=== PATIENT | male | born 1940 | race Caucasian/White ===

== ENCOUNTER 2018-07-25 06:45 | Inpatient (IN) ==
[2018-07-25 07:35] LABS: Hematocrit 47.5 % (39.0-51.0); Hemoglobin 16.8 gm/dL (13.0-17.0); Mean Corpuscular HGB Conc 35.3 % (32.0-36.0); Mean Corpuscular Hemoglobin 32.3 pg (27.0-34.0); Mean Corpuscular Volume 91.4 fL (80.0-100.0); Mean Platelet Volume 7.6 fL (7.0-11.0); Platelet Count 381 th/mm3 (150-450); Red Cell Distribution Width 12.9 % (11.6-17.2); White Blood Count 37.3 th/mm3 (4.0-11.0)
[2018-07-25] MEDS ORDERED: Sod Chloride 0.9% Inj 1,000 ML IV.SIG ONE ×2 (07:38→09:15)
[2018-07-25 07:45] LABS: Chloride 105 meq/L (98-107); Sodium 136 meq/L (136-145)
[2018-07-25 07:48] LABS: Calcium 8.8 mg/dL (8.5-10.1)
[2018-07-25 07:49] LABS: Albumin 3.1 g/dL (3.4-5.0); Anion Gap 11 meq/L (5-15); Blood Urea Nitrogen 29 mg/dL (7-18); Carbon Dioxide 20.2 meq/L (21.0-32.0); Glucose,Random 139 mg/dL (74-106)
[2018-07-25 07:51] LABS: Alanine Aminotransferase 349 U/L (12-78)
[2018-07-25 07:52] LABS: Aspartate Aminotransferase 503 U/L (15-37); Glomerular Filtration Rate 72 mL/min (>89)
[2018-07-25 07:53] LABS: Potassium 4.1 meq/L (3.5-5.1); Total Protein 7.1 g/dL (6.4-8.2)
[2018-07-25 07:54] LABS: Alkaline Phosphatase 68 U/L (45-117)
--- NOTE | 2018-07-25 07:54 | ED ---
HPI General Chief complaint: Abdominal Pain Stated complaint: abd pain/vomiting Time Seen by Provider: 07/25/18 07:37 History of Present Illness HPI narrative: 77 male history of gallstones here for evaluation of abdominal pain in the right upper quadrant since yesterday at 12:00 in the morning. Patient had pins and 2 beers last night since then he has been having abdominal pain he usually does not drink, he has history of hypertension, he had one episode of vomiting since yesterday the nonbilious number. He rates the pain in 15 out of 10, located on the right upper quadrant, no fever or chills. Related Data Home Medications Medication Instructions Recorded Confirmed aspirin 81 mg PO DAILY 07/25/18 07/25/18 bimatoprost [Lumigan] 1 drp OPHTHALMIC (EYE) QPM 07/25/18 07/25/18 cholecalciferol (vitamin D3) 2,000 unit PO DAILY 07/25/18 07/25/18 [Vitamin D3] dorzolamide-timolol [Cosopt] 1 drp OPHTHALMIC (EYE) BID 07/25/18 07/25/18 evolocumab [Repatha Syringe] 140 mg SUB-Q Q2W 07/25/18 07/25/18 ezetimibe [Zetia] 40 mg PO DAILY 07/25/18 07/25/18 lisinopril 5 mg PO DAILY 07/25/18 07/25/18 methylprednisolone [Medrol (Harris)] See Taper PO PER PKG DIR 07/25/18 metoprolol succinate [Toprol XL] 50 mg PO DAILY 07/25/18 07/25/18 omeprazole 20 mg PO DAILY 07/25/18 07/25/18 Allergies Allergy/AdvReac Type Severity Reaction Status Date / Time SHINGLES VACCINE Allergy Rash Uncoded 07/25/18 07:53 Review of Systems ROS: all other systems reviewed are negative [facility] Medical History Medical History Chronic gastroesophageal reflux disease (Acute) History of cataract (Acute) Nephrolithiasis (Acute) Pars defect of lumbar spine (Acute) CAD (coronary artery disease) (Acute) Cholelithiasis (Acute) Glaucoma (Acute) High cholesterol (Acute) Hypertension (Acute) Surgical History Surgical History History of bladder surgery (Acute) History of total left knee replacement (TKR) (Acute) H/O knee surgery (Acute) History of appendectomy (Acute) Hx of CABG (Acute) Family History Family History Sister Crohn disease Social History Social History Substance History: No History of Abuse Second Hand Smoke Exposure: No Smoking Status: Never smoker How Often Do You Have a Drink Containing Alcohol: Never Recent Travel in [facility] within the Last 8 Weeks: Yes Immunization History Tetanus Immunization: Unsure Hx Influenza Vaccine This Season: Yes Exam Narrative Exam Narrative: GENERAL: Alert oriented 3 no acute distress. SKIN: Focused skin assessment warm/dry. HEAD: Atraumatic. Normocephalic. EYES: Pupils equal and round. No scleral icterus. No injection or drainage. ENT: No nasal bleeding or discharge. Mucous membranes pink and moist. NECK: Trachea midline. No JVD. CARDIOVASCULAR: Regular rate and rhythm. No murmur appreciated. RESPIRATORY: No accessory muscle use. Clear to auscultation. Breath sounds equal bilaterally. GASTROINTESTINAL: Distended, tenderness without rebound over the right and left upper quadrant, no skin lesions, bowel sounds present, abdomen soft, n MUSCULOSKELETAL: No obvious deformities. No clubbing. No cyanosis. No edema. NEUROLOGICAL: Awake and alert. No obvious cranial nerve deficits. Motor grossly within normal limits. Normal speech. PSYCHIATRIC: Appropriate mood and affect; insight and judgment normal. Course Initial Documented Vital Signs Pulse Rate 47 L 07/25/18 06:50 Respiratory Rate 18 07/25/18 06:50 Blood Pressure 177/81 H 07/25/18 06:50 Pulse Oximetry 96 07/25/18 06:50 Last Documented Vital Signs Temperature 96.6 F L 07/29/18 06:00 Pulse Rate 73 07/29/18 06:00 Respiratory Rate 18 07/29/18 07:37 Blood Pressure 96/50 L 07/29/18 06:00 Pulse Oximetry 84 L 07/29/18 06:00 Medical Decision Making [facility] Narrative Medical decision making narrative: 77 male history of gallstones here for evaluation of right upper quadrant pain. Lipase markedly elevated greater than 30,000, elevated direct and total bilirubin, elevated liver enzymes, concerning for common bile duct obstruction, differential include CBD stone vs ascending cholangitis. Patient received multiple morphine doses for pain control and continue to have pain. Markedly elevated blood pressure which could be due to the pain. Patient received 2 bolus of IV fluids and zosyn empirically. I spoke with dr. Martinez who was able to speak to GI and the plan is [place] [facility] [place] Medical Screen Exam Complete: Yes Emergency Medical Condition: Yes Lab Data Result diagrams: 07/29/18 03:45 07/29/18 03:45 Lab Results 07/25/18 07/25/18 07/25/18 Range/Units 07:30 07:30 07:30 CBC w Diff Slide review pending WBC 37.3 H (4.0-11.0) th/mm3 RBC 5.20 (4.50-5.90) mil/mm3 Hgb 16.8 (13.0-17.0) gm/dL Hct 47.5 (39.0-51.0) % MCV 91.4 (80.0-100.0) fL MCH 32.3 (27.0-34.0) pg MCHC 35.3 (32.0-36.0) % RDW 12.9 (11.6-17.2) % Plt Count 381 (150-450) th/mm3 MPV 7.6 (7.0-11.0) fL Prelim Diff (Auto) Neut % (Auto) (16.0-70.0) % Lymph % (Auto) (9.0-44.0) % Miner % (Auto) (0.0-8.0) % Eos % (Auto) (0.0-4.0) % Baso % (Auto) (0.0-2.0) % Neut # (Auto) (1.8-7.7) th/mm3 Lymph # (Auto) (1.0-4.8) th/mm3 Miner # (Auto) (0.0-0.9) th/mm3 Eos # (Auto) (0.0-0.4) th/mm3 Baso # (Auto) (0.0-0.2) th/mm3 WBC Differential Manual diff final Seg Neuts % (Manual) 78 H (16-70) % Band Neuts % (Manual) 6 (0-6) % Lymphocytes % (Manual) 5 L (9-44) % Monocytes % (Manual) 5 (0-8) % Metamyelocytes % (Man) 4 H (0-1) % Myelocytes % (Man) 2 H (0-0) % Promyelocytes % (Man) (0-0) % Blast Cells % (Manual) (0-0) % Abs Neuts (Manual) 33.6 H (1.8-7.7) th/mm3 Nucleated RBCs/100 WBC (0-0) /100 WBC Differential Comment . Toxic Vacuolation (None) Dohle Bodies (None) Platelet Estimate Normal (Normal) Platelet Morphology Normal (Normal) Pappenheimer Bodies (None) PT (9.8-11.6) sec INR Ratio APTT (24.3-30.1) sec Fibrinogen (227-377) mg/dL Puncture Site Patient Temperature O2 Saturation (90-100) % ABG pH (7.380-7.420) ABG pCO2 (38-42) mmHg ABG pO2 (61-120) mmHG ABG HCO3 (22-26) mmol/L ABG O2 Content (12.0-20.0) Vol % ABG Base Excess (-2-2) mmol/L ABG Methemoglobin (0-2) % Gaudencio Test VBG pH (7.360-7.400) VBG pCO2 (44-48) mmHG VBG pO2 (35-40) mmHG VBG HCO3 (22-26) mmol/L VBG O2 Saturation (70-76) % VBG O2 Content (9.0-17.0) Vol % VBG Base Excess (-2-2) mmol/L VBG Carboxyhemoglobin (0-4) % VBG Methemoglobin (0-2) % Hemoglobin (12.0-16.0) G/DL Carboxyhemoglobin (0-4) % O2 Delivery Device Vent Setting Inspired O2 % Critical Value Sodium 136 (136-145) meq/L Potassium 4.1 (3.5-5.1) meq/L Chloride 105 (98-107) meq/L Carbon Dioxide 20.2 L (21.0-32.0) meq/L Anion Gap 11 (5-15) meq/L BUN 29 H (7-18) mg/dL Creatinine 1.00 (0.60-1.30) mg/dL Estimated GFR 72 L (>89) mL/min POC Glucose (68-110) mg/dl Random Glucose 139 H (74-106) mg/dL Lactic Acid (0.4-2.0) mmol/L Calcium 8.8 (8.5-10.1) mg/dL Prot Corrected Calcium (8.5-10.1) mg/dL Phosphorus (2.5-4.9) mg/dL Magnesium (1.5-2.5) mg/dL Total Bilirubin 2.3 H (0.2-1.0) mg/dL Direct Bilirubin 1.0 H (0.0-0.2) mg/dL AST 503 H (15-37) U/L ALT 349 H (12-78) U/L Alkaline Phosphatase 68 (45-117) U/L Ammonia (11-32) mcmol/L Total Creatine Kinase (39-308) U/L CK-MB (CK-2) (0.5-3.6) ng/mL CK-MB (CK-2) % (0.0-4.0) % Troponin I (0.02-0.05) ng/mL Total Protein 7.1 (6.4-8.2) g/dL Albumin 3.1 L (3.4-5.0) g/dL Triglycerides (42-150) mg/dL Lipase Greater [place] [address] H (73-393) U/L TSH (0.358-3.740) uIU/mL Urine Color (Yellw/Straw) Urine Clarity (Clear) Urine pH (5.0-8.5) Ur Specific [place] (1.002-1.035) Urine Protein (Neg-Trace) mg/dL Urine Glucose (UA) (Negative) mg/dL Urine Ketones (Negative) mg/dL Urine Occult Blood (Negative) Urine Nitrate (Negative) Urine Bilirubin (Negative) Urine Urobilinogen (Less than 2) mg/dL Ur Leukocyte Esterase (Negative) Urine RBC (0-3) /hpf Urine WBC (0-5) /hpf Amorphous Sediment (None) /hpf Urine Bacteria (None) /hpf Urine Sperm (None) /hpf Micro UA Comment Ur Microscopic Review Urine Culture Comments Urine Eosinophils (None Seen) /HPF Urine Osmolality (300-1300) mosm/kg Ur Random Creatinine (27-300) mg/dL Ur Random Sodium meq/L Nasal Screen MRSA (PCR) (Negative) Blood Type Antibody Screen MTS Gel Crossmatch Blood Bank Comment Bld Prod Order Comment 07/25/18 07/26/18 07/26/18 Range/Units 13:00 07:28 07:28 CBC w Diff WBC 23.0 H (4.0-11.0) th/mm3 RBC 5.31 (4.50-5.90) mil/mm3 Hgb 16.7 (13.0-17.0) gm/dL Hct 49.3 (39.0-51.0) % MCV 93.0 (80.0-100.0) fL MCH 31.4 (27.0-34.0) pg MCHC 33.8 (32.0-36.0) % RDW 13.7 (11.6-17.2) % Plt Count 209 D (150-450) th/mm3 MPV 7.6 (7.0-11.0) fL Prelim Diff (Auto) Neut % (Auto) 90.1 H (16.0-70.0) % Lymph % (Auto) 3.8 L (9.0-44.0) % Miner % (Auto) 6.0 (0.0-8.0) % Eos % (Auto) 0.0 (0.0-4.0) % Baso % (Auto) 0.1 (0.0-2.0) % Neut # (Auto) 20.7 H (1.8-7.7) th/mm3 Lymph # (Auto) 0.9 L (1.0-4.8) th/mm3 Miner # (Auto) 1.4 H (0.0-0.9) th/mm3 Eos # (Auto) 0.0 (0.0-0.4) th/mm3 Baso # (Auto) 0.0 (0.0-0.2) th/mm3 WBC Differential . Seg Neuts % (Manual) (16-70) % Band Neuts % (Manual) (0-6) % Lymphocytes % (Manual) (9-44) % Monocytes % (Manual) (0-8) % Metamyelocytes % (Man) (0-1) % Myelocytes % (Man) (0-0) % Promyelocytes % (Man) (0-0) % Blast Cells % (Manual) (0-0) % Abs Neuts (Manual) (1.8-7.7) th/mm3 Nucleated RBCs/100 WBC (0-0) /100 WBC Differential Comment Auto diff final Toxic Vacuolation (None) Dohle Bodies (None) Platelet Estimate (Normal) Platelet Morphology (Normal) Pappenheimer Bodies (None) PT (9.8-11.6) sec INR Ratio APTT (24.3-30.1) sec Fibrinogen (227-377) mg/dL Puncture Site Patient Temperature O2 Saturation (90-100) % ABG pH (7.380-7.420) ABG pCO2 (38-42) mmHg ABG pO2 (61-120) mmHG ABG HCO3 (22-26) mmol/L ABG O2 Content (12.0-20.0) Vol % ABG Base Excess (-2-2) mmol/L ABG Methemoglobin (0-2) % Gaudencio Test VBG pH (7.360-7.400) VBG pCO2 (44-48) mmHG VBG pO2 (35-40) mmHG VBG HCO3 (22-26) mmol/L VBG O2 Saturation (70-76) % VBG O2 Content (9.0-17.0) Vol % VBG Base Excess (-2-2) mmol/L VBG Carboxyhemoglobin (0-4) % VBG Methemoglobin (0-2) % Hemoglobin (12.0-16.0) G/DL Carboxyhemoglobin (0-4) % O2 Delivery Device Vent Setting Inspired O2 % Critical Value Sodium 142 (136-145) meq/L Potassium 5.0 D (3.5-5.1) meq/L Chloride 110 H (98-107) meq/L Carbon Dioxide 20.6 L (21.0-32.0) meq/L Anion Gap 11 (5-15) meq/L BUN 40 H (7-18) mg/dL Creatinine 2.10 H (0.60-1.30) mg/dL Estimated GFR 31 L (>89) mL/min POC Glucose (68-110) mg/dl Random Glucose 106 (74-106) mg/dL Lactic Acid (0.4-2.0) mmol/L Calcium 6.8 L* D (8.5-10.1) mg/dL Prot Corrected Calcium 7.4 L* (8.5-10.1) mg/dL Phosphorus (2.5-4.9) mg/dL Magnesium (1.5-2.5) mg/dL Total Bilirubin 12.2 H (0.2-1.0) mg/dL Direct Bilirubin (0.0-0.2) mg/dL AST 246 H (15-37) U/L ALT 301 H (12-78) U/L Alkaline Phosphatase 73 (45-117) U/L Ammonia (11-32) mcmol/L Total Creatine Kinase (39-308) U/L CK-MB (CK-2) (0.5-3.6) ng/mL CK-MB (CK-2) % (0.0-4.0) % Troponin I (0.02-0.05) ng/mL Total Protein 6.0 L D (6.4-8.2) g/dL Albumin 2.6 L (3.4-5.0) g/dL Triglycerides 82 (42-150) mg/dL Lipase (73-393) U/L TSH (0.358-3.740) uIU/mL Urine Color (Yellw/Straw) Urine Clarity (Clear) Urine pH (5.0-8.5) Ur Specific [place] (1.002-1.035) Urine Protein (Neg-Trace) mg/dL Urine Glucose (UA) (Negative) mg/dL Urine Ketones (Negative) mg/dL Urine Occult Blood (Negative) Urine Nitrate (Negative) Urine Bilirubin (Negative) Urine Urobilinogen (Less than 2) mg/dL Ur Leukocyte Esterase (Negative) Urine RBC (0-3) /hpf Urine WBC (0-5) /hpf Amorphous Sediment (None) /hpf Urine Bacteria (None) /hpf Urine Sperm (None) /hpf Micro UA Comment Ur Microscopic Review Urine Culture Comments Urine Eosinophils (None Seen) /HPF Urine Osmolality (300-1300) mosm/kg Ur Random Creatinine (27-300) mg/dL Ur Random Sodium meq/L Nasal Screen MRSA (PCR) (Negative) Blood Type Antibody Screen MTS Gel Crossmatch Blood Bank Comment Bld Prod Order Comment 07/26/18 07/26/18 07/26/18 Range/Units 13:45 13:45 13:45 CBC w Diff WBC 28.7 H (4.0-11.0) th/mm3 RBC 4.54 (4.50-5.90) mil/mm3 Hgb 14.3 D (13.0-17.0) gm/dL Hct 45.0 (39.0-51.0) % MCV 99.0 D (80.0-100.0) fL MCH 31.4 (27.0-34.0) pg MCHC 31.7 L (32.0-36.0) % RDW 15.1 (11.6-17.2) % Plt Count 210 (150-450) th/mm3 MPV 7.9 (7.0-11.0) fL Prelim Diff (Auto) Slide review pending Neut % (Auto) 89.3 H (16.0-70.0) % Lymph % (Auto) 5.6 L (9.0-44.0) % Miner % (Auto) 4.6 (0.0-8.0) % Eos % (Auto) 0.2 (0.0-4.0) % Baso % (Auto) 0.3 (0.0-2.0) % Neut # (Auto) 25.6 H (1.8-7.7) th/mm3 Lymph # (Auto) 1.6 (1.0-4.8) th/mm3 Miner # (Auto) 1.3 H (0.0-0.9) th/mm3 Eos # (Auto) 0.1 (0.0-0.4) th/mm3 Baso # (Auto) 0.1 (0.0-0.2) th/mm3 WBC Differential Manual diff final Seg Neuts % (Manual) 75 H (16-70) % Band Neuts % (Manual) 16 H (0-6) % Lymphocytes % (Manual) 5 L (9-44) % Monocytes % (Manual) 1 (0-8) % Metamyelocytes % (Man) 3 H (0-1) % Myelocytes % (Man) (0-0) % Promyelocytes % (Man) (0-0) % Blast Cells % (Manual) (0-0) % Abs Neuts (Manual) 27.0 H (1.8-7.7) th/mm3 Nucleated RBCs/100 WBC (0-0) /100 WBC Differential Comment . Toxic Vacuolation (None) Dohle Bodies (None) Platelet Estimate (Normal) Platelet Morphology (Normal) Pappenheimer Bodies (None) PT (9.8-11.6) sec INR Ratio APTT (24.3-30.1) sec Fibrinogen (227-377) mg/dL Puncture Site Patient Temperature O2 Saturation (90-100) % ABG pH (7.380-7.420) ABG pCO2 (38-42) mmHg ABG pO2 (61-120) mmHG ABG HCO3 (22-26) mmol/L ABG O2 Content (12.0-20.0) Vol % ABG Base Excess (-2-2) mmol/L ABG Methemoglobin (0-2) % Gaudencio Test VBG pH (7.360-7.400) VBG pCO2 (44-48) mmHG VBG pO2 (35-40) mmHG VBG HCO3 (22-26) mmol/L VBG O2 Saturation (70-76) % VBG O2 Content (9.0-17.0) Vol % VBG Base Excess (-2-2) mmol/L VBG Carboxyhemoglobin (0-4) % VBG Methemoglobin (0-2) % Hemoglobin (12.0-16.0) G/DL Carboxyhemoglobin (0-4) % O2 Delivery Device Vent Setting Inspired O2 % Critical Value Sodium 145 (136-145) meq/L Potassium 5.2 H (3.5-5.1) meq/L Chloride 109 H (98-107) meq/L Carbon Dioxide 12.0 L (21.0-32.0) meq/L Anion Gap 24 H (5-15) meq/L BUN 42 H (7-18) mg/dL Creatinine 3.23 H (0.60-1.30) mg/dL Estimated GFR 19 L (>89) mL/min POC Glucose (68-110) mg/dl Random Glucose 56 L (74-106) mg/dL Lactic Acid 15.1 H* (0.4-2.0) mmol/L Calcium 6.3 L* (8.5-10.1) mg/dL Prot Corrected Calcium 7.4 L* (8.5-10.1) mg/dL Phosphorus 9.9 H (2.5-4.9) mg/dL Magnesium 2.4 (1.5-2.5) mg/dL Total Bilirubin 7.8 H (0.2-1.0) mg/dL Direct Bilirubin (0.0-0.2) mg/dL AST 1426 H (15-37) U/L ALT 1143 H (12-78) U/L Alkaline Phosphatase 83 (45-117) U/L Ammonia (11-32) mcmol/L Total Creatine Kinase 612 H (39-308) U/L CK-MB (CK-2) 14.3 H (0.5-3.6) ng/mL CK-MB (CK-2) % 2.3 (0.0-4.0) % Troponin I 0.49 H (0.02-0.05) ng/mL Total Protein 4.8 L D (6.4-8.2) g/dL Albumin 1.9 L D (3.4-5.0) g/dL Triglycerides (42-150) mg/dL Lipase (73-393) U/L TSH (0.358-3.740) uIU/mL Urine Color (Yellw/Straw) Urine Clarity (Clear) Urine pH (5.0-8.5) Ur Specific [place] (1.002-1.035) Urine Protein (Neg-Trace) mg/dL Urine Glucose (UA) (Negative) mg/dL Urine Ketones (Negative) mg/dL Urine Occult Blood (Negative) Urine Nitrate (Negative) Urine Bilirubin (Negative) Urine Urobilinogen (Less than 2) mg/dL Ur Leukocyte Esterase (Negative) Urine RBC (0-3) /hpf Urine WBC (0-5) /hpf Amorphous Sediment (None) /hpf Urine Bacteria (None) /hpf Urine Sperm (None) /hpf Micro UA Comment Ur Microscopic Review Urine Culture Comments Urine Eosinophils (None Seen) /HPF Urine Osmolality (300-1300) mosm/kg Ur Random Creatinine (27-300) mg/dL Ur Random Sodium meq/L Nasal Screen MRSA (PCR) (Negative) Blood Type Antibody Screen MTS Gel Crossmatch Blood Bank Comment Bld Prod Order Comment 07/26/18 07/26/18 07/26/18 Range/Units 13:45 13:45 13:45 CBC w Diff WBC (4.0-11.0) th/mm3 RBC (4.50-5.90) mil/mm3 Hgb (13.0-17.0) gm/dL Hct (39.0-51.0) % MCV (80.0-100.0) fL MCH (27.0-34.0) pg MCHC (32.0-36.0) % RDW (11.6-17.2) % Plt Count (150-450) th/mm3 MPV (7.0-11.0) fL Prelim Diff (Auto) Neut % (Auto) (16.0-70.0) % Lymph % (Auto) (9.0-44.0) % Miner % (Auto) (0.0-8.0) % Eos % (Auto) (0.0-4.0) % Baso % (Auto) (0.0-2.0) % Neut # (Auto) (1.8-7.7) th/mm3 Lymph # (Auto) (1.0-4.8) th/mm3 Miner # (Auto) (0.0-0.9) th/mm3 Eos # (Auto) (0.0-0.4) th/mm3 Baso # (Auto) (0.0-0.2) th/mm3 WBC Differential Seg Neuts % (Manual) (16-70) % Band Neuts % (Manual) (0-6) % Lymphocytes % (Manual) (9-44) % Monocytes % (Manual) (0-8) % Metamyelocytes % (Man) (0-1) % Myelocytes % (Man) (0-0) % Promyelocytes % (Man) (0-0) % Blast Cells % (Manual) (0-0) % Abs Neuts (Manual) (1.8-7.7) th/mm3 Nucleated RBCs/100 WBC (0-0) /100 WBC Differential Comment Toxic Vacuolation (None) Dohle Bodies (None) Platelet Estimate (Normal) Platelet Morphology (Normal) Pappenheimer Bodies (None) PT 16.1 H (9.8-11.6) sec INR 1.6 Ratio APTT 39.8 H (24.3-30.1) sec Fibrinogen 401 H (227-377) mg/dL Puncture Site Patient Temperature O2 Saturation (90-100) % ABG pH (7.380-7.420) ABG pCO2 (38-42) mmHg ABG pO2 (61-120) mmHG ABG HCO3 (22-26) mmol/L ABG O2 Content (12.0-20.0) Vol % ABG Base Excess (-2-2) mmol/L ABG Methemoglobin (0-2) % Gaudencio Test VBG pH (7.360-7.400) VBG pCO2 (44-48) mmHG VBG pO2 (35-40) mmHG VBG HCO3 (22-26) mmol/L VBG O2 Saturation (70-76) % VBG O2 Content (9.0-17.0) Vol % VBG Base Excess (-2-2) mmol/L VBG Carboxyhemoglobin (0-4) % VBG Methemoglobin (0-2) % Hemoglobin (12.0-16.0) G/DL Carboxyhemoglobin (0-4) % O2 Delivery Device Vent Setting Inspired O2 % Critical Value Sodium (136-145) meq/L Potassium (3.5-5.1) meq/L Chloride (98-107) meq/L Carbon Dioxide (21.0-32.0) meq/L Anion Gap (5-15) meq/L BUN (7-18) mg/dL Creatinine (0.60-1.30) mg/dL Estimated GFR (>89) mL/min POC Glucose (68-110) mg/dl Random Glucose (74-106) mg/dL Lactic Acid Cancelled (0.4-2.0) mmol/L Calcium (8.5-10.1) mg/dL Prot Corrected Calcium (8.5-10.1) mg/dL Phosphorus (2.5-4.9) mg/dL Magnesium (1.5-2.5) mg/dL Total Bilirubin (0.2-1.0) mg/dL Direct Bilirubin (0.0-0.2) mg/dL AST (15-37) U/L ALT (12-78) U/L Alkaline Phosphatase (45-117) U/L Ammonia (11-32) mcmol/L Total Creatine Kinase (39-308) U/L CK-MB (CK-2) (0.5-3.6) ng/mL CK-MB (CK-2) % (0.0-4.0) % Troponin I (0.02-0.05) ng/mL Total Protein (6.4-8.2) g/dL Albumin (3.4-5.0) g/dL Triglycerides (42-150) mg/dL Lipase (73-393) U/L TSH (0.358-3.740) uIU/mL Urine Color (Yellw/Straw) Urine Clarity (Clear) Urine pH (5.0-8.5) Ur Specific [place] (1.002-1.035) Urine Protein (Neg-Trace) mg/dL Urine Glucose (UA) (Negative) mg/dL Urine Ketones (Negative) mg/dL Urine Occult Blood (Negative) Urine Nitrate (Negative) Urine Bilirubin (Negative) Urine Urobilinogen (Less than 2) mg/dL Ur Leukocyte Esterase (Negative) Urine RBC (0-3) /hpf Urine WBC (0-5) /hpf Amorphous Sediment (None) /hpf Urine Bacteria (None) /hpf Urine Sperm (None) /hpf Micro UA Comment Ur Microscopic Review Urine Culture Comments Urine Eosinophils (None Seen) /HPF Urine Osmolality (300-1300) mosm/kg Ur Random Creatinine (27-300) mg/dL Ur Random Sodium meq/L Nasal Screen MRSA (PCR) (Negative) Blood Type Antibody Screen MTS Gel Crossmatch Blood Bank Comment Bld Prod Order Comment 07/26/18 07/26/18 07/26/18 Range/Units 13:50 15:15 15:15 CBC w Diff WBC (4.0-11.0) th/mm3 RBC (4.50-5.90) mil/mm3 Hgb (13.0-17.0) gm/dL Hct (39.0-51.0) % MCV (80.0-100.0) fL MCH (27.0-34.0) pg MCHC (32.0-36.0) % RDW (11.6-17.2) % Plt Count (150-450) th/mm3 MPV (7.0-11.0) fL Prelim Diff (Auto) Neut % (Auto) (16.0-70.0) % Lymph % (Auto) (9.0-44.0) % Miner % (Auto) (0.0-8.0) % Eos % (Auto) (0.0-4.0) % Baso % (Auto) (0.0-2.0) % Neut # (Auto) (1.8-7.7) th/mm3 Lymph # (Auto) (1.0-4.8) th/mm3 [place]er # (Auto) (0.0-0.9) th/mm3 Eos # (Auto) (0.0-0.4) th/mm3 Baso # (Auto) (0.0-0.2) th/mm3 WBC Differential Seg Neuts % (Manual) (16-70) % Band Neuts % (Manual) (0-6) % Lymphocytes % (Manual) (9-44) % Monocytes % (Manual) (0-8) % Metamyelocytes % (Man) (0-1) % Myelocytes % (Man) (0-0) % Promyelocytes % (Man) (0-0) % Blast Cells % (Manual) (0-0) % Abs Neuts (Manual) (1.8-7.7) th/mm3 Nucleated RBCs/100 WBC (0-0) /100 WBC Differential Comment Toxic Vacuolation (None) Dohle Bodies (None) Platelet Estimate (Normal) Platelet Morphology (Normal) Pappenheimer Bodies (None) PT (9.8-11.6) sec INR Ratio APTT (24.3-30.1) sec Fibrinogen (227-377) mg/dL Puncture Site Right radial Patient Temperature 98.6 O2 Saturation 96 (90-100) % ABG pH 7.00 L* (7.380-7.420) ABG pCO2 38 (38-42) mmHg ABG pO2 181 H (61-120) mmHG ABG HCO3 9 L* (22-26) mmol/L ABG O2 Content 20.9 H (12.0-20.0) Vol % ABG Base Excess -20.2 L (-2-2) mmol/L ABG Methemoglobin 1.5 (0-2) % Gaudencio Test Present VBG pH (7.360-7.400) VBG pCO2 (44-48) mmHG VBG pO2 (35-40) mmHG VBG HCO3 (22-26) mmol/L VBG O2 Saturation (70-76) % VBG O2 Content (9.0-17.0) Vol % VBG Base Excess (-2-2) mmol/L VBG Carboxyhemoglobin (0-4) % VBG Methemoglobin (0-2) % Hemoglobin 15.3 (12.0-16.0) G/DL Carboxyhemoglobin 0.0 (0-4) % O2 Delivery Device Ventilator Vent Setting Ac20/550/+10 Inspired O2 100 % Critical Value Yes Sodium (136-145) meq/L Potassium (3.5-5.1) meq/L Chloride (98-107) meq/L Carbon Dioxide (21.0-32.0) meq/L Anion Gap (5-15) meq/L BUN (7-18) mg/dL Creatinine (0.60-1.30) mg/dL Estimated GFR (>89) mL/min POC Glucose (68-110) mg/dl Random Glucose (74-106) mg/dL Lactic Acid (0.4-2.0) mmol/L Calcium (8.5-10.1) mg/dL Prot Corrected Calcium (8.5-10.1) mg/dL Phosphorus (2.5-4.9) mg/dL Magnesium (1.5-2.5) mg/dL Total Bilirubin (0.2-1.0) mg/dL Direct Bilirubin (0.0-0.2) mg/dL AST (15-37) U/L ALT (12-78) U/L Alkaline Phosphatase (45-117) U/L Ammonia (11-32) mcmol/L Total Creatine Kinase (39-308) U/L CK-MB (CK-2) (0.5-3.6) ng/mL CK-MB (CK-2) % (0.0-4.0) % Troponin I (0.02-0.05) ng/mL Total Protein (6.4-8.2) g/dL Albumin (3.4-5.0) g/dL Triglycerides (42-150) mg/dL Lipase (73-393) U/L TSH (0.358-3.740) uIU/mL Urine Color Dark-yellow H (Yellw/Straw) Urine Clarity Cloudy H (Clear) Urine pH 6.0 (5.0-8.5) Ur Specific [place] 1.027 (1.002-1.035) Urine Protein 100 H (Neg-Trace) mg/dL Urine Glucose (UA) Negative (Negative) mg/dL Urine Ketones Negative (Negative) mg/dL Urine Occult Blood Large H (Negative) Urine Nitrate Negative (Negative) Urine Bilirubin Negative (Negative) Urine Urobilinogen Less than 2 (Less than 2) mg/dL Ur Leukocyte Esterase Negative (Negative) Urine RBC 15 H (0-3) /hpf Urine WBC 4 (0-5) /hpf Amorphous Sediment Rare H (None) /hpf Urine Bacteria (None) /hpf Urine Sperm Many H (None) /hpf Micro UA Comment Culture not ind Ur Microscopic Review Not Reportable Urine Culture Comments Culture not ind Urine Eosinophils (None Seen) /HPF Urine Osmolality (300-1300) mosm/kg Ur Random Creatinine 118 (27-300) mg/dL Ur Random Sodium meq/L Nasal Screen MRSA (PCR) (Negative) Blood Type Antibody Screen MTS Gel Crossmatch Blood Bank Comment Bld Prod Order Comment 07/26/18 07/26/18 07/26/18 Range/Units 15:15 15:15 15:45 CBC w Diff WBC (4.0-11.0) th/mm3 RBC (4.50-5.90) mil/mm3 Hgb (13.0-17.0) gm/dL Hct (39.0-51.0) % MCV (80.0-100.0) fL MCH (27.0-34.0) pg MCHC (32.0-36.0) % RDW (11.6-17.2) % Plt Count (150-450) th/mm3 MPV (7.0-11.0) fL Prelim Diff (Auto) Neut % (Auto) (16.0-70.0) % Lymph % (Auto) (9.0-44.0) % Miner % (Auto) (0.0-8.0) % Eos % (Auto) (0.0-4.0) % Baso % (Auto) (0.0-2.0) % Neut # (Auto) (1.8-7.7) th/mm3 Lymph # (Auto) (1.0-4.8) th/mm3 Miner # (Auto) (0.0-0.9) th/mm3 Eos # (Auto) (0.0-0.4) th/mm3 Baso # (Auto) (0.0-0.2) th/mm3 WBC Differential Seg Neuts % (Manual) (16-70) % Band Neuts % (Manual) (0-6) % Lymphocytes % (Manual) (9-44) % Monocytes % (Manual) (0-8) % Metamyelocytes % (Man) (0-1) % Myelocytes % (Man) (0-0) % Promyelocytes % (Man) (0-0) % Blast Cells % (Manual) (0-0) % Abs Neuts (Manual) (1.8-7.7) th/mm3 Nucleated RBCs/100 WBC (0-0) /100 WBC Differential Comment Toxic Vacuolation (None) Dohle Bodies (None) Platelet Estimate (Normal) Platelet Morphology (Normal) Pappenheimer Bodies (None) PT (9.8-11.6) sec INR Ratio APTT (24.3-30.1) sec Fibrinogen (227-377) mg/dL Puncture Site Patient Temperature O2 Saturation (90-100) % ABG pH (7.380-7.420) ABG pCO2 (38-42) mmHg ABG pO2 (61-120) mmHG ABG HCO3 (22-26) mmol/L ABG O2 Content (12.0-20.0) Vol % ABG Base Excess (-2-2) mmol/L ABG Methemoglobin (0-2) % Gaudencio Test VBG pH (7.360-7.400) VBG pCO2 (44-48) mmHG VBG pO2 (35-40) mmHG VBG HCO3 (22-26) mmol/L VBG O2 Saturation (70-76) % VBG O2 Content (9.0-17.0) Vol % VBG Base Excess (-2-2) mmol/L VBG Carboxyhemoglobin (0-4) % VBG Methemoglobin (0-2) % Hemoglobin (12.0-16.0) G/DL Carboxyhemoglobin (0-4) % O2 Delivery Device Vent Setting Inspired O2 % Critical Value Sodium (136-145) meq/L Potassium (3.5-5.1) meq/L Chloride (98-107) meq/L Carbon Dioxide (21.0-32.0) meq/L Anion Gap (5-15) meq/L BUN (7-18) mg/dL Creatinine (0.60-1.30) mg/dL Estimated GFR (>89) mL/min POC Glucose (68-110) mg/dl Random Glucose (74-106) mg/dL Lactic Acid (0.4-2.0) mmol/L Calcium (8.5-10.1) mg/dL Prot Corrected Calcium (8.5-10.1) mg/dL Phosphorus (2.5-4.9) mg/dL Magnesium (1.5-2.5) mg/dL Total Bilirubin (0.2-1.0) mg/dL Direct Bilirubin (0.0-0.2) mg/dL AST (15-37) U/L ALT (12-78) U/L Alkaline Phosphatase (45-117) U/L Ammonia (11-32) mcmol/L Total Creatine Kinase (39-308) U/L CK-MB (CK-2) (0.5-3.6) ng/mL CK-MB (CK-2) % (0.0-4.0) % Troponin I (0.02-0.05) ng/mL Total Protein (6.4-8.2) g/dL Albumin (3.4-5.0) g/dL Triglycerides (42-150) mg/dL Lipase (73-393) U/L TSH (0.358-3.740) uIU/mL Urine Color (Yellw/Straw) Urine Clarity (Clear) Urine pH (5.0-8.5) Ur Specific [place] (1.002-1.035) Urine Protein (Neg-Trace) mg/dL Urine Glucose (UA) (Negative) mg/dL Urine Ketones (Negative) mg/dL Urine Occult Blood (Negative) Urine Nitrate (Negative) Urine Bilirubin (Negative) Urine Urobilinogen (Less than 2) mg/dL Ur Leukocyte Esterase (Negative) Urine RBC (0-3) /hpf Urine WBC (0-5) /hpf Amorphous Sediment (None) /hpf Urine Bacteria (None) /hpf Urine Sperm (None) /hpf Micro UA Comment Ur Microscopic Review Urine Culture Comments Urine Eosinophils 0-2 H (None Seen) /HPF Urine Osmolality (300-1300) mosm/kg Ur Random Creatinine (27-300) mg/dL Ur Random Sodium 65 meq/L Nasal Screen MRSA (PCR) Not detected (Negative) Blood Type Antibody Screen MTS Gel Crossmatch Blood Bank Comment Bld Prod Order Comment 07/26/18 07/26/18 07/26/18 Range/Units 16:21 16:30 20:40 CBC w Diff WBC (4.0-11.0) th/mm3 RBC (4.50-5.90) mil/mm3 Hgb (13.0-17.0) gm/dL Hct (39.0-51.0) % MCV (80.0-100.0) fL MCH (27.0-34.0) pg MCHC (32.0-36.0) % RDW (11.6-17.2) % Plt Count (150-450) th/mm3 MPV (7.0-11.0) fL Prelim Diff (Auto) Neut % (Auto) (16.0-70.0) % Lymph % (Auto) (9.0-44.0) % Miner % (Auto) (0.0-8.0) % Eos % (Auto) (0.0-4.0) % Baso % (Auto) (0.0-2.0) % Neut # (Auto) (1.8-7.7) th/mm3 Lymph # (Auto) (1.0-4.8) th/mm3 Miner # (Auto) (0.0-0.9) th/mm3 Eos # (Auto) (0.0-0.4) th/mm3 Baso # (Auto) (0.0-0.2) th/mm3 WBC Differential Seg Neuts % (Manual) (16-70) % Band Neuts % (Manual) (0-6) % Lymphocytes % (Manual) (9-44) % Monocytes % (Manual) (0-8) % Metamyelocytes % (Man) (0-1) % Myelocytes % (Man) (0-0) % Promyelocytes % (Man) (0-0) % Blast Cells % (Manual) (0-0) % Abs Neuts (Manual) (1.8-7.7) th/mm3 Nucleated RBCs/100 WBC (0-0) /100 WBC Differential Comment Toxic Vacuolation (None) Dohle Bodies (None) Platelet Estimate (Normal) Platelet Morphology (Normal) Pappenheimer Bodies (None) PT (9.8-11.6) sec INR Ratio APTT (24.3-30.1) sec Fibrinogen (227-377) mg/dL Puncture Site Peculiar Patient Temperature 98.6 O2 Saturation 97 (90-100) % ABG pH 7.26 L* (7.380-7.420) ABG pCO2 21 L* (38-42) mmHg ABG pO2 119 (61-120) mmHG ABG HCO3 9 L* (22-26) mmol/L ABG O2 Content 18.4 (12.0-20.0) Vol % ABG Base Excess -16.6 L (-2-2) mmol/L ABG Methemoglobin 0.7 (0-2) % Gaudencio Test VBG pH (7.360-7.400) VBG pCO2 (44-48) mmHG VBG pO2 (35-40) mmHG VBG HCO3 (22-26) mmol/L VBG O2 Saturation (70-76) % VBG O2 Content (9.0-17.0) Vol % VBG Base Excess (-2-2) mmol/L VBG Carboxyhemoglobin (0-4) % VBG Methemoglobin (0-2) % Hemoglobin 13.4 (12.0-16.0) G/DL Carboxyhemoglobin 0.5 (0-4) % [facility]2 [facility] Inspired O2 100 % Critical Value Yes Sodium 145 (136-145) meq/L Potassium 4.5 (3.5-5.1) meq/L Chloride 106 (98-107) meq/L Carbon Dioxide 13.4 L (21.0-32.0) meq/L Anion Gap 26 H (5-15) meq/L BUN 48 H (7-18) mg/dL Creatinine 3.61 H (0.60-1.30) mg/dL Estimated GFR 16 L (>89) mL/min POC Glucose (68-110) mg/dl Random Glucose 19 L* (74-106) mg/dL Lactic Acid (0.4-2.0) mmol/L Calcium 6.0 L* (8.5-10.1) mg/dL Prot Corrected Calcium 7.0 L* (8.5-10.1) mg/dL Phosphorus (2.5-4.9) mg/dL Magnesium (1.5-2.5) mg/dL Total Bilirubin (0.2-1.0) mg/dL Direct Bilirubin (0.0-0.2) mg/dL AST (15-37) U/L ALT (12-78) U/L Alkaline Phosphatase (45-117) U/L Ammonia (11-32) mcmol/L Total Creatine Kinase 4156 H (39-308) U/L CK-MB (CK-2) 104.4 H (0.5-3.6) ng/mL CK-MB (CK-2) % 2.5 (0.0-4.0) % Troponin I 1.38 H* (0.02-0.05) ng/mL Total Protein 5.0 L (6.4-8.2) g/dL Albumin (3.4-5.0) g/dL Triglycerides (42-150) mg/dL Lipase (73-393) U/L TSH (0.358-3.740) uIU/mL Urine Color (Yellw/Straw) Urine Clarity (Clear) Urine pH (5.0-8.5) Ur Specific [place] (1.002-1.035) Urine Protein (Neg-Trace) mg/dL Urine Glucose (UA) (Negative) mg/dL Urine Ketones (Negative) mg/dL Urine Occult Blood (Negative) Urine Nitrate (Negative) Urine Bilirubin (Negative) Urine Urobilinogen (Less than 2) mg/dL Ur Leukocyte Esterase (Negative) Urine RBC (0-3) /hpf Urine WBC (0-5) /hpf Amorphous Sediment (None) /hpf Urine Bacteria (None) /hpf Urine Sperm (None) /hpf Micro UA Comment Ur Microscopic Review Urine Culture Comments Urine Eosinophils (None Seen) /HPF Urine Osmolality (300-1300) mosm/kg Ur Random Creatinine (27-300) mg/dL Ur Random Sodium meq/L Nasal Screen MRSA (PCR) (Negative) Blood Type Antibody Screen MTS Gel Crossmatch Blood Bank Comment Bld Prod Order Comment 07/26/18 07/26/18 07/26/18 Range/Units 20:40 20:54 22:26 CBC w Diff WBC (4.0-11.0) th/mm3 RBC (4.50-5.90) mil/mm3 Hgb (13.0-17.0) gm/dL Hct (39.0-51.0) % MCV (80.0-100.0) fL MCH (27.0-34.0) pg MCHC (32.0-36.0) % RDW (11.6-17.2) % Plt Count (150-450) th/mm3 MPV (7.0-11.0) fL Prelim Diff (Auto) Neut % (Auto) (16.0-70.0) % Lymph % (Auto) (9.0-44.0) % Miner % (Auto) (0.0-8.0) % Eos % (Auto) (0.0-4.0) % Baso % (Auto) (0.0-2.0) % Neut # (Auto) (1.8-7.7) th/mm3 Lymph # (Auto) (1.0-4.8) th/mm3 Miner # (Auto) (0.0-0.9) th/mm3 Eos # (Auto) (0.0-0.4) th/mm3 Baso # (Auto) (0.0-0.2) th/mm3 WBC Differential Seg Neuts % (Manual) (16-70) % Band Neuts % (Manual) (0-6) % Lymphocytes % (Manual) (9-44) % Monocytes % (Manual) (0-8) % Metamyelocytes % (Man) (0-1) % Myelocytes % (Man) (0-0) % Promyelocytes % (Man) (0-0) % Blast Cells % (Manual) (0-0) % Abs Neuts (Manual) (1.8-7.7) th/mm3 Nucleated RBCs/100 WBC (0-0) /100 WBC Differential Comment Toxic Vacuolation (None) Dohle Bodies (None) Platelet Estimate (Normal) Platelet Morphology (Normal) Pappenheimer Bodies (None) PT (9.8-11.6) sec INR Ratio APTT (24.3-30.1) sec Fibrinogen (227-377) mg/dL Puncture Site Art line Patient Temperature 98.6 O2 Saturation 95 (90-100) % ABG pH 7.36 L (7.380-7.420) ABG pCO2 22 L* (38-42) mmHg ABG pO2 96 (61-120) mmHG ABG HCO3 12 L* (22-26) mmol/L ABG O2 Content 17.1 (12.0-20.0) Vol % ABG Base Excess -12.5 L (-2-2) mmol/L ABG Methemoglobin 1.5 (0-2) % Gaudencio Test Present VBG pH (7.360-7.400) VBG pCO2 (44-48) mmHG VBG pO2 (35-40) mmHG VBG HCO3 (22-26) mmol/L VBG O2 Saturation (70-76) % VBG O2 Content (9.0-17.0) Vol % VBG Base Excess (-2-2) mmol/L VBG Carboxyhemoglobin (0-4) % VBG Methemoglobin (0-2) % Hemoglobin 12.7 (12.0-16.0) G/DL Carboxyhemoglobin 0.5 (0-4) % O2 Delivery Device Ventilator Vent Setting Prvc28/650/0.7/+5 Inspired O2 100 % Critical Value Yes Sodium (136-145) meq/L Potassium (3.5-5.1) meq/L Chloride (98-107) meq/L Carbon Dioxide (21.0-32.0) meq/L Anion Gap (5-15) meq/L BUN (7-18) mg/dL Creatinine (0.60-1.30) mg/dL Estimated GFR (>89) mL/min POC Glucose 93 (68-110) mg/dl Random Glucose (74-106) mg/dL Lactic Acid 14.1 H* (0.4-2.0) mmol/L Calcium (8.5-10.1) mg/dL Prot Corrected Calcium (8.5-10.1) mg/dL Phosphorus (2.5-4.9) mg/dL Magnesium (1.5-2.5) mg/dL Total Bilirubin (0.2-1.0) mg/dL Direct Bilirubin (0.0-0.2) mg/dL AST (15-37) U/L ALT (12-78) U/L Alkaline Phosphatase (45-117) U/L Ammonia (11-32) mcmol/L Total Creatine Kinase (39-308) U/L CK-MB (CK-2) (0.5-3.6) ng/mL CK-MB (CK-2) % (0.0-4.0) % Troponin I (0.02-0.05) ng/mL Total Protein (6.4-8.2) g/dL Albumin (3.4-5.0) g/dL Triglycerides (42-150) mg/dL Lipase (73-393) U/L TSH (0.358-3.740) uIU/mL Urine Color (Yellw/Straw) Urine Clarity (Clear) Urine pH (5.0-8.5) Ur Specific [place] (1.002-1.035) Urine Protein (Neg-Trace) mg/dL Urine Glucose (UA) (Negative) mg/dL Urine Ketones (Negative) mg/dL Urine Occult Blood (Negative) Urine Nitrate (Negative) Urine Bilirubin (Negative) Urine Urobilinogen (Less than 2) mg/dL Ur Leukocyte Esterase (Negative) Urine RBC (0-3) /hpf Urine WBC (0-5) /hpf Amorphous Sediment (None) /hpf Urine Bacteria (None) /hpf Urine Sperm (None) /hpf Micro UA Comment Ur Microscopic Review Urine Culture Comments Urine Eosinophils (None Seen) /HPF Urine Osmolality (300-1300) mosm/kg Ur Random Creatinine (27-300) mg/dL Ur Random Sodium meq/L Nasal Screen MRSA (PCR) (Negative) Blood Type Antibody Screen MTS Gel Crossmatch Blood Bank Comment Bld Prod Order Comment 07/26/18 07/26/18 07/26/18 Range/Units Unknown Unknown Unknown CBC w Diff WBC (4.0-11.0) th/mm3 RBC (4.50-5.90) mil/mm3 Hgb (13.0-17.0) gm/dL Hct (39.0-51.0) % MCV (80.0-100.0) fL MCH (27.0-34.0) pg MCHC (32.0-36.0) % RDW (11.6-17.2) % Plt Count (150-450) th/mm3 MPV (7.0-11.0) fL Prelim Diff (Auto) Neut % (Auto) (16.0-70.0) % Lymph % (Auto) (9.0-44.0) % Miner % (Auto) (0.0-8.0) % Eos % (Auto) (0.0-4.0) % Baso % (Auto) (0.0-2.0) % Neut # (Auto) (1.8-7.7) th/mm3 Lymph # (Auto) (1.0-4.8) th/mm3 Miner # (Auto) (0.0-0.9) th/mm3 Eos # (Auto) (0.0-0.4) th/mm3 Baso # (Auto) (0.0-0.2) th/mm3 WBC Differential Seg Neuts % (Manual) (16-70) % Band Neuts % (Manual) (0-6) % Lymphocytes % (Manual) (9-44) % Monocytes % (Manual) (0-8) % Metamyelocytes % (Man) (0-1) % Myelocytes % (Man) (0-0) % Promyelocytes % (Man) (0-0) % Blast Cells % (Manual) (0-0) % Abs Neuts (Manual) (1.8-7.7) th/mm3 Nucleated RBCs/100 WBC (0-0) /100 WBC Differential Comment Toxic Vacuolation (None) Dohle Bodies (None) Platelet Estimate (Normal) Platelet Morphology (Normal) Pappenheimer Bodies (None) PT (9.8-11.6) sec INR Ratio APTT (24.3-30.1) sec Fibrinogen (227-377) mg/dL Puncture Site Patient Temperature O2 Saturation (90-100) % ABG pH (7.380-7.420) ABG pCO2 (38-42) mmHg ABG pO2 (61-120) mmHG ABG HCO3 (22-26) mmol/L ABG O2 Content (12.0-20.0) Vol % ABG Base Excess (-2-2) mmol/L ABG Methemoglobin (0-2) % Gaudencio Test VBG pH (7.360-7.400) VBG pCO2 (44-48) mmHG VBG pO2 (35-40) mmHG VBG HCO3 (22-26) mmol/L VBG O2 Saturation (70-76) % VBG O2 Content (9.0-17.0) Vol % VBG Base Excess (-2-2) mmol/L VBG Carboxyhemoglobin (0-4) % VBG Methemoglobin (0-2) % Hemoglobin (12.0-16.0) G/DL Carboxyhemoglobin (0-4) % O2 Delivery Device Vent Setting Inspired O2 % Critical Value Sodium (136-145) meq/L Potassium (3.5-5.1) meq/L Chloride (98-107) meq/L Carbon Dioxide (21.0-32.0) meq/L Anion Gap (5-15) meq/L BUN (7-18) mg/dL Creatinine (0.60-1.30) mg/dL Estimated GFR (>89) mL/min POC Glucose (68-110) mg/dl Random Glucose (74-106) mg/dL Lactic Acid (0.4-2.0) mmol/L Calcium (8.5-10.1) mg/dL Prot Corrected Calcium (8.5-10.1) mg/dL Phosphorus (2.5-4.9) mg/dL Magnesium (1.5-2.5) mg/dL Total Bilirubin (0.2-1.0) mg/dL Direct Bilirubin (0.0-0.2) mg/dL AST (15-37) U/L ALT (12-78) U/L Alkaline Phosphatase (45-117) U/L Ammonia (11-32) mcmol/L Total Creatine Kinase (39-308) U/L CK-MB (CK-2) (0.5-3.6) ng/mL CK-MB (CK-2) % (0.0-4.0) % Troponin I (0.02-0.05) ng/mL Total Protein (6.4-8.2) g/dL Albumin (3.4-5.0) g/dL Triglycerides (42-150) mg/dL Lipase (73-393) U/L TSH (0.358-3.740) uIU/mL Urine Color [place] (Yellw/Straw) Urine Clarity Turbid H (Clear) Urine pH 5.0 (5.0-8.5) Ur Specific [place] 1.036 H (1.002-1.035) Urine Protein 100 H (Neg-Trace) mg/dL Urine Glucose (UA) 50 (Negative) mg/dL Urine Ketones Negative (Negative) mg/dL Urine Occult Blood Large H (Negative) Urine Nitrate Negative (Negative) Urine Bilirubin Negative (Negative) Urine Urobilinogen Less than 2 (Less than 2) mg/dL Ur Leukocyte Esterase Negative (Negative) Urine RBC 36 H (0-3) /hpf Urine WBC (0-5) /hpf Amorphous Sediment (None) /hpf Urine Bacteria Many H (None) /hpf Urine Sperm (None) /hpf Micro UA Comment Cath-culture ind Ur Microscopic Review Not Reportable Urine Culture Comments Cath-cult indicated Urine Eosinophils (None Seen) /HPF Urine Osmolality 432 (300-1300) mosm/kg Ur Random Creatinine (27-300) mg/dL Ur Random Sodium 52 meq/L Nasal Screen MRSA (PCR) (Negative) Blood Type Antibody Screen MTS Gel Crossmatch Blood Bank Comment Bld Prod Order Comment 07/27/18 07/27/18 07/27/18 Range/Units 00:12 01:30 01:30 CBC w Diff WBC (4.0-11.0) th/mm3 RBC (4.50-5.90) mil/mm3 Hgb (13.0-17.0) gm/dL Hct (39.0-51.0) % MCV (80.0-100.0) fL MCH (27.0-34.0) pg MCHC (32.0-36.0) % RDW (11.6-17.2) % Plt Count (150-450) th/mm3 MPV (7.0-11.0) fL Prelim Diff (Auto) Neut % (Auto) (16.0-70.0) % Lymph % (Auto) (9.0-44.0) % Miner % (Auto) (0.0-8.0) % Eos % (Auto) (0.0-4.0) % Baso % (Auto) (0.0-2.0) % Neut # (Auto) (1.8-7.7) th/mm3 Lymph # (Auto) (1.0-4.8) th/mm3 Miner # (Auto) (0.0-0.9) th/mm3 Eos # (Auto) (0.0-0.4) th/mm3 Baso # (Auto) (0.0-0.2) th/mm3 WBC Differential Seg Neuts % (Manual) (16-70) % Band Neuts % (Manual) (0-6) % Lymphocytes % (Manual) (9-44) % Monocytes % (Manual) (0-8) % Metamyelocytes % (Man) (0-1) % Myelocytes % (Man) (0-0) % Promyelocytes % (Man) (0-0) % Blast Cells % (Manual) (0-0) % Abs Neuts (Manual) (1.8-7.7) th/mm3 Nucleated RBCs/100 WBC (0-0) /100 WBC Differential Comment Toxic Vacuolation (None) Dohle Bodies (None) Platelet Estimate (Normal) Platelet Morphology (Normal) Pappenheimer Bodies (None) PT (9.8-11.6) sec INR Ratio APTT (24.3-30.1) sec Fibrinogen (227-377) mg/dL Puncture Site Patient Temperature O2 Saturation (90-100) % ABG pH (7.380-7.420) ABG pCO2 (38-42) mmHg ABG pO2 (61-120) mmHG ABG HCO3 (22-26) mmol/L ABG O2 Content (12.0-20.0) Vol % ABG Base Excess (-2-2) mmol/L ABG Methemoglobin (0-2) % Gaudencio Test VBG pH (7.360-7.400) VBG pCO2 (44-48) mmHG VBG pO2 (35-40) mmHG VBG HCO3 (22-26) mmol/L VBG O2 Saturation (70-76) % VBG O2 Content (9.0-17.0) Vol % VBG Base Excess (-2-2) mmol/L VBG Carboxyhemoglobin (0-4) % VBG Methemoglobin (0-2) % Hemoglobin (12.0-16.0) G/DL Carboxyhemoglobin (0-4) % O2 Delivery Device Vent Setting Inspired O2 % Critical Value Sodium (136-145) meq/L Potassium (3.5-5.1) meq/L Chloride (98-107) meq/L Carbon Dioxide (21.0-32.0) meq/L Anion Gap (5-15) meq/L BUN (7-18) mg/dL Creatinine (0.60-1.30) mg/dL Estimated GFR (>89) mL/min POC Glucose 89 (68-110) mg/dl Random Glucose (74-106) mg/dL Lactic Acid 16.7 H* (0.4-2.0) mmol/L Calcium (8.5-10.1) mg/dL Prot Corrected Calcium (8.5-10.1) mg/dL Phosphorus (2.5-4.9) mg/dL Magnesium (1.5-2.5) mg/dL Total Bilirubin (0.2-1.0) mg/dL Direct Bilirubin (0.0-0.2) mg/dL AST (15-37) U/L ALT (12-78) U/L Alkaline Phosphatase (45-117) U/L Ammonia (11-32) mcmol/L Total Creatine Kinase 6876 H (39-308) U/L CK-MB (CK-2) 184.9 H (0.5-3.6) ng/mL CK-MB (CK-2) % 2.7 (0.0-4.0) % Troponin I 1.59 H* (0.02-0.05) ng/mL Total Protein (6.4-8.2) g/dL Albumin (3.4-5.0) g/dL Triglycerides (42-150) mg/dL Lipase (73-393) U/L TSH (0.358-3.740) uIU/mL Urine Color (Yellw/Straw) Urine Clarity (Clear) Urine pH (5.0-8.5) Ur Specific [place] (1.002-1.035) Urine Protein (Neg-Trace) mg/dL Urine Glucose (UA) (Negative) mg/dL Urine Ketones (Negative) mg/dL Urine Occult Blood (Negative) Urine Nitrate (Negative) Urine Bilirubin (Negative) Urine Urobilinogen (Less than 2) mg/dL Ur Leukocyte Esterase (Negative) Urine RBC (0-3) /hpf Urine WBC (0-5) /hpf Amorphous Sediment (None) /hpf Urine Bacteria (None) /hpf Urine Sperm (None) /hpf Micro UA Comment Ur Microscopic Review Urine Culture Comments Urine Eosinophils (None Seen) /HPF Urine Osmolality (300-1300) mosm/kg Ur Random Creatinine (27-300) mg/dL Ur Random Sodium meq/L Nasal Screen MRSA (PCR) (Negative) Blood Type Antibody Screen MTS Gel Crossmatch Blood Bank Comment Bld Prod Order Comment 07/27/18 07/27/18 07/27/18 Range/Units 05:05 05:20 05:20 CBC w Diff WBC 21.7 H (4.0-11.0) th/mm3 RBC 3.99 L (4.50-5.90) mil/mm3 Hgb 12.4 L (13.0-17.0) gm/dL Hct 37.9 L (39.0-51.0) % MCV 95.0 D (80.0-100.0) fL MCH 31.0 (27.0-34.0) pg MCHC 32.6 (32.0-36.0) % RDW 14.2 (11.6-17.2) % Plt Count 132 L D (150-450) th/mm3 MPV 8.6 (7.0-11.0) fL Prelim Diff (Auto) Slide review pending Neut % (Auto) 90.5 H (16.0-70.0) % Lymph % (Auto) 2.8 L (9.0-44.0) % Miner % (Auto) 6.1 (0.0-8.0) % Eos % (Auto) 0.4 (0.0-4.0) % Baso % (Auto) 0.2 (0.0-2.0) % Neut # (Auto) 19.6 H (1.8-7.7) th/mm3 Lymph # (Auto) 0.6 L (1.0-4.8) th/mm3 Miner # (Auto) 1.3 H (0.0-0.9) th/mm3 Eos # (Auto) 0.1 (0.0-0.4) th/mm3 Baso # (Auto) 0.0 (0.0-0.2) th/mm3 WBC Differential Manual diff final Seg Neuts % (Manual) 54 (16-70) % Band Neuts % (Manual) 36 H (0-6) % Lymphocytes % (Manual) 4 L (9-44) % Monocytes % (Manual) 6 (0-8) % Metamyelocytes % (Man) (0-1) % Myelocytes % (Man) (0-0) % Promyelocytes % (Man) (0-0) % Blast Cells % (Manual) (0-0) % Abs Neuts (Manual) 19.5 H (1.8-7.7) th/mm3 Nucleated RBCs/100 WBC (0-0) /100 WBC Differential Comment . Toxic Vacuolation (None) Dohle Bodies (None) Platelet Estimate Low L (Normal) Platelet Morphology Normal (Normal) Pappenheimer Bodies (None) PT 22.9 H (9.8-11.6) sec INR 2.3 Ratio APTT 34.8 H (24.3-30.1) sec Fibrinogen (227-377) mg/dL Puncture Site Art line Patient Temperature 98.6 O2 Saturation 96 (90-100) % ABG pH 7.33 L (7.380-7.420) ABG pCO2 16 L* (38-42) mmHg ABG pO2 128 H (61-120) mmHG ABG HCO3 8 L* (22-26) mmol/L ABG O2 Content 15.8 (12.0-20.0) Vol % ABG Base Excess -16.7 L (-2-2) mmol/L ABG Methemoglobin 1.9 (0-2) % Gaudencio Test Present VBG pH (7.360-7.400) VBG pCO2 (44-48) mmHG VBG pO2 (35-40) mmHG VBG HCO3 (22-26) mmol/L VBG O2 Saturation (70-76) % VBG O2 Content (9.0-17.0) Vol % VBG Base Excess (-2-2) mmol/L VBG Carboxyhemoglobin (0-4) % VBG Methemoglobin (0-2) % Hemoglobin 11.6 L (12.0-16.0) G/DL Carboxyhemoglobin 0.2 (0-4) % O2 Delivery Device Ventilator Vent Setting Prvc/ ac Inspired O2 100 % Critical Value Yes Sodium (136-145) meq/L Potassium (3.5-5.1) meq/L Chloride (98-107) meq/L Carbon Dioxide (21.0-32.0) meq/L Anion Gap (5-15) meq/L BUN (7-18) mg/dL Creatinine (0.60-1.30) mg/dL Estimated GFR (>89) mL/min POC Glucose (68-110) mg/dl Random Glucose (74-106) mg/dL Lactic Acid (0.4-2.0) mmol/L Calcium (8.5-10.1) mg/dL Prot Corrected Calcium (8.5-10.1) mg/dL Phosphorus (2.5-4.9) mg/dL Magnesium (1.5-2.5) mg/dL Total Bilirubin (0.2-1.0) mg/dL Direct Bilirubin (0.0-0.2) mg/dL AST (15-37) U/L ALT (12-78) U/L Alkaline Phosphatase (45-117) U/L Ammonia (11-32) mcmol/L Total Creatine Kinase (39-308) U/L CK-MB (CK-2) (0.5-3.6) ng/mL CK-MB (CK-2) % (0.0-4.0) % Troponin I (0.02-0.05) ng/mL Total Protein (6.4-8.2) g/dL Albumin (3.4-5.0) g/dL Triglycerides (42-150) mg/dL Lipase (73-393) U/L TSH (0.358-3.740) uIU/mL Urine Color (Yellw/Straw) Urine Clarity (Clear) Urine pH (5.0-8.5) Ur Specific [place] (1.002-1.035) Urine Protein (Neg-Trace) mg/dL Urine Glucose (UA) (Negative) mg/dL Urine Ketones (Negative) mg/dL Urine Occult Blood (Negative) Urine Nitrate (Negative) Urine Bilirubin (Negative) Urine Urobilinogen (Less than 2) mg/dL Ur Leukocyte Esterase (Negative) Urine RBC (0-3) /hpf Urine WBC (0-5) /hpf Amorphous Sediment (None) /hpf Urine Bacteria (None) /hpf Urine Sperm (None) /hpf Micro UA Comment Ur Microscopic Review Urine Culture Comments Urine Eosinophils (None Seen) /HPF Urine Osmolality (300-1300) mosm/kg Ur Random Creatinine (27-300) mg/dL Ur Random Sodium meq/L Nasal Screen MRSA (PCR) (Negative) Blood Type Antibody Screen MTS Gel Crossmatch Blood Bank Comment Bld Prod Order Comment 07/27/18 07/27/18 07/27/18 Range/Units 05:20 05:20 05:31 CBC w Diff WBC (4.0-11.0) th/mm3 RBC (4.50-5.90) mil/mm3 Hgb (13.0-17.0) gm/dL Hct (39.0-51.0) % MCV (80.0-100.0) fL MCH (27.0-34.0) pg MCHC (32.0-36.0) % RDW (11.6-17.2) % Plt Count (150-450) th/mm3 MPV (7.0-11.0) fL Prelim Diff (Auto) Neut % (Auto) (16.0-70.0) % Lymph % (Auto) (9.0-44.0) % Miner % (Auto) (0.0-8.0) % Eos % (Auto) (0.0-4.0) % Baso % (Auto) (0.0-2.0) % Neut # (Auto) (1.8-7.7) th/mm3 Lymph # (Auto) (1.0-4.8) th/mm3 Miner # (Auto) (0.0-0.9) th/mm3 Eos # (Auto) (0.0-0.4) th/mm3 Baso # (Auto) (0.0-0.2) th/mm3 WBC Differential Seg Neuts % (Manual) (16-70) % Band Neuts % (Manual) (0-6) % Lymphocytes % (Manual) (9-44) % Monocytes % (Manual) (0-8) % Metamyelocytes % (Man) (0-1) % Myelocytes % (Man) (0-0) % Promyelocytes % (Man) (0-0) % Blast Cells % (Manual) (0-0) % Abs Neuts (Manual) (1.8-7.7) th/mm3 Nucleated RBCs/100 WBC (0-0) /100 WBC Differential Comment Toxic Vacuolation (None) Dohle Bodies (None) Platelet Estimate (Normal) Platelet Morphology (Normal) Pappenheimer Bodies (None) PT (9.8-11.6) sec INR Ratio APTT (24.3-30.1) sec Fibrinogen (227-377) mg/dL Puncture Site Patient Temperature O2 Saturation (90-100) % ABG pH (7.380-7.420) ABG pCO2 (38-42) mmHg ABG pO2 (61-120) mmHG ABG HCO3 (22-26) mmol/L ABG O2 Content (12.0-20.0) Vol % ABG Base Excess (-2-2) mmol/L ABG Methemoglobin (0-2) % Gaudencio Test VBG pH (7.360-7.400) VBG pCO2 (44-48) mmHG VBG pO2 (35-40) mmHG VBG HCO3 (22-26) mmol/L VBG O2 Saturation (70-76) % VBG O2 Content (9.0-17.0) Vol % VBG Base Excess (-2-2) mmol/L VBG Carboxyhemoglobin (0-4) % VBG Methemoglobin (0-2) % Hemoglobin (12.0-16.0) G/DL Carboxyhemoglobin (0-4) % O2 Delivery Device Vent Setting Inspired O2 % Critical Value Sodium 142 (136-145) meq/L Potassium 4.7 (3.5-5.1) meq/L Chloride 101 (98-107) meq/L Carbon Dioxide 12.2 L (21.0-32.0) meq/L Anion Gap 29 H (5-15) meq/L BUN 57 H (7-18) mg/dL Creatinine 4.58 H (0.60-1.30) mg/dL Estimated GFR 12 L (>89) mL/min POC Glucose 157 H (68-110) mg/dl Random Glucose 147 H D (74-106) mg/dL Lactic Acid (0.4-2.0) mmol/L Calcium 6.4 L* (8.5-10.1) mg/dL Prot Corrected Calcium 7.5 L (8.5-10.1) mg/dL Phosphorus 8.3 H D (2.5-4.9) mg/dL Magnesium 2.2 (1.5-2.5) mg/dL Total Bilirubin 9.7 H (0.2-1.0) mg/dL Direct Bilirubin (0.0-0.2) mg/dL AST 07298 H (15-37) U/L ALT 9013 H (12-78) U/L Alkaline Phosphatase 216 H (45-117) U/L Ammonia 75 H (11-32) mcmol/L Total Creatine Kinase (39-308) U/L CK-MB (CK-2) (0.5-3.6) ng/mL CK-MB (CK-2) % (0.0-4.0) % Troponin I (0.02-0.05) ng/mL Total Protein 4.9 L (6.4-8.2) g/dL Albumin 2.1 L (3.4-5.0) g/dL Triglycerides (42-150) mg/dL Lipase 96312 H (73-393) U/L TSH (0.358-3.740) uIU/mL Urine Color (Yellw/Straw) Urine Clarity (Clear) Urine pH (5.0-8.5) Ur Specific [place] (1.002-1.035) Urine Protein (Neg-Trace) mg/dL Urine Glucose (UA) (Negative) mg/dL Urine Ketones (Negative) mg/dL Urine Occult Blood (Negative) Urine Nitrate (Negative) Urine Bilirubin (Negative) Urine Urobilinogen (Less than 2) mg/dL Ur Leukocyte Esterase (Negative) Urine RBC (0-3) /hpf Urine WBC (0-5) /hpf Amorphous Sediment (None) /hpf Urine Bacteria (None) /hpf Urine Sperm (None) /hpf Micro UA Comment Ur Microscopic Review Urine Culture Comments Urine Eosinophils (None Seen) /HPF Urine Osmolality (300-1300) mosm/kg Ur Random Creatinine (27-300) mg/dL Ur Random Sodium meq/L Nasal Screen MRSA (PCR) (Negative) Blood Type Antibody Screen MTS Gel Crossmatch Blood Bank Comment Bld Prod Order Comment 07/27/18 07/27/18 07/27/18 Range/Units 07:48 11:30 11:30 CBC w Diff WBC (4.0-11.0) th/mm3 RBC (4.50-5.90) mil/mm3 Hgb (13.0-17.0) gm/dL Hct (39.0-51.0) % MCV (80.0-100.0) fL MCH (27.0-34.0) pg MCHC (32.0-36.0) % RDW (11.6-17.2) % Plt Count (150-450) th/mm3 MPV (7.0-11.0) fL Prelim Diff (Auto) Neut % (Auto) (16.0-70.0) % Lymph % (Auto) (9.0-44.0) % [place] % (Auto) (0.0-8.0) % Eos % (Auto) (0.0-4.0) % Baso % (Auto) (0.0-2.0) % Neut # (Auto) (1.8-7.7) th/mm3 Lymph # (Auto) (1.0-4.8) th/mm3 [place] # (Auto) (0.0-0.9) th/mm3 Eos # (Auto) (0.0-0.4) th/mm3 Baso # (Auto) (0.0-0.2) th/mm3 WBC Differential Seg Neuts % (Manual) (16-70) % Band Neuts % (Manual) (0-6) % Lymphocytes % (Manual) (9-44) % Monocytes % (Manual) (0-8) % Metamyelocytes % (Man) (0-1) % Myelocytes % (Man) (0-0) % Promyelocytes % (Man) (0-0) % Blast Cells % (Manual) (0-0) % Abs Neuts (Manual) (1.8-7.7) th/mm3 Nucleated RBCs/100 WBC (0-0) /100 WBC Differential Comment Toxic Vacuolation (None) Dohle Bodies (None) Platelet Estimate (Normal) Platelet Morphology (Normal) Pappenheimer Bodies (None) PT (9.8-11.6) sec INR Ratio APTT (24.3-30.1) sec Fibrinogen (227-377) mg/dL Puncture Site Patient Temperature O2 Saturation (90-100) % ABG pH (7.380-7.420) ABG pCO2 (38-42) mmHg ABG pO2 (61-120) mmHG ABG HCO3 (22-26) mmol/L ABG O2 Content (12.0-20.0) Vol % ABG Base Excess (-2-2) mmol/L ABG Methemoglobin (0-2) % Gaudencio Test VBG pH (7.360-7.400) VBG pCO2 (44-48) mmHG VBG pO2 (35-40) mmHG VBG HCO3 (22-26) mmol/L VBG O2 Saturation (70-76) % VBG O2 Content (9.0-17.0) Vol % VBG Base Excess (-2-2) mmol/L VBG Carboxyhemoglobin (0-4) % VBG Methemoglobin (0-2) % Hemoglobin (12.0-16.0) G/DL Carboxyhemoglobin (0-4) % O2 Delivery Device Vent Setting Inspired O2 % Critical Value Sodium (136-145) meq/L Potassium (3.5-5.1) meq/L Chloride (98-107) meq/L Carbon Dioxide (21.0-32.0) meq/L Anion Gap (5-15) meq/L BUN (7-18) mg/dL Creatinine (0.60-1.30) mg/dL Estimated GFR (>89) mL/min POC Glucose (68-110) mg/dl Random Glucose (74-106) mg/dL Lactic Acid (0.4-2.0) mmol/L Calcium (8.5-10.1) mg/dL Prot Corrected Calcium (8.5-10.1) mg/dL Phosphorus (2.5-4.9) mg/dL Magnesium (1.5-2.5) mg/dL Total Bilirubin (0.2-1.0) mg/dL Direct Bilirubin (0.0-0.2) mg/dL AST (15-37) U/L ALT (12-78) U/L Alkaline Phosphatase (45-117) U/L Ammonia (11-32) mcmol/L Total Creatine Kinase (39-308) U/L CK-MB (CK-2) (0.5-3.6) ng/mL CK-MB (CK-2) % (0.0-4.0) % Troponin I 1.15 H* (0.02-0.05) ng/mL Total Protein (6.4-8.2) g/dL Albumin (3.4-5.0) g/dL Triglycerides (42-150) mg/dL Lipase (73-393) U/L TSH 0.882 (0.358-3.740) uIU/mL Urine Color (Yellw/Straw) Urine Clarity (Clear) Urine pH (5.0-8.5) Ur Specific [place] (1.002-1.035) Urine Protein (Neg-Trace) mg/dL Urine Glucose (UA) (Negative) mg/dL Urine Ketones (Negative) mg/dL Urine Occult Blood (Negative) Urine Nitrate (Negative) Urine Bilirubin (Negative) Urine Urobilinogen (Less than 2) mg/dL Ur Leukocyte Esterase (Negative) Urine RBC (0-3) /hpf Urine WBC (0-5) /hpf Amorphous Sediment (None) /hpf Urine Bacteria (None) /hpf Urine Sperm (None) /hpf Micro UA Comment Ur Microscopic Review Urine Culture Comments Urine Eosinophils (None Seen) /HPF Urine Osmolality (300-1300) mosm/kg Ur Random Creatinine (27-300) mg/dL Ur Random Sodium meq/L Nasal Screen MRSA (PCR) (Negative) Blood Type Antibody Screen MTS Gel Crossmatch Blood Bank Comment Bld Prod Order Comment 07/27/18 07/27/18 07/27/18 Range/Units 11:33 12:04 12:10 CBC w Diff WBC (4.0-11.0) th/mm3 RBC (4.50-5.90) mil/mm3 Hgb (13.0-17.0) gm/dL Hct (39.0-51.0) % MCV (80.0-100.0) fL MCH (27.0-34.0) pg MCHC (32.0-36.0) % RDW (11.6-17.2) % Plt Count (150-450) th/mm3 MPV (7.0-11.0) fL Prelim Diff (Auto) Neut % (Auto) (16.0-70.0) % Lymph % (Auto) (9.0-44.0) % Miner % (Auto) (0.0-8.0) % Eos % (Auto) (0.0-4.0) % Baso % (Auto) (0.0-2.0) % Neut # (Auto) (1.8-7.7) th/mm3 Lymph # (Auto) (1.0-4.8) th/mm3 Miner # (Auto) (0.0-0.9) th/mm3 Eos # (Auto) (0.0-0.4) th/mm3 Baso # (Auto) (0.0-0.2) th/mm3 WBC Differential Seg Neuts % (Manual) (16-70) % Band Neuts % (Manual) (0-6) % Lymphocytes % (Manual) (9-44) % Monocytes % (Manual) (0-8) % Metamyelocytes % (Man) (0-1) % Myelocytes % (Man) (0-0) % Promyelocytes % (Man) (0-0) % Blast Cells % (Manual) (0-0) % Abs Neuts (Manual) (1.8-7.7) th/mm3 Nucleated RBCs/100 WBC (0-0) /100 WBC Differential Comment Toxic Vacuolation (None) Dohle Bodies (None) Platelet Estimate (Normal) Platelet Morphology (Normal) Pappenheimer Bodies (None) PT (9.8-11.6) sec INR Ratio APTT (24.3-30.1) sec Fibrinogen (227-377) mg/dL Puncture Site Art line Patient Temperature 98.6 O2 Saturation 95 (90-100) % ABG pH 7.38 (7.380-7.420) ABG pCO2 20 L* (38-42) mmHg ABG pO2 125 H (61-120) mmHG ABG HCO3 11 L* (22-26) mmol/L ABG O2 Content 14.0 (12.0-20.0) Vol % ABG Base Excess -13.1 L (-2-2) mmol/L ABG Methemoglobin 2.3 H (0-2) % Gaudencio Test VBG pH (7.360-7.400) VBG pCO2 (44-48) mmHG VBG pO2 (35-40) mmHG VBG HCO3 (22-26) mmol/L VBG O2 Saturation (70-76) % VBG O2 Content (9.0-17.0) Vol % VBG Base Excess (-2-2) mmol/L VBG Carboxyhemoglobin (0-4) % VBG Methemoglobin (0-2) % Hemoglobin 10.3 L (12.0-16.0) G/DL Carboxyhemoglobin 0.6 (0-4) % O2 Delivery Device Ventilator Vent Setting Prvc/[id number]/28/5peep Inspired O2 100 % Critical Value Yes Sodium (136-145) meq/L Potassium (3.5-5.1) meq/L Chloride (98-107) meq/L Carbon Dioxide (21.0-32.0) meq/L Anion Gap (5-15) meq/L BUN (7-18) mg/dL Creatinine (0.60-1.30) mg/dL Estimated GFR (>89) mL/min POC Glucose 182 H (68-110) mg/dl Random Glucose (74-106) mg/dL Lactic Acid 16.1 H* (0.4-2.0) mmol/L Calcium (8.5-10.1) mg/dL Prot Corrected Calcium (8.5-10.1) mg/dL Phosphorus (2.5-4.9) mg/dL Magnesium (1.5-2.5) mg/dL Total Bilirubin (0.2-1.0) mg/dL Direct Bilirubin (0.0-0.2) mg/dL AST (15-37) U/L ALT (12-78) U/L Alkaline Phosphatase (45-117) U/L Ammonia (11-32) mcmol/L Total Creatine Kinase (39-308) U/L CK-MB (CK-2) (0.5-3.6) ng/mL CK-MB (CK-2) % (0.0-4.0) % Troponin I (0.02-0.05) ng/mL Total Protein (6.4-8.2) g/dL Albumin (3.4-5.0) g/dL Triglycerides (42-150) mg/dL Lipase (73-393) U/L TSH (0.358-3.740) uIU/mL Urine Color (Yellw/Straw) Urine Clarity (Clear) Urine pH (5.0-8.5) Ur Specific [place] (1.002-1.035) Urine Protein (Neg-Trace) mg/dL Urine Glucose (UA) (Negative) mg/dL Urine Ketones (Negative) mg/dL Urine Occult Blood (Negative) Urine Nitrate (Negative) Urine Bilirubin (Negative) Urine Urobilinogen (Less than 2) mg/dL Ur Leukocyte Esterase (Negative) Urine RBC (0-3) /hpf Urine WBC (0-5) /hpf Amorphous Sediment (None) /hpf Urine Bacteria (None) /hpf Urine Sperm (None) /hpf Micro UA Comment Ur Microscopic Review Urine Culture Comments Urine Eosinophils (None Seen) /HPF Urine Osmolality (300-1300) mosm/kg Ur Random Creatinine (27-300) mg/dL Ur Random Sodium meq/L Nasal Screen MRSA (PCR) (Negative) Blood Type Antibody Screen MTS Gel Crossmatch Blood Bank Comment Bld Prod Order Comment 07/27/18 07/27/18 07/27/18 Range/Units 16:02 16:20 18:09 CBC w Diff WBC (4.0-11.0) th/mm3 RBC (4.50-5.90) mil/mm3 Hgb (13.0-17.0) gm/dL Hct (39.0-51.0) % MCV (80.0-100.0) fL MCH (27.0-34.0) pg MCHC (32.0-36.0) % RDW (11.6-17.2) % Plt Count (150-450) th/mm3 MPV (7.0-11.0) fL Prelim Diff (Auto) Neut % (Auto) (16.0-70.0) % Lymph % (Auto) (9.0-44.0) % Miner % (Auto) (0.0-8.0) % Eos % (Auto) (0.0-4.0) % Baso % (Auto) (0.0-2.0) % Neut # (Auto) (1.8-7.7) th/mm3 Lymph # (Auto) (1.0-4.8) th/mm3 Miner # (Auto) (0.0-0.9) th/mm3 Eos # (Auto) (0.0-0.4) th/mm3 Baso # (Auto) (0.0-0.2) th/mm3 WBC Differential Seg Neuts % (Manual) (16-70) % Band Neuts % (Manual) (0-6) % Lymphocytes % (Manual) (9-44) % Monocytes % (Manual) (0-8) % Metamyelocytes % (Man) (0-1) % Myelocytes % (Man) (0-0) % Promyelocytes % (Man) (0-0) % Blast Cells % (Manual) (0-0) % Abs Neuts (Manual) (1.8-7.7) th/mm3 Nucleated RBCs/100 WBC (0-0) /100 WBC Differential Comment Toxic Vacuolation (None) Dohle Bodies (None) Platelet Estimate (Normal) Platelet Morphology (Normal) Pappenheimer Bodies (None) PT (9.8-11.6) sec INR Ratio APTT (24.3-30.1) sec Fibrinogen (227-377) mg/dL Puncture Site Patient Temperature O2 Saturation (90-100) % ABG pH (7.380-7.420) ABG pCO2 (38-42) mmHg ABG pO2 (61-120) mmHG ABG HCO3 (22-26) mmol/L ABG O2 Content (12.0-20.0) Vol % ABG Base Excess (-2-2) mmol/L ABG Methemoglobin (0-2) % Gaudencio Test VBG pH (7.360-7.400) VBG pCO2 (44-48) mmHG VBG pO2 (35-40) mmHG VBG HCO3 (22-26) mmol/L VBG O2 Saturation (70-76) % VBG O2 Content (9.0-17.0) Vol % VBG Base Excess (-2-2) mmol/L VBG Carboxyhemoglobin (0-4) % VBG Methemoglobin (0-2) % Hemoglobin (12.0-16.0) G/DL Carboxyhemoglobin (0-4) % O2 Delivery Device Vent Setting Inspired O2 % Critical Value Sodium (136-145) meq/L Potassium (3.5-5.1) meq/L Chloride (98-107) meq/L Carbon Dioxide (21.0-32.0) meq/L Anion Gap (5-15) meq/L BUN (7-18) mg/dL Creatinine (0.60-1.30) mg/dL Estimated GFR (>89) mL/min POC Glucose 219 H 378 H (68-110) mg/dl Random Glucose (74-106) mg/dL Lactic Acid (0.4-2.0) mmol/L Calcium (8.5-10.1) mg/dL Prot Corrected Calcium (8.5-10.1) mg/dL Phosphorus (2.5-4.9) mg/dL Magnesium (1.5-2.5) mg/dL Total Bilirubin (0.2-1.0) mg/dL Direct Bilirubin (0.0-0.2) mg/dL AST (15-37) U/L ALT (12-78) U/L Alkaline Phosphatase (45-117) U/L Ammonia (11-32) mcmol/L Total Creatine Kinase (39-308) U/L CK-MB (CK-2) (0.5-3.6) ng/mL CK-MB (CK-2) % (0.0-4.0) % Troponin I 1.00 H* (0.02-0.05) ng/mL Total Protein (6.4-8.2) g/dL Albumin (3.4-5.0) g/dL Triglycerides (42-150) mg/dL Lipase (73-393) U/L TSH (0.358-3.740) uIU/mL Urine Color (Yellw/Straw) Urine Clarity (Clear) Urine pH (5.0-8.5) Ur Specific [place] (1.002-1.035) Urine Protein (Neg-Trace) mg/dL Urine Glucose (UA) (Negative) mg/dL Urine Ketones (Negative) mg/dL Urine Occult Blood (Negative) Urine Nitrate (Negative) Urine Bilirubin (Negative) Urine Urobilinogen (Less than 2) mg/dL Ur Leukocyte Esterase (Negative) Urine RBC (0-3) /hpf Urine WBC (0-5) /hpf Amorphous Sediment (None) /hpf Urine Bacteria (None) /hpf Urine Sperm (None) /hpf Micro UA Comment Ur Microscopic Review Urine Culture Comments Urine Eosinophils (None Seen) /HPF Urine Osmolality (300-1300) mosm/kg Ur Random Creatinine (27-300) mg/dL Ur Random Sodium meq/L Nasal Screen MRSA (PCR) (Negative) Blood Type Antibody Screen MTS Gel Crossmatch Blood Bank Comment Bld Prod Order Comment 07/27/18 07/27/18 07/27/18 Range/Units 20:00 20:05 20:18 CBC w Diff WBC (4.0-11.0) th/mm3 RBC (4.50-5.90) mil/mm3 Hgb (13.0-17.0) gm/dL Hct (39.0-51.0) % MCV (80.0-100.0) fL MCH (27.0-34.0) pg MCHC (32.0-36.0) % RDW (11.6-17.2) % Plt Count (150-450) th/mm3 MPV (7.0-11.0) fL Prelim Diff (Auto) Neut % (Auto) (16.0-70.0) % Lymph % (Auto) (9.0-44.0) % Miner % (Auto) (0.0-8.0) % Eos % (Auto) (0.0-4.0) % Baso % (Auto) (0.0-2.0) % Neut # (Auto) (1.8-7.7) th/mm3 Lymph # (Auto) (1.0-4.8) th/mm3 Miner # (Auto) (0.0-0.9) th/mm3 Eos # (Auto) (0.0-0.4) th/mm3 Baso # (Auto) (0.0-0.2) th/mm3 WBC Differential Seg Neuts % (Manual) (16-70) % Band Neuts % (Manual) (0-6) % Lymphocytes % (Manual) (9-44) % Monocytes % (Manual) (0-8) % Metamyelocytes % (Man) (0-1) % Myelocytes % (Man) (0-0) % Promyelocytes % (Man) (0-0) % Blast Cells % (Manual) (0-0) % Abs Neuts (Manual) (1.8-7.7) th/mm3 Nucleated RBCs/100 WBC (0-0) /100 WBC Differential Comment Toxic Vacuolation (None) Dohle Bodies (None) Platelet Estimate (Normal) Platelet Morphology (Normal) Pappenheimer Bodies (None) PT (9.8-11.6) sec INR Ratio APTT (24.3-30.1) sec Fibrinogen (227-377) mg/dL Puncture Site Art line Patient Temperature 98.6 O2 Saturation 96 (90-100) % ABG pH 7.48 H (7.380-7.420) ABG pCO2 18 L* (38-42) mmHg ABG pO2 187 H (61-120) mmHG ABG HCO3 13 L* (22-26) mmol/L ABG O2 Content 13.9 (12.0-20.0) Vol % ABG Base Excess -9.6 L (-2-2) mmol/L ABG Methemoglobin 2.3 H (0-2) % Gaudencio Test VBG pH (7.360-7.400) VBG pCO2 (44-48) mmHG VBG pO2 (35-40) mmHG VBG HCO3 (22-26) mmol/L VBG O2 Saturation (70-76) % VBG O2 Content (9.0-17.0) Vol % VBG Base Excess (-2-2) mmol/L VBG Carboxyhemoglobin (0-4) % VBG Methemoglobin (0-2) % Hemoglobin 10.0 L (12.0-16.0) G/DL Carboxyhemoglobin 0.7 (0-4) % O2 Delivery Device Ventilator Vent Setting 28/650/it0.7/5peep Inspired O2 100 % Critical Value Yes Sodium (136-145) meq/L Potassium (3.5-5.1) meq/L Chloride (98-107) meq/L Carbon Dioxide (21.0-32.0) meq/L Anion Gap (5-15) meq/L BUN (7-18) mg/dL Creatinine (0.60-1.30) mg/dL Estimated GFR (>89) mL/min POC Glucose 224 H (68-110) mg/dl Random Glucose (74-106) mg/dL Lactic Acid 15.5 H* (0.4-2.0) mmol/L Calcium (8.5-10.1) mg/dL Prot Corrected Calcium (8.5-10.1) mg/dL Phosphorus (2.5-4.9) mg/dL Magnesium (1.5-2.5) mg/dL Total Bilirubin (0.2-1.0) mg/dL Direct Bilirubin (0.0-0.2) mg/dL AST (15-37) U/L ALT (12-78) U/L Alkaline Phosphatase (45-117) U/L Ammonia (11-32) mcmol/L Total Creatine Kinase (39-308) U/L CK-MB (CK-2) (0.5-3.6) ng/mL CK-MB (CK-2) % (0.0-4.0) % Troponin I (0.02-0.05) ng/mL Total Protein (6.4-8.2) g/dL Albumin (3.4-5.0) g/dL Triglycerides (42-150) mg/dL Lipase (73-393) U/L TSH (0.358-3.740) uIU/mL Urine Color (Yellw/Straw) Urine Clarity (Clear) Urine pH (5.0-8.5) Ur Specific [place] (1.002-1.035) Urine Protein (Neg-Trace) mg/dL Urine Glucose (UA) (Negative) mg/dL Urine Ketones (Negative) mg/dL Urine Occult Blood (Negative) Urine Nitrate (Negative) Urine Bilirubin (Negative) Urine Urobilinogen (Less than 2) mg/dL Ur Leukocyte Esterase (Negative) Urine RBC (0-3) /hpf Urine WBC (0-5) /hpf Amorphous Sediment (None) /hpf Urine Bacteria (None) /hpf Urine Sperm (None) /hpf Micro UA Comment Ur Microscopic Review Urine Culture Comments Urine Eosinophils (None Seen) /HPF Urine Osmolality (300-1300) mosm/kg Ur Random Creatinine (27-300) mg/dL Ur Random Sodium meq/L Nasal Screen MRSA (PCR) (Negative) Blood Type Antibody Screen MTS Gel Crossmatch Blood Bank Comment Bld Prod Order Comment 07/27/18 07/27/18 07/27/18 Range/Units 20:30 21:07 21:54 CBC w Diff WBC (4.0-11.0) th/mm3 RBC (4.50-5.90) mil/mm3 Hgb (13.0-17.0) gm/dL Hct (39.0-51.0) % MCV (80.0-100.0) fL MCH (27.0-34.0) pg MCHC (32.0-36.0) % RDW (11.6-17.2) % Plt Count (150-450) th/mm3 MPV (7.0-11.0) fL Prelim Diff (Auto) Neut % (Auto) (16.0-70.0) % Lymph % (Auto) (9.0-44.0) % Miner % (Auto) (0.0-8.0) % Eos % (Auto) (0.0-4.0) % Baso % (Auto) (0.0-2.0) % Neut # (Auto) (1.8-7.7) th/mm3 Lymph # (Auto) (1.0-4.8) th/mm3 [place]er # (Auto) (0.0-0.9) th/mm3 Eos # (Auto) (0.0-0.4) th/mm3 Baso # (Auto) (0.0-0.2) th/mm3 WBC Differential Seg Neuts % (Manual) (16-70) % Band Neuts % (Manual) (0-6) % Lymphocytes % (Manual) (9-44) % Monocytes % (Manual) (0-8) % Metamyelocytes % (Man) (0-1) % Myelocytes % (Man) (0-0) % Promyelocytes % (Man) (0-0) % Blast Cells % (Manual) (0-0) % Abs Neuts (Manual) (1.8-7.7) th/mm3 Nucleated RBCs/100 WBC (0-0) /100 WBC Differential Comment Toxic Vacuolation (None) Dohle Bodies (None) Platelet Estimate (Normal) Platelet Morphology (Normal) Pappenheimer Bodies (None) PT (9.8-11.6) sec INR Ratio APTT (24.3-30.1) sec Fibrinogen (227-377) mg/dL Puncture Site Patient Temperature O2 Saturation (90-100) % ABG pH (7.380-7.420) ABG pCO2 (38-42) mmHg ABG pO2 (61-120) mmHG ABG HCO3 (22-26) mmol/L ABG O2 Content (12.0-20.0) Vol % ABG Base Excess (-2-2) mmol/L ABG Methemoglobin (0-2) % Gaudencio Test VBG pH (7.360-7.400) VBG pCO2 (44-48) mmHG VBG pO2 (35-40) mmHG VBG HCO3 (22-26) mmol/L VBG O2 Saturation (70-76) % VBG O2 Content (9.0-17.0) Vol % VBG Base Excess (-2-2) mmol/L VBG Carboxyhemoglobin (0-4) % VBG Methemoglobin (0-2) % Hemoglobin (12.0-16.0) G/DL Carboxyhemoglobin (0-4) % O2 Delivery Device Vent Setting Inspired O2 % Critical Value Sodium (136-145) meq/L Potassium (3.5-5.1) meq/L Chloride (98-107) meq/L Carbon Dioxide (21.0-32.0) meq/L Anion Gap (5-15) meq/L BUN (7-18) mg/dL Creatinine (0.60-1.30) mg/dL Estimated GFR (>89) mL/min POC Glucose 261 H 290 H (68-110) mg/dl Random Glucose (74-106) mg/dL Lactic Acid (0.4-2.0) mmol/L Calcium (8.5-10.1) mg/dL Prot Corrected Calcium (8.5-10.1) mg/dL Phosphorus (2.5-4.9) mg/dL Magnesium (1.5-2.5) mg/dL Total Bilirubin (0.2-1.0) mg/dL Direct Bilirubin (0.0-0.2) mg/dL AST (15-37) U/L ALT (12-78) U/L Alkaline Phosphatase (45-117) U/L Ammonia (11-32) mcmol/L Total Creatine Kinase (39-308) U/L CK-MB (CK-2) (0.5-3.6) ng/mL CK-MB (CK-2) % (0.0-4.0) % Troponin I 0.89 H* (0.02-0.05) ng/mL Total Protein (6.4-8.2) g/dL Albumin (3.4-5.0) g/dL Triglycerides (42-150) mg/dL Lipase (73-393) U/L TSH (0.358-3.740) uIU/mL Urine Color (Yellw/Straw) Urine Clarity (Clear) Urine pH (5.0-8.5) Ur Specific [place] (1.002-1.035) Urine Protein (Neg-Trace) mg/dL Urine Glucose (UA) (Negative) mg/dL Urine Ketones (Negative) mg/dL Urine Occult Blood (Negative) Urine Nitrate (Negative) Urine Bilirubin (Negative) Urine Urobilinogen (Less than 2) mg/dL Ur Leukocyte Esterase (Negative) Urine RBC (0-3) /hpf Urine WBC (0-5) /hpf Amorphous Sediment (None) /hpf Urine Bacteria (None) /hpf Urine Sperm (None) /hpf Micro UA Comment Ur Microscopic Review Urine Culture Comments Urine Eosinophils (None Seen) /HPF Urine Osmolality (300-1300) mosm/kg Ur Random Creatinine (27-300) mg/dL Ur Random Sodium meq/L Nasal Screen MRSA (PCR) (Negative) Blood Type Antibody Screen MTS Gel Crossmatch Blood Bank Comment Bld Prod Order Comment 07/27/18 07/28/18 07/28/18 Range/Units 23:08 00:06 01:05 CBC w Diff WBC (4.0-11.0) th/mm3 RBC (4.50-5.90) mil/mm3 Hgb (13.0-17.0) gm/dL Hct (39.0-51.0) % MCV (80.0-100.0) fL MCH (27.0-34.0) pg MCHC (32.0-36.0) % RDW (11.6-17.2) % Plt Count (150-450) th/mm3 MPV (7.0-11.0) fL Prelim Diff (Auto) Neut % (Auto) (16.0-70.0) % Lymph % (Auto) (9.0-44.0) % [place] % (Auto) (0.0-8.0) % Eos % (Auto) (0.0-4.0) % Baso % (Auto) (0.0-2.0) % Neut # (Auto) (1.8-7.7) th/mm3 Lymph # (Auto) (1.0-4.8) th/mm3 [place]er # (Auto) (0.0-0.9) th/mm3 Eos # (Auto) (0.0-0.4) th/mm3 Baso # (Auto) (0.0-0.2) th/mm3 WBC Differential Seg Neuts % (Manual) (16-70) % Band Neuts % (Manual) (0-6) % Lymphocytes % (Manual) (9-44) % Monocytes % (Manual) (0-8) % Metamyelocytes % (Man) (0-1) % Myelocytes % (Man) (0-0) % Promyelocytes % (Man) (0-0) % Blast Cells % (Manual) (0-0) % Abs Neuts (Manual) (1.8-7.7) th/mm3 Nucleated RBCs/100 WBC (0-0) /100 WBC Differential Comment Toxic Vacuolation (None) Dohle Bodies (None) Platelet Estimate (Normal) Platelet Morphology (Normal) Pappenheimer Bodies (None) PT (9.8-11.6) sec INR Ratio APTT (24.3-30.1) sec Fibrinogen (227-377) mg/dL Puncture Site Patient Temperature O2 Saturation (90-100) % ABG pH (7.380-7.420) ABG pCO2 (38-42) mmHg ABG pO2 (61-120) mmHG ABG HCO3 (22-26) mmol/L ABG O2 Content (12.0-20.0) Vol % ABG Base Excess (-2-2) mmol/L ABG Methemoglobin (0-2) % Gaudencio Test VBG pH (7.360-7.400) VBG pCO2 (44-48) mmHG VBG pO2 (35-40) mmHG VBG HCO3 (22-26) mmol/L VBG O2 Saturation (70-76) % VBG O2 Content (9.0-17.0) Vol % VBG Base Excess (-2-2) mmol/L VBG Carboxyhemoglobin (0-4) % VBG Methemoglobin (0-2) % Hemoglobin (12.0-16.0) G/DL Carboxyhemoglobin (0-4) % O2 Delivery Device Vent Setting Inspired O2 % Critical Value Sodium (136-145) meq/L Potassium (3.5-5.1) meq/L Chloride (98-107) meq/L Carbon Dioxide (21.0-32.0) meq/L Anion Gap (5-15) meq/L BUN (7-18) mg/dL Creatinine (0.60-1.30) mg/dL Estimated GFR (>89) mL/min POC Glucose 271 H 257 H 306 H (68-110) mg/dl Random Glucose (74-106) mg/dL Lactic Acid (0.4-2.0) mmol/L Calcium (8.5-10.1) mg/dL Prot Corrected Calcium (8.5-10.1) mg/dL Phosphorus (2.5-4.9) mg/dL Magnesium (1.5-2.5) mg/dL Total Bilirubin (0.2-1.0) mg/dL Direct Bilirubin (0.0-0.2) mg/dL AST (15-37) U/L ALT (12-78) U/L Alkaline Phosphatase (45-117) U/L Ammonia (11-32) mcmol/L Total Creatine Kinase (39-308) U/L CK-MB (CK-2) (0.5-3.6) ng/mL CK-MB (CK-2) % (0.0-4.0) % Troponin I (0.02-0.05) ng/mL Total Protein (6.4-8.2) g/dL Albumin (3.4-5.0) g/dL Triglycerides (42-150) mg/dL Lipase (73-393) U/L TSH (0.358-3.740) uIU/mL Urine Color (Yellw/Straw) Urine Clarity (Clear) Urine pH (5.0-8.5) Ur Specific [place] (1.002-1.035) Urine Protein (Neg-Trace) mg/dL Urine Glucose (UA) (Negative) mg/dL Urine Ketones (Negative) mg/dL Urine Occult Blood (Negative) Urine Nitrate (Negative) Urine Bilirubin (Negative) Urine Urobilinogen (Less than 2) mg/dL Ur Leukocyte Esterase (Negative) Urine RBC (0-3) /hpf Urine WBC (0-5) /hpf Amorphous Sediment (None) /hpf Urine Bacteria (None) /hpf Urine Sperm (None) /hpf Micro UA Comment Ur Microscopic Review Urine Culture Comments Urine Eosinophils (None Seen) /HPF Urine Osmolality (300-1300) mosm/kg Ur Random Creatinine (27-300) mg/dL Ur Random Sodium meq/L Nasal Screen MRSA (PCR) (Negative) Blood Type Antibody Screen MTS Gel Crossmatch Blood Bank Comment Bld Prod Order Comment 07/28/18 07/28/18 07/28/18 Range/Units 01:52 02:59 03:50 CBC w Diff WBC (4.0-11.0) th/mm3 RBC (4.50-5.90) mil/mm3 Hgb (13.0-17.0) gm/dL Hct (39.0-51.0) % MCV (80.0-100.0) fL MCH (27.0-34.0) pg MCHC (32.0-36.0) % RDW (11.6-17.2) % Plt Count (150-450) th/mm3 MPV (7.0-11.0) fL Prelim Diff (Auto) Neut % (Auto) (16.0-70.0) % Lymph % (Auto) (9.0-44.0) % Miner % (Auto) (0.0-8.0) % Eos % (Auto) (0.0-4.0) % Baso % (Auto) (0.0-2.0) % Neut # (Auto) (1.8-7.7) th/mm3 Lymph # (Auto) (1.0-4.8) th/mm3 Miner # (Auto) (0.0-0.9) th/mm3 Eos # (Auto) (0.0-0.4) th/mm3 Baso # (Auto) (0.0-0.2) th/mm3 WBC Differential Seg Neuts % (Manual) (16-70) % Band Neuts % (Manual) (0-6) % Lymphocytes % (Manual) (9-44) % Monocytes % (Manual) (0-8) % Metamyelocytes % (Man) (0-1) % Myelocytes % (Man) (0-0) % Promyelocytes % (Man) (0-0) % Blast Cells % (Manual) (0-0) % Abs Neuts (Manual) (1.8-7.7) th/mm3 Nucleated RBCs/100 WBC (0-0) /100 WBC Differential Comment Toxic Vacuolation (None) Dohle Bodies (None) Platelet Estimate (Normal) Platelet Morphology (Normal) Pappenheimer Bodies (None) PT (9.8-11.6) sec INR Ratio APTT (24.3-30.1) sec Fibrinogen (227-377) mg/dL Puncture Site Art line Patient Temperature 98.6 O2 Saturation 96 (90-100) % ABG pH 7.47 H (7.380-7.420) ABG pCO2 19 L* (38-42) mmHg ABG pO2 238 H (61-120) mmHG ABG HCO3 13 L* (22-26) mmol/L ABG O2 Content 12.8 (12.0-20.0) Vol % ABG Base Excess -9.9 L (-2-2) mmol/L ABG Methemoglobin 2.4 H (0-2) % Gaudencio Test VBG pH (7.360-7.400) VBG pCO2 (44-48) mmHG VBG pO2 (35-40) mmHG VBG HCO3 (22-26) mmol/L VBG O2 Saturation (70-76) % VBG O2 Content (9.0-17.0) Vol % VBG Base Excess (-2-2) mmol/L VBG Carboxyhemoglobin (0-4) % VBG Methemoglobin (0-2) % Hemoglobin 9.1 L (12.0-16.0) G/DL Carboxyhemoglobin 0.5 (0-4) % O2 Delivery Device Ventilator Vent Setting 28/650/[id number]/[id number] Inspired O2 100 % Critical Value Yes Sodium (136-145) meq/L Potassium (3.5-5.1) meq/L Chloride (98-107) meq/L Carbon Dioxide (21.0-32.0) meq/L Anion Gap (5-15) meq/L BUN (7-18) mg/dL Creatinine (0.60-1.30) mg/dL Estimated GFR (>89) mL/min POC Glucose 240 H 248 H (68-110) mg/dl Random Glucose (74-106) mg/dL Lactic Acid (0.4-2.0) mmol/L Calcium (8.5-10.1) mg/dL Prot Corrected Calcium (8.5-10.1) mg/dL Phosphorus (2.5-4.9) mg/dL Magnesium (1.5-2.5) mg/dL Total Bilirubin (0.2-1.0) mg/dL Direct Bilirubin (0.0-0.2) mg/dL AST (15-37) U/L ALT (12-78) U/L Alkaline Phosphatase (45-117) U/L Ammonia (11-32) mcmol/L Total Creatine Kinase (39-308) U/L CK-MB (CK-2) (0.5-3.6) ng/mL CK-MB (CK-2) % (0.0-4.0) % Troponin I (0.02-0.05) ng/mL Total Protein (6.4-8.2) g/dL Albumin (3.4-5.0) g/dL Triglycerides (42-150) mg/dL Lipase (73-393) U/L TSH (0.358-3.740) uIU/mL Urine Color (Yellw/Straw) Urine Clarity (Clear) Urine pH (5.0-8.5) Ur Specific [place] (1.002-1.035) Urine Protein (Neg-Trace) mg/dL Urine Glucose (UA) (Negative) mg/dL Urine Ketones (Negative) mg/dL Urine Occult Blood (Negative) Urine Nitrate (Negative) Urine Bilirubin (Negative) Urine Urobilinogen (Less than 2) mg/dL Ur Leukocyte Esterase (Negative) Urine RBC (0-3) /hpf Urine WBC (0-5) /hpf Amorphous Sediment (None) /hpf Urine Bacteria (None) /hpf Urine Sperm (None) /hpf Micro UA Comment Ur Microscopic Review Urine Culture Comments Urine Eosinophils (None Seen) /HPF Urine Osmolality (300-1300) mosm/kg Ur Random Creatinine (27-300) mg/dL Ur Random Sodium meq/L Nasal Screen MRSA (PCR) (Negative) Blood Type Antibody Screen MTS Gel Crossmatch Blood Bank Comment Bld Prod Order Comment 07/28/18 07/28/18 07/28/18 Range/Units 04:00 04:00 04:00 CBC w Diff WBC (4.0-11.0) th/mm3 RBC (4.50-5.90) mil/mm3 Hgb (13.0-17.0) gm/dL Hct (39.0-51.0) % MCV (80.0-100.0) fL MCH (27.0-34.0) pg MCHC (32.0-36.0) % RDW (11.6-17.2) % Plt Count (150-450) th/mm3 MPV (7.0-11.0) fL Prelim Diff (Auto) Neut % (Auto) (16.0-70.0) % Lymph % (Auto) (9.0-44.0) % [place] % (Auto) (0.0-8.0) % Eos % (Auto) (0.0-4.0) % Baso % (Auto) (0.0-2.0) % Neut # (Auto) (1.8-7.7) th/mm3 Lymph # (Auto) (1.0-4.8) th/mm3 [place]er # (Auto) (0.0-0.9) th/mm3 Eos # (Auto) (0.0-0.4) th/mm3 Baso # (Auto) (0.0-0.2) th/mm3 WBC Differential Seg Neuts % (Manual) (16-70) % Band Neuts % (Manual) (0-6) % Lymphocytes % (Manual) (9-44) % Monocytes % (Manual) (0-8) % Metamyelocytes % (Man) (0-1) % Myelocytes % (Man) (0-0) % Promyelocytes % (Man) (0-0) % Blast Cells % (Manual) (0-0) % Abs Neuts (Manual) (1.8-7.7) th/mm3 Nucleated RBCs/100 WBC (0-0) /100 WBC Differential Comment Toxic Vacuolation (None) Dohle Bodies (None) Platelet Estimate (Normal) Platelet Morphology (Normal) Pappenheimer Bodies (None) PT (9.8-11.6) sec INR Ratio APTT (24.3-30.1) sec Fibrinogen (227-377) mg/dL Puncture Site Patient Temperature O2 Saturation (90-100) % ABG pH (7.380-7.420) ABG pCO2 (38-42) mmHg ABG pO2 (61-120) mmHG ABG HCO3 (22-26) mmol/L ABG O2 Content (12.0-20.0) Vol % ABG Base Excess (-2-2) mmol/L ABG Methemoglobin (0-2) % Gaudencio Test VBG pH (7.360-7.400) VBG pCO2 (44-48) mmHG VBG pO2 (35-40) mmHG VBG HCO3 (22-26) mmol/L VBG O2 Saturation (70-76) % VBG O2 Content (9.0-17.0) Vol % VBG Base Excess (-2-2) mmol/L VBG Carboxyhemoglobin (0-4) % VBG Methemoglobin (0-2) % Hemoglobin (12.0-16.0) G/DL Carboxyhemoglobin (0-4) % O2 Delivery Device Vent Setting Inspired O2 % Critical Value Sodium Cancelled 136 (136-145) meq/L Potassium Cancelled 4.0 (3.5-5.1) meq/L Chloride Cancelled 89 L D (98-107) meq/L Carbon Dioxide Cancelled 14.2 L (21.0-32.0) meq/L Anion Gap Cancelled 33 H (5-15) meq/L BUN Cancelled 44 H (7-18) mg/dL Creatinine Cancelled 4.37 H (0.60-1.30) mg/dL Estimated GFR Cancelled 13 L (>89) mL/min POC Glucose (68-110) mg/dl Random Glucose Cancelled 258 H D (74-106) mg/dL Lactic Acid 20.1 H* (0.4-2.0) mmol/L Calcium Cancelled 5.0 L* D (8.5-10.1) mg/dL Prot Corrected Calcium 5.9 L* D (8.5-10.1) mg/dL Phosphorus 7.0 H D (2.5-4.9) mg/dL Magnesium 1.9 (1.5-2.5) mg/dL Total Bilirubin 11.6 H (0.2-1.0) mg/dL Direct Bilirubin (0.0-0.2) mg/dL AST 73335 H (15-37) U/L ALT 6469 H (12-78) U/L Alkaline Phosphatase 210 H (45-117) U/L Ammonia (11-32) mcmol/L Total Creatine Kinase (39-308) U/L CK-MB (CK-2) (0.5-3.6) ng/mL CK-MB (CK-2) % (0.0-4.0) % Troponin I Cancelled 0.94 H* (0.02-0.05) ng/mL Total Protein 4.7 L (6.4-8.2) g/dL Albumin 2.4 L (3.4-5.0) g/dL Triglycerides (42-150) mg/dL Lipase 6839 H (73-393) U/L TSH (0.358-3.740) uIU/mL Urine Color (Yellw/Straw) Urine Clarity (Clear) Urine pH (5.0-8.5) Ur Specific [place] (1.002-1.035) Urine Protein (Neg-Trace) mg/dL Urine Glucose (UA) (Negative) mg/dL Urine Ketones (Negative) mg/dL Urine Occult Blood (Negative) Urine Nitrate (Negative) Urine Bilirubin (Negative) Urine Urobilinogen (Less than 2) mg/dL Ur Leukocyte Esterase (Negative) Urine RBC (0-3) /hpf Urine WBC (0-5) /hpf Amorphous Sediment (None) /hpf Urine Bacteria (None) /hpf Urine Sperm (None) /hpf Micro UA Comment Ur Microscopic Review Urine Culture Comments Urine Eosinophils (None Seen) /HPF Urine Osmolality (300-1300) mosm/kg Ur Random Creatinine (27-300) mg/dL Ur Random Sodium meq/L Nasal Screen MRSA (PCR) (Negative) Blood Type Antibody Screen MTS Gel Crossmatch Blood Bank Comment Bld Prod Order Comment 07/28/18 07/28/18 07/28/18 Range/Units 04:00 04:00 04:00 CBC w Diff WBC 31.0 H (4.0-11.0) th/mm3 RBC 2.94 L (4.50-5.90) mil/mm3 Hgb 9.3 L D (13.0-17.0) gm/dL Hct 27.9 L (39.0-51.0) % MCV 94.8 (80.0-100.0) fL MCH 31.6 (27.0-34.0) pg MCHC 33.3 (32.0-36.0) % RDW 14.0 (11.6-17.2) % Plt Count 91 L D (150-450) th/mm3 MPV 9.5 (7.0-11.0) fL Prelim Diff (Auto) Manual diff required Neut % (Auto) (16.0-70.0) % Lymph % (Auto) (9.0-44.0) % Miner % (Auto) (0.0-8.0) % Eos % (Auto) (0.0-4.0) % Baso % (Auto) (0.0-2.0) % Neut # (Auto) (1.8-7.7) th/mm3 Lymph # (Auto) (1.0-4.8) th/mm3 Miner # (Auto) (0.0-0.9) th/mm3 Eos # (Auto) (0.0-0.4) th/mm3 Baso # (Auto) (0.0-0.2) th/mm3 WBC Differential Manual diff final Seg Neuts % (Manual) 46 (16-70) % Band Neuts % (Manual) 37 H (0-6) % Lymphocytes % (Manual) 2 L (9-44) % Monocytes % (Manual) 4 (0-8) % Metamyelocytes % (Man) 6 H (0-1) % Myelocytes % (Man) (0-0) % Promyelocytes % (Man) 4 H (0-0) % Blast Cells % (Manual) 1 H (0-0) % Abs Neuts (Manual) 28.8 H (1.8-7.7) th/mm3 Nucleated RBCs/100 WBC 4 H (0-0) /100 WBC Differential Comment . Toxic Vacuolation Present H (None) Dohle Bodies Present H (None) Platelet Estimate Low L (Normal) Platelet Morphology Normal (Normal) Pappenheimer Bodies Present H (None) PT 24.6 H (9.8-11.6) sec INR 2.4 Ratio APTT 39.6 H (24.3-30.1) sec Fibrinogen (227-377) mg/dL Puncture Site Patient Temperature O2 Saturation (90-100) % ABG pH (7.380-7.420) ABG pCO2 (38-42) mmHg ABG pO2 (61-120) mmHG ABG HCO3 (22-26) mmol/L ABG O2 Content (12.0-20.0) Vol % ABG Base Excess (-2-2) mmol/L ABG Methemoglobin (0-2) % Gaudencio Test VBG pH (7.360-7.400) VBG pCO2 (44-48) mmHG VBG pO2 (35-40) mmHG VBG HCO3 (22-26) mmol/L VBG O2 Saturation (70-76) % VBG O2 Content (9.0-17.0) Vol % VBG Base Excess (-2-2) mmol/L VBG Carboxyhemoglobin (0-4) % VBG Methemoglobin (0-2) % Hemoglobin (12.0-16.0) G/DL Carboxyhemoglobin (0-4) % O2 Delivery Device Vent Setting Inspired O2 % Critical Value Sodium (136-145) meq/L Potassium (3.5-5.1) meq/L Chloride (98-107) meq/L Carbon Dioxide (21.0-32.0) meq/L Anion Gap (5-15) meq/L BUN (7-18) mg/dL Creatinine (0.60-1.30) mg/dL Estimated GFR (>89) mL/min POC Glucose (68-110) mg/dl Random Glucose (74-106) mg/dL Lactic Acid (0.4-2.0) mmol/L Calcium (8.5-10.1) mg/dL Prot Corrected Calcium (8.5-10.1) mg/dL Phosphorus (2.5-4.9) mg/dL Magnesium (1.5-2.5) mg/dL Total Bilirubin (0.2-1.0) mg/dL Direct Bilirubin (0.0-0.2) mg/dL AST (15-37) U/L ALT (12-78) U/L Alkaline Phosphatase (45-117) U/L Ammonia 128 H (11-32) mcmol/L Total Creatine Kinase (39-308) U/L CK-MB (CK-2) (0.5-3.6) ng/mL CK-MB (CK-2) % (0.0-4.0) % Troponin I (0.02-0.05) ng/mL Total Protein (6.4-8.2) g/dL Albumin (3.4-5.0) g/dL Triglycerides (42-150) mg/dL Lipase (73-393) U/L TSH (0.358-3.740) uIU/mL Urine Color (Yellw/Straw) Urine Clarity (Clear) Urine pH (5.0-8.5) Ur Specific [place] (1.002-1.035) Urine Protein (Neg-Trace) mg/dL Urine Glucose (UA) (Negative) mg/dL Urine Ketones (Negative) mg/dL Urine Occult Blood (Negative) Urine Nitrate (Negative) Urine Bilirubin (Negative) Urine Urobilinogen (Less than 2) mg/dL Ur Leukocyte Esterase (Negative) Urine RBC (0-3) /hpf Urine WBC (0-5) /hpf Amorphous Sediment (None) /hpf Urine Bacteria (None) /hpf Urine Sperm (None) /hpf Micro UA Comment Ur Microscopic Review Urine Culture Comments Urine Eosinophils (None Seen) /HPF Urine Osmolality (300-1300) mosm/kg Ur Random Creatinine (27-300) mg/dL Ur Random Sodium meq/L Nasal Screen MRSA (PCR) (Negative) Blood Type Antibody Screen MTS Gel Crossmatch Blood Bank Comment Bld Prod Order Comment 07/28/18 07/28/18 07/28/18 Range/Units 04:16 05:07 06:01 CBC w Diff WBC (4.0-11.0) th/mm3 RBC (4.50-5.90) mil/mm3 Hgb (13.0-17.0) gm/dL Hct (39.0-51.0) % MCV (80.0-100.0) fL MCH (27.0-34.0) pg MCHC (32.0-36.0) % RDW (11.6-17.2) % Plt Count (150-450) th/mm3 MPV (7.0-11.0) fL Prelim Diff (Auto) Neut % (Auto) (16.0-70.0) % Lymph % (Auto) (9.0-44.0) % Miner % (Auto) (0.0-8.0) % Eos % (Auto) (0.0-4.0) % Baso % (Auto) (0.0-2.0) % Neut # (Auto) (1.8-7.7) th/mm3 Lymph # (Auto) (1.0-4.8) th/mm3 Miner # (Auto) (0.0-0.9) th/mm3 Eos # (Auto) (0.0-0.4) th/mm3 Baso # (Auto) (0.0-0.2) th/mm3 WBC Differential Seg Neuts % (Manual) (16-70) % Band Neuts % (Manual) (0-6) % Lymphocytes % (Manual) (9-44) % Monocytes % (Manual) (0-8) % Metamyelocytes % (Man) (0-1) % Myelocytes % (Man) (0-0) % Promyelocytes % (Man) (0-0) % Blast Cells % (Manual) (0-0) % Abs Neuts (Manual) (1.8-7.7) th/mm3 Nucleated RBCs/100 WBC (0-0) /100 WBC Differential Comment Toxic Vacuolation (None) Dohle Bodies (None) Platelet Estimate (Normal) Platelet Morphology (Normal) Pappenheimer Bodies (None) PT (9.8-11.6) sec INR Ratio APTT (24.3-30.1) sec Fibrinogen (227-377) mg/dL Puncture Site Patient Temperature O2 Saturation (90-100) % ABG pH (7.380-7.420) ABG pCO2 (38-42) mmHg ABG pO2 (61-120) mmHG ABG HCO3 (22-26) mmol/L ABG O2 Content (12.0-20.0) Vol % ABG Base Excess (-2-2) mmol/L ABG Methemoglobin (0-2) % Gaudencio Test VBG pH (7.360-7.400) VBG pCO2 (44-48) mmHG VBG pO2 (35-40) mmHG VBG HCO3 (22-26) mmol/L VBG O2 Saturation (70-76) % VBG O2 Content (9.0-17.0) Vol % VBG Base Excess (-2-2) mmol/L VBG Carboxyhemoglobin (0-4) % VBG Methemoglobin (0-2) % Hemoglobin (12.0-16.0) G/DL Carboxyhemoglobin (0-4) % O2 Delivery Device Vent Setting Inspired O2 % Critical Value Sodium (136-145) meq/L Potassium (3.5-5.1) meq/L Chloride (98-107) meq/L Carbon Dioxide (21.0-32.0) meq/L Anion Gap (5-15) meq/L BUN (7-18) mg/dL Creatinine (0.60-1.30) mg/dL Estimated GFR (>89) mL/min POC Glucose 224 H 224 H 220 H (68-110) mg/dl Random Glucose (74-106) mg/dL Lactic Acid (0.4-2.0) mmol/L Calcium (8.5-10.1) mg/dL Prot Corrected Calcium (8.5-10.1) mg/dL Phosphorus (2.5-4.9) mg/dL Magnesium (1.5-2.5) mg/dL Total Bilirubin (0.2-1.0) mg/dL Direct Bilirubin (0.0-0.2) mg/dL AST (15-37) U/L ALT (12-78) U/L Alkaline Phosphatase (45-117) U/L Ammonia (11-32) mcmol/L Total Creatine Kinase (39-308) U/L CK-MB (CK-2) (0.5-3.6) ng/mL CK-MB (CK-2) % (0.0-4.0) % Troponin I (0.02-0.05) ng/mL Total Protein (6.4-8.2) g/dL Albumin (3.4-5.0) g/dL Triglycerides (42-150) mg/dL Lipase (73-393) U/L TSH (0.358-3.740) uIU/mL Urine Color (Yellw/Straw) Urine Clarity (Clear) Urine pH (5.0-8.5) Ur Specific [place] (1.002-1.035) Urine Protein (Neg-Trace) mg/dL Urine Glucose (UA) (Negative) mg/dL Urine Ketones (Negative) mg/dL Urine Occult Blood (Negative) Urine Nitrate (Negative) Urine Bilirubin (Negative) Urine Urobilinogen (Less than 2) mg/dL Ur Leukocyte Esterase (Negative) Urine RBC (0-3) /hpf Urine WBC (0-5) /hpf Amorphous Sediment (None) /hpf Urine Bacteria (None) /hpf Urine Sperm (None) /hpf Micro UA Comment Ur Microscopic Review Urine Culture Comments Urine Eosinophils (None Seen) /HPF Urine Osmolality (300-1300) mosm/kg Ur Random Creatinine (27-300) mg/dL Ur Random Sodium meq/L Nasal Screen MRSA (PCR) (Negative) Blood Type Antibody Screen MTS Gel Crossmatch Blood Bank Comment Bld Prod Order Comment 07/28/18 07/28/18 07/28/18 Range/Units 06:56 08:13 09:12 CBC w Diff WBC (4.0-11.0) th/mm3 RBC (4.50-5.90) mil/mm3 Hgb (13.0-17.0) gm/dL Hct (39.0-51.0) % MCV (80.0-100.0) fL MCH (27.0-34.0) pg MCHC (32.0-36.0) % RDW (11.6-17.2) % Plt Count (150-450) th/mm3 MPV (7.0-11.0) fL Prelim Diff (Auto) Neut % (Auto) (16.0-70.0) % Lymph % (Auto) (9.0-44.0) % Miner % (Auto) (0.0-8.0) % Eos % (Auto) (0.0-4.0) % Baso % (Auto) (0.0-2.0) % Neut # (Auto) (1.8-7.7) th/mm3 Lymph # (Auto) (1.0-4.8) th/mm3 Miner # (Auto) (0.0-0.9) th/mm3 Eos # (Auto) (0.0-0.4) th/mm3 Baso # (Auto) (0.0-0.2) th/mm3 WBC Differential Seg Neuts % (Manual) (16-70) % Band Neuts % (Manual) (0-6) % Lymphocytes % (Manual) (9-44) % Monocytes % (Manual) (0-8) % Metamyelocytes % (Man) (0-1) % Myelocytes % (Man) (0-0) % Promyelocytes % (Man) (0-0) % Blast Cells % (Manual) (0-0) % Abs Neuts (Manual) (1.8-7.7) th/mm3 Nucleated RBCs/100 WBC (0-0) /100 WBC Differential Comment Toxic Vacuolation (None) Dohle Bodies (None) Platelet Estimate (Normal) Platelet Morphology (Normal) Pappenheimer Bodies (None) PT (9.8-11.6) sec INR Ratio APTT (24.3-30.1) sec Fibrinogen (227-377) mg/dL Puncture Site Patient Temperature O2 Saturation (90-100) % ABG pH (7.380-7.420) ABG pCO2 (38-42) mmHg ABG pO2 (61-120) mmHG ABG HCO3 (22-26) mmol/L ABG O2 Content (12.0-20.0) Vol % ABG Base Excess (-2-2) mmol/L ABG Methemoglobin (0-2) % Gaudencio Test VBG pH (7.360-7.400) VBG pCO2 (44-48) mmHG VBG pO2 (35-40) mmHG VBG HCO3 (22-26) mmol/L VBG O2 Saturation (70-76) % VBG O2 Content (9.0-17.0) Vol % VBG Base Excess (-2-2) mmol/L VBG Carboxyhemoglobin (0-4) % VBG Methemoglobin (0-2) % Hemoglobin (12.0-16.0) G/DL Carboxyhemoglobin (0-4) % O2 Delivery Device Vent Setting Inspired O2 % Critical Value Sodium (136-145) meq/L Potassium (3.5-5.1) meq/L Chloride (98-107) meq/L Carbon Dioxide (21.0-32.0) meq/L Anion Gap (5-15) meq/L BUN (7-18) mg/dL Creatinine (0.60-1.30) mg/dL Estimated GFR (>89) mL/min POC Glucose 240 H 241 H 506 H* (68-110) mg/dl Random Glucose (74-106) mg/dL Lactic Acid (0.4-2.0) mmol/L Calcium (8.5-10.1) mg/dL Prot Corrected Calcium (8.5-10.1) mg/dL Phosphorus (2.5-4.9) mg/dL Magnesium (1.5-2.5) mg/dL Total Bilirubin (0.2-1.0) mg/dL Direct Bilirubin (0.0-0.2) mg/dL AST (15-37) U/L ALT (12-78) U/L Alkaline Phosphatase (45-117) U/L Ammonia (11-32) mcmol/L Total Creatine Kinase (39-308) U/L CK-MB (CK-2) (0.5-3.6) ng/mL CK-MB (CK-2) % (0.0-4.0) % Troponin I (0.02-0.05) ng/mL Total Protein (6.4-8.2) g/dL Albumin (3.4-5.0) g/dL Triglycerides (42-150) mg/dL Lipase (73-393) U/L TSH (0.358-3.740) uIU/mL Urine Color (Yellw/Straw) Urine Clarity (Clear) Urine pH (5.0-8.5) Ur Specific [place] (1.002-1.035) Urine Protein (Neg-Trace) mg/dL Urine Glucose (UA) (Negative) mg/dL Urine Ketones (Negative) mg/dL Urine Occult Blood (Negative) Urine Nitrate (Negative) Urine Bilirubin (Negative) Urine Urobilinogen (Less than 2) mg/dL Ur Leukocyte Esterase (Negative) Urine RBC (0-3) /hpf Urine WBC (0-5) /hpf Amorphous Sediment (None) /hpf Urine Bacteria (None) /hpf Urine Sperm (None) /hpf Micro UA Comment Ur Microscopic Review Urine Culture Comments Urine Eosinophils (None Seen) /HPF Urine Osmolality (300-1300) mosm/kg Ur Random Creatinine (27-300) mg/dL Ur Random Sodium meq/L Nasal Screen MRSA (PCR) (Negative) Blood Type Antibody Screen MTS Gel Crossmatch Blood Bank Comment Bld Prod Order Comment 07/28/18 07/28/18 07/28/18 Range/Units 09:16 10:08 11:01 CBC w Diff WBC (4.0-11.0) th/mm3 RBC (4.50-5.90) mil/mm3 Hgb (13.0-17.0) gm/dL Hct (39.0-51.0) % MCV (80.0-100.0) fL MCH (27.0-34.0) pg MCHC (32.0-36.0) % RDW (11.6-17.2) % Plt Count (150-450) th/mm3 MPV (7.0-11.0) fL Prelim Diff (Auto) Neut % (Auto) (16.0-70.0) % Lymph % (Auto) (9.0-44.0) % Miner % (Auto) (0.0-8.0) % Eos % (Auto) (0.0-4.0) % Baso % (Auto) (0.0-2.0) % Neut # (Auto) (1.8-7.7) th/mm3 Lymph # (Auto) (1.0-4.8) th/mm3 [place] # (Auto) (0.0-0.9) th/mm3 Eos # (Auto) (0.0-0.4) th/mm3 Baso # (Auto) (0.0-0.2) th/mm3 WBC Differential Seg Neuts % (Manual) (16-70) % Band Neuts % (Manual) (0-6) % Lymphocytes % (Manual) (9-44) % Monocytes % (Manual) (0-8) % Metamyelocytes % (Man) (0-1) % Myelocytes % (Man) (0-0) % Promyelocytes % (Man) (0-0) % Blast Cells % (Manual) (0-0) % Abs Neuts (Manual) (1.8-7.7) th/mm3 Nucleated RBCs/100 WBC (0-0) /100 WBC Differential Comment Toxic Vacuolation (None) Dohle Bodies (None) Platelet Estimate (Normal) Platelet Morphology (Normal) Pappenheimer Bodies (None) PT (9.8-11.6) sec INR Ratio APTT (24.3-30.1) sec Fibrinogen (227-377) mg/dL Puncture Site Patient Temperature O2 Saturation (90-100) % ABG pH (7.380-7.420) ABG pCO2 (38-42) mmHg ABG pO2 (61-120) mmHG ABG HCO3 (22-26) mmol/L ABG O2 Content (12.0-20.0) Vol % ABG Base Excess (-2-2) mmol/L ABG Methemoglobin (0-2) % Gaudencio Test VBG pH (7.360-7.400) VBG pCO2 (44-48) mmHG VBG pO2 (35-40) mmHG VBG HCO3 (22-26) mmol/L VBG O2 Saturation (70-76) % VBG O2 Content (9.0-17.0) Vol % VBG Base Excess (-2-2) mmol/L VBG Carboxyhemoglobin (0-4) % VBG Methemoglobin (0-2) % Hemoglobin (12.0-16.0) G/DL Carboxyhemoglobin (0-4) % O2 Delivery Device Vent Setting Inspired O2 % Critical Value Sodium (136-145) meq/L Potassium (3.5-5.1) meq/L Chloride (98-107) meq/L Carbon Dioxide (21.0-32.0) meq/L Anion Gap (5-15) meq/L BUN (7-18) mg/dL Creatinine (0.60-1.30) mg/dL Estimated GFR (>89) mL/min POC Glucose 269 H 254 H 189 H (68-110) mg/dl Random Glucose (74-106) mg/dL Lactic Acid (0.4-2.0) mmol/L Calcium (8.5-10.1) mg/dL Prot Corrected Calcium (8.5-10.1) mg/dL Phosphorus (2.5-4.9) mg/dL Magnesium (1.5-2.5) mg/dL Total Bilirubin (0.2-1.0) mg/dL Direct Bilirubin (0.0-0.2) mg/dL AST (15-37) U/L ALT (12-78) U/L Alkaline Phosphatase (45-117) U/L Ammonia (11-32) mcmol/L Total Creatine Kinase (39-308) U/L CK-MB (CK-2) (0.5-3.6) ng/mL CK-MB (CK-2) % (0.0-4.0) % Troponin I (0.02-0.05) ng/mL Total Protein (6.4-8.2) g/dL Albumin (3.4-5.0) g/dL Triglycerides (42-150) mg/dL Lipase (73-393) U/L TSH (0.358-3.740) uIU/mL Urine Color (Yellw/Straw) Urine Clarity (Clear) Urine pH (5.0-8.5) Ur Specific [place] (1.002-1.035) Urine Protein (Neg-Trace) mg/dL Urine Glucose (UA) (Negative) mg/dL Urine Ketones (Negative) mg/dL Urine Occult Blood (Negative) Urine Nitrate (Negative) Urine Bilirubin (Negative) Urine Urobilinogen (Less than 2) mg/dL Ur Leukocyte Esterase (Negative) Urine RBC (0-3) /hpf Urine WBC (0-5) /hpf Amorphous Sediment (None) /hpf Urine Bacteria (None) /hpf Urine Sperm (None) /hpf Micro UA Comment Ur Microscopic Review Urine Culture Comments Urine Eosinophils (None Seen) /HPF Urine Osmolality (300-1300) mosm/kg Ur Random Creatinine (27-300) mg/dL Ur Random Sodium meq/L Nasal Screen MRSA (PCR) (Negative) Blood Type Antibody Screen MTS Gel Crossmatch Blood Bank Comment Bld Prod Order Comment 07/28/18 07/28/18 07/28/18 Range/Units 12:11 12:40 12:50 CBC w Diff WBC (4.0-11.0) th/mm3 RBC (4.50-5.90) mil/mm3 Hgb (13.0-17.0) gm/dL Hct (39.0-51.0) % MCV (80.0-100.0) fL MCH (27.0-34.0) pg MCHC (32.0-36.0) % RDW (11.6-17.2) % Plt Count (150-450) th/mm3 MPV (7.0-11.0) fL Prelim Diff (Auto) Neut % (Auto) (16.0-70.0) % Lymph % (Auto) (9.0-44.0) % [place]er % (Auto) (0.0-8.0) % Eos % (Auto) (0.0-4.0) % Baso % (Auto) (0.0-2.0) % Neut # (Auto) (1.8-7.7) th/mm3 Lymph # (Auto) (1.0-4.8) th/mm3 [place]er # (Auto) (0.0-0.9) th/mm3 Eos # (Auto) (0.0-0.4) th/mm3 Baso # (Auto) (0.0-0.2) th/mm3 WBC Differential Seg Neuts % (Manual) (16-70) % Band Neuts % (Manual) (0-6) % Lymphocytes % (Manual) (9-44) % Monocytes % (Manual) (0-8) % Metamyelocytes % (Man) (0-1) % Myelocytes % (Man) (0-0) % Promyelocytes % (Man) (0-0) % Blast Cells % (Manual) (0-0) % Abs Neuts (Manual) (1.8-7.7) th/mm3 Nucleated RBCs/100 WBC (0-0) /100 WBC Differential Comment Toxic Vacuolation (None) Dohle Bodies (None) Platelet Estimate (Normal) Platelet Morphology (Normal) Pappenheimer Bodies (None) PT 29.4 H (9.8-11.6) sec INR 2.9 Ratio APTT (24.3-30.1) sec Fibrinogen (227-377) mg/dL Puncture Site Art line Patient Temperature 98.6 O2 Saturation 95 (90-100) % ABG pH 7.50 H (7.380-7.420) ABG pCO2 26 L (38-42) mmHg ABG pO2 131 H (61-120) mmHG ABG HCO3 20 L (22-26) mmol/L ABG O2 Content 11.4 L (12.0-20.0) Vol % ABG Base Excess -2.8 L (-2-2) mmol/L ABG Methemoglobin 2.6 H (0-2) % Gaudencio Test VBG pH (7.360-7.400) VBG pCO2 (44-48) mmHG VBG pO2 (35-40) mmHG VBG HCO3 (22-26) mmol/L VBG O2 Saturation (70-76) % VBG O2 Content (9.0-17.0) Vol % VBG Base Excess (-2-2) mmol/L VBG Carboxyhemoglobin (0-4) % VBG Methemoglobin (0-2) % Hemoglobin 8.4 L (12.0-16.0) G/DL Carboxyhemoglobin 0.9 (0-4) % O2 Delivery Device Ventilator Vent Setting [id number] Inspired O2 80 % Critical Value No Sodium (136-145) meq/L Potassium (3.5-5.1) meq/L Chloride (98-107) meq/L Carbon Dioxide (21.0-32.0) meq/L Anion Gap (5-15) meq/L BUN (7-18) mg/dL Creatinine (0.60-1.30) mg/dL Estimated GFR (>89) mL/min POC Glucose 233 H (68-110) mg/dl Random Glucose (74-106) mg/dL Lactic Acid (0.4-2.0) mmol/L Calcium (8.5-10.1) mg/dL Prot Corrected Calcium (8.5-10.1) mg/dL Phosphorus (2.5-4.9) mg/dL Magnesium (1.5-2.5) mg/dL Total Bilirubin (0.2-1.0) mg/dL Direct Bilirubin (0.0-0.2) mg/dL AST (15-37) U/L ALT (12-78) U/L Alkaline Phosphatase (45-117) U/L Ammonia (11-32) mcmol/L Total Creatine Kinase (39-308) U/L CK-MB (CK-2) (0.5-3.6) ng/mL CK-MB (CK-2) % (0.0-4.0) % Troponin I (0.02-0.05) ng/mL Total Protein (6.4-8.2) g/dL Albumin (3.4-5.0) g/dL Triglycerides (42-150) mg/dL Lipase (73-393) U/L TSH (0.358-3.740) uIU/mL Urine Color (Yellw/Straw) Urine Clarity (Clear) Urine pH (5.0-8.5) Ur Specific [place] (1.002-1.035) Urine Protein (Neg-Trace) mg/dL Urine Glucose (UA) (Negative) mg/dL Urine Ketones (Negative) mg/dL Urine Occult Blood (Negative) Urine Nitrate (Negative) Urine Bilirubin (Negative) Urine Urobilinogen (Less than 2) mg/dL Ur Leukocyte Esterase (Negative) Urine RBC (0-3) /hpf Urine WBC (0-5) /hpf Amorphous Sediment (None) /hpf Urine Bacteria (None) /hpf Urine Sperm (None) /hpf Micro UA Comment Ur Microscopic Review Urine Culture Comments Urine Eosinophils (None Seen) /HPF Urine Osmolality (300-1300) mosm/kg Ur Random Creatinine (27-300) mg/dL Ur Random Sodium meq/L Nasal Screen MRSA (PCR) (Negative) Blood Type Antibody Screen MTS Gel Crossmatch Blood Bank Comment Bld Prod Order Comment 07/28/18 07/28/18 07/28/18 Range/Units 12:50 12:50 13:07 CBC w Diff WBC (4.0-11.0) th/mm3 RBC (4.50-5.90) mil/mm3 Hgb 8.3 L (13.0-17.0) gm/dL Hct 24.1 L (39.0-51.0) % MCV (80.0-100.0) fL MCH (27.0-34.0) pg MCHC (32.0-36.0) % RDW (11.6-17.2) % Plt Count (150-450) th/mm3 MPV (7.0-11.0) fL Prelim Diff (Auto) Neut % (Auto) (16.0-70.0) % Lymph % (Auto) (9.0-44.0) % Miner % (Auto) (0.0-8.0) % Eos % (Auto) (0.0-4.0) % Baso % (Auto) (0.0-2.0) % Neut # (Auto) (1.8-7.7) th/mm3 Lymph # (Auto) (1.0-4.8) th/mm3 Miner # (Auto) (0.0-0.9) th/mm3 Eos # (Auto) (0.0-0.4) th/mm3 Baso # (Auto) (0.0-0.2) th/mm3 WBC Differential Seg Neuts % (Manual) (16-70) % Band Neuts % (Manual) (0-6) % Lymphocytes % (Manual) (9-44) % Monocytes % (Manual) (0-8) % Metamyelocytes % (Man) (0-1) % Myelocytes % (Man) (0-0) % Promyelocytes % (Man) (0-0) % Blast Cells % (Manual) (0-0) % Abs Neuts (Manual) (1.8-7.7) th/mm3 Nucleated RBCs/100 WBC (0-0) /100 WBC Differential Comment Toxic Vacuolation (None) Dohle Bodies (None) Platelet Estimate (Normal) Platelet Morphology (Normal) Pappenheimer Bodies (None) PT (9.8-11.6) sec INR Ratio APTT (24.3-30.1) sec Fibrinogen (227-377) mg/dL Puncture Site Patient Temperature O2 Saturation (90-100) % ABG pH (7.380-7.420) ABG pCO2 (38-42) mmHg ABG pO2 (61-120) mmHG ABG HCO3 (22-26) mmol/L ABG O2 Content (12.0-20.0) Vol % ABG Base Excess (-2-2) mmol/L ABG Methemoglobin (0-2) % Gaudencio Test VBG pH (7.360-7.400) VBG pCO2 (44-48) mmHG VBG pO2 (35-40) mmHG VBG HCO3 (22-26) mmol/L VBG O2 Saturation (70-76) % VBG O2 Content (9.0-17.0) Vol % VBG Base Excess (-2-2) mmol/L VBG Carboxyhemoglobin (0-4) % VBG Methemoglobin (0-2) % Hemoglobin (12.0-16.0) G/DL Carboxyhemoglobin (0-4) % O2 Delivery Device Vent Setting Inspired O2 % Critical Value Sodium 137 (136-145) meq/L Potassium 4.1 (3.5-5.1) meq/L Chloride 85 L (98-107) meq/L Carbon Dioxide 21.4 (21.0-32.0) meq/L Anion Gap 31 H (5-15) meq/L BUN 41 H (7-18) mg/dL Creatinine 4.43 H (0.60-1.30) mg/dL Estimated GFR 13 L (>89) mL/min POC Glucose 214 H (68-110) mg/dl Random Glucose 226 H (74-106) mg/dL Lactic Acid (0.4-2.0) mmol/L Calcium 5.1 L* (8.5-10.1) mg/dL Prot Corrected Calcium 5.9 L* (8.5-10.1) mg/dL Phosphorus (2.5-4.9) mg/dL Magnesium (1.5-2.5) mg/dL Total Bilirubin 15.2 H (0.2-1.0) mg/dL Direct Bilirubin (0.0-0.2) mg/dL AST 15252 H (15-37) U/L ALT 7156 H (12-78) U/L Alkaline Phosphatase 249 H (45-117) U/L Ammonia (11-32) mcmol/L Total Creatine Kinase (39-308) U/L CK-MB (CK-2) (0.5-3.6) ng/mL CK-MB (CK-2) % (0.0-4.0) % Troponin I (0.02-0.05) ng/mL Total Protein 5.0 L (6.4-8.2) g/dL Albumin 3.3 L D (3.4-5.0) g/dL Triglycerides (42-150) mg/dL Lipase (73-393) U/L TSH (0.358-3.740) uIU/mL Urine Color (Yellw/Straw) Urine Clarity (Clear) Urine pH (5.0-8.5) Ur Specific [place] (1.002-1.035) Urine Protein (Neg-Trace) mg/dL Urine Glucose (UA) (Negative) mg/dL Urine Ketones (Negative) mg/dL Urine Occult Blood (Negative) Urine Nitrate (Negative) Urine Bilirubin (Negative) Urine Urobilinogen (Less than 2) mg/dL Ur Leukocyte Esterase (Negative) Urine RBC (0-3) /hpf Urine WBC (0-5) /hpf Amorphous Sediment (None) /hpf Urine Bacteria (None) /hpf Urine Sperm (None) /hpf Micro UA Comment Ur Microscopic Review Urine Culture Comments Urine Eosinophils (None Seen) /HPF Urine Osmolality (300-1300) mosm/kg Ur Random Creatinine (27-300) mg/dL Ur Random Sodium meq/L Nasal Screen MRSA (PCR) (Negative) Blood Type Antibody Screen MTS Gel Crossmatch Blood Bank Comment Bld Prod Order Comment 07/28/18 07/28/18 07/28/18 Range/Units 13:59 14:00 14:15 CBC w Diff WBC (4.0-11.0) th/mm3 RBC (4.50-5.90) mil/mm3 Hgb (13.0-17.0) gm/dL Hct (39.0-51.0) % MCV (80.0-100.0) fL MCH (27.0-34.0) pg MCHC (32.0-36.0) % RDW (11.6-17.2) % Plt Count (150-450) th/mm3 MPV (7.0-11.0) fL Prelim Diff (Auto) Neut % (Auto) (16.0-70.0) % Lymph % (Auto) (9.0-44.0) % [place] % (Auto) (0.0-8.0) % Eos % (Auto) (0.0-4.0) % Baso % (Auto) (0.0-2.0) % Neut # (Auto) (1.8-7.7) th/mm3 Lymph # (Auto) (1.0-4.8) th/mm3 [place] # (Auto) (0.0-0.9) th/mm3 Eos # (Auto) (0.0-0.4) th/mm3 Baso # (Auto) (0.0-0.2) th/mm3 WBC Differential Seg Neuts % (Manual) (16-70) % Band Neuts % (Manual) (0-6) % Lymphocytes % (Manual) (9-44) % Monocytes % (Manual) (0-8) % Metamyelocytes % (Man) (0-1) % Myelocytes % (Man) (0-0) % Promyelocytes % (Man) (0-0) % Blast Cells % (Manual) (0-0) % Abs Neuts (Manual) (1.8-7.7) th/mm3 Nucleated RBCs/100 WBC (0-0) /100 WBC Differential Comment Toxic Vacuolation (None) Dohle Bodies (None) Platelet Estimate (Normal) Platelet Morphology (Normal) Pappenheimer Bodies (None) PT (9.8-11.6) sec INR Ratio APTT (24.3-30.1) sec Fibrinogen (227-377) mg/dL Puncture Site Patient Temperature O2 Saturation (90-100) % ABG pH (7.380-7.420) ABG pCO2 (38-42) mmHg ABG pO2 (61-120) mmHG ABG HCO3 (22-26) mmol/L ABG O2 Content (12.0-20.0) Vol % ABG Base Excess (-2-2) mmol/L ABG Methemoglobin (0-2) % Gaudencio Test VBG pH (7.360-7.400) VBG pCO2 (44-48) mmHG VBG pO2 (35-40) mmHG VBG HCO3 (22-26) mmol/L VBG O2 Saturation (70-76) % VBG O2 Content (9.0-17.0) Vol % VBG Base Excess (-2-2) mmol/L VBG Carboxyhemoglobin (0-4) % VBG Methemoglobin (0-2) % Hemoglobin (12.0-16.0) G/DL Carboxyhemoglobin (0-4) % O2 Delivery Device Vent Setting Inspired O2 % Critical Value Sodium (136-145) meq/L Potassium (3.5-5.1) meq/L Chloride (98-107) meq/L Carbon Dioxide (21.0-32.0) meq/L Anion Gap (5-15) meq/L BUN (7-18) mg/dL Creatinine (0.60-1.30) mg/dL Estimated GFR (>89) mL/min POC Glucose 221 H (68-110) mg/dl Random Glucose (74-106) mg/dL Lactic Acid (0.4-2.0) mmol/L Calcium (8.5-10.1) mg/dL Prot Corrected Calcium (8.5-10.1) mg/dL Phosphorus (2.5-4.9) mg/dL Magnesium (1.5-2.5) mg/dL Total Bilirubin (0.2-1.0) mg/dL Direct Bilirubin (0.0-0.2) mg/dL AST (15-37) U/L ALT (12-78) U/L Alkaline Phosphatase (45-117) U/L Ammonia (11-32) mcmol/L Total Creatine Kinase (39-308) U/L CK-MB (CK-2) (0.5-3.6) ng/mL CK-MB (CK-2) % (0.0-4.0) % Troponin I (0.02-0.05) ng/mL Total Protein (6.4-8.2) g/dL Albumin (3.4-5.0) g/dL Triglycerides (42-150) mg/dL Lipase (73-393) U/L TSH (0.358-3.740) uIU/mL Urine Color (Yellw/Straw) Urine Clarity (Clear) Urine pH (5.0-8.5) Ur Specific [place] (1.002-1.035) Urine Protein (Neg-Trace) mg/dL Urine Glucose (UA) (Negative) mg/dL Urine Ketones (Negative) mg/dL Urine Occult Blood (Negative) Urine Nitrate (Negative) Urine Bilirubin (Negative) Urine Urobilinogen (Less than 2) mg/dL Ur Leukocyte Esterase (Negative) Urine RBC (0-3) /hpf Urine WBC (0-5) /hpf Amorphous Sediment (None) /hpf Urine Bacteria (None) /hpf Urine Sperm (None) /hpf Micro UA Comment Ur Microscopic Review Urine Culture Comments Urine Eosinophils (None Seen) /HPF Urine Osmolality (300-1300) mosm/kg Ur Random Creatinine (27-300) mg/dL Ur Random Sodium meq/L Nasal Screen MRSA (PCR) (Negative) Blood Type O Positive Antibody Screen Negative MTS Gel Crossmatch See Detail Blood Bank Comment Bld Prod Order Comment 07/28/18 07/28/18 07/28/18 Range/Units 14:15 15:08 16:03 CBC w Diff WBC (4.0-11.0) th/mm3 RBC (4.50-5.90) mil/mm3 Hgb (13.0-17.0) gm/dL Hct (39.0-51.0) % MCV (80.0-100.0) fL MCH (27.0-34.0) pg MCHC (32.0-36.0) % RDW (11.6-17.2) % Plt Count (150-450) th/mm3 MPV (7.0-11.0) fL Prelim Diff (Auto) Neut % (Auto) (16.0-70.0) % Lymph % (Auto) (9.0-44.0) % Miner % (Auto) (0.0-8.0) % Eos % (Auto) (0.0-4.0) % Baso % (Auto) (0.0-2.0) % Neut # (Auto) (1.8-7.7) th/mm3 Lymph # (Auto) (1.0-4.8) th/mm3 Miner # (Auto) (0.0-0.9) th/mm3 Eos # (Auto) (0.0-0.4) th/mm3 Baso # (Auto) (0.0-0.2) th/mm3 WBC Differential Seg Neuts % (Manual) (16-70) % Band Neuts % (Manual) (0-6) % Lymphocytes % (Manual) (9-44) % Monocytes % (Manual) (0-8) % Metamyelocytes % (Man) (0-1) % Myelocytes % (Man) (0-0) % Promyelocytes % (Man) (0-0) % Blast Cells % (Manual) (0-0) % Abs Neuts (Manual) (1.8-7.7) th/mm3 Nucleated RBCs/100 WBC (0-0) /100 WBC Differential Comment Toxic Vacuolation (None) Dohle Bodies (None) Platelet Estimate (Normal) Platelet Morphology (Normal) Pappenheimer Bodies (None) PT (9.8-11.6) sec INR Ratio APTT (24.3-30.1) sec Fibrinogen (227-377) mg/dL Puncture Site Patient Temperature O2 Saturation (90-100) % ABG pH (7.380-7.420) ABG pCO2 (38-42) mmHg ABG pO2 (61-120) mmHG ABG HCO3 (22-26) mmol/L ABG O2 Content (12.0-20.0) Vol % ABG Base Excess (-2-2) mmol/L ABG Methemoglobin (0-2) % Gaudencio Test VBG pH (7.360-7.400) VBG pCO2 (44-48) mmHG VBG pO2 (35-40) mmHG VBG HCO3 (22-26) mmol/L VBG O2 Saturation (70-76) % VBG O2 Content (9.0-17.0) Vol % VBG Base Excess (-2-2) mmol/L VBG Carboxyhemoglobin (0-4) % VBG Methemoglobin (0-2) % Hemoglobin (12.0-16.0) G/DL Carboxyhemoglobin (0-4) % O2 Delivery Device Vent Setting Inspired O2 % Critical Value Sodium (136-145) meq/L Potassium (3.5-5.1) meq/L Chloride (98-107) meq/L Carbon Dioxide (21.0-32.0) meq/L Anion Gap (5-15) meq/L BUN (7-18) mg/dL Creatinine (0.60-1.30) mg/dL Estimated GFR (>89) mL/min POC Glucose 166 H 137 H (68-110) mg/dl Random Glucose (74-106) mg/dL Lactic Acid (0.4-2.0) mmol/L Calcium (8.5-10.1) mg/dL Prot Corrected Calcium (8.5-10.1) mg/dL Phosphorus (2.5-4.9) mg/dL Magnesium (1.5-2.5) mg/dL Total Bilirubin (0.2-1.0) mg/dL Direct Bilirubin (0.0-0.2) mg/dL AST (15-37) U/L ALT (12-78) U/L Alkaline Phosphatase (45-117) U/L Ammonia (11-32) mcmol/L Total Creatine Kinase (39-308) U/L CK-MB (CK-2) (0.5-3.6) ng/mL CK-MB (CK-2) % (0.0-4.0) % Troponin I (0.02-0.05) ng/mL Total Protein (6.4-8.2) g/dL Albumin (3.4-5.0) g/dL Triglycerides (42-150) mg/dL Lipase (73-393) U/L TSH (0.358-3.740) uIU/mL Urine Color (Yellw/Straw) Urine Clarity (Clear) Urine pH (5.0-8.5) Ur Specific [place] (1.002-1.035) Urine Protein (Neg-Trace) mg/dL Urine Glucose (UA) (Negative) mg/dL Urine Ketones (Negative) mg/dL Urine Occult Blood (Negative) Urine Nitrate (Negative) Urine Bilirubin (Negative) Urine Urobilinogen (Less than 2) mg/dL Ur Leukocyte Esterase (Negative) Urine RBC (0-3) /hpf Urine WBC (0-5) /hpf Amorphous Sediment (None) /hpf Urine Bacteria (None) /hpf Urine Sperm (None) /hpf Micro UA Comment Ur Microscopic Review Urine Culture Comments Urine Eosinophils (None Seen) /HPF Urine Osmolality (300-1300) mosm/kg Ur Random Creatinine (27-300) mg/dL Ur Random Sodium meq/L Nasal Screen MRSA (PCR) (Negative) Blood Type Antibody Screen MTS Gel Crossmatch Blood Bank Comment Bld Prod Order Comment 07/28/18 07/28/18 07/28/18 Range/Units 16:15 17:05 17:11 CBC w Diff WBC 25.5 H (4.0-11.0) th/mm3 RBC 2.90 L (4.50-5.90) mil/mm3 Hgb 9.2 L (13.0-17.0) gm/dL Hct 26.9 L (39.0-51.0) % MCV 92.9 (80.0-100.0) fL MCH 31.7 (27.0-34.0) pg MCHC 34.2 (32.0-36.0) % RDW 14.2 (11.6-17.2) % Plt Count 68 L (150-450) th/mm3 MPV 9.8 (7.0-11.0) fL Prelim Diff (Auto) Neut % (Auto) (16.0-70.0) % Lymph % (Auto) (9.0-44.0) % Miner % (Auto) (0.0-8.0) % Eos % (Auto) (0.0-4.0) % Baso % (Auto) (0.0-2.0) % Neut # (Auto) (1.8-7.7) th/mm3 Lymph # (Auto) (1.0-4.8) th/mm3 Miner # (Auto) (0.0-0.9) th/mm3 Eos # (Auto) (0.0-0.4) th/mm3 Baso # (Auto) (0.0-0.2) th/mm3 WBC Differential Seg Neuts % (Manual) (16-70) % Band Neuts % (Manual) (0-6) % Lymphocytes % (Manual) (9-44) % Monocytes % (Manual) (0-8) % Metamyelocytes % (Man) (0-1) % Myelocytes % (Man) (0-0) % Promyelocytes % (Man) (0-0) % Blast Cells % (Manual) (0-0) % Abs Neuts (Manual) (1.8-7.7) th/mm3 Nucleated RBCs/100 WBC (0-0) /100 WBC Differential Comment Toxic Vacuolation (None) Dohle Bodies (None) Platelet Estimate (Normal) Platelet Morphology (Normal) Pappenheimer Bodies (None) PT (9.8-11.6) sec INR Ratio APTT (24.3-30.1) sec Fibrinogen (227-377) mg/dL Puncture Site Art line Patient Temperature 98.6 O2 Saturation 95 (90-100) % ABG pH 7.40 (7.380-7.420) ABG pCO2 32 L (38-42) mmHg ABG pO2 147 H (61-120) mmHG ABG HCO3 19 L (22-26) mmol/L ABG O2 Content 10.6 L (12.0-20.0) Vol % ABG Base Excess -4.6 L (-2-2) mmol/L ABG Methemoglobin 2.9 H (0-2) % Gaudencio Test VBG pH (7.360-7.400) VBG pCO2 (44-48) mmHG VBG pO2 (35-40) mmHG VBG HCO3 (22-26) mmol/L VBG O2 Saturation (70-76) % VBG O2 Content (9.0-17.0) Vol % VBG Base Excess (-2-2) mmol/L VBG Carboxyhemoglobin (0-4) % VBG Methemoglobin (0-2) % Hemoglobin 7.7 L* (12.0-16.0) G/DL Carboxyhemoglobin 0.9 (0-4) % O2 Delivery Device Ventilator Vent Setting Prvc/ac600/18/5peep Inspired O2 80 % Critical Value Yes Sodium (136-145) meq/L Potassium (3.5-5.1) meq/L Chloride (98-107) meq/L Carbon Dioxide (21.0-32.0) meq/L Anion Gap (5-15) meq/L BUN (7-18) mg/dL Creatinine (0.60-1.30) mg/dL Estimated GFR (>89) mL/min POC Glucose 112 H (68-110) mg/dl Random Glucose (74-106) mg/dL Lactic Acid (0.4-2.0) mmol/L Calcium (8.5-10.1) mg/dL Prot Corrected Calcium (8.5-10.1) mg/dL Phosphorus (2.5-4.9) mg/dL Magnesium (1.5-2.5) mg/dL Total Bilirubin (0.2-1.0) mg/dL Direct Bilirubin (0.0-0.2) mg/dL AST (15-37) U/L ALT (12-78) U/L Alkaline Phosphatase (45-117) U/L Ammonia (11-32) mcmol/L Total Creatine Kinase (39-308) U/L CK-MB (CK-2) (0.5-3.6) ng/mL CK-MB (CK-2) % (0.0-4.0) % Troponin I (0.02-0.05) ng/mL Total Protein (6.4-8.2) g/dL Albumin (3.4-5.0) g/dL Triglycerides (42-150) mg/dL Lipase (73-393) U/L TSH (0.358-3.740) uIU/mL Urine Color (Yellw/Straw) Urine Clarity (Clear) Urine pH (5.0-8.5) Ur Specific [place] (1.002-1.035) Urine Protein (Neg-Trace) mg/dL Urine Glucose (UA) (Negative) mg/dL Urine Ketones (Negative) mg/dL Urine Occult Blood (Negative) Urine Nitrate (Negative) Urine Bilirubin (Negative) Urine Urobilinogen (Less than 2) mg/dL Ur Leukocyte Esterase (Negative) Urine RBC (0-3) /hpf Urine WBC (0-5) /hpf Amorphous Sediment (None) /hpf Urine Bacteria (None) /hpf Urine Sperm (None) /hpf Micro UA Comment Ur Microscopic Review Urine Culture Comments Urine Eosinophils (None Seen) /HPF Urine Osmolality (300-1300) mosm/kg Ur Random Creatinine (27-300) mg/dL Ur Random Sodium meq/L Nasal Screen MRSA (PCR) (Negative) Blood Type Antibody Screen MTS Gel Crossmatch Blood Bank Comment Bld Prod Order Comment 07/28/18 07/28/18 07/28/18 Range/Units 17:50 18:03 18:20 CBC w Diff WBC (4.0-11.0) th/mm3 RBC (4.50-5.90) mil/mm3 Hgb (13.0-17.0) gm/dL Hct (39.0-51.0) % MCV (80.0-100.0) fL MCH (27.0-34.0) pg MCHC (32.0-36.0) % RDW (11.6-17.2) % Plt Count (150-450) th/mm3 MPV (7.0-11.0) fL Prelim Diff (Auto) Neut % (Auto) (16.0-70.0) % Lymph % (Auto) (9.0-44.0) % Miner % (Auto) (0.0-8.0) % Eos % (Auto) (0.0-4.0) % Baso % (Auto) (0.0-2.0) % Neut # (Auto) (1.8-7.7) th/mm3 Lymph # (Auto) (1.0-4.8) th/mm3 Miner # (Auto) (0.0-0.9) th/mm3 Eos # (Auto) (0.0-0.4) th/mm3 Baso # (Auto) (0.0-0.2) th/mm3 WBC Differential Seg Neuts % (Manual) (16-70) % Band Neuts % (Manual) (0-6) % Lymphocytes % (Manual) (9-44) % Monocytes % (Manual) (0-8) % Metamyelocytes % (Man) (0-1) % Myelocytes % (Man) (0-0) % Promyelocytes % (Man) (0-0) % Blast Cells % (Manual) (0-0) % Abs Neuts (Manual) (1.8-7.7) th/mm3 Nucleated RBCs/100 WBC (0-0) /100 WBC Differential Comment Toxic Vacuolation (None) Dohle Bodies (None) Platelet Estimate (Normal) Platelet Morphology (Normal) Pappenheimer Bodies (None) PT (9.8-11.6) sec INR Ratio APTT (24.3-30.1) sec Fibrinogen (227-377) mg/dL Puncture Site Central line Patient Temperature 98.6 O2 Saturation (90-100) % ABG pH (7.380-7.420) ABG pCO2 (38-42) mmHg ABG pO2 (61-120) mmHG ABG HCO3 (22-26) mmol/L ABG O2 Content (12.0-20.0) Vol % ABG Base Excess (-2-2) mmol/L ABG Methemoglobin (0-2) % Gaudencio Test VBG pH 7.33 L (7.360-7.400) VBG pCO2 43 L (44-48) mmHG VBG pO2 26 L* (35-40) mmHG VBG HCO3 22 (22-26) mmol/L VBG O2 Saturation 34 L (70-76) % VBG O2 Content 4.3 L (9.0-17.0) Vol % VBG Base Excess -2.9 L (-2-2) mmol/L VBG Carboxyhemoglobin 0.7 (0-4) % VBG Methemoglobin 2.6 H (0-2) % Hemoglobin 8.9 L (12.0-16.0) G/DL Carboxyhemoglobin (0-4) % O2 Delivery Device Ventilator Vent Setting Prvc/ac600/18/5peep Inspired O2 70 % Critical Value Yes Sodium (136-145) meq/L Potassium (3.5-5.1) meq/L Chloride (98-107) meq/L Carbon Dioxide (21.0-32.0) meq/L Anion Gap (5-15) meq/L BUN (7-18) mg/dL Creatinine (0.60-1.30) mg/dL Estimated GFR (>89) mL/min POC Glucose 106 (68-110) mg/dl Random Glucose (74-106) mg/dL Lactic Acid 14.0 H* (0.4-2.0) mmol/L Calcium (8.5-10.1) mg/dL Prot Corrected Calcium (8.5-10.1) mg/dL Phosphorus (2.5-4.9) mg/dL Magnesium (1.5-2.5) mg/dL Total Bilirubin (0.2-1.0) mg/dL Direct Bilirubin (0.0-0.2) mg/dL AST (15-37) U/L ALT (12-78) U/L Alkaline Phosphatase (45-117) U/L Ammonia (11-32) mcmol/L Total Creatine Kinase (39-308) U/L CK-MB (CK-2) (0.5-3.6) ng/mL CK-MB (CK-2) % (0.0-4.0) % Troponin I (0.02-0.05) ng/mL Total Protein (6.4-8.2) g/dL Albumin (3.4-5.0) g/dL Triglycerides (42-150) mg/dL Lipase (73-393) U/L TSH (0.358-3.740) uIU/mL Urine Color (Yellw/Straw) Urine Clarity (Clear) Urine pH (5.0-8.5) Ur Specific [place] (1.002-1.035) Urine Protein (Neg-Trace) mg/dL Urine Glucose (UA) (Negative) mg/dL Urine Ketones (Negative) mg/dL Urine Occult Blood (Negative) Urine Nitrate (Negative) Urine Bilirubin (Negative) Urine Urobilinogen (Less than 2) mg/dL Ur Leukocyte Esterase (Negative) Urine RBC (0-3) /hpf Urine WBC (0-5) /hpf Amorphous Sediment (None) /hpf Urine Bacteria (None) /hpf Urine Sperm (None) /hpf Micro UA Comment Ur Microscopic Review Urine Culture Comments Urine Eosinophils (None Seen) /HPF Urine Osmolality (300-1300) mosm/kg Ur Random Creatinine (27-300) mg/dL Ur Random Sodium meq/L Nasal Screen MRSA (PCR) (Negative) Blood Type Antibody Screen MTS Gel Crossmatch Blood Bank Comment Bld Prod Order Comment 07/28/18 07/28/18 07/28/18 Range/Units 19:17 19:44 19:50 CBC w Diff WBC (4.0-11.0) th/mm3 RBC (4.50-5.90) mil/mm3 Hgb (13.0-17.0) gm/dL Hct (39.0-51.0) % MCV (80.0-100.0) fL MCH (27.0-34.0) pg MCHC (32.0-36.0) % RDW (11.6-17.2) % Plt Count (150-450) th/mm3 MPV (7.0-11.0) fL Prelim Diff (Auto) Neut % (Auto) (16.0-70.0) % Lymph % (Auto) (9.0-44.0) % Miner % (Auto) (0.0-8.0) % Eos % (Auto) (0.0-4.0) % Baso % (Auto) (0.0-2.0) % Neut # (Auto) (1.8-7.7) th/mm3 Lymph # (Auto) (1.0-4.8) th/mm3 Miner # (Auto) (0.0-0.9) th/mm3 Eos # (Auto) (0.0-0.4) th/mm3 Baso # (Auto) (0.0-0.2) th/mm3 WBC Differential Seg Neuts % (Manual) (16-70) % Band Neuts % (Manual) (0-6) % Lymphocytes % (Manual) (9-44) % Monocytes % (Manual) (0-8) % Metamyelocytes % (Man) (0-1) % Myelocytes % (Man) (0-0) % Promyelocytes % (Man) (0-0) % Blast Cells % (Manual) (0-0) % Abs Neuts (Manual) (1.8-7.7) th/mm3 Nucleated RBCs/100 WBC (0-0) /100 WBC Differential Comment Toxic Vacuolation (None) Dohle Bodies (None) Platelet Estimate (Normal) Platelet Morphology (Normal) Pappenheimer Bodies (None) PT (9.8-11.6) sec INR Ratio APTT (24.3-30.1) sec Fibrinogen (227-377) mg/dL Puncture Site Art line Patient Temperature 98.6 O2 Saturation 95 (90-100) % ABG pH 7.37 L (7.380-7.420) ABG pCO2 32 L (38-42) mmHg ABG pO2 143 H (61-120) mmHG ABG HCO3 18 L (22-26) mmol/L ABG O2 Content 11.9 L (12.0-20.0) Vol % ABG Base Excess -6.1 L (-2-2) mmol/L ABG Methemoglobin 2.5 H (0-2) % Gaudencio Test VBG pH (7.360-7.400) VBG pCO2 (44-48) mmHG VBG pO2 (35-40) mmHG VBG HCO3 (22-26) mmol/L VBG O2 Saturation (70-76) % VBG O2 Content (9.0-17.0) Vol % VBG Base Excess (-2-2) mmol/L VBG Carboxyhemoglobin (0-4) % VBG Methemoglobin (0-2) % Hemoglobin 8.7 L (12.0-16.0) G/DL Carboxyhemoglobin 0.7 (0-4) % O2 Delivery Device Ventilator Vent Setting 18/600/it0.75/5peep Inspired O2 70 % Critical Value No Sodium (136-145) meq/L Potassium (3.5-5.1) meq/L Chloride (98-107) meq/L Carbon Dioxide (21.0-32.0) meq/L Anion Gap (5-15) meq/L BUN (7-18) mg/dL Creatinine (0.60-1.30) mg/dL Estimated GFR (>89) mL/min POC Glucose 75 (68-110) mg/dl Random Glucose (74-106) mg/dL Lactic Acid (0.4-2.0) mmol/L Calcium (8.5-10.1) mg/dL Prot Corrected Calcium (8.5-10.1) mg/dL Phosphorus (2.5-4.9) mg/dL Magnesium (1.5-2.5) mg/dL Total Bilirubin (0.2-1.0) mg/dL Direct Bilirubin (0.0-0.2) mg/dL AST (15-37) U/L ALT (12-78) U/L Alkaline Phosphatase (45-117) U/L Ammonia (11-32) mcmol/L Total Creatine Kinase (39-308) U/L CK-MB (CK-2) (0.5-3.6) ng/mL CK-MB (CK-2) % (0.0-4.0) % Troponin I (0.02-0.05) ng/mL Total Protein (6.4-8.2) g/dL Albumin (3.4-5.0) g/dL Triglycerides (42-150) mg/dL Lipase (73-393) U/L TSH (0.358-3.740) uIU/mL Urine Color (Yellw/Straw) Urine Clarity (Clear) Urine pH (5.0-8.5) Ur Specific [place] (1.002-1.035) Urine Protein (Neg-Trace) mg/dL Urine Glucose (UA) (Negative) mg/dL Urine Ketones (Negative) mg/dL Urine Occult Blood (Negative) Urine Nitrate (Negative) Urine Bilirubin (Negative) Urine Urobilinogen (Less than 2) mg/dL Ur Leukocyte Esterase (Negative) Urine RBC (0-3) /hpf Urine WBC (0-5) /hpf Amorphous Sediment (None) /hpf Urine Bacteria (None) /hpf Urine Sperm (None) /hpf Micro UA Comment Ur Microscopic Review Urine Culture Comments Urine Eosinophils (None Seen) /HPF Urine Osmolality (300-1300) mosm/kg Ur Random Creatinine (27-300) mg/dL Ur Random Sodium meq/L Nasal Screen MRSA (PCR) (Negative) Blood Type Antibody Screen MTS Gel Crossmatch Blood Bank Comment Bld Prod Order Comment 07/28/18 07/28/18 07/28/18 Range/Units 19:55 19:55 19:55 CBC w Diff WBC (4.0-11.0) th/mm3 RBC (4.50-5.90) mil/mm3 Hgb (13.0-17.0) gm/dL Hct (39.0-51.0) % MCV (80.0-100.0) fL MCH (27.0-34.0) pg MCHC (32.0-36.0) % RDW (11.6-17.2) % Plt Count (150-450) th/mm3 MPV (7.0-11.0) fL Prelim Diff (Auto) Neut % (Auto) (16.0-70.0) % Lymph % (Auto) (9.0-44.0) % [place]er % (Auto) (0.0-8.0) % Eos % (Auto) (0.0-4.0) % Baso % (Auto) (0.0-2.0) % Neut # (Auto) (1.8-7.7) th/mm3 Lymph # (Auto) (1.0-4.8) th/mm3 Miner # (Auto) (0.0-0.9) th/mm3 Eos # (Auto) (0.0-0.4) th/mm3 Baso # (Auto) (0.0-0.2) th/mm3 WBC Differential Seg Neuts % (Manual) (16-70) % Band Neuts % (Manual) (0-6) % Lymphocytes % (Manual) (9-44) % Monocytes % (Manual) (0-8) % Metamyelocytes % (Man) (0-1) % Myelocytes % (Man) (0-0) % Promyelocytes % (Man) (0-0) % Blast Cells % (Manual) (0-0) % Abs Neuts (Manual) (1.8-7.7) th/mm3 Nucleated RBCs/100 WBC (0-0) /100 WBC Differential Comment Toxic Vacuolation (None) Dohle Bodies (None) Platelet Estimate (Normal) Platelet Morphology (Normal) Pappenheimer Bodies (None) PT 22.7 H (9.8-11.6) sec INR 2.2 Ratio APTT (24.3-30.1) sec Fibrinogen 211 L (227-377) mg/dL Puncture Site Patient Temperature O2 Saturation (90-100) % ABG pH (7.380-7.420) ABG pCO2 (38-42) mmHg ABG pO2 (61-120) mmHG ABG HCO3 (22-26) mmol/L ABG O2 Content (12.0-20.0) Vol % ABG Base Excess (-2-2) mmol/L ABG Methemoglobin (0-2) % Gaudencio Test VBG pH (7.360-7.400) VBG pCO2 (44-48) mmHG VBG pO2 (35-40) mmHG VBG HCO3 (22-26) mmol/L VBG O2 Saturation (70-76) % VBG O2 Content (9.0-17.0) Vol % VBG Base Excess (-2-2) mmol/L VBG Carboxyhemoglobin (0-4) % VBG Methemoglobin (0-2) % Hemoglobin (12.0-16.0) G/DL Carboxyhemoglobin (0-4) % O2 Delivery Device Vent Setting Inspired O2 % Critical Value Sodium 137 (136-145) meq/L Potassium 4.2 (3.5-5.1) meq/L Chloride 93 L D (98-107) meq/L Carbon Dioxide 18.8 L (21.0-32.0) meq/L Anion Gap 25 H (5-15) meq/L BUN 37 H (7-18) mg/dL Creatinine 4.12 H (0.60-1.30) mg/dL Estimated GFR 14 L (>89) mL/min POC Glucose (68-110) mg/dl Random Glucose 56 L D (74-106) mg/dL Lactic Acid 13.8 H* (0.4-2.0) mmol/L Calcium 5.9 L* D (8.5-10.1) mg/dL Prot Corrected Calcium 6.5 L* (8.5-10.1) mg/dL Phosphorus (2.5-4.9) mg/dL Magnesium (1.5-2.5) mg/dL Total Bilirubin 17.5 H (0.2-1.0) mg/dL Direct Bilirubin (0.0-0.2) mg/dL AST 95375 H (15-37) U/L ALT 6411 H (12-78) U/L Alkaline Phosphatase 264 H (45-117) U/L Ammonia (11-32) mcmol/L Total Creatine Kinase (39-308) U/L CK-MB (CK-2) (0.5-3.6) ng/mL CK-MB (CK-2) % (0.0-4.0) % Troponin I 0.82 H* (0.02-0.05) ng/mL Total Protein 5.7 L D (6.4-8.2) g/dL Albumin 3.8 (3.4-5.0) g/dL Triglycerides (42-150) mg/dL Lipase (73-393) U/L TSH (0.358-3.740) uIU/mL Urine Color (Yellw/Straw) Urine Clarity (Clear) Urine pH (5.0-8.5) Ur Specific [place] (1.002-1.035) Urine Protein (Neg-Trace) mg/dL Urine Glucose (UA) (Negative) mg/dL Urine Ketones (Negative) mg/dL Urine Occult Blood (Negative) Urine Nitrate (Negative) Urine Bilirubin (Negative) Urine Urobilinogen (Less than 2) mg/dL Ur Leukocyte Esterase (Negative) Urine RBC (0-3) /hpf Urine WBC (0-5) /hpf Amorphous Sediment (None) /hpf Urine Bacteria (None) /hpf Urine Sperm (None) /hpf Micro UA Comment Ur Microscopic Review Urine Culture Comments Urine Eosinophils (None Seen) /HPF Urine Osmolality (300-1300) mosm/kg Ur Random Creatinine (27-300) mg/dL Ur Random Sodium meq/L Nasal Screen MRSA (PCR) (Negative) Blood Type Antibody Screen MTS Gel Crossmatch Blood Bank Comment Bld Prod Order Comment 07/28/18 07/28/18 07/28/18 Range/Units 20:03 20:32 21:06 CBC w Diff WBC (4.0-11.0) th/mm3 RBC (4.50-5.90) mil/mm3 Hgb (13.0-17.0) gm/dL Hct (39.0-51.0) % MCV (80.0-100.0) fL MCH (27.0-34.0) pg MCHC (32.0-36.0) % RDW (11.6-17.2) % Plt Count (150-450) th/mm3 MPV (7.0-11.0) fL Prelim Diff (Auto) Neut % (Auto) (16.0-70.0) % Lymph % (Auto) (9.0-44.0) % Miner % (Auto) (0.0-8.0) % Eos % (Auto) (0.0-4.0) % Baso % (Auto) (0.0-2.0) % Neut # (Auto) (1.8-7.7) th/mm3 Lymph # (Auto) (1.0-4.8) th/mm3 Miner # (Auto) (0.0-0.9) th/mm3 Eos # (Auto) (0.0-0.4) th/mm3 Baso # (Auto) (0.0-0.2) th/mm3 WBC Differential Seg Neuts % (Manual) (16-70) % Band Neuts % (Manual) (0-6) % Lymphocytes % (Manual) (9-44) % Monocytes % (Manual) (0-8) % Metamyelocytes % (Man) (0-1) % Myelocytes % (Man) (0-0) % Promyelocytes % (Man) (0-0) % Blast Cells % (Manual) (0-0) % Abs Neuts (Manual) (1.8-7.7) th/mm3 Nucleated RBCs/100 WBC (0-0) /100 WBC Differential Comment Toxic Vacuolation (None) Dohle Bodies (None) Platelet Estimate (Normal) Platelet Morphology (Normal) Pappenheimer Bodies (None) PT (9.8-11.6) sec INR Ratio APTT (24.3-30.1) sec Fibrinogen (227-377) mg/dL Puncture Site Patient Temperature O2 Saturation (90-100) % ABG pH (7.380-7.420) ABG pCO2 (38-42) mmHg ABG pO2 (61-120) mmHG ABG HCO3 (22-26) mmol/L ABG O2 Content (12.0-20.0) Vol % ABG Base Excess (-2-2) mmol/L ABG Methemoglobin (0-2) % Gaudencio Test VBG pH (7.360-7.400) VBG pCO2 (44-48) mmHG VBG pO2 (35-40) mmHG VBG HCO3 (22-26) mmol/L VBG O2 Saturation (70-76) % VBG O2 Content (9.0-17.0) Vol % VBG Base Excess (-2-2) mmol/L VBG Carboxyhemoglobin (0-4) % VBG Methemoglobin (0-2) % Hemoglobin (12.0-16.0) G/DL Carboxyhemoglobin (0-4) % O2 Delivery Device Vent Setting Inspired O2 % Critical Value Sodium (136-145) meq/L Potassium (3.5-5.1) meq/L Chloride (98-107) meq/L Carbon Dioxide (21.0-32.0) meq/L Anion Gap (5-15) meq/L BUN (7-18) mg/dL Creatinine (0.60-1.30) mg/dL Estimated GFR (>89) mL/min POC Glucose 72 160 H 128 H (68-110) mg/dl Random Glucose (74-106) mg/dL Lactic Acid (0.4-2.0) mmol/L Calcium (8.5-10.1) mg/dL Prot Corrected Calcium (8.5-10.1) mg/dL Phosphorus (2.5-4.9) mg/dL Magnesium (1.5-2.5) mg/dL Total Bilirubin (0.2-1.0) mg/dL Direct Bilirubin (0.0-0.2) mg/dL AST (15-37) U/L ALT (12-78) U/L Alkaline Phosphatase (45-117) U/L Ammonia (11-32) mcmol/L Total Creatine Kinase (39-308) U/L CK-MB (CK-2) (0.5-3.6) ng/mL CK-MB (CK-2) % (0.0-4.0) % Troponin I (0.02-0.05) ng/mL Total Protein (6.4-8.2) g/dL Albumin (3.4-5.0) g/dL Triglycerides (42-150) mg/dL Lipase (73-393) U/L TSH (0.358-3.740) uIU/mL Urine Color (Yellw/Straw) Urine Clarity (Clear) Urine pH (5.0-8.5) Ur Specific [place] (1.002-1.035) Urine Protein (Neg-Trace) mg/dL Urine Glucose (UA) (Negative) mg/dL Urine Ketones (Negative) mg/dL Urine Occult Blood (Negative) Urine Nitrate (Negative) Urine Bilirubin (Negative) Urine Urobilinogen (Less than 2) mg/dL Ur Leukocyte Esterase (Negative) Urine RBC (0-3) /hpf Urine WBC (0-5) /hpf Amorphous Sediment (None) /hpf Urine Bacteria (None) /hpf Urine Sperm (None) /hpf Micro UA Comment Ur Microscopic Review Urine Culture Comments Urine Eosinophils (None Seen) /HPF Urine Osmolality (300-1300) mosm/kg Ur Random Creatinine (27-300) mg/dL Ur Random Sodium meq/L Nasal Screen MRSA (PCR) (Negative) Blood Type Antibody Screen MTS Gel Crossmatch Blood Bank Comment Bld Prod Order Comment 07/29/18 07/29/18 07/29/18 Range/Units 00:13 02:45 03:11 CBC w Diff WBC (4.0-11.0) th/mm3 RBC (4.50-5.90) mil/mm3 Hgb (13.0-17.0) gm/dL Hct (39.0-51.0) % MCV (80.0-100.0) fL MCH (27.0-34.0) pg MCHC (32.0-36.0) % RDW (11.6-17.2) % Plt Count (150-450) th/mm3 MPV (7.0-11.0) fL Prelim Diff (Auto) Neut % (Auto) (16.0-70.0) % Lymph % (Auto) (9.0-44.0) % [place] % (Auto) (0.0-8.0) % Eos % (Auto) (0.0-4.0) % Baso % (Auto) (0.0-2.0) % Neut # (Auto) (1.8-7.7) th/mm3 Lymph # (Auto) (1.0-4.8) th/mm3 [place] # (Auto) (0.0-0.9) th/mm3 Eos # (Auto) (0.0-0.4) th/mm3 Baso # (Auto) (0.0-0.2) th/mm3 WBC Differential Seg Neuts % (Manual) (16-70) % Band Neuts % (Manual) (0-6) % Lymphocytes % (Manual) (9-44) % Monocytes % (Manual) (0-8) % Metamyelocytes % (Man) (0-1) % Myelocytes % (Man) (0-0) % Promyelocytes % (Man) (0-0) % Blast Cells % (Manual) (0-0) % Abs Neuts (Manual) (1.8-7.7) th/mm3 Nucleated RBCs/100 WBC (0-0) /100 WBC Differential Comment Toxic Vacuolation (None) Dohle Bodies (None) Platelet Estimate (Normal) Platelet Morphology (Normal) Pappenheimer Bodies (None) PT (9.8-11.6) sec INR Ratio APTT (24.3-30.1) sec Fibrinogen (227-377) mg/dL Puncture Site Patient Temperature O2 Saturation (90-100) % ABG pH (7.380-7.420) ABG pCO2 (38-42) mmHg ABG pO2 (61-120) mmHG ABG HCO3 (22-26) mmol/L ABG O2 Content (12.0-20.0) Vol % ABG Base Excess (-2-2) mmol/L ABG Methemoglobin (0-2) % Gaudencio Test VBG pH (7.360-7.400) VBG pCO2 (44-48) mmHG VBG pO2 (35-40) mmHG VBG HCO3 (22-26) mmol/L VBG O2 Saturation (70-76) % VBG O2 Content (9.0-17.0) Vol % VBG Base Excess (-2-2) mmol/L VBG Carboxyhemoglobin (0-4) % VBG Methemoglobin (0-2) % Hemoglobin (12.0-16.0) G/DL Carboxyhemoglobin (0-4) % O2 Delivery Device Vent Setting Inspired O2 % Critical Value Sodium (136-145) meq/L Potassium (3.5-5.1) meq/L Chloride (98-107) meq/L Carbon Dioxide (21.0-32.0) meq/L Anion Gap (5-15) meq/L BUN (7-18) mg/dL Creatinine (0.60-1.30) mg/dL Estimated GFR (>89) mL/min POC Glucose 87 52 L 118 H (68-110) mg/dl Random Glucose (74-106) mg/dL Lactic Acid (0.4-2.0) mmol/L Calcium (8.5-10.1) mg/dL Prot Corrected Calcium (8.5-10.1) mg/dL Phosphorus (2.5-4.9) mg/dL Magnesium (1.5-2.5) mg/dL Total Bilirubin (0.2-1.0) mg/dL Direct Bilirubin (0.0-0.2) mg/dL AST (15-37) U/L ALT (12-78) U/L Alkaline Phosphatase (45-117) U/L Ammonia (11-32) mcmol/L Total Creatine Kinase (39-308) U/L CK-MB (CK-2) (0.5-3.6) ng/mL CK-MB (CK-2) % (0.0-4.0) % Troponin I (0.02-0.05) ng/mL Total Protein (6.4-8.2) g/dL Albumin (3.4-5.0) g/dL Triglycerides (42-150) mg/dL Lipase (73-393) U/L TSH (0.358-3.740) uIU/mL Urine Color (Yellw/Straw) Urine Clarity (Clear) Urine pH (5.0-8.5) Ur Specific [place] (1.002-1.035) Urine Protein (Neg-Trace) mg/dL Urine Glucose (UA) (Negative) mg/dL Urine Ketones (Negative) mg/dL Urine Occult Blood (Negative) Urine Nitrate (Negative) Urine Bilirubin (Negative) Urine Urobilinogen (Less than 2) mg/dL Ur Leukocyte Esterase (Negative) Urine RBC (0-3) /hpf Urine WBC (0-5) /hpf Amorphous Sediment (None) /hpf Urine Bacteria (None) /hpf Urine Sperm (None) /hpf Micro UA Comment Ur Microscopic Review Urine Culture Comments Urine Eosinophils (None Seen) /HPF Urine Osmolality (300-1300) mosm/kg Ur Random Creatinine (27-300) mg/dL Ur Random Sodium meq/L Nasal Screen MRSA (PCR) (Negative) Blood Type Antibody Screen MTS Gel Crossmatch Blood Bank Comment Bld Prod Order Comment 07/29/18 07/29/1807/29/18 Range/Units 03:45 03:45 03:45 CBC w Diff WBC 20.8 H (4.0-11.0) th/mm3 RBC 2.54 L (4.50-5.90) mil/mm3 Hgb 8.2 L (13.0-17.0) gm/dL Hct 24.3 L (39.0-51.0) % MCV 95.9 (80.0-100.0) fL MCH 32.2 (27.0-34.0) pg MCHC 33.6 (32.0-36.0) % RDW 15.3 (11.6-17.2) % Plt Count 56 L (150-450) th/mm3 MPV 9.9 (7.0-11.0) fL Prelim Diff (Auto) Neut % (Auto) (16.0-70.0) % Lymph % (Auto) (9.0-44.0) % Miner % (Auto) (0.0-8.0) % Eos % (Auto) (0.0-4.0) % Baso % (Auto) (0.0-2.0) % Neut # (Auto) (1.8-7.7) th/mm3 Lymph # (Auto) (1.0-4.8) th/mm3 Miner # (Auto) (0.0-0.9) th/mm3 Eos # (Auto) (0.0-0.4) th/mm3 Baso # (Auto) (0.0-0.2) th/mm3 WBC Differential Seg Neuts % (Manual) (16-70) % Band Neuts % (Manual) (0-6) % Lymphocytes % (Manual) (9-44) % Monocytes % (Manual) (0-8) % Metamyelocytes % (Man) (0-1) % Myelocytes % (Man) (0-0) % Promyelocytes % (Man) (0-0) % Blast Cells % (Manual) (0-0) % Abs Neuts (Manual) (1.8-7.7) th/mm3 Nucleated RBCs/100 WBC (0-0) /100 WBC Differential Comment Toxic Vacuolation (None) Dohle Bodies (None) Platelet Estimate (Normal) Platelet Morphology (Normal) Pappenheimer Bodies (None) PT (9.8-11.6) sec INR Ratio APTT (24.3-30.1) sec Fibrinogen (227-377) mg/dL Puncture Site Patient Temperature O2 Saturation (90-100) % ABG pH (7.380-7.420) ABG pCO2 (38-42) mmHg ABG pO2 (61-120) mmHG ABG HCO3 (22-26) mmol/L ABG O2 Content (12.0-20.0) Vol % ABG Base Excess (-2-2) mmol/L ABG Methemoglobin (0-2) % Gaudencio Test VBG pH (7.360-7.400) VBG pCO2 (44-48) mmHG VBG pO2 (35-40) mmHG VBG HCO3 (22-26) mmol/L VBG O2 Saturation (70-76) % VBG O2 Content (9.0-17.0) Vol % VBG Base Excess (-2-2) mmol/L VBG Carboxyhemoglobin (0-4) % VBG Methemoglobin (0-2) % Hemoglobin (12.0-16.0) G/DL Carboxyhemoglobin (0-4) % O2 Delivery Device Vent Setting Inspired O2 % Critical Value Sodium 140 (136-145) meq/L Potassium 5.1 D (3.5-5.1) meq/L Chloride 98 (98-107) meq/L Carbon Dioxide 13.4 L (21.0-32.0) meq/L Anion Gap 29 H (5-15) meq/L BUN 34 H (7-18) mg/dL Creatinine 4.13 H (0.60-1.30) mg/dL Estimated GFR 14 L (>89) mL/min POC Glucose (68-110) mg/dl Random Glucose 105 (74-106) mg/dL Lactic Acid 16.3 H* (0.4-2.0) mmol/L Calcium 6.4 L* (8.5-10.1) mg/dL Prot Corrected Calcium 7.3 L* D (8.5-10.1) mg/dL Phosphorus (2.5-4.9) mg/dL Magnesium 1.9 (1.5-2.5) mg/dL Total Bilirubin 15.9 H (0.2-1.0) mg/dL Direct Bilirubin (0.0-0.2) mg/dL AST 72877 H (15-37) U/L ALT 5221 H (12-78) U/L Alkaline Phosphatase 245 H (45-117) U/L Ammonia (11-32) mcmol/L Total Creatine Kinase (39-308) U/L CK-MB (CK-2) (0.5-3.6) ng/mL CK-MB (CK-2) % (0.0-4.0) % Troponin I 0.76 H* (0.02-0.05) ng/mL Total Protein 5.3 L (6.4-8.2) g/dL Albumin 3.6 (3.4-5.0) g/dL Triglycerides (42-150) mg/dL Lipase (73-393) U/L TSH (0.358-3.740) uIU/mL Urine Color (Yellw/Straw) Urine Clarity (Clear) Urine pH (5.0-8.5) Ur Specific [place] (1.002-1.035) Urine Protein (Neg-Trace) mg/dL Urine Glucose (UA) (Negative) mg/dL Urine Ketones (Negative) mg/dL Urine Occult Blood (Negative) Urine Nitrate (Negative) Urine Bilirubin (Negative) Urine Urobilinogen (Less than 2) mg/dL Ur Leukocyte Esterase (Negative) Urine RBC (0-3) /hpf Urine WBC (0-5) /hpf Amorphous Sediment (None) /hpf Urine Bacteria (None) /hpf Urine Sperm (None) /hpf Micro UA Comment Ur Microscopic Review Urine Culture Comments Urine Eosinophils (None Seen) /HPF Urine Osmolality (300-1300) mosm/kg Ur Random Creatinine (27-300) mg/dL Ur Random Sodium meq/L Nasal Screen MRSA (PCR) (Negative) Blood Type Antibody Screen MTS Gel Crossmatch Blood Bank Comment Bld Prod Order Comment 07/29/18 07/29/18 07/29/18 Range/Units 05:16 05:49 06:14 CBC w Diff WBC (4.0-11.0) th/mm3 RBC (4.50-5.90) mil/mm3 Hgb (13.0-17.0) gm/dL Hct (39.0-51.0) % MCV (80.0-100.0) fL MCH (27.0-34.0) pg MCHC (32.0-36.0) % RDW (11.6-17.2) % Plt Count (150-450) th/mm3 MPV (7.0-11.0) fL Prelim Diff (Auto) Neut % (Auto) (16.0-70.0) % Lymph % (Auto) (9.0-44.0) % Miner % (Auto) (0.0-8.0) % Eos % (Auto) (0.0-4.0) % Baso % (Auto) (0.0-2.0) % Neut # (Auto) (1.8-7.7) th/mm3 Lymph # (Auto) (1.0-4.8) th/mm3 [place] # (Auto) (0.0-0.9) th/mm3 Eos # (Auto) (0.0-0.4) th/mm3 Baso # (Auto) (0.0-0.2) th/mm3 WBC Differential Seg Neuts % (Manual) (16-70) % Band Neuts % (Manual) (0-6) % Lymphocytes % (Manual) (9-44) % Monocytes % (Manual) (0-8) % Metamyelocytes % (Man) (0-1) % Myelocytes % (Man) (0-0) % Promyelocytes % (Man) (0-0) % Blast Cells % (Manual) (0-0) % Abs Neuts (Manual) (1.8-7.7) th/mm3 Nucleated RBCs/100 WBC (0-0) /100 WBC Differential Comment Toxic Vacuolation (None) Dohle Bodies (None) Platelet Estimate (Normal) Platelet Morphology (Normal) Pappenheimer Bodies (None) PT (9.8-11.6) sec INR Ratio APTT (24.3-30.1) sec Fibrinogen (227-377) mg/dL Puncture Site Patient Temperature O2 Saturation (90-100) % ABG pH (7.380-7.420) ABG pCO2 (38-42) mmHg ABG pO2 (61-120) mmHG ABG HCO3 (22-26) mmol/L ABG O2 Content (12.0-20.0) Vol % ABG Base Excess (-2-2) mmol/L ABG Methemoglobin (0-2) % Gaudencio Test VBG pH (7.360-7.400) VBG pCO2 (44-48) mmHG VBG pO2 (35-40) mmHG VBG HCO3 (22-26) mmol/L VBG O2 Saturation (70-76) % VBG O2 Content (9.0-17.0) Vol % VBG Base Excess (-2-2) mmol/L VBG Carboxyhemoglobin (0-4) % VBG Methemoglobin (0-2) % Hemoglobin (12.0-16.0) G/DL Carboxyhemoglobin (0-4) % O2 Delivery Device Vent Setting Inspired O2 % Critical Value Sodium (136-145) meq/L Potassium (3.5-5.1) meq/L Chloride (98-107) meq/L Carbon Dioxide (21.0-32.0) meq/L Anion Gap (5-15) meq/L BUN (7-18) mg/dL Creatinine (0.60-1.30) mg/dL Estimated GFR (>89) mL/min POC Glucose 76 61 L 149 H (68-110) mg/dl Random Glucose (74-106) mg/dL Lactic Acid (0.4-2.0) mmol/L Calcium (8.5-10.1) mg/dL Prot Corrected Calcium (8.5-10.1) mg/dL Phosphorus (2.5-4.9) mg/dL Magnesium (1.5-2.5) mg/dL Total Bilirubin (0.2-1.0) mg/dL Direct Bilirubin (0.0-0.2) mg/dL AST (15-37) U/L ALT (12-78) U/L Alkaline Phosphatase (45-117) U/L Ammonia (11-32) mcmol/L Total Creatine Kinase (39-308) U/L CK-MB (CK-2) (0.5-3.6) ng/mL CK-MB (CK-2) % (0.0-4.0) % Troponin I (0.02-0.05) ng/mL Total Protein (6.4-8.2) g/dL Albumin (3.4-5.0) g/dL Triglycerides (42-150) mg/dL Lipase (73-393) U/L TSH (0.358-3.740) uIU/mL Urine Color (Yellw/Straw) Urine Clarity (Clear) Urine pH (5.0-8.5) Ur Specific [place] (1.002-1.035) Urine Protein (Neg-Trace) mg/dL Urine Glucose (UA) (Negative) mg/dL Urine Ketones (Negative) mg/dL Urine Occult Blood (Negative) Urine Nitrate (Negative) Urine Bilirubin (Negative) Urine Urobilinogen (Less than 2) mg/dL Ur Leukocyte Esterase (Negative) Urine RBC (0-3) /hpf Urine WBC (0-5) /hpf Amorphous Sediment (None) /hpf Urine Bacteria (None) /hpf Urine Sperm (None) /hpf Micro UA Comment Ur Microscopic Review Urine Culture Comments Urine Eosinophils (None Seen) /HPF Urine Osmolality (300-1300) mosm/kg Ur Random Creatinine (27-300) mg/dL Ur Random Sodium meq/L Nasal Screen MRSA (PCR) (Negative) Blood Type Antibody Screen MTS Gel Crossmatch Blood Bank Comment Bld Prod Order Comment Imaging Data Radiologist's impression: Cholangiopancreatography MRI 07/25/18 00:00 CONCLUSION: 1. Tiny distal common bile duct stone at the ampulla, estimated at 3.5 mm in size. This appears to be minimally obstructing, if any, with generally a normal size common bile duct for a patient this age and no pancreatic duct dilatation. Several similar sized stones are seen in the gallbladder near the neck. No other definite stones are clearly demonstrated. 2. Acute pancreatitis. Chest X-Ray 07/25/18 07:37 CONCLUSION: Chronic interstitial changes. No acute cardiopulmonary findings identified. Abdomen/Pelvis CT 07/25/18 08:06 CONCLUSION: 1. Acute pancreatitis. No pseudocyst, pancreatic infarction, or pancreatic hemorrhage observed. No ductal dilatation. There is a 2 mm calcification at the level of the ampulla that could relate to a CBD stone at the ampullary region. There is no ductal dilatation to suggest an obstructing component. 2. Cholelithiasis. 3. 3 mm nonobstructing left renal stone. 4. 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 5. Umbilical and left inguinal hernias. Abdomen X-Ray 07/26/18 00:00 CONCLUSION: Nasogastric tube in place with the tip in the stomach. Chest X-Ray 07/26/18 00:00 CONCLUSION: Mild basilar hypoaeration with airspace disease characteristic of atelectasis. No evidence of significant lung consolidation or acute congestion. Satisfactory position of endotracheal tube and central venous catheter. Percutaneous Cholangiogram 07/26/18 00:00 CONCLUSION: 1. Uncomplicated percutaneous cholecystostomy as above. Once the patient has stabilized can consider performing a cholangiogram through the cholecystostomy tube to assess the distal common bile duct. Abdomen X-Ray 07/27/18 00:00 CONCLUSION: Stable exam. Chest X-Ray 07/27/18 06:00 CONCLUSION: 1. Stable tubes and lines, as above. 2. Developing small bilateral pleural effusions and associated airspace disease in the lower lung zones. Abdomen Ultrasound 07/27/18 12:05 CONCLUSION: 1. Bowel gas limits the study. 2. Hepatic steatosis. No biliary dilatation. 3. Sludge and small stones within a decompressed gallbladder which contains a cholecystostomy tube. 4. Small volume ascites. 5. Pancreas is totally obscured and not well evaluated. Chest X-Ray 07/28/18 06:00 CONCLUSION: 1. Stable tubes and lines. 2. Worsening bilateral [id number] pleural effusions with associated lower lobe airspace disease. Gallbladder Ultrasound 07/28/18 16:46 CONCLUSION: 1. The cholecystostomy tube is coiled within the lumen of the gallbladder. The gallbladder does contain stones and sludge with a small amount of fluid. No dilatation of the gallbladder. The reduced drainage from the gallbladder tube likely relates to internal drainage down the common bile duct. Injection of contrast in the cholecystostomy tube can be performed to evaluate the patency of the common bile duct. This can be performed when the patient is stable and able to leave the unit. Chest X-Ray 07/29/18 06:00 CONCLUSION: No significant change. Discharge Plan Discharge Disposition Patient Disposition: [place] [facility] [place] Condition: Critical Physicians Team ED Provider: Guillermo Aguilera Primary Care Provider: NON STAFF,PROVIDER Attending Provider: Varghese Cullen Other Providers: ; Roger Rivers V ; Varghese Cullen ; Liss Brown ; Khadra Medina ; Jack Hurley Discharge Interventions Interventions: ED Discharge Assessment Last Done: 07/25/18 11:38 Status ED Status: Left Department Discharge Information Discharge Date/Time: 07/25/18 11:45
--- NOTE | 2018-07-25 08:00 | XR ---
EXAM DATE: 07/25/2018 7:54 AM EDT AGE/SEX: 77 years / Male INDICATIONS: Chest and abdominal pain, nausea, vomiting. CLINICAL DATA: This is the patient's initial encounter. Patient reports that signs and symptoms have been present for 1 day and indicates a pain score of 5/10. MEDICAL/SURGICAL HISTORY: Cardiovascular disease. CABG. [place] [facility] [place]. . FINDINGS: The heart is mildly enlarged. The patient is post median sternotomy. There is no overt congestive nneka lure. Our mild chronic interstitial changes within the pulmonary parenchyma. The visualized bony stru ctures are grossly intact. CONCLUSION: Chronic interstitial changes. No acute cardiopulmonary findings identified. Electronically signed by: Iron Somers MD 07/25/2018 7:59 AM EDT
[2018-07-25] MEDS ORDERED: Morphine Inj 4 MG/ML Vial IV.PUSH STA ×2 (08:04→09:04)
[2018-07-25 08:13] LABS: Lymphocytes 5 % (9-44); Metamyelocytes 4 % (0-1); Monocytes 5 % (0-8); Myelocytes 2 % (0-0); Platelet Estimate Normal (Normal); Platelet Morphology Normal (Normal)
--- NOTE | 2018-07-25 08:44 | CT ---
EXAM DATE: 07/25/2018 8:34 AM EDT AGE/SEX: 77 years / Male INDICATIONS: Severe upper abdominal pain. Nausea and vomiting. CLINICAL DATA: This is the patient's initial encounter. Patient reports that signs and symptoms have been present for 1 day and indicates a pain score of 10/10. MEDICAL/SURGICAL HISTORY: Cardiovascular disease. Renal calculi. Hypertension. CABG. Appende ctomy. ORAL CONTRAST: No oral contrast ingested. RADIATION DOSE: 14.25 CTDI (mGy) COMPARISON: No prior exams available for comparison. TECHNIQUE: Multiple contiguous axial images were obtained through the abdomen and pelvis following b olus infusion of 90 ml Omnipaque 350 (iohexol) nonionic water-soluble contrast as a single exam dos e. No oral contrast ingested. Using automated exposure control and adjustment of the mA and/or kV ac cording to patient size, radiation dose was kept as low as reasonably achievable to obtain optimal di agnostic quality images. DICOM format image data is available electronically for review and comparis on. FINDINGS: Lower Lungs: The visualized lower lungs are clear. Pronounced coronary artery atherosclerotic calcifi cations. Liver: The liver has a homogeneous density. Scattered tiny hepatic cysts. There is no dilation of the biliary tree. 2 tiny calcified gallstones layering within an otherwise normal-appearing gallbladder. Spleen: Homogeneous density without enlargement. Pancreas: An acute inflammatory process is seen involving the pancreas. There is stranding of the julio rrounding fat within the retroperitoneum. Free fluid is seen adjacent to the pancreas and tracking al dominic the left anterior pararenal fat. No pseudocyst. No ductal dilatation. No mass or hemorrhage. A 2 mm calcification is seen at the level of the ampulla. This is not generating any dilatation of the pa ncreatic duct.. Kidneys: Normal in size and shape. Left-sided cortical renal cysts. The largest involves the lower p ole measuring 6.8 cm. There is a 3 mm nonobstructing left renal stone. No evidence of mass or hydrone phrosis. Adrenal Glands: Unremarkable. Aorta: The aorta and proximal iliac vessels are grossly unremarkable without aneurysmal dilation. Bowel/Mesentery: The bowel loops are grossly unremarkable. The cecum and sigmoid colon have a normal configuration. Abdominal Wall: An umbilical hernia which is broad-based nature containing fat.. Retroperitoneum: No evidence of adenopathy in the retrocrural, para-aortic, or deep pelvic regions. Bladder: Contours are smooth. Reproductive Organs: No abnormal masses or calcifications seen. Inguinal: Left inguinal hernia containing fat. No adenopathy.. Bony Structures: A degenerative spine. Median sternotomy wires. Bilateral L4 pars defects with grade 2 anterolisthesis of L4 on L5. CONCLUSION: 1. Acute pancreatitis. No pseudocyst, pancreatic infarction, or pancreatic hemorrhage observed. No d uctal dilatation. There is a 2 mm calcification at the level of the ampulla that could relate to a CB D stone at the ampullary region. There is no ductal dilatation to suggest an obstructing component. 2. Cholelithiasis. 3. 3 mm nonobstructing left renal stone. 4. 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 5. Umbilical and left inguinal hernias. Electronically signed by: Leonard Arcos MD 07/25/2018 8:43 AM EDT
--- NOTE | 2018-07-25 09:30 | P.HPIM ---
History of Present Illness Service: [facility] Primary Care Physician: PROVIDER NON STAFF Chief Complaint: Abdominal pain History of Present Illness: Mr. Chowdhury is a 77 yo M with PMH CAD s/p CABG, hypercholesterolemia who presented to [facility] with abdominal pain which began last night. Patient reports that pain started at ~12AM and has been persistent. Pain was associated with vomiting last night and is severe in nature; it radiates throughout abdomen. Patient associates symptom onset with multiple junk foods yesterday. Patient denies similar pain previously but reports prior gallstones. Patient has prior surgical history of appendectomy and CABG. He takes a cholesterol medication for hyperlipidemia but no recent med changes reported. No chest pain, shortness of breath, abnormal urination, or bowel abnormalities. No fever/chills, vision changes, numbness/tingling/weakness. Interval: Patient evaluated in ED; BP 200/90 but otherwise stable VS. Labs- WBC >30K, TBILI 2.3,m AST and ALT >300, lipase >30K. CT A/P with acute pancreatitis, 2mm calcification at Ampulla that could relate to common stone, cholelithiasis. Call placed to GI, plan for transfer to main hospital - Diagnosis (1) Pancreatitis (2) Pancreatitis due to common bile duct stone (3) Leukocytosis (4) HTN (hypertension) Review of Systems Constitutional: Reports fatigue, Denies chills, Denies fever(s) Eyes: Denies blurry vision, Denies change in vision Ears, Nose, Mouth, and Throat: Denies sinus pressure, Denies sore throat Cardiovascular: Reports chest pain (abdominal pain; referred), Denies lightheadedness Respiratory: Denies chest congestion, Denies shortness of breath, Denies shortness of breath with activity Gastrointestinal: Reports abdominal pain, Reports vomiting, Denies bright, red blood in stools Genitourinary: Denies urinary frequency, Denies urinary urgency Skin/Breast: Denies wounds Neurologic: Denies memory loss, Denies numbness Hematologic/Lymphatic: Denies easy bleeding, Denies easy bruising PMFSH - History History Provided By: Patient - Medical History Medical History: Medical History (Last Updated 07/25/18 @ 09:55 by Tomas Martinez MD) CAD (coronary artery disease) Cholelithiasis Glaucoma High cholesterol Hypertension - Surgical History Surgical History: Surgical History (Last Updated 07/25/18 @ 07:20 by Edwige Smith RN) H/O knee surgery History of appendectomy Hx of CABG - Family History Family History: Family History (Last Updated 07/25/18 @ 09:55 by Tomas Martinez MD) Sister Crohn disease - Tobacco History Second Hand Smoke Exposure: No Smoking Status: Never smoker - Alcohol History How Often Do You Have a Drink Containing Alcohol: Never - Substance Use History Substance History: No History of Abuse - Travel History Recent Travel in the [facility] Within the Last 8 Weeks: Yes - Immunization History Tetanus Immunization: Unsure Hx Influenza Vaccine This Season: Yes Medications and Allergies Allergies Allergy/AdvReac Type Severity Reaction Status Date / Time SHINGLES VACCINE Allergy Rash Uncoded 07/25/18 07:53 Home Medications Medication Instructions Recorded Confirmed Type aspirin 81 mg PO DAILY 07/25/18 07/25/18 History bimatoprost [Lumigan] 1 drp OPHTHALMIC (EYE) QPM 07/25/18 07/25/18 History cholecalciferol (vitamin D3) 2,000 unit PO DAILY 07/25/18 07/25/18 History [Vitamin D3] dorzolamide-timolol [Cosopt] 1 drp OPHTHALMIC (EYE) BID 07/25/18 07/25/18 History evolocumab [Repatha Syringe] 140 mg SUB-Q Q2W 07/25/18 07/25/18 History ezetimibe [Zetia] 40 mg PO DAILY 07/25/18 07/25/18 History lisinopril 5 mg PO DAILY 07/25/18 07/25/18 History metoprolol succinate [Toprol XL] 50 mg PO DAILY 07/25/18 07/25/18 History omeprazole 20 mg PO DAILY 07/25/18 07/25/18 History Exam Vital signs: Vital Signs 07/25/18 06:50 07/25/18 07:28 07/25/18 08:14 Temperature 97.3 F L Pulse Rate 47 L 48 L 48 L Respiratory Rate 18 18 Blood Pressure 177/81 H 196/82 H 199/82 H Pulse Oximetry 96 95 96 07/25/18 08:46 07/25/18 08:47 07/25/18 08:48 Temperature Pulse Rate 50 L Respiratory Rate 18 18 Blood Pressure 200/90 H Pulse Oximetry 07/25/18 09:24 Temperature Pulse Rate 45 L Respiratory Rate 18 Blood Pressure 216/90 H Pulse Oximetry 96 Intake & Output 07/24/18 07/25/18 07/25/18 18:59 06:59 18:59 Intake Total 1000 / 1000 Balance 1000 / 1000 Weight 81 kg Intake: IV 1000 / 1000 NS Inj 1,000 ML @ Wide Open IV. 1000 / 1000 SIG BOLUS ONE Rx#:[id number] Narrative: General: In distress from pain HEENT: EOM grossly I. moist mucus membranes Skin: No visible lesions CV: Regular rate and rhythm; normal perfusion Resp: CTAB; normal rate Abd: significant pain to light palpation. decreased bowel sounds Ext: Grossly normal ROM and motor function Neuro: Grossly normal CN. Grossly normal peripheral motor/sensory function Results - Labs CBC & Chem 7: 07/25/18 07:30 07/25/18 07:30 Labs: Short CBC 07/25/18 Range/Units 07:30 WBC 37.3 H (4.0-11.0) th/mm3 Hgb 16.8 (13.0-17.0) gm/dL Hct 47.5 (39.0-51.0) % Plt Count 381 (150-450) th/mm3 BMP 07/25/18 07:30 Sodium 136 Potassium 4.1 Chloride 105 Carbon Dioxide 20.2 L BUN 29 H Creatinine 1.00 Calcium 8.8 Liver Function 07/25/18 07/25/18 Range/Units 07:30 07:30 Total Bilirubin 2.3 H (0.2-1.0) mg/dL Direct Bilirubin 1.0 H (0.0-0.2) mg/dL AST 503 H (15-37) U/L ALT 349 H (12-78) U/L Alkaline Phosphatase 68 (45-117) U/L Albumin 3.1 L (3.4-5.0) g/dL - Imaging Impressions Chest X-Ray 07/25/18 07:37 CONCLUSION: Chronic interstitial changes. No acute cardiopulmonary findings identified. Abdomen/Pelvis CT 07/25/18 08:06 CONCLUSION: 1. Acute pancreatitis. No pseudocyst, pancreatic infarction, or pancreatic hemorrhage observed. No ductal dilatation. There is a 2 mm calcification at the level of the ampulla that could relate to a CBD stone at the ampullary region. There is no ductal dilatation to suggest an obstructing component. 2. Cholelithiasis. 3. 3 mm nonobstructing left renal stone. 4. 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 5. Umbilical and left inguinal hernias. Caprini VTE Risk Assessment Caprini VTE Risk Assessment: Moderate/High Risk (score >= 2) Caprini Risk Assessment Model: Point Value = 1 Point Value = 2 Point Value = 3 Point Value = 5 Age 41-60 Minor surgery BMI > 25 kg/m2 Swollen legs Varicose veins or History of unexplained or recurrent spontaneous Oral contraceptives or hormone replacement Sepsis (< 1 month) Serious lung disease, including pneumonia (< 1 month) Abnormal pulmonary function Acute myocardial infarction Congestive heart failure (< 1 month) History of inflammatory bowel disease Medical patient at bed rest Age 61-74 Arthroscopic surgery Major open surgery (> 45 min) Laparoscopic surgery (> 45 min) Malignancy Confined to bed (> 72 hours) Immobilizing plaster cast Central venous access Age >= 75 History of VTE Family history of VTE Factor V Leiden Prothrombin [id number] Lupus anticoagulant Anticardiolipin antibodies Elevated serum homocysteine Heparin-induced thrombocytopenia Other congenital or acquired thrombophilia Stroke (< 1 month) Elective arthroplasty Hip, pelvis, or leg fracture Acute spinal cord injury (< 1 month) Prophylaxis Regimen: Total Risk Factor Score Risk Level Prophylaxis Regimen 0-1 Low Early ambulation 2 Moderate Order ONE of the following: *Sequential Compression Device (SCD) *Heparin 5000 units SQ BID 3-4 Higher Order ONE of the following medications: *Heparin 5000 units SQ TID *Enoxaparin/Lovenox 40 mg SQ daily (WT < 150 kg, CrCl > 30 mL/min) *Enoxaparin/Lovenox 30 mg SQ daily (WT < 150 kg, CrCl > 10-29 mL/min) *Enoxaparin/Lovenox 30 mg SQ BID (WT < 150 kg, CrCl > 30 mL/min) AND/OR *Sequential Compression Device (SCD) 5 or more Highest Order ONE of the following medications: *Heparin 5000 units SQ TID (Preferred with Epidurals) *Enoxaparin/Lovenox 40 mg SQ daily (WT < 150 kg, CrCl > 30 mL/min) *Enoxaparin/Lovenox 30 mg SQ daily (WT < 150 kg, CrCl > 10-29 mL/min) *Enoxaparin/Lovenox 30 mg SQ BID (WT < 150 kg, CrCl > 30 mL/min) AND *Sequential Compression Device (SCD) Assessment and Plan - Assessment (1) Pancreatitis Code(s): K85.90 - Acute pancreatitis without necrosis or infection, unspecified Status: Acute (2) Pancreatitis due to common bile duct stone Code(s): K85.90 - Acute pancreatitis without necrosis or infection, unspecified ; K80.50 - Calculus of bile duct without cholangitis or cholecystitis without obstruction Status: Acute (3) Leukocytosis Code(s): D72.829 - Elevated white blood cell count, unspecified Status: Acute (4) HTN (hypertension) Code(s): I10 - Essential (primary) hypertension Status: Acute - Plan Mr. Chowdhury is a 77 yo M with: acute pancreatitis Impression: abdominal pain in association with leukocytosis. CT imaging with pancreatitis, cholelithiasis, and suggestion of obstruction at ampulla of pancreas. Labs: WBC ~37k, TBILI 2.3, AST and ALT >300. -Call placed to GI; anticipate need for ERCP -Will give IV NS at 200ml/hr -NPO -Will give morphine for pain control -Will give empiric Zosyn HTN Impression: history of HTN. SBP 200 on admission -will give PRN Vasotec and resume home medications CAD -Will continue home ASA, VIPUL, BB when he can resume PO meds. Will hold Zetia DVT PPX -SCD's Code Status: full code
[2018-07-25] MEDS ORDERED: Acetaminophen 325 MG Tablet PO PRN (09:34)
[2018-07-25] MEDS ORDERED: Bisacodyl 10 MG Supp RECTAL PRN (09:34)
[2018-07-25] MEDS: Sod Chloride 0.9% Inj 1,000 ML IV.CONT SCH ×2 (10:18→16:50)
[2018-07-25] MEDS: Morphine Inj 4 MG/ML Vial IV.PUSH PRN ×5 (10:24→20:20)
[2018-07-25] MEDS: Piperacil/Tazo 3.375 GM Premix 50 ML IV.SIG SCH ×2 (10:24→17:48)
--- NOTE | 2018-07-25 16:26 | P.CONGI ---
History of Present Illness Consult date: 07/25/18 Consult reason: Choledocholithiasis Chief complaint: Severe Pancreatitis, R/O Bile Duct Obstruction History of Present Illness: This is a 77 yo M with PMH significant for CAD S/P CABG, hyperlipidemia who presented to [facility] with complaints of abdominal pain, nausea, and vomiting. Pt is very upset and minimally answers questions during my exam, states that he has already told this story to multiple others. States pain is located throughout entire abdomen, started at midnight, came on suddenly. States that the pain is worse than all of the kidney stones he has had in the past. Also reports nausea and emesis, unsure of hematemesis and coffee ground emesis. States he has had a BM, unsure if it was formed or diarrhea. Denies history of pancreatitis. Does report known history of gallstones, but denies previous ERCP. Imaging done in the ER consistent with acute pancreatitis with possible CBD stone at the ampullary region but no ductal dilatation to suggest an obstructing component. Pt reports feeling clammy at home, denies any fevers. Pt reports ETOH, approximately 2-3 beers a week. Denies smoking. <Ese Carlson - Last Filed: 07/25/18 16:37> PMFSH - History History Provided By: Patient, Significant Other - Medical History Medical History: Medical History (Last Reviewed 07/25/18 @ 10:29 by Jeremias Zamarripa) CAD (coronary artery disease) Cholelithiasis Glaucoma High cholesterol Hypertension - Surgical History Surgical History: Surgical History (Last Reviewed 07/25/18 @ 10:29 by Jeremias Zamarripa) H/O knee surgery History of appendectomy Hx of CABG - Family History Family History: Family History (Last Updated 07/25/18 @ 09:55 by Tomas Martinez MD) Sister Crohn disease - Tobacco History Second Hand Smoke Exposure: No Smoking Status: Never smoker - Alcohol History How Often Do You Have a Drink Containing Alcohol: Never - Substance Use History Substance History: No History of Abuse - Travel History Recent Travel in the [facility] Within the Last 8 Weeks: Yes - Immunization History Tetanus Immunization: Unsure Hx Influenza Vaccine This Season: Yes <Ese Carlson - Last Filed: 07/25/18 16:37> - Medical History Medical History: Medical History (Last Reviewed 07/25/18 @ 10:29 by Jeremias Zamarripa) CAD (coronary artery disease) Cholelithiasis Glaucoma High cholesterol Hypertension - Surgical History Surgical History: Surgical History (Last Reviewed 07/25/18 @ 10:29 by Jeremias Zamarripa) H/O knee surgery History of appendectomy Hx of CABG - Family History Family History: Family History (Last Updated 07/25/18 @ 09:55 by Tomas Martinez MD) Sister Crohn disease <Les Lincoln - Last Filed: 07/26/18 12:28> Medications and Allergies Active Medications: Active Medications Acetaminophen (Tylenol) 650 mg PO Q4H PRN PRN Reason: Temp > 100.4 Al Hydroxide/Mg Hydroxide (Milk Of Magnesia Liq) 30 ml PO Q12H PRN PRN Reason: Mild Constipation Aspirin (Aspirin Chew) 81 mg PO DAILY [facility] Bisacodyl (Dulcolax Supp) 10 mg RECTAL DAILY PRN PRN Reason: SEVERE CONSITIPATION Dorzolamide/Timolol (Cosopt 2/0.5% Opth Drops) 1 drop EACH EYE BID [facility] Enalaprilat (Vasotec Inj) 1.25 mg IV.PUSH Q8H PRN PRN Reason: SBP>180, DBP>95 Sodium Chloride (Ns Inj) 1,000 mls @ 200 mls/hr IV.CONT .Q5H [facility] Last Infusion: 07/25/18 11:39 Dose: 200 mls/hr Piperacillin/Tazobactam/Dextrose (Zosyn 3.375 Gm Premix) 50 mls @ 100 mls/hr IV.SIG Q8H [facility] Last Infusion: 07/25/18 10:58 Dose: Infused Lactulose (Lactulose Liq) 30 ml PO DAILY PRN PRN Reason: SEVERE CONSITIPATION Latanoprost (Xalatan 0.005% Opth Drops) 1 drop EACH EYE QPM [facility] Lisinopril (Prinivil) 5 mg PO DAILY [facility] Metoprolol Succinate (Toprol Xl) 50 mg PO DAILY [facility] Morphine Sulfate (Morphine Inj) 4 mg IV.PUSH Q4H PRN PRN Reason: PAIN SCALE 6 TO 10 Last Admin: 07/25/18 12:31 Dose: 4 mg Morphine Sulfate (Morphine Inj) 3 mg IV.PUSH Q4H PRN PRN Reason: BREAKTHROUGH PAIN Last Admin: 07/25/18 14:35 Dose: 3 mg Ondansetron HCl (Zofran Inj) 4 mg IV.PUSH Q6H PRN PRN Reason: NAUSEA OR VOMITING Last Admin: 07/25/18 14:35 Dose: 4 mg Pantoprazole Sodium (Protonix Inj) 40 mg IV.PUSH Q24H [facility] Senna/Docusate Sodium (Chantell-Colace) 1 tab PO BID [facility] Sennosides (Senokot) 17.2 mg PO Q12H PRN PRN Reason: Moderate Constipation Vitamin D (Vitamin D3) 2,000 unit PO DAILY [facility] <Ese Carlson - Last Filed: 07/25/18 16:37> Active Medications: Active Medications Acetaminophen (Tylenol) 650 mg PO Q4H PRN PRN Reason: Temp > 100.4 Al Hydroxide/Mg Hydroxide (Milk Of Magnmojgan Liq) 30 ml PO Q12H PRN PRN Reason: Mild Constipation Aspirin (Aspirin Chew) 81 mg PO DAILY [facility] Last Admin: 07/26/18 09:14 Dose: 81 mg Bisacodyl (Dulcolax Supp) 10 mg RECTAL DAILY PRN PRN Reason: SEVERE CONSITIPATION Dorzolamide/Timolol (Cosopt 2/0.5% Opth Drops) 1 drop EACH EYE BID [facility] Last Admin: 07/26/18 01:36 Dose: Not Given Enalaprilat (Vasotec Inj) 1.25 mg IV.PUSH Q8H PRN PRN Reason: SBP>180, DBP>95 Last Admin: 07/25/18 17:43 Dose: 1.25 mg Hydromorphone HCl (Dilaudid Pf Inj) 1 mg IV.PUSH Q4H PRN PRN Reason: BREAKTHROUGH PAIN Last Admin: 07/26/18 10:47 Dose: 1 mg Sodium Chloride (Ns Inj) 1,000 mls @ 200 mls/hr IV.CONT .Q5H [facility] Last Admin: 07/26/18 09:16 Dose: 200 mls/hr Lactated Ringer's (Lr 1000 Ml Inj) 1,000 mls @ 30 mls/hr IV.SIG .Q24H [facility] Stop: 07/27/18 05:44 Sodium Chloride (Ns Inj) 500 mls @ 30 mls/hr IV.SIG .Q10H [facility] Last Admin: 07/26/18 09:17 Dose: Not Given Piperacillin/Tazobactam/Dextrose (Zosyn 2.25 Gm Premix) 50 mls @ 100 mls/hr IV.SIG Q6H [facility] Last Admin: 07/26/18 10:38 Dose: 100 mls/hr Lactulose (Lactulose Liq) 30 ml PO DAILY PRN PRN Reason: SEVERE CONSITIPATION Latanoprost (Xalatan 0.005% Opth Drops) 1 drop EACH EYE QPM [facility] Last Admin: 07/25/18 18:05 Dose: Not Given Lisinopril (Prinivil) 5 mg PO DAILY [facility] Last Admin: 07/26/18 09:13 Dose: 5 mg Metoprolol Succinate (Toprol Xl) 50 mg PO DAILY [facility] Last Admin: 07/26/18 09:14 Dose: 50 mg Morphine Sulfate (Morphine Inj) 4 mg IV.PUSH Q4H PRN PRN Reason: PAIN SCALE 6 TO 10 Last Admin: 07/26/18 09:11 Dose: 4 mg Ondansetron HCl (Zofran Inj) 4 mg IV.PUSH Q6H PRN PRN Reason: NAUSEA OR VOMITING Last Admin: 07/25/18 14:35 Dose: 4 mg Pantoprazole Sodium (Protonix Inj) 40 mg IV.PUSH Q24H [facility] Last Admin: 07/25/18 20:16 Dose: 40 mg Senna/Docusate Sodium (Chantell-Colace) 1 tab PO BID [facility] Last Admin: 07/26/18 09:14 Dose: 1 tab Sennosides (Senokot) 17.2 mg PO Q12H PRN PRN Reason: Moderate Constipation Vitamin D (Vitamin D3) 2,000 unit PO DAILY [facility] Last Admin: 07/26/18 09:15 Dose: 2,000 unit <Les Lincoln A - Last Filed: 07/26/18 12:28> Allergies Allergy/AdvReac Type Severity Reaction Status Date / Time SHINGLES VACCINE Allergy Rash Uncoded 07/25/18 07:53 Home Medications Medication Instructions Recorded Confirmed Type aspirin 81 mg PO DAILY 07/25/18 07/25/18 History bimatoprost [Lumigan] 1 drp OPHTHALMIC (EYE) QPM 07/25/18 07/25/18 History cholecalciferol (vitamin D3) 2,000 unit PO DAILY 07/25/18 07/25/18 History [Vitamin D3] dorzolamide-timolol [Cosopt] 1 drp OPHTHALMIC (EYE) BID 07/25/18 07/25/18 History evolocumab [Repatha Syringe] 140 mg SUB-Q Q2W 07/25/18 07/25/18 History ezetimibe [Zetia] 40 mg PO DAILY 07/25/18 07/25/18 History lisinopril 5 mg PO DAILY 07/25/18 07/25/18 History methylprednisolone [Medrol (Harris)] See Taper PO PER PKG DIR 07/25/18 History metoprolol succinate [Toprol XL] 50 mg PO DAILY 07/25/18 07/25/18 History omeprazole 20 mg PO DAILY 07/25/18 07/25/18 History Exam Vital signs: Vital Signs 07/25/18 06:50 07/25/18 07:28 07/25/18 08:14 Temperature 97.3 F L Pulse Rate 47 L 48 L 48 L Respiratory Rate 18 18 18 Blood Pressure 177/81 H 196/82 H 199/82 H Pulse Oximetry 96 95 96 07/25/18 08:46 07/25/18 08:47 07/25/18 08:48 Temperature Pulse Rate 50 L Respiratory Rate 18 18 18 Blood Pressure 200/90 H Pulse Oximetry 07/25/18 09:24 07/25/18 09:40 07/25/18 10:39 Temperature Pulse Rate 45 L 50 L 50 L Respiratory Rate 18 18 18 Blood Pressure 216/90 H 184/86 H 179/82 H Pulse Oximetry 96 96 96 07/25/18 11:17 07/25/18 11:37 07/25/18 12:00 Temperature 97.2 F L Pulse Rate 50 L 56 L Respiratory Rate 18 13 Blood Pressure 173/88 H 176/95 H Pulse Oximetry 93 L 95 Intake & Output 07/24/18 07/25/18 07/25/18 18:59 06:59 18:59 Intake Total 2049 Output Total 575 / 575 Balance 1475 / 1475 Weight 81 kg Intake: IV 2049 Zosyn 3.375 GM Premix 50 ML @ 50 / 50 100 mls/hr IV.SIG Q8H [facility] Rx#: [id number] NS Inj 1,000 ML @ Wide Open IV. 1999 SIG BOLUS ONE Rx#:[id number] Output: Urine 575 / 575 Other: Date of Last Bowel Movement 07/25/18 <Ese Carlson - Last Filed: 07/25/18 16:37> Vital signs: Vital Signs 07/25/18 16:00 07/25/18 20:00 07/25/18 20:39 Temperature 97.6 F 97.7 F Pulse Rate 81 93 H Respiratory Rate 14 18 Blood Pressure 193/103 H 165/94 H Pulse Oximetry 93 L 92 L 96 07/25/18 23:56 07/26/18 00:00 07/26/18 03:55 Temperature 98.0 F Pulse Rate 110 H 114 H 110 H Respiratory Rate 18 Blood Pressure 125/78 Pulse Oximetry 91 L 07/26/18 04:00 07/26/18 08:00 07/26/18 11:50 Temperature 97.9 F 97.7 F 97.1 F L Pulse Rate 113 H 130 H 105 H Respiratory Rate 18 20 30 H Blood Pressure 120/72 128/76 106/55 L Pulse Oximetry 92 L 91 L 90 L Intake & Output 07/25/18 07/26/18 07/26/18 18:59 06:59 18:59 Intake Total 3100 / 3100 2230 / 2230 Output Total 925 / 925 Balance 2175 / 2175 2230 / 2230 Weight 76.2 kg Intake: IV 3100 / 3100 0 / 0 NS Inj 1,000 ML @ 200 mls/hr IV 1000 / 1000 1999 .CONT .Q5H [facility] Rx#:[id number] Zosyn 3.375 GM Premix 50 ML @ 100 / 100 50 / 50 100 mls/hr IV.SIG Q8H [facility] Rx#: [id number] NS Inj 1,000 ML @ Wide Open IV. 1999 SIG BOLUS ONE Rx#:[id number] Oral 0 / 0 180 / 180 Output: Urine 925 / 925 Other: Date of Last Bowel Movement 07/25/18 07/25/18 # Bowel Movements 0 Weight On Admission 76.2 kg <Les Lincoln - Last Filed: 07/26/18 12:28> Results - Labs CBC & Chem 7: 07/25/18 07:30 07/25/18 07:30 Labs: Laboratory Results - last 24 hr 07/25/18 07/25/18 07/25/18 07:30 07:30 07:30 CBC w Diff Slide review pending WBC 37.3 H RBC 5.20 Hgb 16.8 Hct 47.5 MCV 91.4 MCH 32.3 MCHC 35.3 RDW 12.9 Plt Count 381 MPV 7.6 WBC Differential Manual diff final Seg Neuts % (Manual) 78 H Band Neuts % (Manual) 6 Lymphocytes % (Manual) 5 L Monocytes % (Manual) 5 Metamyelocytes % (Man) 4 H Myelocytes % (Man) 2 H Abs Neuts (Manual) 33.6 H Differential Comment . Platelet Estimate Normal Platelet Morphology Normal Sodium 136 Potassium 4.1 Chloride 105 Carbon Dioxide 20.2 L Anion Gap 11 BUN 29 H Creatinine 1.00 Estimated GFR 72 L Random Glucose 139 H Calcium 8.8 Total Bilirubin 2.3 H Direct Bilirubin 1.0 H AST 503 H ALT 349 H Alkaline Phosphatase 68 Total Protein 7.1 Albumin 3.1 L Triglycerides Lipase Greater than 03182 H 07/25/18 13:00 CBC w Diff WBC RBC Hgb Hct MCV MCH MCHC RDW Plt Count MPV WBC Differential Seg Neuts % (Manual) Band Neuts % (Manual) Lymphocytes % (Manual) Monocytes % (Manual) Metamyelocytes % (Man) Myelocytes % (Man) Abs Neuts (Manual) Differential Comment Platelet Estimate Platelet Morphology Sodium Potassium Chloride Carbon Dioxide Anion Gap BUN Creatinine Estimated GFR Random Glucose Calcium Total Bilirubin Direct Bilirubin AST ALT Alkaline Phosphatase Total Protein Albumin Triglycerides 82 Lipase - Imaging Impressions Chest X-Ray 07/25/18 07:37 CONCLUSION: Chronic interstitial changes. No acute cardiopulmonary findings identified. Abdomen/Pelvis CT 07/25/18 08:06 CONCLUSION: 1. Acute pancreatitis. No pseudocyst, pancreatic infarction, or pancreatic hemorrhage observed. No ductal dilatation. There is a 2 mm calcification at the level of the ampulla that could relate to a CBD stone at the ampullary region. There is no ductal dilatation to suggest an obstructing component. 2. Cholelithiasis. 3. 3 mm nonobstructing left renal stone. 4. 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 5. Umbilical and left inguinal hernias. <Ese Carlson - Last Filed: 07/25/18 16:37> - Labs CBC & Chem 7: 07/26/18 07:28 07/26/18 07:28 Labs: Laboratory Results - last 24 hr 07/25/18 07/26/18 07/26/18 13:00 07:28 07:28 WBC 23.0 H RBC 5.31 Hgb 16.7 Hct 49.3 MCV 93.0 MCH 31.4 MCHC 33.8 RDW 13.7 Plt Count 209 D MPV 7.6 Neut % (Auto) 90.1 H Lymph % (Auto) 3.8 L Coleman % (Auto) 6.0 Eos % (Auto) 0.0 Baso % (Auto) 0.1 Neut # (Auto) 20.7 H Lymph # (Auto) 0.9 L Coleman # (Auto) 1.4 H Eos # (Auto) 0.0 Baso # (Auto) 0.0 WBC Differential . Differential Comment Auto diff final Sodium 142 Potassium 5.0 D Chloride 110 H Carbon Dioxide 20.6 L Anion Gap 11 BUN 40 H Creatinine 2.10 H Estimated GFR 31 L Random Glucose 106 Calcium 6.8 L* D Prot Corrected Calcium 7.4 L* Total Bilirubin 12.2 H AST 246 H ALT 301 H Alkaline Phosphatase 73 Total Protein 6.0 L D Albumin 2.6 L Triglycerides 82 - Imaging Impressions Cholangiopancreatography MRI 07/25/18 00:00 CONCLUSION: 1. Tiny distal common bile duct stone at the ampulla, estimated at 3.5 mm in size. This appears to be minimally obstructing, if any, with generally a normal size common bile duct for a patient this age and no pancreatic duct dilatation. Several similar sized stones are seen in the gallbladder near the neck. No other definite stones are clearly demonstrated. 2. Acute pancreatitis. <Les Lincoln - Last Filed: 07/26/18 12:28> Assessment and Plan - Plan Assessment: - Acute pancreatitis with elevated LFTs and imaging concerning for choledocholithiasis Presented to [facility] with complaints of abdominal pain, nausea, and vomiting. States pain is located throughout entire abdomen, started at midnight, came on suddenly. States that the pain is worse than all of the kidney stones he has had in the past. Also reports nausea and emesis, unsure of hematemesis and coffee ground emesis. States he has had a BM, unsure if it was formed or diarrhea. Denies history of pancreatitis. Does report known history of gallstones, but denies previous ERCP. Pt reports feeling clammy at home, denies any fevers. CT abdomen and pelvis W IV contrast (07/25) Acute pancreatitis. No pseudocyst, pancreatic infarction, or pancreatic hemorrhage observed. No ductal dilatation. There is a 2 mm calcification at the level of the ampulla that could relate to a CBD stone at the ampullary region. There is no ductal dilatation to suggest an obstructing component. Cholelithiasis. 3 mm nonobstructing left renal stone. 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 Umbilical and left inguinal hernias. Pt reports ETOH, approximately 2-3 beers a week. Denies smoking. (07/25) AST-503 ALT-349 T bili-2.3 Alk phos-68 Lipase >30,000 Plan: MRCP Likely ERCP tomorrow Obtain consent Keep NPO Monitor LFTs Monitor lipase Zosyn Monitor VS/temperature Protonix IV fluids Pain control Antiemetics PRN GS consult after ERCP Further recommendations to follow Pt has been seen and examined by myself and Dr. Lincoln and this note is written on his behalf <Ese Carlson - Last Filed: 07/25/18 16:37> - Attending Attestation Seen and examined, plan as above, will get MRCP and possible ERCP afterward. Risk, benefits and complications discussed with the patient and his . Further recommendations to follow pending findings. Thank you for the consult. <Les Lincoln - Last Filed: 07/26/18 12:28>
[2018-07-25] MEDS: Latanoprost 0.005% Opth Drops 2.5 ML Bottle EACH EYE SCH (18:05)
--- NOTE | 2018-07-25 18:43 | ECG ---
Date Performed: 07/25/2018 Time Performed: 07:17:50 PTAGE: 77 years EKG: SINUS BRADYCARDIA BORDERLINE LEFT AXIS DEVIATION MODERATE T-WAVE ABNORMALITY, CONSIDER ANTE ROLATERAL ISCHEMIA ABNORMAL ECG PREVIOUS TRACING : 11/25/2015 06.05 Compared to previous tracing, sinus bradycardia is new and T wave abnormalities are more prominent DOCTOR: Darwin Nicholson Interpretating Date/Time 07/25/2018 18:42:01
--- NOTE | 2018-07-25 19:28 | MR ---
EXAM DATE: 07/25/2018 7:13 PM EDT AGE/SEX: 77 years / Male INDICATIONS: Abdominal pain. Nausea and vomiting. CLINICAL DATA: This is the patient's initial encounter. Patient reports that signs and symptoms have been present for 1 day and indicates a pain score of 5/10. MEDICAL/SURGICAL HISTORY: Hypertension. Coronary artery disease. Appendectomy. CABG. Knee yesenia aarti. COMPARISON: [facility], CT ABDOMEN & PELVIS W CONTRAST, 07/25/2018. . TECHNIQUE: Multiplanar, multisequence images of the abdomen were obtained without contrast including dedicated cholangiographic images. FINDINGS: A roughly 3.5 mm filling defect is seen of the distal common bile duct at the ampulla, likely a stone and presumably the small calcified structure seen on the CT. Several similar-sized stones are seen n ear the neck of the gallbladder. The common bile duct measures approximately 4.5 mm maximum. I don't see any dilatation of the pancreatic duct. There is peripancreatic edema and mild ascites associated with patient's known acute pancreatitis. The entire pancreas is swollen but has reasonably homogeneou s signal characteristics. 8 mm cyst of the liver. There are bilateral renal cysts. CONCLUSION: 1. Tiny distal common bile duct stone at the ampulla, estimated at 3.5 mm in size. This appears to b e minimally obstructing, if any, with generally a normal size common bile duct for a patient this age and no pancreatic duct dilatation. Several similar sized stones are seen in the gallbladder near the neck. No other definite stones are clearly demonstrated. 2. Acute pancreatitis. Electronically signed by: Amilcar Minor MD 07/25/2018 7:26 PM EDT
[2018-07-25] MEDS: Senna/Docusate Sodium 8.6/50 MG Tablet PO SCH (20:16)
[2018-07-25] MEDS: Pantoprazole Inj 40 MG Vial IV.PUSH SCH (20:16)
[2018-07-25] MEDS: HYDROmorphone PF Inj 2 MG/ML Vial IV.PUSH PRN (21:45)
[2018-07-26] MEDS: Morphine Inj 4 MG/ML Vial IV.PUSH PRN ×3 (00:26→09:11)
[2018-07-26] MEDS: Piperacil/Tazo 3.375 GM Premix 50 ML IV.SIG SCH (01:30)
[2018-07-26] MEDS: Sod Chloride 0.9% Inj 1,000 ML IV.CONT SCH ×3 (01:31→09:16)
[2018-07-26] MEDS: Dorzolamide-Timolol 2/0.5% Opth Drops 10 ML Bottle EACH EYE SCH ×2 (01:36→23:10)
[2018-07-26] MEDS: HYDROmorphone PF Inj 2 MG/ML Vial IV.PUSH PRN ×3 (03:00→10:47)
[2018-07-26] MEDS ORDERED: Sodium Bicarbonate 8.4% Inj 50 MEQ/50 ML Syringe IV.CONT ONE (05:00)
[2018-07-26] MEDS ORDERED: Calcium Chloride Inj 1 GM/10 ML Syringe IV.CONT ONE (05:00)
[2018-07-26] MEDS ORDERED: Chlorhexidine Gluconate 2% 1 Pack (2 Cloths) TOPICAL ONE (05:41)
[2018-07-26] MEDS ORDERED: Sodium Chlor 0.9% Inj 500 ML IV.SIG SCH (06:00)
[2018-07-26 08:01] LABS: Baso % (Auto) 0.1 % (0.0-2.0); Hematocrit 49.3 % (39.0-51.0); Hemoglobin 16.7 gm/dL (13.0-17.0); Lymph # (Auto) 0.9 th/mm3 (1.0-4.8); Lymph % (Auto) 3.8 % (9.0-44.0); Mean Corpuscular HGB Conc 33.8 % (32.0-36.0); Mean Corpuscular Hemoglobin 31.4 pg (27.0-34.0); Mean Platelet Volume 7.6 fL (7.0-11.0); Mono # (Auto) 1.4 th/mm3 (0.0-0.9); Neut # (Auto) 20.7 th/mm3 (1.8-7.7); Neut % (Auto) 90.1 % (16.0-70.0); Platelet Count 209 th/mm3 (150-450); Red Blood Count 5.31 mil/mm3 (4.50-5.90); Red Cell Distribution Width 13.7 % (11.6-17.2)
--- NOTE | 2018-07-26 08:10 | P.PN ---
Subjective Interval history: Follow-up on patient with severe acute pancreatitis. Patient seen and examined. is at the bedside. and patient are extremely upset that he has not been taken down for his procedure as of yet. He is complaining of significant abdominal pain. He denies any nausea or vomiting. He denies any chest pain or shortness of breath. He denies any fever or chills. Discussed with nursing staff who is also at the bedside. Physical Exam Vital signs: Vital Signs 07/25/18 08:14 07/25/18 08:46 07/25/18 08:47 Temperature Pulse Rate 48 L 50 L Respiratory Rate 18 18 18 Blood Pressure 199/82 H 200/90 H Pulse Oximetry 96 07/25/18 08:48 07/25/18 09:24 07/25/18 09:40 Temperature Pulse Rate 45 L 50 L Respiratory Rate 18 18 18 Blood Pressure 216/90 H 184/86 H Pulse Oximetry 96 96 07/25/18 10:39 07/25/18 11:17 07/25/18 11:37 Temperature Pulse Rate 50 L 50 L Respiratory Rate 18 18 Blood Pressure 179/82 H 173/88 H Pulse Oximetry 96 93 L 07/25/18 12:00 07/25/18 16:00 07/25/18 20:00 Temperature 97.2 F L 97.6 F 97.7 F Pulse Rate 56 L 81 93 H Respiratory Rate 13 14 18 Blood Pressure 176/95 H 193/103 H 165/94 H Pulse Oximetry 95 93 L 92 L 07/25/18 20:39 07/25/18 23:56 07/26/18 00:00 Temperature 98.0 F Pulse Rate 110 H 114 H Respiratory Rate 18 Blood Pressure 125/78 Pulse Oximetry 96 91 L 07/26/18 03:55 07/26/18 04:00 Temperature 97.9 F Pulse Rate 110 H 113 H Respiratory Rate 18 Blood Pressure 120/72 Pulse Oximetry 92 L Intake & Output 07/25/18 07/26/18 07/26/18 18:59 06:59 18:59 Intake Total 3100 / 3100 1230 / 1230 Output Total 925 / 925 Balance 2175 / 2175 1230 / 1230 Intake: IV 3100 / 3100 1050 / 1050 NS Inj 1,000 ML @ 200 mls/hr IV 1000 / 1000 1000 / 1000 .CONT .Q5H LORENA Rx#:[id number] Zosyn 3.375 GM Premix 50 ML @ 100 / 100 50 / 50 100 mls/hr IV.SIG Q8H LORENA Rx#: [id number] NS Inj 1,000 ML @ Wide Open IV. 1999 / 1999 SIG BOLUS ONE Rx#:[id number] Oral 0 / 0 180 / 180 Output: Urine 925 / 925 Other: Date of Last Bowel Movement 07/25/18 07/25/18 # Bowel Movements 0 Narrative: GENERAL: WDWN elderly male patient who appears younger than stated age. Awake and alert. In mild distress secondary to abdominal pain. is at the bedside. SKIN: Warm and dry. 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 HEAD: Atraumatic. Normocephalic. EYES: Pupils equal and round. No scleral icterus. No injection or drainage. ENT: No nasal bleeding or discharge. Mucous membranes pink and moist. NECK: Trachea midline. No JVD. CARDIOVASCULAR: Tachycardic. RESPIRATORY: No accessory muscle use. Clear to auscultation anteriorly. Breath sounds equal bilaterally. GASTROINTESTINAL: Abdomen distended, diffusely tender to palpation. Hypoactive bowel sounds. MUSCULOSKELETAL: Extremities without clubbing, cyanosis, or edema. No obvious deformities. NEUROLOGICAL: Awake and alert. No obvious cranial nerve deficits. Motor grossly within normal limits. Able to move all extremities spontaneously. Normal speech. PSYCHIATRIC: Upset, irritated he has not gone for procedure yet. Appropriate mood and affect; insight and judgment normal. - Urinary Catheter Management Indwelling Urethral Catheter Cath placed during this visit: yes Reason for continuing: Hourly intake/output Insertion date: 07/26/18 Insertion time: 14:30 Results - Labs CBC & Chem 7: 07/28/18 12:50 07/28/18 04:00 Laboratory Results - last 24 hr 07/25/18 07/25/18 07/25/18 07:30 07:30 13:00 WBC RBC Hgb Hct MCV MCH MCHC RDW Plt Count MPV Neut % (Auto) Lymph % (Auto) [place] % (Auto) Eos % (Auto) Baso % (Auto) Neut # (Auto) Lymph # (Auto) [place] # (Auto) Eos # (Auto) Baso # (Auto) WBC Differential Manual diff final Seg Neuts % (Manual) 78 H Band Neuts % (Manual) 6 Lymphocytes % (Manual) 5 L Monocytes % (Manual) 5 Metamyelocytes % (Man) 4 H Myelocytes % (Man) 2 H Abs Neuts (Manual) 33.6 H Differential Comment Platelet Estimate Normal Platelet Morphology Normal Direct Bilirubin 1.0 H Triglycerides 82 07/26/18 07:28 WBC 23.0 H RBC 5.31 Hgb 16.7 Hct 49.3 MCV 93.0 MCH 31.4 MCHC 33.8 RDW 13.7 Plt Count 209 D MPV 7.6 Neut % (Auto) 90.1 H Lymph % (Auto) 3.8 L [place] % (Auto) 6.0 Eos % (Auto) 0.0 Baso % (Auto) 0.1 Neut # (Auto) 20.7 H Lymph # (Auto) 0.9 L [place] # (Auto) 1.4 H Eos # (Auto) 0.0 Baso # (Auto) 0.0 WBC Differential . Seg Neuts % (Manual) Band Neuts % (Manual) Lymphocytes % (Manual) Monocytes % (Manual) Metamyelocytes % (Man) Myelocytes % (Man) Abs Neuts (Manual) Differential Comment Auto diff final Platelet Estimate Platelet Morphology Direct Bilirubin Triglycerides - Imaging Impressions Cholangiopancreatography MRI 07/25/18 00:00 CONCLUSION: 1. Tiny distal common bile duct stone at the ampulla, estimated at 3.5 mm in size. This appears to be minimally obstructing, if any, with generally a normal size common bile duct for a patient this age and no pancreatic duct dilatation. Several similar sized stones are seen in the gallbladder near the neck. No other definite stones are clearly demonstrated. 2. Acute pancreatitis. Abdomen/Pelvis CT 07/25/18 08:06 CONCLUSION: 1. Acute pancreatitis. No pseudocyst, pancreatic infarction, or pancreatic hemorrhage observed. No ductal dilatation. There is a 2 mm calcification at the level of the ampulla that could relate to a CBD stone at the ampullary region. There is no ductal dilatation to suggest an obstructing component. 2. Cholelithiasis. 3. 3 mm nonobstructing left renal stone. 4. 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 5. Umbilical and left inguinal hernias. Assessment and Plan - Assessment (1) Pancreatitis Code(s): K85.90 - Acute pancreatitis without necrosis or infection, unspecified Status: Acute (2) Pancreatitis due to common bile duct stone Code(s): K85.90 - Acute pancreatitis without necrosis or infection, unspecified ; K80.50 - Calculus of bile duct without cholangitis or cholecystitis without obstruction Status: Acute (3) Leukocytosis Code(s): D72.829 - Elevated white blood cell count, unspecified Status: Acute (4) HTN (hypertension) Code(s): I10 - Essential (primary) hypertension Status: Acute - Plan Mr. Chowdhury is a 77 yo M with: Acute pancreatitis Impression: abdominal pain in association with leukocytosis. CT imaging with pancreatitis, cholelithiasis, and suggestion of obstruction at ampulla of pancreas. Labs: WBC ~37k, TBILI 2.3, AST and ALT >300. Lipase 85129 MRCP shows tiny distal CBD at ampulla, minimally obstructing -GI following, plan for ERCP later today -Continue IV NS at 200ml/hr -NPO -Continue morphine and Dilaudid as needed for pain Leukocytosis, secondary to acute pancreatitis WBC trending down, 37 -> 23 -Continue on IV Zosyn -Continue to monitor white count Tachycardia ?due to pain -continuous cardiac monitoring -BB on hold secondary to NPO for procedure HTN Impression: history of HTN. SBP 200 on admission -currently normotensive -will give PRN Vasotec -monitor BP and adjust treatment accordingly CAD -Will continue home ASA, VIPUL, BB when he can resume PO meds. Will hold Zetia DVT PPX -SCD's Code Status: FULL Discussed Condition With: patient, nursing staff, Dr. Almazan Discharge Planning: Not ready for discharge
[2018-07-26 08:42] LABS: Albumin 2.6 g/dL (3.4-5.0); Calcium 6.8 mg/dL (8.5-10.1); Carbon Dioxide 20.6 meq/L (21.0-32.0)
[2018-07-26] MEDS ORDERED: Lisinopril 5 MG Tablet PO SCH (09:00)
[2018-07-26] MEDS: Senna/Docusate Sodium 8.6/50 MG Tablet PO SCH ×2 (09:14→21:05)
[2018-07-26] MEDS ORDERED: HYDROmorphone PF Inj 2 MG/ML Vial IV.PUSH ONE (09:40)
[2018-07-26] MEDS: Piperacil/Tazo 2.25 GM Premix 50 ML IV.SIG SCH ×3 (10:38→22:37)
--- NOTE | 2018-07-26 13:10 | P.PNADD ---
Addendum to Inpatient Note Reason for Addendum: Additional Documentation Additional information: Notified by nursing in preop the patient went into acute respiratory distress, tachypneic, hypoxemic with persistent abdominal pain. This is an acute change from this morning. Immediately evaluated the patient. He is found to be cool and clammy, tachypneic, requiring a nonrebreather. He complains of abdominal pain. On exam, he has markedly diminished breath sounds throughout. Abdomen is distended and tympanic. He is tachycardic, normal S1 and S2. Assessment and plan: Acute hypoxemic respiratory failure in a patient with severe pancreatitis. Labs also revealed acute renal failure, hypocalcemic. The is unstable and needs aggressive resuscitation, may need intubation. He certainly needs better IV access. A stat chest x-ray, blood gas, cardiac enzymes, EKG were ordered. Calcium gluconate ordered. I discussed the case with truck spotter Dr. Cullen. The patient will be transferred stat to the ICU with truck spotter consult.
--- NOTE | 2018-07-26 13:29 | P.PNGI ---
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 Physical Exam Vital signs: Vital Signs 07/25/18 16:00 07/25/18 20:00 07/25/18 20:39 Temperature 97.6 F 97.7 F Pulse Rate 81 93 H Respiratory Rate 14 18 Blood Pressure 193/103 H 165/94 H Pulse Oximetry 93 L 92 L 96 07/25/18 23:56 07/26/18 00:00 07/26/18 03:55 Temperature 98.0 F Pulse Rate 110 H 114 H 110 H Respiratory Rate 18 Blood Pressure 125/78 Pulse Oximetry 91 L 07/26/18 04:00 07/26/18 08:00 07/26/18 11:50 Temperature 97.9 F 97.7 F 97.1 F L Pulse Rate 113 H 130 H 105 H Respiratory Rate 18 20 30 H Blood Pressure 120/72 128/76 106/55 L Pulse Oximetry 92 L 91 L 90 L Intake & Output 07/25/18 07/26/18 07/26/18 18:59 06:59 18:59 Intake Total 3100 / 3100 2230 / 2230 Output Total 925 / 925 Balance 2175 / 2175 2230 / 2230 Weight 76.2 kg Intake: IV 3100 / 3100 2049 / 0 NS Inj 1,000 ML @ 200 mls/hr IV 1000 / 1000 1999 / 1999 .CONT .Q5H LORENA Rx#:[id number] Zosyn 3.375 GM Premix 50 ML @ 100 / 100 50 / 50 100 mls/hr IV.SIG Q8H LORENA Rx#: [id number] NS Inj 1,000 ML @ Wide Open IV. 1999 SIG BOLUS ONE Rx#:[id number] Oral 0 / 0 180 / 180 Output: Urine 925 / 925 Other: Date of Last Bowel Movement 07/25/18 07/25/18 # Bowel Movements 0 Weight On Admission 76.2 kg - Constitutional severe distress - Routine HEENT Exam Head: Present: normocephalic Eye: Present: EOMI - Routine Neck Exam Present: supple - Routine Respiratory Exam Present: accessory muscle use - Routine Cardiovascular Exam Present: tachycardia - Routine Abdominal Exam Present: tenderness - Routine Extremities Exam Present: pulses intact - Routine Skin Exam Present: intact, warm, jaundice - Routine Neurological Exam Present: alert, oriented X3 Results - Labs CBC & Chem 7: 07/26/18 07:28 07/26/18 07:28 Laboratory Results - last 24 hr 07/25/18 07/26/18 07/26/18 13:00 07:28 07:28 WBC 23.0 H RBC 5.31 Hgb 16.7 Hct 49.3 MCV 93.0 MCH 31.4 MCHC 33.8 RDW 13.7 Plt Count 209 D MPV 7.6 Neut % (Auto) 90.1 H Lymph % (Auto) 3.8 L [place] % (Auto) 6.0 Eos % (Auto) 0.0 Baso % (Auto) 0.1 Neut # (Auto) 20.7 H Lymph # (Auto) 0.9 L [place] # (Auto) 1.4 H Eos # (Auto) 0.0 Baso # (Auto) 0.0 WBC Differential . Differential Comment Auto diff final Sodium 142 Potassium 5.0 D Chloride 110 H Carbon Dioxide 20.6 L Anion Gap 11 BUN 40 H Creatinine 2.10 H Estimated GFR 31 L Random Glucose 106 Calcium 6.8 L* D Prot Corrected Calcium 7.4 L* Total Bilirubin 12.2 H AST 246 H ALT 301 H Alkaline Phosphatase 73 Total Protein 6.0 L D Albumin 2.6 L Triglycerides 82 - Imaging Impressions Cholangiopancreatography MRI 07/25/18 00:00 CONCLUSION: 1. Tiny distal common bile duct stone at the ampulla, estimated at 3.5 mm in size. This appears to be minimally obstructing, if any, with generally a normal size common bile duct for a patient this age and no pancreatic duct dilatation. Several similar sized stones are seen in the gallbladder near the neck. No other definite stones are clearly demonstrated. 2. Acute pancreatitis. Assessment and Plan - Plan Assessment: - Acute pancreatitis with elevated LFTs and imaging concerning for choledocholithiasis Presented to [facility] with complaints of abdominal pain, nausea, and vomiting. States pain is located throughout entire abdomen, started at midnight, came on suddenly. States that the pain is worse than all of the kidney stones he has had in the past. Also reports nausea and emesis, unsure of hematemesis and coffee ground emesis. States he has had a BM, unsure if it was formed or diarrhea. Denies history of pancreatitis. Does report known history of gallstones, but denies previous ERCP. Pt reports feeling clammy at home, denies any fevers. CT abdomen and pelvis W IV contrast (07/25) Acute pancreatitis. No pseudocyst, pancreatic infarction, or pancreatic hemorrhage observed. No ductal dilatation. There is a 2 mm calcification at the level of the ampulla that could relate to a CBD stone at the ampullary region. There is no ductal dilatation to suggest an obstructing component. Cholelithiasis. 3 mm nonobstructing left renal stone. 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 Umbilical and left inguinal hernias. Pt reports ETOH, approximately 2-3 beers a week. Denies smoking. (07/25) AST-503 ALT-349 T bili-2.3 Alk phos-68 Lipase >30,000 - Acute change in his condition since this morning, tachypneic and tachycardic, seen by anesthesia team and thought too unstable for procedure and sedation. his leucocytosis improved and worsening of LFT's noted. - MRCP reviewed Plan: - Unstable for sedation and endoscopic intervention. - Percutaneous cholecystectomy /PTC ( discussed with IR) - ICU care - Keep NPO - Monitor LFTs - Monitor lipase - Zosyn - Monitor VS/temperature - Protonix - IV fluids
[2018-07-26] MEDS ORDERED: Bisacodyl 10 MG Supp RECTAL PRN (13:45)
[2018-07-26] MEDS ORDERED: fentaNYL 10 mcg/mL Premix Drip 2,500 MCG/250 ML BAG IV.SIG PRN (13:45)
[2018-07-26] MEDS ORDERED: Propofol 1000 mg/100 ml Inj 1,000 MG/100 ML BOTTLE IV.CONT PRN (13:45)
--- NOTE | 2018-07-26 13:58 | P.PCN ---
Date of procedure: 07/26/18 Pre-op diagnosis: Acute respiratory failure/unresponsive Post-op diagnosis: same Procedure: DATE: 07/26/2018 PROCEDURE: Orotracheal intubation INDICATION: Acute respiratory failure/unresponsive/no saturation DETAILS OF PROCEDURE The patient was placed in optimal position and preoxygenated with 100% FiO2 via bag valve mask. At the start oxygen saturation was unknown %. The patient was administered no medication IV. I entered the oropharynx with a size 4 laryngoscope blade and obtained a grade 2 view of the airway. On single attempt a size 8.0 cuffed endotracheal tube was passed through the vocal cords. Correct tube location was confirmed with end tidal CO2 detector and by auscultating over bilateral lung travis. The endotracheal tube was secured with adhesive tape at a depth of 23 cm at the lips. The patient was connected to the ventilator. The patient tolerated the procedure well without any apparent complications. Oxygen saturations were maintained greater than 95% all times. STAT chest x-ray pending at time of dictation.
[2018-07-26] MEDS ORDERED: Calcium Gluconate Inj 2 GM in Dextrose 5% in Water Inj 100 ML IV.SIG ONE ×2 (14:00)
--- NOTE | 2018-07-26 14:05 | P.PCN ---
Date of procedure: 07/26/18 Pre-op diagnosis: No peripheral IV access/CODE BLUE Post-op diagnosis: same Procedure: DATE: 07/26/2018 CENTRAL LINE PLACEMENT: Internal jugular vein. Ultrasound-guided INDICATION: Central venous access CONSENT Informed consent for procedure was not obtaining considered emergent due to ongoing CODE BLUE/no IO access available in [facility] DESCRIPTION OF THE PROCEDURE The patient was placed in supine position. The skin was cleansed with Chloraprep. Additional barrier precautions included large sterile drape, sterile gloves, sterile gown, face mask, and hat. 1 % lidocaine was used for local anesthesia. Under direct ultrasound guidance and on initial attempt, the vein was accessed with an introducer needle. The guide wire was advanced and the tract was dilated. Using Seldinger technique a 7 Mongolian 20 cm antimicrobial coated triple-lumen catheter was advanced to a depth of 20 centimeters. The guide wire was removed. All ports had good return of dark venous blood and flushed easily with saline. The central line was secured with 2.0 silk. A sterile dressing with antibiotic disc was applied. ESTIMATED BLOOD LOSS: Minimal COMPLICATIONS: No apparent complications. STAT chest x-ray adequate position central line. No pneumothorax.
[2018-07-26 14:06] LABS: ABG Base Excess -20.2 mmol/L (-2-2); ABG PCO2 38 mmHg (38-42); ABG PO2 181 mmHG (61-120)
[2018-07-26 14:14] LABS: Baso # (Auto) 0.1 th/mm3 (0.0-0.2); Baso % (Auto) 0.3 % (0.0-2.0); Eos # (Auto) 0.1 th/mm3 (0.0-0.4); Eos % (Auto) 0.2 % (0.0-4.0); Hemoglobin 14.3 gm/dL (13.0-17.0); Lymph # (Auto) 1.6 th/mm3 (1.0-4.8); Lymph % (Auto) 5.6 % (9.0-44.0); Mean Corpuscular HGB Conc 31.7 % (32.0-36.0); Mean Corpuscular Hemoglobin 31.4 pg (27.0-34.0); Mean Platelet Volume 7.9 fL (7.0-11.0); Mono # (Auto) 1.3 th/mm3 (0.0-0.9); Mono % (Auto) 4.6 % (0.0-8.0); Neut # (Auto) 25.6 th/mm3 (1.8-7.7); Neut % (Auto) 89.3 % (16.0-70.0); Platelet Count 210 th/mm3 (150-450); Red Blood Count 4.54 mil/mm3 (4.50-5.90); Red Cell Distribution Width 15.1 % (11.6-17.2); White Blood Count 28.7 th/mm3 (4.0-11.0)
--- NOTE | 2018-07-26 14:19 | P.PNCC ---
Critical Care Event Note Code activated: Yes Narrative: Called by Dr. fozia Peterson to evaluate patient's Mr. Gianluca Chowdhury. Simultaneously, patient arrived in room 508 on 100% nonrebreather agonal breathing with a very weak femoral pulse. Pulse oximetry is unable to appreciate a duration. Patient was staring forward and essentially unresponsive. Patient was intubated without use of any anesthetic please see note. Initially able to place peripheral IV access during intubation and norepinephrine started with normal saline wide open. Peripheral IV access loss and a central line was placed. While I was placing the central line, unable to palpate pulse and CPR was initiated 1323. Please note [facility] does not have I/O's. I was able to place a left IJ under ultrasound emergently during the code. Initial cardiac rhythm was pulseless electrical activity. During the code, patient received 3 milligrams epinephrine, 1 ampule of sodium bicarbonate and 1 gram of calcium chloride. 1 L normal saline was provided. Patient had a return of spontaneous rhythm at 1330. Purvi at bedside. Discussed case with her. This case had a high probability of a clinically significant, sudden, or life threatening deterioration of this patient's condition which required my full and direct attention, intervention and personal management. Critical care time: less than 30 mins
--- NOTE | 2018-07-26 14:20 | XR ---
EXAM DATE: 07/26/2018 2:12 PM EDT AGE/SEX: 77 years / Male INDICATIONS: Shortness of breath. CLINICAL DATA: This is the patient's subsequent encounter. Patient reports that signs and symptoms h ave been present for 1 day and indicates a pain score of Nonresponsive. MEDICAL/SURGICAL HISTORY: Cardiovascular disease. CABG. COMPARISON: [facility]PO, CHEST 1V SINGLE AP, 07/25/2018. . FINDINGS: Lungs are hypoaerated with minimal left basilar airspace disease. There is no evidence of significant congestion or pleural fluid accumulation. Endotracheal tube and left subclavian central venous catheter are in fracture position. CONCLUSION: Mild basilar hypoaeration with airspace disease characteristic of atelectasis. No evidence of significant lung consolidation or acute congestion. Satisfactory position of endotracheal tube and central venous catheter. Electronically signed by: David Mendieta MD 07/26/2018 2:19 PM EDT
[2018-07-26 14:22] LABS: Activated Partial Thrombo Time 39.8 sec (24.3-30.1); INR 1.6 Ratio; Prothrombin Time 16.1 sec (9.8-11.6)
[2018-07-26] MEDS ORDERED: Piperacil/Tazo 2.25 GM Premix 50 ML IV.SIG SCH (14:30)
[2018-07-26] MEDS ORDERED: Phytonadione Inj 10 MG in Sodium Chlor 0.9% Inj 50 ML IV.SIG ONE (14:52)
--- NOTE | 2018-07-26 14:59 | P.CONCC ---
History of Present Illness Service: Critical care medicine Consult date: 07/26/18 Requesting Physician: Deng Almazan Reason for Consult: Patient decompensating in same day surgery Primary Care Provider: PROVIDER NON STAFF Family Provider: Unknown Chief Complaint: Abdominal pain History of Present Illness: This is a 77-year-old male. Date of admission 07/25/2018. Date of consultation 07/26/2018. Past medical history includes coronary disease status post CABG x3, essential hypertension, hyperlipidemia, hiatal hernia, osteoarthritis, gastroesophageal reflux disease and glaucoma. Patient originally presented to [facility] on 07/25 fes with chief complaint of abdominal pain. This started around midnight on 07/25. CT of the abdomen/pelvis 2 mm area at the ampulla likely related to stone. Also revealed cholelithiasis. Umbilical, left hiatal hernia/inguinal and a 3 mm left renal stone obstructing. Bilateral L4 pars defect grade 2 anterolisthesis. Lipase was greater than 30,000. Patient had total bili 2.3. Elevated white cell count greater than 38,000. Gastroenterology was consulted. Was started on antibiotics with piperacillin/ tazobactam and planned for ERCP after results known were discovered. MRCP revealed a 3.5 mm distal common bile duct stone. Common bile duct was 4.5 cm. 8 cm liver cyst. Bilateral renal cyst. Acute pancreatitis. Patient presented to same-day surgery from [place] today for ERCP. noted, patient had an elevated total bilirubin today of 12,000, creatinine elevated from normal 1.0-2.1. Please see Dr. Almazan's note. While I was being called, this patient arrived in room 508. Patient was essentially unresponsive on 100% nonrebreather. Cold and clammy. Very weak palpable femoral pulse. Unable to register pulse oximetry. Patient was emergently intubate without anesthesia please see procedure note. A peripheral IV was established and patient received normal saline wide open and was started on norepinephrine drip. IV access was lost. A central line was emergently placed under sterile technique in the left IJ. Please note while the line was being placed, unable to palpate pulse and CPR was initiated. This lasted approximately 7 minutes please see note. Patient had a recent return of spontaneous circulation at 1330. Laboratory so far reveal a lactate of 15. PH is 7.0. Patient received 3 ampoules of sodium bicarb and i being hyperventilated on mechanical ventilator. He is currently on norepinephrine 20 mcg/min. Review of Systems unobtainable due to endotracheal tube PMFSH - History History Provided By: Patient, Significant Other - Medical History Medical History: Medical History (Last Updated 07/26/18 @ 15:08 by Varghese Cullen MD) Chronic gastroesophageal reflux disease History of cataract Nephrolithiasis Pars defect of lumbar spine CAD (coronary artery disease) Cholelithiasis Glaucoma High cholesterol Hypertension - Surgical History Surgical History: Surgical History (Last Updated 07/26/18 @ 15:08 by Varghese Cullen MD) History of bladder surgery History of total left knee replacement (TKR) H/O knee surgery History of appendectomy Hx of CABG - Family History Family History: Family History (Last Updated 07/25/18 @ 09:55 by Tomas Martinez MD) Sister Crohn disease - Social History I have reviewed the patient's Social History: Yes - Tobacco History Second Hand Smoke Exposure: No Tobacco Use In Past 30 Days: No Smoking Status: Never smoker - Alcohol History How Often Do You Have a Drink Containing Alcohol: Never - Substance Use History Substance History: No History of Abuse - Travel History Recent Travel in the [facility] Within the Last 8 Weeks: Yes - Immunization History Tetanus Immunization: Unsure Hx Influenza Vaccine This Season: Yes Medications and Allergies Active Medications: Active Medications Albuterol (Albuterol Neb (Prn)) 2.5 mg NEB Q2HR NEB PRN PRN Reason: SHORTNESS OF BREATH/WHEEZING Albuterol (Duoneb Neb (Roxie)) 1 ampul NEB Q6HR NEB ROXIE Artificial Tears (Refresh Tears 0.5% Opth Drops) 1 drop EACH EYE BID ROXIE Bisacodyl (Dulcolax Supp) 10 mg RECTAL DAILY PRN PRN Reason: SEVERE CONSITIPATION Chlorhexidine Gluconate (Peridex 0.12% Oral Kit) 15 ml OROPHARYNG BID@0800, 2000 ROXIE Chlorhexidine Gluconate (Chlorhexidine 2% Cloth) 3 pack TOPICAL DAILY@0400 ROXIE Stop: 08/01/18 03:59 Chlorhexidine Gluconate (Chlorhexidine 2% Cloth) 3 pack TOPICAL DAILY@0400 PRN PRN Reason: Extra cloth needed Stop: 08/01/18 03:59 Dorzolamide/Timolol (Cosopt 2/0.5% Opth Drops) 1 drop EACH EYE BID [facility] Last Admin: 07/26/18 01:36 Dose: Not Given Piperacillin/Tazobactam/Dextrose (Zosyn 2.25 Gm Premix) 50 mls @ 100 mls/hr IV.SIG Q6H [facility] Last Admin: 07/26/18 10:38 Dose: 100 mls/hr Calcium Gluconate 2 gm/ (Dextrose) 120 mls @ 120 mls/hr IV.SIG ONCE ONE Stop: 07/26/18 14:59 Fentanyl (Fentanyl 10 Mcg/Ml Premix Drip) 2,500 mcg in 250 mls @ 5 mls/hr IV.SIG TITRATE PRN; Protocol PRN Reason: Per Protocol Sodium Bicarbonate 150 meq/ (Sterile Water) 1,000 mls @ 150 mls/hr IV.CONT .Q6H40M [facility] Stop: 07/26/18 21:39 Norepinephrine Bitartrate 16 (mg/ Sodium Chloride) 250 mls @ 1.87 mls/hr IV.CONT TITRATE PRN; Protocol PRN Reason: See Protocol Phytonadione 10 mg/ Sodium (Chloride) 51 mls @ 102 mls/hr IV.SIG ONCE ONE Stop: 07/26/18 15:21 Midazolam HCl (Versed Inj) 50 mg in 50 mls @ 2 mls/hr IV.CONT TITRATE PRN; Protocol PRN Reason: Per Protocol Lactulose (Lactulose Liq) 30 ml PO DAILY PRN PRN Reason: SEVERE CONSITIPATION Latanoprost (Xalatan 0.005% Opth Drops) 1 drop EACH EYE QPM [facility] Last Admin: 07/25/18 18:05 Dose: Not Given Ondansetron HCl (Zofran Inj) 4 mg IV.PUSH Q6H PRN PRN Reason: NAUSEA OR VOMITING Pantoprazole Sodium (Protonix Inj) 40 mg IV.PUSH Q24H [facility] Last Admin: 07/25/18 20:16 Dose: 40 mg Senna/Docusate Sodium (Chantell-Colace) 1 tab PO BID [facility] Sennosides (Senokot) 17.2 mg PO Q12H PRN PRN Reason: Moderate Constipation Sodium Chloride (Ns Flush) 2 ml IV.FLUSH BID [facility] Sodium Chloride (Ns Flush) 2 ml IV.FLUSH PRN PRN PRN Reason: FLUSH AFTER USING IV ACCESS Terbutaline Sulfate (Brethine Inj) 1 mg SQ UNSCH PRN PRN Reason: For Extravasation Vitamin D (Vitamin D3) 2,000 unit PO DAILY [facility]OX[facility] Last Admin: 07/26/18 09:15 Dose: 2,000 unit Allergies Allergy/AdvReac Type Severity Reaction Status Date / Time SHINGLES VACCINE Allergy Rash Uncoded 07/25/18 07:53 Home Medications Medication Instructions Recorded Confirmed Type aspirin 81 mg PO DAILY 07/25/18 07/25/18 History bimatoprost [Lumigan] 1 drp OPHTHALMIC (EYE) QPM 07/25/18 07/25/18 History cholecalciferol (vitamin D3) 2,000 unit PO DAILY 07/25/18 07/25/18 History [Vitamin D3] dorzolamide-timolol [Cosopt] 1 drp OPHTHALMIC (EYE) BID 07/25/18 07/25/18 History evolocumab [Repatha Syringe] 140 mg SUB-Q Q2W 07/25/18 07/25/18 History ezetimibe [Zetia] 40 mg PO DAILY 07/25/18 07/25/18 History lisinopril 5 mg PO DAILY 07/25/18 07/25/18 History methylprednisolone [Medrol (Harris)] See Taper PO PER PKG DIR 07/25/18 History metoprolol succinate [Toprol XL] 50 mg PO DAILY 07/25/18 07/25/18 History omeprazole 20 mg PO DAILY 07/25/18 07/25/18 History Physical Exam Vital signs: Vital Signs 07/25/18 16:00 07/25/18 20:00 07/25/18 20:39 Temperature 97.6 F 97.7 F Pulse Rate 81 93 H Respiratory Rate 14 18 Blood Pressure 193/103 H 165/94 H Pulse Oximetry 93 L 92 L 96 07/25/18 23:56 07/26/18 00:00 07/26/18 03:55 Temperature 98.0 F Pulse Rate 110 H 114 H 110 H Respiratory Rate 18 Blood Pressure 125/78 Pulse Oximetry 91 L 07/26/18 04:00 07/26/18 08:00 07/26/18 11:40 Temperature 97.9 F 97.7 F Pulse Rate 113 H 130 H 105 H Respiratory Rate 18 20 Blood Pressure 120/72 128/76 Pulse Oximetry 92 L 91 L 09/14/18 11:50 07/26/18 12:20 07/26/18 13:54 Temperature 97.1 F L Pulse Rate 105 H 108 H 114 H Respiratory Rate 30 H 29 H Blood Pressure 106/55 L 85/49 L Pulse Oximetry 90 L 07/26/18 13:55 07/26/18 14:01 Temperature Pulse Rate Respiratory Rate 24 Blood Pressure Pulse Oximetry 0 L 93 L Intake & Output 07/25/18 07/26/18 07/26/18 18:59 06:59 18:59 Intake Total 3100 / 3100 2230 / 2230 Output Total 925 / 925 Balance 2175 / 2175 2230 / 2230 Weight 76.2 kg Intake: IV 3100 / 3100 2049 / 2049 NS Inj 1,000 ML @ 200 mls/hr IV 1000 / 1000 1999 .CONT .Q5H ROXIE Rx#:[id number] Zosyn 3.375 GM Premix 50 ML @ 100 / 100 50 / 50 100 mls/hr IV.SIG Q8H ROXIE Rx#: [id number] NS Inj 1,000 ML @ Wide Open IV. 1999 SIG BOLUS ONE Rx#:[id number] Oral 0 / 0 180 / 180 Output: Urine 925 / 925 Other: Date of Last Bowel Movement 07/25/18 07/25/18 # Bowel Movements 0 Weight On Admission 76.2 kg Narrative: GENERAL: 77-year-old male critically ill currently we will treat intubated SKIN: Cool and dry. No rash HEAD: Atraumatic. Normocephalic. EYES: Pupils equal and round. No scleral icterus. No injection or drainage. ENT: No nasal bleeding or discharge. Mucous membranes pink and moist. NECK: Trachea midline. No JVD. CARDIOVASCULAR: Regular rate and rhythm. S1, S2. No S4. RESPIRATORY: No accessory muscle use. Clear to auscultation. Breath sounds equal bilaterally. GASTROINTESTINAL: Abdomen soft, non-tender, distended. No guarding or rebound.. Hepatic and splenic margins not palpable. MUSCULOSKELETAL: Extremities without significant peripheral edema. No obvious deformities. NEUROLOGICAL: Positive gag and posterior consequent effects. Did not head to yes/no questions post return of spontaneous circulation Septic Shock Reassessment Septic shock perfusion: reassessment completed Assessment and Plan - Assessment and Plan Plan: Neuro/Psych: Glaucoma Currently written for midazolam drip for sedation while intubated. As needed fentanyl drip ordered for angiosedation Continue bimatoprost 0.01% -latanoprost 0.005% 1 drop each eye every p.m. and dorzolamide/timolol 2/0.5 1 drop each eye twice daily Postcode blue, patient nod his head to purposefully to command. CV: Severe septic shock on multiple vasopressors History of essential hypertension Hyperlipidemia Coronary artery disease status post CABG 3 -the mid LAD, reverse SVG to diagonal 2 and OM1 Lactic acidosis NSTEMI likely type II to demand ischemia troponin 0.49 Cycle troponins until peak Serial lactates until cleared Aggressive crystalloid resuscitation Check Flowtrack Holding metoprolol succinate 50 mg daily and lisinopril 5 mg daily in light of acute shock. Holding ezetimibe 10 mg daily and evolocumab 140 mg sq every 2 weeks for list lipidemia Start aspirin 81 mg daily when able Currently on norepinephrine drip at 40 mg/kg/min, epinephrine drip at 10 mg an hour and vasopressin drip at 0.04 U/min to maintain mean arterial pressure greater than equal to 65 EKG/echocardiogram all pending Resp: Acute respiratory failure PRVC 28/600/0.74/5/100 Ventilator bundle Albuterol/ipratropium aerosols every 6 hours with albuterol aerosols every 2 hours as needed for dyspnea Chest x-ray revealed adequate positioning of ET tube and left IJ CVL Recheck ABG now GI: Acute pancreatitis Cholelithiasis Umbilical, left inguinal hernia Hiatal hernia Gastroesophageal reflux disease on omeprazole 20 mg daily at home 3.5 mm distal common bile duct stone with common bile duct dilatation 4.5 cm on MRCP 8 mm liver cyst Hypoalbuminemia Transaminitis secondary to shock liver Rule out choledocholithiasis MRCP revealed a 3.5 mm distal common bile duct stone. Acute pancreatitis. 8 mm liver cyst. Bilateral renal cysts. Common bile duct was 4.5 cm Gastroenterology unable to perform EGD secondary to instability Ordered IR for percutaneous cholecystostomy tube/PTC when stable NGT to LIWS Pantoprazole for GI prophylaxis Docusate sodium/senna 1 tablet twice daily for bowel regimen CT abdomen/pelvis when stable : Nonobstructing nephrolithiasis Harley catheter will be placed for accurate I's and O's in a critically ill patient Endo: Sliding scale insulin with Accu-Cheks to maintain euglycemia Check TSH Renal: Acute kidney injury Bilateral renal cysts Nephrology's been consulted. Appreciate recommendations Urine sodium, osmolality pending No hydronephrosis on previous CT abdomen/pelvis. We will likely need CRRT Heme: Acute coagulopathic state likely secondary to DIC Leukocytosis Monitor CBC daily. Follow trends. Received 10 mg of phytonadione and 2 FFP now. Fibrinogen pending Recheck coags in a.m. type and screen ID: Severe sepsis Currently on piperacillin /tazobactam and micafungin. Blood cultures 2 ordered today. Sputum and UA ordered Infectious disease consultation MSK: Bilateral L4 pars defect grade 2 anterolisthesis PT evaluate and treat FEN: Hyperkalemia Hyperphosphatemia Recheck BMP at 8:00 tonight. Correct electrolytes as clinically indicated Access -Right IJ CVL day 1 placed 07/26 Prophylaxis -GI - pantoprazole -DVT-SCD/holding pharmacologic prophylaxis with elevated coags and plan ERCP Acute care time 90 minutes not including procedures Code Status: Full code Discussed Condition With: Purvi/. Dr. Almazan on phone while patient arrived to room 508. Multiple discussions with and one with son Gianluca on phone regarding severe nature of his current condition. Care plan discussed and all questions answered.
[2018-07-26] MEDS ORDERED: Sodium Bicarbonate 8.4% Inj 150 MEQ in Water for Inj, Sterile 850 ML IV.CONT SCH (15:00)
--- NOTE | 2018-07-26 15:05 | P.CONNP ---
<Karen Velez - Last Filed: 07/26/18 15:13> History of Present Illness Service: Nephrology Consult date: 07/26/18 Requesting Physician: Varghese Cullen Reason for Consult: Acute kidney injury with minimal urinary output Primary Care Provider: PROVIDER NON STAFF Chief Complaint: Abdominal pain History of Present Illness: Patient is a 77-year-old male with past medical history includes coronary disease status post CABG x3, essential hypertension, hyperlipidemia, hiatal hernia, osteoarthritis, gastroesophageal reflux disease and glaucoma. Presented to emergency department on 07/25 with abdominal pain, nausea, and vomiting. CT of abdomen and pelvis with a 2 mm area at the ampulla likely related to stone. Also revealed cholelithiasis. Umbilical, left hiatal hernia/ inguinal and a 3 mm left renal stone obstructing. Planned for ERCP today when per notes patient had a acute change in condition was found to cool and clammy, tachypneic, requiring a nonrebreather. He was transferred to ICU, emergently intubated. CPR also performed for 7 minutes with ROSC. On levophed gtt for blood pressure support. Nephrology is consulted for acute kidney injury with the last creatinine of 2.10, K 5.0, HCO3 20.6. Repeat labs are pending. Urinary output overnight was adequate but now appears to have decreased. Indwelling Harley to be placed. Admission creatinine at 1.0, per no previous history of kidney disease but has remote history of kidney stones. Review of Systems unobtainable due to endotracheal tube PMFSH - History History Provided By: Patient, Significant Other - Medical History Medical History: Medical History (Last Updated 07/26/18 @ 15:08 by Varghese Cullen MD) Chronic gastroesophageal reflux disease History of cataract Nephrolithiasis Pars defect of lumbar spine CAD (coronary artery disease) Cholelithiasis Glaucoma High cholesterol Hypertension - Surgical History Surgical History: Surgical History (Last Updated 07/26/18 @ 15:08 by Varghese Cullen MD) History of bladder surgery History of total left knee replacement (TKR) H/O knee surgery History of appendectomy Hx of CABG - Family History Family History: Family History (Last Updated 07/25/18 @ 09:55 by Tomas Martinez MD) Sister Crohn disease - Tobacco History Second Hand Smoke Exposure: No Smoking Status: Never smoker - Alcohol History How Often Do You Have a Drink Containing Alcohol: Never - Substance Use History Substance History: No History of Abuse - Travel History Recent Travel in the [place] Within the Last 8 Weeks: Yes - Immunization History Tetanus Immunization: Unsure Hx Influenza Vaccine This Season: Yes Medications and Allergies Allergies Allergy/AdvReac Type Severity Reaction Status Date / Time SHINGLES VACCINE Allergy Rash Uncoded 07/25/18 07:53 Home Medications Medication Instructions Recorded Confirmed Type aspirin 81 mg PO DAILY 07/25/18 07/25/18 History bimatoprost [Lumigan] 1 drp OPHTHALMIC (EYE) QPM 07/25/18 07/25/18 History cholecalciferol (vitamin D3) 2,000 unit PO DAILY 07/25/18 07/25/18 History [Vitamin D3] dorzolamide-timolol [Cosopt] 1 drp OPHTHALMIC (EYE) BID 07/25/18 07/25/18 History evolocumab [Repatha Syringe] 140 mg SUB-Q Q2W 07/25/18 07/25/18 History ezetimibe [Zetia] 40 mg PO DAILY 07/25/18 07/25/18 History lisinopril 5 mg PO DAILY 07/25/18 07/25/18 History methylprednisolone [Medrol (Harris)] See Taper PO PER PKG DIR 07/25/18 History metoprolol succinate [Toprol XL] 50 mg PO DAILY 07/25/18 07/25/18 History omeprazole 20 mg PO DAILY 07/25/18 07/25/18 History Active Medications: Active Medications Albuterol (Albuterol Neb (Prn)) 2.5 mg NEB Q2HR NEB PRN PRN Reason: SHORTNESS OF BREATH/WHEEZING Albuterol (Duoneb Neb (Roxie)) 1 ampul NEB Q6HR NEB [facility] Artificial Tears (Refresh Tears 0.5% Opth Drops) 1 drop EACH EYE BID [facility] Bisacodyl (Dulcolax Supp) 10 mg RECTAL DAILY PRN PRN Reason: SEVERE CONSITIPATION Chlorhexidine Gluconate (Peridex 0.12% Oral Kit) 15 ml OROPHARYNG BID@0800, 2000 [facility] Chlorhexidine Gluconate (Chlorhexidine 2% Cloth) 3 pack TOPICAL DAILY@0400 [facility]OX[facility] Stop: 08/01/18 03:59 Chlorhexidine Gluconate (Chlorhexidine 2% Cloth) 3 pack TOPICAL DAILY@0400 PRN PRN Reason: Extra cloth needed Stop: 08/01/18 03:59 Dorzolamide/Timolol (Cosopt 2/0.5% Opth Drops) 1 drop EACH EYE BID [facility] Last Admin: 07/26/18 01:36 Dose: Not Given Piperacillin/Tazobactam/Dextrose (Zosyn 2.25 Gm Premix) 50 mls @ 100 mls/hr IV.SIG Q6H [facility] Last Admin: 07/26/18 10:38 Dose: 100 mls/hr Calcium Gluconate 2 gm/ (Dextrose) 120 mls @ 120 mls/hr IV.SIG ONCE ONE Stop: 07/26/18 14:59 Fentanyl (Fentanyl 10 Mcg/Ml Premix Drip) 2,500 mcg in 250 mls @ 5 mls/hr IV.SIG TITRATE PRN; Protocol PRN Reason: Per Protocol Sodium Bicarbonate 150 meq/ (Sterile Water) 1,000 mls @ 150 mls/hr IV.CONT .Q6H40M [facility] Stop: 07/26/18 21:39 Norepinephrine Bitartrate 16 (mg/ Sodium Chloride) 250 mls @ 1.87 mls/hr IV.CONT TITRATE PRN; Protocol PRN Reason: See Protocol Phytonadione 10 mg/ Sodium (Chloride) 51 mls @ 102 mls/hr IV.SIG ONCE ONE Stop: 07/26/18 15:21 Midazolam HCl (Versed Inj) 50 mg in 50 mls @ 2 mls/hr IV.CONT TITRATE PRN; Protocol PRN Reason: Per Protocol Lactulose (Lactulose Liq) 30 ml PO DAILY PRN PRN Reason: SEVERE CONSITIPATION Latanoprost (Xalatan 0.005% Opth Drops) 1 drop EACH EYE QPM [facility] Last Admin: 07/25/18 18:05 Dose: Not Given Ondansetron HCl (Zofran Inj) 4 mg IV.PUSH Q6H PRN PRN Reason: NAUSEA OR VOMITING Pantoprazole Sodium (Protonix Inj) 40 mg IV.PUSH Q24H [facility] Last Admin: 07/25/18 20:16 Dose: 40 mg Senna/Docusate Sodium (Chantell-Colace) 1 tab PO BID [facility] Sennosides (Senokot) 17.2 mg PO Q12H PRN PRN Reason: Moderate Constipation Sodium Chloride (Ns Flush) 2 ml IV.FLUSH BID [facility]OXIE Sodium Chloride (Ns Flush) 2 ml IV.FLUSH PRN PRN PRN Reason: FLUSH AFTER USING IV ACCESS Terbutaline Sulfate (Brethine Inj) 1 mg SQ UNSCH PRN PRN Reason: For Extravasation Vitamin D (Vitamin D3) 2,000 unit PO DAILY [facility] Last Admin: 07/26/18 09:15 Dose: 2,000 unit Exam Vital signs: Vital Signs 07/25/18 16:00 07/25/18 20:00 07/25/18 20:39 Temperature 97.6 F 97.7 F Pulse Rate 81 93 H Respiratory Rate 14 18 Blood Pressure 193/103 H 165/94 H Pulse Oximetry 93 L 92 L 96 07/25/18 23:56 07/26/18 00:00 07/26/18 03:55 Temperature 98.0 F Pulse Rate 110 H 114 H 110 H Respiratory Rate 18 Blood Pressure 125/78 Pulse Oximetry 91 L 07/26/18 04:00 07/26/18 08:00 07/26/18 11:40 Temperature 97.9 F 97.7 F Pulse Rate 113 H 130 H 105 H Respiratory Rate 18 20 Blood Pressure 120/72 128/76 Pulse Oximetry 92 L 91 L 07/26/18 11:50 07/26/18 12:20 07/26/18 13:54 Temperature 97.1 F L Pulse Rate 105 H 108 H 114 H Respiratory Rate 30 H 29 H Blood Pressure 106/55 L 85/49 L Pulse Oximetry 90 L 07/26/18 13:55 07/26/18 14:01 Temperature Pulse Rate Respiratory Rate 24 Blood Pressure Pulse Oximetry 0 L 93 L Intake & Output 07/25/18 07/26/18 07/26/18 18:59 06:59 18:59 Intake Total 3100 / 3100 2230 / 2230 Output Total 925 / 925 Balance 2175 / 2175 2230 / 2230 Weight 76.2 kg Intake: IV 3100 / 3100 2049 / 2049 NS Inj 1,000 ML @ 200 mls/hr IV 1000 / 1000 1999 / 1999 .CONT .Q5H [facility] Rx#:[id number] Zosyn 3.375 GM Premix 50 ML @ 100 / 100 50 / 50 100 mls/hr IV.SIG Q8H [facility] Rx#: [id number] NS Inj 1,000 ML @ Wide Open IV. 1999 SIG BOLUS ONE Rx#:[id number] Oral 0 / 0 180 / 180 Output: Urine 925 / 925 Other: Date of Last Bowel Movement 07/25/18 07/25/18 # Bowel Movements 0 Weight On Admission 76.2 kg Narrative: GENERAL: Orally intubated SKIN: Warm and dry. HEAD: Normocephalic. EYES: No scleral icterus. No injection or drainage. NECK: Supple, trachea midline. No JVD or lymphadenopathy. CARDIOVASCULAR: Regular rate and rhythm without murmurs, gallops, or rubs. RESPIRATORY: Breath sounds equal bilaterally. No accessory muscle use. GASTROINTESTINAL: Abdomen soft, non-tender, nondistended. MUSCULOSKELETAL: No cyanosis, or edema. BACK: Nontender without obvious deformity. No CVA tenderness. Results - Lab Results 07/26/18 13:45 07/26/18 07:28 Most recent lab results ABG pH 7.00 (7.380-7.420) L* 07/26/18 13:50 ABG pCO2 38 mmHg (38-42) 07/26/18 13:50 ABG pO2 181 mmHG (61-120) H 07/26/18 13:50 ABG HCO3 9 mmol/L (22-26) L* 07/26/18 13:50 Calcium 6.8 mg/dL (8.5-10.1) L* D 07/26/18 07:28 Assessment and Plan - Plan Acute kidney injury with a creatinine of 2.10, potassium level of 5.0, HCO3 20.6 Admission creatinine 1.00 Acute kidney injury possibly ATN from Sepsis, expect acute worsening, labs are pending s/p code CT of abdomen/pelvis showing kidneys with normal in size and shape. Left-sided cortical renal cysts. The largest involves the lower pole measuring 6.8 cm. There is a 3 mm nonobstructing left renal stone. No evidence of mass or hydronephrosis. Plan Indwelling Harley catheter to be placed. Maintain MAP of 65 mmHg, on Levophed gtt Continue IVF D5 with sodium bicarbonate for acidosis Renal dose medication as appropriate Maintain strict I+O Avoid nephrotoxins including IV contrast Will monitor urinary output and labs labs pending <Bhavana Medina Q - Last Filed: 07/26/18 15:56> History of Present Illness Primary Care Provider: PROVIDER NON STAFF [facility] - Medical History Medical History: Medical History (Last Updated 07/26/18 @ 15:08 by Varghese Cullen MD) Chronic gastroesophageal reflux disease History of cataract Nephrolithiasis Pars defect of lumbar spine CAD (coronary artery disease) Cholelithiasis Glaucoma High cholesterol Hypertension - Surgical History Surgical History: Surgical History (Last Updated 07/26/18 @ 15:08 by Varghese Cullen MD) History of bladder surgery History of total left knee replacement (TKR) H/O knee surgery History of appendectomy Hx of CABG - Family History Family History: Family History (Last Updated 07/25/18 @ 09:55 by Tomas Martinez MD) Sister Crohn disease Medications and Allergies Active Medications: Active Medications Albuterol (Albuterol Neb (Prn)) 2.5 mg NEB Q2HR NEB PRN PRN Reason: SHORTNESS OF BREATH/WHEEZING Albuterol (Duoneb Neb (Roxie)) 1 ampul NEB Q6HR NEB [facility] Artificial Tears (Refresh Tears 0.5% Opth Drops) 1 drop EACH EYE BID [facility] Bisacodyl (Dulcolax Supp) 10 mg RECTAL DAILY PRN PRN Reason: SEVERE CONSITIPATION Chlorhexidine Gluconate (Peridex 0.12% Oral Kit) 15 ml OROPHARYNG BID@0800, 2000 [facility] Chlorhexidine Gluconate (Chlorhexidine 2% Cloth) 3 pack TOPICAL DAILY@0400 [facility] Stop: 08/01/18 03:59 Chlorhexidine Gluconate (Chlorhexidine 2% Cloth) 3 pack TOPICAL DAILY@0400 PRN PRN Reason: Extra cloth needed Stop: 08/01/18 03:59 Dorzolamide/Timolol (Cosopt 2/0.5% Opth Drops) 1 drop EACH EYE BID [facility] Last Admin: 07/26/18 01:36 Dose: Not Given Hydrocortisone Sodium Succinate (Solucortef Inj) 100 mg IV.PUSH Q8HR [facility] Piperacillin/Tazobactam/Dextrose (Zosyn 2.25 Gm Premix) 50 mls @ 100 mls/hr IV.SIG Q6H [facility] Last Admin: 07/26/18 10:38 Dose: 100 mls/hr Fentanyl (Fentanyl 10 Mcg/Ml Premix Drip) 2,500 mcg in 250 mls @ 5 mls/hr IV.SIG TITRATE PRN; Protocol PRN Reason: Per Protocol Sodium Bicarbonate 150 meq/ (Sterile Water) 1,000 mls @ 150 mls/hr IV.CONT .Q6H40M [facility] Stop: 07/26/18 21:39 Last Admin: 07/26/18 14:57 Dose: 150 mls/hr Norepinephrine Bitartrate 16 (mg/ Sodium Chloride) 250 mls @ 1.87 mls/hr IV.CONT TITRATE PRN; Protocol PRN Reason: See Protocol Midazolam HCl (Versed Inj) 50 mg in 50 mls @ 2 mls/hr IV.CONT TITRATE PRN; Protocol PRN Reason: Per Protocol Epinephrine HCl 4 mg/ Sodium (Chloride) 250 mls @ 3.75 mls/hr IV.CONT TITRATE PRN; Protocol PRN Reason: See protocol Vasopressin 40 unit/ Sodium (Chloride) 100 mls @ 6 mls/hr IV.CONT CONT [facility]OX[facility]; Protocol Lactulose (Lactulose Liq) 30 ml PO DAILY PRN PRN Reason: SEVERE CONSITIPATION Latanoprost (Xalatan 0.005% Opth Drops) 1 drop EACH EYE QPM [facility] Last Admin: 07/25/18 18:05 Dose: Not Given Ondansetron HCl (Zofran Inj) 4 mg IV.PUSH Q6H PRN PRN Reason: NAUSEA OR VOMITING Pantoprazole Sodium (Protonix Inj) 40 mg IV.PUSH Q24H [facility] Last Admin: 07/25/18 20:16 Dose: 40 mg Senna/Docusate Sodium (Chantell-Colace) 1 tab PO BID [facility] Sennosides (Senokot) 17.2 mg PO Q12H PRN PRN Reason: Moderate Constipation Sodium Chloride (Ns Flush) 2 ml IV.FLUSH BID [facility] Sodium Chloride (Ns Flush) 2 ml IV.FLUSH PRN PRN PRN Reason: FLUSH AFTER USING IV ACCESS Terbutaline Sulfate (Brethine Inj) 1 mg SQ UNSCH PRN PRN Reason: For Extravasation Vitamin D (Vitamin D3) 2,000 unit PO DAILY [facility] Last Admin: 07/26/18 09:15 Dose: 2,000 unit Exam Vital signs: Vital Signs 07/25/18 16:00 07/25/18 20:00 07/25/18 20:39 Temperature 97.6 F 97.7 F Pulse Rate 81 93 H Respiratory Rate 14 18 Blood Pressure 193/103 H 165/94 H Pulse Oximetry 93 L 92 L 96 07/25/18 23:56 07/26/18 00:00 07/26/18 03:55 Temperature 98.0 F Pulse Rate 110 H 114 H 110 H Respiratory Rate 18 Blood Pressure 125/78 Pulse Oximetry 91 L 07/26/18 04:00 07/26/18 08:00 07/26/18 11:40 Temperature 97.9 F 97.7 F Pulse Rate 113 H 130 H 105 H Respiratory Rate 18 20 Blood Pressure 120/72 128/76 Pulse Oximetry 92 L 91 L 07/26/18 11:50 07/26/18 12:20 07/26/18 13:54 Temperature 97.1 F L Pulse Rate 105 H 108 H 114 H Respiratory Rate 30 H 29 H Blood Pressure 106/55 L 85/49 L Pulse Oximetry 90 L 07/26/18 13:55 07/26/18 14:01 07/26/18 15:13 Temperature Pulse Rate Respiratory Rate 24 20 Blood Pressure Pulse Oximetry 0 L 93 L 100 Intake & Output 07/25/18 07/26/18 07/26/18 18:59 06:59 18:59 Intake Total 3100 / 3100 2230 / 2230 Output Total 925 / 925 Balance 2175 / 2175 2230 / 2230 Weight 76.2 kg Intake: IV 3100 / 3100 2049 / 2049 NS Inj 1,000 ML @ 200 mls/hr IV 1000 / 1000 1999 .CONT .Q5H [facility] Rx#:[id number] Zosyn 3.375 GM Premix 50 ML @ 100 / 100 50 / 50 100 mls/hr IV.SIG Q8H [facility] Rx#: [id number] NS Inj 1,000 ML @ Wide Open IV. 1999 SIG BOLUS ONE Rx#:[id number] Oral 0 / 0 180 / 180 Output: Urine 925 / 925 Other: Date of Last Bowel Movement 07/25/18 07/25/18 # Bowel Movements 0 Weight On Admission 76.2 kg Results - Lab Results 07/26/18 13:45 07/26/18 13:45 Most recent lab results ABG pH 7.00 (7.380-7.420) L* 07/26/18 13:50 ABG pCO2 38 mmHg (38-42) 07/26/18 13:50 ABG pO2 181 mmHG (61-120) H 07/26/18 13:50 ABG HCO3 9 mmol/L (22-26) L* 07/26/18 13:50 Calcium 6.3 mg/dL (8.5-10.1) L* 07/26/18 13:45 Phosphorus 9.9 mg/dL (2.5-4.9) H 07/26/18 13:45 Magnesium 2.4 mg/dL (1.5-2.5) 07/26/18 13:45 Assessment and Plan - Plan Patient seen and examined, agree with above. Has SAMRA, and metabolic acidosis. SAMRA most likely due to Hypotension and ATN. Fluid resuscitation, stabilize the BP. Follow the urine out put and BMP. If no improvement, possible CRRT.
[2018-07-26 15:19] LABS: Lymphocytes 5 % (9-44); Metamyelocytes 3 % (0-1); Monocytes 1 % (0-8)
[2018-07-26 15:22] LABS: Potassium 5.2 meq/L (3.5-5.1)
[2018-07-26 15:23] LABS: Calcium 6.3 mg/dL (8.5-10.1); Magnesium 2.4 mg/dL (1.5-2.5); Phosphorus 9.9 mg/dL (2.5-4.9); Total Protein 4.8 g/dL (6.4-8.2); Troponin I 0.49 ng/mL (0.02-0.05)
[2018-07-26 15:24] LABS: Albumin 1.9 g/dL (3.4-5.0)
[2018-07-26 15:48] LABS: CKMB Percent 2.3 % (0.0-4.0); Creatine Kinase MB 14.3 ng/mL (0.5-3.6)
[2018-07-26] MEDS ORDERED: Sod Chloride 0.9% Inj 1,000 ML IV.SIG SCH (16:00)
[2018-07-26] MEDS: Midazolam 50 MG/50 ML Inj 50 MG/50 ML BAG IV.CONT PRN (16:02)
[2018-07-26] MEDS: EPINEPHrine (1:1000) Inj 4 MG in Sodium Chlor 0.9% Inj 246 ML IV.CONT PRN (16:09)
[2018-07-26] MEDS: Norepinephrine Inj 16 MG in Sodium Chlor 0.9% Inj 234 ML IV.CONT PRN ×2 (16:10→21:06)
[2018-07-26 16:44] LABS: ABG Base Excess -16.6 mmol/L (-2-2); ABG PCO2 21 mmHg (38-42); ABG PO2 119 mmHg (61-120)
[2018-07-26] MEDS ORDERED: Sodium Bicarbonate 8.4% Inj 50 MEQ/50 ML Syringe ONE (16:45)
[2018-07-26 16:48] LABS: Amorphous Sediment,Urine Rare /hpf; Bilirubin,Urine Negative (Negative); Clarity,Urine Cloudy (Clear); Color,Urine Dark-Yellow (Yellw/Straw); Glucose,Urine (UA) Negative (Negative); Leukocyte Esterase,Urine Negative (Negative); Nitrite,Urine Negative (Negative); Specific Gravity,Urine 1.027 (1.002-1.035)
[2018-07-26 16:49] LABS: Sperm,Urine Many /hpf
--- NOTE | 2018-07-26 17:36 | XR ---
EXAM DATE: 07/26/2018 5:33 PM EDT AGE/SEX: 77 years / Male INDICATIONS: OGT placement. CLINICAL DATA: This is the patient's initial encounter. Patient reports that signs and symptoms have been present for 1 day and indicates a pain score of Nonresponsive. MEDICAL/SURGICAL HISTORY: . Hypertension. . Coronary artery disease. Appendectomy. CABG. Knee surgery. COMPARISON: [facility] – [place], ABDOMEN KUB ONLY, 11/26/2015. . FINDINGS: Single AP supine view of the abdomen. Distended air-filled colon. Nasogastric tube in place with the tip in the region of the gastric fundus. CONCLUSION: Nasogastric tube in place with the tip in the stomach. Electronically signed by: Jeremie Smiley MD 07/26/2018 5:35 PM EDT
[2018-07-26 18:41] LABS: Bacteria,Urine Many /hpf; Bilirubin,Urine Negative (Negative); Clarity,Urine Turbid (Clear); Color,Urine Amber (Yellw/Straw); Glucose,Urine (UA) 50 mg/dL (Negative); Leukocyte Esterase,Urine Negative (Negative); Nitrite,Urine Negative (Negative); Specific Gravity,Urine 1.036 (1.002-1.035)
--- NOTE | 2018-07-26 18:51 | P.RAD ---
Post Procedure Progress Note - Pre Procedure Diagnosis (1) Pancreatitis due to common bile duct stone - Post Procedure Diagnosis (1) Pancreatitis due to common bile duct stone - Procedure Information Procedure Date: 07/26/18 Supervising Radiologist: Leonard Arcos Jr, MD Proceduralist/Assist: Ari Norris Anesthesia: Other - Plan of Activity Patient to Unit: Critical Care Patient Condition: Fair See PACS Report for procedural detail/treatment. Drainage Procedure Fluoroscopy Cholecystostomy Placement Georgian Tube Size: 8 Fluid Description: Bilious Findings: Unable to perform PTHC. Pt's intrahepatic biliary system is not dilated. Pt not stable enough for heavy conscious sedation. Cholecystostomy tube is the best alternative for decompression. Spoke with Dr Cullen. Placed tammi tube. Cystic duct is patent. Bile sample to micro. Tube will need to remain in place for a minimum of 3 weeks[address] Tube sutured in place. Note is made nonobstructive thrombus involving splenic vein seen on CT. Plan: Tube to remain in place for a minimum of 3 weeks.
[2018-07-26] MEDS ORDERED: Iohexol 350 MG/ML 50 ML Vial (for Rad Diag) IVCONTRAST ONE (19:46)
[2018-07-26] MEDS: EPOPROSTENOL NEB SCH ×2 (20:18)
[2018-07-26] MEDS: [UNRECOGNIZED DRUG - OTHER] NEB SCH ×2 (20:18)
[2018-07-26] MEDS: Pantoprazole Inj 40 MG Vial IV.PUSH SCH (21:04)
[2018-07-26] MEDS: Carboxymethylcellulose 0.5% Opth Drops 15 ML Bottle EACH EYE SCH (21:06)
[2018-07-26] MEDS: Chlorhexidine 0.12% Oral Kit 15 ML UDC OROPHARYNG SCH (21:06)
[2018-07-26 21:08] LABS: ABG Base Excess -12.5 mmol/L (-2-2); ABG PCO2 22 mmHg (38-42); ABG PO2 96 mmHG (61-120)
[2018-07-26 21:53] LABS: Carbon Dioxide 13.4 meq/L (21.0-32.0)
[2018-07-26 21:58] LABS: Potassium 4.5 meq/L (3.5-5.1)
[2018-07-26 21:59] LABS: Troponin I 1.38 ng/mL (0.02-0.05)
[2018-07-26] MEDS: Dextrose 50% in Water 50 ML Vial IV.PUSH PRN (22:13)
[2018-07-26] MEDS: Sodium Bicarbonate 8.4% Inj 75 MEQ in Dextrose 5% in Water Inj 925 ML IV.CONT SCH ×2 (22:13)
[2018-07-26 22:28] LABS: CKMB Percent 2.5 % (0.0-4.0); Creatine Kinase MB 104.4 ng/mL (0.5-3.6)
[2018-07-26] MEDS: Hydrocortisone Sod Succinate 100 MG Vial IV.PUSH SCH (22:36)
[2018-07-26] MEDS: Latanoprost 0.005% Opth Drops 2.5 ML Bottle EACH EYE SCH (23:11)
[2018-07-27] MEDS ORDERED: Calcium Chloride Inj 2 GM in Dextrose 5% in Water Inj 100 ML IV.SIG ONE ×2
[2018-07-27] MEDS: Insulin NovoLOG Aspart Correctional Sugar Inj SQ SCH ×4 (02:03→18:13)
[2018-07-27 02:38] LABS: Troponin I 1.59 ng/mL (0.02-0.05)
[2018-07-27 02:50] LABS: CKMB Percent 2.7 % (0.0-4.0); Creatine Kinase MB 184.9 ng/mL (0.5-3.6)
[2018-07-27] MEDS: Midazolam 50 MG/50 ML Inj 50 MG/50 ML BAG IV.CONT PRN ×2 (03:01→18:47)
[2018-07-27] MEDS: Sodium Bicarbonate 8.4% Inj 75 MEQ in Dextrose 5% in Water Inj 925 ML IV.CONT SCH ×8 (03:16→14:26)
[2018-07-27] MEDS ORDERED: Chlorhexidine Gluconate 2% 1 Pack (2 Cloths) TOPICAL PRN (04:00)
[2018-07-27] MEDS: EPINEPHrine (1:1000) Inj 4 MG in Sodium Chlor 0.9% Inj 246 ML IV.CONT PRN ×2 (04:18→16:12)
[2018-07-27] MEDS: Chlorhexidine Gluconate 2% 1 Pack (2 Cloths) TOPICAL SCH (04:21)
[2018-07-27] MEDS: Oral Hygiene Kit OROPHARYNG SCH ×5 (04:21→20:42)
[2018-07-27] MEDS: EPOPROSTENOL NEB SCH ×4 (05:00→18:00)
[2018-07-27] MEDS: [UNRECOGNIZED DRUG - OTHER] NEB SCH ×4 (05:00→18:00)
--- NOTE | 2018-07-27 05:16 | XR ---
EXAM DATE: 07/27/2018 4:21 AM EDT AGE/SEX: 77 years / Male INDICATIONS: Shortness of breath, possible pulmonary disease. CLINICAL DATA: This is the patient's subsequent encounter. Patient reports that signs and symptoms h ave been present for 3 days and indicates a pain score of Nonresponsive. MEDICAL/SURGICAL HISTORY: Hypertension. CAD. CABG. Appendectomy. COMPARISON: [facility], CHEST 1V SINGLE AP, 07/26/2018. . FINDINGS: Stable ETT, NGT, and left IJ central line. Developing hazy opacities in the lower lung zones. Cardiac lead remains enlarged. Remainder of exam is unchanged. CONCLUSION: 1. Stable tubes and lines, as above. 2. Developing small bilateral pleural effusions and associated airspace disease in the lower lung zo angela. Electronically signed by: Imtiaz Harris MD 07/27/2018 5:15 AM EDT
[2018-07-27 05:19] LABS: ABG Base Excess -16.7 mmol/L (-2-2); ABG PCO2 16 mmHg (38-42); ABG PO2 128 mmHG (61-120)
[2018-07-27 05:38] LABS: Baso % (Auto) 0.2 % (0.0-2.0); Eos # (Auto) 0.1 th/mm3 (0.0-0.4); Eos % (Auto) 0.4 % (0.0-4.0); Hematocrit 37.9 % (39.0-51.0); Hemoglobin 12.4 gm/dL (13.0-17.0); Lymph # (Auto) 0.6 th/mm3 (1.0-4.8); Lymph % (Auto) 2.8 % (9.0-44.0); Mean Corpuscular HGB Conc 32.6 % (32.0-36.0); Mean Platelet Volume 8.6 fL (7.0-11.0); Mono # (Auto) 1.3 th/mm3 (0.0-0.9); Mono % (Auto) 6.1 % (0.0-8.0); Neut # (Auto) 19.6 th/mm3 (1.8-7.7); Neut % (Auto) 90.5 % (16.0-70.0); Platelet Count 132 th/mm3 (150-450); Red Blood Count 3.99 mil/mm3 (4.50-5.90); Red Cell Distribution Width 14.2 % (11.6-17.2); White Blood Count 21.7 th/mm3 (4.0-11.0)
[2018-07-27 05:51] LABS: Activated Partial Thrombo Time 34.8 sec (24.3-30.1); INR 2.3 Ratio; Prothrombin Time 22.9 sec (9.8-11.6)
[2018-07-27 06:10] LABS: Lymphocytes 4 % (9-44); Monocytes 6 % (0-8); Platelet Morphology Normal (Normal)
[2018-07-27] MEDS: Piperacil/Tazo 2.25 GM Premix 50 ML IV.SIG SCH ×4 (06:15→23:18)
[2018-07-27] MEDS: Hydrocortisone Sod Succinate 100 MG Vial IV.PUSH SCH ×3 (06:16→21:21)
[2018-07-27] MEDS: Norepinephrine Inj 16 MG in Sodium Chlor 0.9% Inj 234 ML IV.CONT PRN ×2 (07:03→16:14)
[2018-07-27] MEDS: Vasopressin Inj 40 UNIT in Sodium Chlor 0.9% Inj 98 ML IV.CONT SCH ×2 (07:07→23:19)
[2018-07-27 07:30] LABS: Carbon Dioxide 12.2 meq/L (21.0-32.0); Potassium 4.7 meq/L (3.5-5.1)
[2018-07-27 07:31] LABS: Calcium 6.4 mg/dL (8.5-10.1); Magnesium 2.2 mg/dL (1.5-2.5); Phosphorus 8.3 mg/dL (2.5-4.9); Total Protein 4.9 g/dL (6.4-8.2)
[2018-07-27 07:32] LABS: Albumin 2.1 g/dL (3.4-5.0)
[2018-07-27] MEDS: Chlorhexidine 0.12% Oral Kit 15 ML UDC OROPHARYNG SCH ×2 (07:45→19:51)
--- NOTE | 2018-07-27 08:35 | P.PNCC ---
Subjective Subjective Remarks/Hospital Course: This is a 77-year-old male. Date of admission 07/25/2018. Date of consultation 07/26/2018. Past medical history includes coronary disease status post CABG x3, essential hypertension, hyperlipidemia, hiatal hernia, osteoarthritis, gastroesophageal reflux disease and glaucoma. Patient originally presented to [facility] on 07/25 festers 18 with chief complaint of abdominal pain. This started around midnight on 07/25. CT of the abdomen/pelvis 2 mm area at the ampulla likely related to stone. Also revealed cholelithiasis. Umbilical, left hiatal hernia/inguinal and a 3 mm left renal stone obstructing. Bilateral L4 pars defect grade 2 anterolisthesis. Lipase was greater than 30,000. Patient had total bili 2.3. Elevated white cell count greater than 38,000. Gastroenterology was consulted. Was started on antibiotics with piperacillin/ tazobactam and planned for ERCP after results known were discovered. MRCP revealed a 3.5 mm distal common bile duct stone. Common bile duct was 4.5 cm. 8 cm liver cyst. Bilateral renal cyst. Acute pancreatitis. Patient presented to same-day surgery from [facility] today for ERCP. noted, patient had an elevated total bilirubin today of 12,000, creatinine elevated from normal 1.0-2.1. Please see Dr. Almazan's note. While I was being called, this patient arrived in room 508. Patient was essentially unresponsive on 100% nonrebreather. Cold and clammy. Very weak palpable femoral pulse. Unable to register pulse oximetry. Patient was emergently intubate without anesthesia please see procedure note. A peripheral IV was established and patient received normal saline wide open and was started on norepinephrine drip. IV access was lost. A central line was emergently placed under sterile technique in the left IJ. Please note while the line was being placed, unable to palpate pulse and CPR was initiated. This lasted approximately 7 minutes please see note. Patient had a recent return of spontaneous circulation at 1330. Laboratory so far reveal a lactate of 15. PH is 7.0. Patient received 3 ampoules of sodium bicarb and i being hyperventilated on mechanical ventilator. He is currently on norepinephrine 20 mcg/min. Subjective 07/27: Status post percutaneous cholecystostomy tube last night. Remains on 3 vasopressors and hemodynamically very tenuous. Shock liver, acute renal failure , acute respiratory failure requiring her percent FiO2 and had a non-STEMI type II secondary to demand ischemia. Objective Vital Signs / I&O: Vital Signs 07/26/18 11:40 07/26/18 11:50 07/26/18 12:20 Temperature 97.1 F L Pulse Rate 105 H 105 H 108 H Respiratory Rate 30 H Blood Pressure 106/55 L 85/49 L Pulse Oximetry 90 L 07/26/18 13:54 07/26/18 13:55 07/26/18 14:01 Temperature Pulse Rate 114 H Respiratory Rate 29 H 24 Blood Pressure Pulse Oximetry 0 L 93 L 07/26/18 15:13 07/26/18 17:49 07/26/18 19:15 Temperature Pulse Rate Respiratory Rate 20 22 28 H Blood Pressure Pulse Oximetry 100 100 94 L 07/26/18 20:00 07/26/18 20:32 07/26/18 21:00 Temperature 97.2 F L 97.2 F L Pulse Rate 100 H 93 H 93 H Respiratory Rate 28 H 28 H 28 H Blood Pressure 109/68 79/54 L 88/59 L Pulse Oximetry 95 94 L 07/26/18 22:00 07/26/18 22:06 07/26/18 22:19 Temperature Pulse Rate 93 H 93 H Respiratory Rate 28 H 28 H 28 H Blood Pressure 97/62 L Pulse Oximetry 98 07/26/18 23:00 07/27/18 00:00 07/27/18 01:00 Temperature 98.5 F Pulse Rate 95 H 97 H 97 H Respiratory Rate 28 H 28 H 28 H Blood Pressure 111/64 97/60 L 123/70 Pulse Oximetry 96 94 L 94 L 07/27/18 01:10 07/27/18 02:00 07/27/18 02:20 Temperature Pulse Rate 96 H 97 H Respiratory Rate 29 H 28 H 28 H Blood Pressure 100/62 Pulse Oximetry 96 96 95 07/27/18 03:00 07/27/18 04:00 07/27/18 04:30 Temperature 98.8 F Pulse Rate 96 H 97 H Respiratory Rate 28 H 28 H 28 H Blood Pressure 98/59 L 93/56 L Pulse Oximetry 97 95 97 07/27/18 05:00 07/27/18 05:12 07/27/18 06:00 Temperature Pulse Rate 97 H 96 H 96 H Respiratory Rate 28 H 28 H 28 H Blood Pressure 88/54 L 87/53 L Pulse Oximetry 96 96 07/27/18 06:03 07/27/18 07:00 07/27/18 07:44 Temperature Pulse Rate 96 H 99 H Respiratory Rate 28 H 28 H 28 H Blood Pressure 110/73 Pulse Oximetry 96 96 95 07/27/18 08:00 Temperature 99 F Pulse Rate 100 H Respiratory Rate 28 H Blood Pressure 103/72 Pulse Oximetry 95 Intake & Output 07/26/18 07/27/18 07/27/18 18:59 06:59 18:59 Intake Total 50 / 50 2239 / 2239 1050 / 1050 Output Total 205 / 205 Balance 50 / 50 4 / 2033 1050 / 1050 Weight 76.2 kg 91.3 kg Intake: IV 50 / 50 1930 / 1930 1050 / 1050 EPINEPHrine (1:1000) Inj 4 MG 250 / 250 In NS Inj 246 ML @ 1 MCG/MIN 3. 75 mls/hr IV.CONT TITRATE PRN Rx#:[id number] Versed Inj 50 mg In 50 ml @ 2 50 / 50 MG/HR 2 mls/hr IV.CONT TITRATE PRN Rx#:[id number] Levophed Inj 16 MG In NS Inj 500 / 500 234 ML @ 2 MCG/MIN 1.87 mls/hr IV.CONT TITRATE PRN Rx#: [id number] Sodium Bicarbonate 8.4% Inj 75 1000 / 1000 1000 / 1000 MEQ In D5W Inj 925 ML @ 200 mls /hr IV.CONT .Q5H LORENA Rx#: [id number] Zosyn 2.25 GM Premix 50 ML @ 50 / 50 50 / 50 50 / 50 100 mls/hr IV.SIG Q6H LORENA Rx#: [id number] Flolan (30,000 ng/mL) Neb 87.5 80 / 80 ML NS Inj 12.5 ML In Bag/ Syringe 1 EACH @ 8 mls/hr NEB Q8H LORENA Rx#:[id number] Other 20 / 20 Plasma Thawed 5 Day Cp2d Unit 20 / 20 [id number] Intake (Blood Product) Amt 289 / 289 Plasma Thawed 5 Day Cp2d Unit 289 / 289 [id number] Output: Urine Amount (Catheter) 25 / 25 Indwelling Urethral Catheter 25 / 25 Gastric Drainage 150 / 150 Right Nare Nasogastric Tube 150 / 150 Wound Drainage 30 / 30 Right Upper Abdomen Davol 30 / 30 Other: Weight On Admission 76.2 kg Result Diagrams: 07/27/18 05:20 07/27/18 05:20 Imaging: Cholangiopancreatography MRI 07/25/18 00:00 CONCLUSION: 1. Tiny distal common bile duct stone at the ampulla, estimated at 3.5 mm in size. This appears to be minimally obstructing, if any, with generally a normal size common bile duct for a patient this age and no pancreatic duct dilatation. Several similar sized stones are seen in the gallbladder near the neck. No other definite stones are clearly demonstrated. 2. Acute pancreatitis. Chest X-Ray 07/25/18 07:37 CONCLUSION: Chronic interstitial changes. No acute cardiopulmonary findings identified. Abdomen/Pelvis CT 07/25/18 08:06 CONCLUSION: 1. Acute pancreatitis. No pseudocyst, pancreatic infarction, or pancreatic hemorrhage observed. No ductal dilatation. There is a 2 mm calcification at the level of the ampulla that could relate to a CBD stone at the ampullary region. There is no ductal dilatation to suggest an obstructing component. 2. Cholelithiasis. 3. 3 mm nonobstructing left renal stone. 4. 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 5. Umbilical and left inguinal hernias. Abdomen X-Ray 07/26/18 00:00 CONCLUSION: Nasogastric tube in place with the tip in the stomach. Chest X-Ray 07/26/18 00:00 CONCLUSION: Mild basilar hypoaeration with airspace disease characteristic of atelectasis. No evidence of significant lung consolidation or acute congestion. Satisfactory position of endotracheal tube and central venous catheter. Chest X-Ray 07/27/18 06:00 CONCLUSION: 1. Stable tubes and lines, as above. 2. Developing small bilateral pleural effusions and associated airspace disease in the lower lung zones. Objective Remarks: GENERAL: 77-year-old female currently resting in bed orotracheally intubated SKIN: Warm and dry. HEAD: Atraumatic. Normocephalic. EYES: Pupils equal and round about 3 meals bilaterally and reactive. + scleral icterus. No injection or drainage. ENT: No nasal bleeding or discharge. Mucous membranes pink and moist. NECK: Trachea midline. No JVD. Left IJ is clean dry and intact CARDIOVASCULAR: Tachycardic, RR. S1, S2. No S4. RESPIRATORY: Coarse breath sounds appreciated bilaterally. Breath sounds equal bilaterally. GASTROINTESTINAL: Abdomen protuberant. No bowel sounds appreciated. No grimacing on palpation the abdomen. MUSCULOSKELETAL: Extremities with 1+ peripheral edema. No obvious deformities. NEUROLOGICAL: Sedated on the ventilator on midazolam. Positive gag. Positive cough. Positive corneal reflex. Assessment and Plan - Assessment and Plan Plan: Neuro/Psych: Glaucoma Currently written for midazolam drip for sedation while intubated. As needed fentanyl drip ordered for angiosedation Continue bimatoprost 0.01% -latanoprost 0.005% 1 drop each eye every p.m. and dorzolamide/timolol 2/0.5 1 drop each eye twice daily Postcode blue, patient nodded his head to purposefully to command. CV: Severe septic shock on multiple vasopressors History of essential hypertension Hyperlipidemia Coronary artery disease status post CABG 3 -the mid LAD, reverse SVG to diagonal 2 and OM1 Lactic acidosis NSTEMI likely type II to demand ischemia troponin 0.49 Cycle troponins until peak. Currently 1.5 Serial lactates until cleared. Currently 16 Aggressive crystalloid resuscitation Check Flowtrack. SCD currently 50. Cardiac index 2.7. Holding metoprolol succinate 50 mg daily and lisinopril 5 mg daily in light of acute shock. Holding ezetimibe 10 mg daily and evolocumab 140 mg sq every 2 weeks for list lipidemia Start aspirin 81 mg daily when able Currently on norepinephrine drip at 24mg/kg/min, epinephrine drip at 8 mg an hour and vasopressin drip at 0.04 U/min to maintain mean arterial pressure greater than equal to 65 Stress dose hydrocodone 100 mg every 8 hours EKG/echocardiogram all pending Resp: Acute respiratory failure PRVC 28/600/0.74/5/100 Ventilator bundle Albuterol/ipratropium aerosols every 6 hours with albuterol aerosols every 2 hours as needed for dyspnea Epoprostenol aerosolized ordered Chest x-ray revealed adequate positioning of ET tube and left IJ CVL on 07/27 Recheck ABG cereals every 8 hours GI: Acute pancreatitis Cholelithiasis Umbilical, left inguinal hernia Hiatal hernia Gastroesophageal reflux disease on omeprazole 20 mg daily at home 3.5 mm distal common bile duct stone with common bile duct dilatation 4.5 cm on MRCP 8 mm liver cyst Hypoalbuminemia Transaminitis secondary to shock liver Rule out choledocholithiasis Status post cholecystostomy tube Hyperammonia MRCP revealed a 3.5 mm distal common bile duct stone. Acute pancreatitis. 8 mm liver cyst. Bilateral renal cysts. Common bile duct was 4.5 cm Gastroenterology unable to perform EGD secondary to instability. Cholecystostomy tube placed 07/26 by IR Lactulose 30 cc twice daily. Recheck in a.m. MADELINT to BRICE Recheck KUB this a.m. Pantoprazole for GI prophylaxis Docusate sodium/senna 1 tablet twice daily for bowel regimen CT abdomen/pelvis when stable : Nonobstructing nephrolithiasis Harley catheter will be placed for accurate I's and O's in a critically ill patient Endo: Sliding scale insulin with Accu-Cheks to maintain euglycemia Renal: Acute kidney injury Bilateral renal cysts Rhabdomyolysis Nephrology's been consulted. Appreciate recommendations Urine sodium, osmolality pending No hydronephrosis on previous CT abdomen/pelvis. We will likely need CRRT Heme: Acute coagulopathic state likely secondary to DIC Leukocytosis Normocytic anemia Thrombocytopenia Monitor CBC daily. Follow trends. Received 10 mg of phytonadione and 2 FFP 07/26. 2 FFP 9/. Fibrinogen elevated yesterday. Recheck in a.m. 07/28 Recheck coags in a.m. type and screen ID: Severe sepsis Currently on piperacillin /tazobactam and micafungin day #2. Blood cultures 2 ordered 07/26. Sputum and UA ordered results pending Gallbladder fluid pending Infectious disease consultation MSK: Bilateral L4 pars defect grade 2 anterolisthesis PT evaluate and treat FEN: Hypocalcemia Hyperphosphatemia Recheck BMP at 8:00 tonight. Correct electrolytes as clinically indicated Access -Left IJ CVL day 2 placed / Right radial arterial line day #2 placed by respiratory therapy Prophylaxis -GI - pantoprazole -DVT-SCD/holding pharmacologic prophylaxis in light of coagulopathic state Acute care time 50 minutes not including procedures
--- NOTE | 2018-07-27 09:32 | P.PCN ---
[facility] Procedure Note REASON FOR PROCEDURE Hemodialysis access PROCEDURE PERFORMED Temporary dialysis catheter placement: Right femoral vein CONSENT Informed consent for procedure was obtained from Purvi. The risks and benefits of the procedure were discussed to include but limited to bleeding, clot formation, infection, and even . ANESTHESIA Local injection of 1% Lidocaine DESCRIPTION OF THE PROCEDURE The patient was placed in supine, mild Trendelenburg position. The area was exposed and cleansed with ChloraPrep, times two. Large sterile drape was used to cover the patient, with the site exposed, under sterile conditions including cap, face mask, sterile gown, and sterile gloves. On single attempt, the introducer needle was inserted with negative pressure in syringe and venous flash was obtained. The guide wire was then advanced without any restriction and the needle was removed. The dilator was used without any complications. Using Seldinger technique the double lumen temporary dialysis catheter was advanced over the guide wire to a depth of 24 centimeters. The guide wire was removed. All ports were aspirated with dark venous blood return and flushed easily with sterile saline. All ports were capped. Antibiotic disc was placed around central line at puncture site. The central line was secured to the skin with two interrupted 2.0 silk sutures. The area was bandaged with sterile see- through central line bandage. RADIOLOGICAL DATA Ultrasound guidance was used to locate right femoral vein. Doppler/color flow was used to confirm venous flow. COMPLICATIONS: No apparent complications ESTIMATED BLOOD LOSS: Less than 1 cc
[2018-07-27] MEDS ORDERED: Heparin 2,000 UNITS/2 ML Vial (for IV use) IV.FLUSH PRN (09:33)
[2018-07-27] MEDS: Carboxymethylcellulose 0.5% Opth Drops 15 ML Bottle EACH EYE SCH ×2 (10:22→20:42)
[2018-07-27] MEDS: Dorzolamide-Timolol 2/0.5% Opth Drops 10 ML Bottle EACH EYE SCH ×3 (10:22→20:42)
[2018-07-27] MEDS: Senna/Docusate Sodium 8.6/50 MG Tablet PO SCH ×2 (10:23→20:42)
--- NOTE | 2018-07-27 10:58 | P.PNNP ---
Subjective Interval history: Patient remain critically ill, on the vent. and multiple pressors. Physical Exam Vital signs: Vital Signs 07/26/18 11:40 07/26/18 11:50 07/26/18 12:20 Temperature 97.1 F L Pulse Rate 105 H 105 H 108 H Respiratory Rate 30 H Blood Pressure 106/55 L 85/49 L Pulse Oximetry 90 L 07/26/18 13:54 07/26/18 13:55 07/26/18 14:01 Temperature Pulse Rate 114 H Respiratory Rate 29 H 24 Blood Pressure Pulse Oximetry 0 L 93 L 07/26/18 15:13 07/26/18 17:49 07/26/18 19:15 Temperature Pulse Rate Respiratory Rate 20 22 28 H Blood Pressure Pulse Oximetry 100 100 94 L 07/26/18 20:00 07/26/18 20:32 07/26/18 21:00 Temperature 97.2 F L 97.2 F L Pulse Rate 100 H 93 H 93 H Respiratory Rate 28 H 28 H 28 H Blood Pressure 109/68 79/54 L 88/59 L Pulse Oximetry 95 94 L 07/26/18 22:00 07/26/18 22:06 07/26/18 22:19 Temperature Pulse Rate 93 H 93 H Respiratory Rate 28 H 28 H 28 H Blood Pressure 97/62 L Pulse Oximetry 98 07/26/18 23:00 07/27/18 00:00 07/27/18 01:00 Temperature 98.5 F Pulse Rate 95 H 97 H 97 H Respiratory Rate 28 H 28 H 28 H Blood Pressure 111/64 97/60 L 123/70 Pulse Oximetry 96 94 L 94 L 07/27/18 01:10 07/27/18 02:00 07/27/18 02:20 Temperature Pulse Rate 96 H 97 H Respiratory Rate 29 H 28 H 28 H Blood Pressure 100/62 Pulse Oximetry 96 96 95 07/27/18 03:00 07/27/18 04:00 07/27/18 04:30 Temperature 98.8 F Pulse Rate 96 H 97 H Respiratory Rate 28 H 28 H 28 H Blood Pressure 98/59 L 93/56 L Pulse Oximetry 97 95 97 07/27/18 05:00 07/27/18 05:12 07/27/18 06:00 Temperature Pulse Rate 97 H 96 H 96 H Respiratory Rate 28 H 28 H 28 H Blood Pressure 88/54 L 87/53 L Pulse Oximetry 96 96 07/27/18 06:03 07/27/18 07:00 07/27/18 07:44 Temperature Pulse Rate 96 H 99 H Respiratory Rate 28 H 28 H 28 H Blood Pressure 110/73 Pulse Oximetry 96 96 95 07/27/18 08:00 07/27/18 08:38 07/27/18 09:00 Temperature 99 F 99.1 F Pulse Rate 100 H 101 H 96 H Respiratory Rate 28 H 28 H 28 H Blood Pressure 103/72 103/72 Pulse Oximetry 95 95 Intake & Output 07/26/18 07/27/18 07/27/18 18:59 06:59 18:59 Intake Total 50 / 50 2239 / 2239 1370 / 1370 Output Total 205 / 205 Balance 50 / 50 2033 / 2033 1370 / 1370 Weight 76.2 kg 91.3 kg Intake: IV 50 / 50 1930 / 1930 1050 / 1050 EPINEPHrine (1:1000) Inj 4 MG 250 / 250 In NS Inj 246 ML @ 1 MCG/MIN 3. 75 mls/hr IV.CONT TITRATE PRN Rx#:[id number] Versed Inj 50 mg In 50 ml @ 2 50 / 50 MG/HR 2 mls/hr IV.CONT TITRATE PRN Rx#:[id number] Levophed Inj 16 MG In NS Inj 500 / 500 234 ML @ 2 MCG/MIN 1.87 mls/hr IV.CONT TITRATE PRN Rx#: [id number] Sodium Bicarbonate 8.4% Inj 75 1000 / 1000 1000 / 1000 MEQ In D5W Inj 925 ML @ 200 mls /hr IV.CONT .Q5H LORENA Rx#: [id number] Zosyn 2.25 GM Premix 50 ML @ 50 / 50 50 / 50 50 / 50 100 mls/hr IV.SIG Q6H LORENA Rx#: [id number] Flolan (30,000 ng/mL) Neb 87.5 80 / 80 ML NS Inj 12.5 ML In Bag/ Syringe 1 EACH @ 8 mls/hr NEB Q8H LORENA Rx#:[id number] Other 20 / 20 Plasma Thawed 5 Day Cp2d Unit 20 / 20 [id number] Intake (Blood Product) Amt 289 / 289 320 / 320 Plasma Thawed 5 Day Cp2d Unit 0 / 0 [id number] Plasma Thawed 5 Day Cp2d Unit 320 / 320 [id number] Plasma Thawed 5 Day Cp2d Unit 289 / 289 [id number] Output: Urine Amount (Catheter) 25 / 25 Indwelling Urethral Catheter 25 / 25 Gastric Drainage 150 / 150 Right Nare Nasogastric Tube 150 / 150 Wound Drainage / Right Upper Abdomen Davol Other: Weight On Admission 76.2 kg Narrative: GENERAL: WDWN elderly male patient who appears younger than stated age. Awake and alert. In mild distress secondary to abdominal pain. is at the bedside. SKIN: Warm and dry. 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 HEAD: Atraumatic. Normocephalic. EYES: Pupils equal and round. No scleral icterus. No injection or drainage. ENT: No nasal bleeding or discharge. Mucous membranes pink and moist. NECK: Trachea midline. No JVD. CARDIOVASCULAR: Tachycardic. RESPIRATORY: No accessory muscle use. Clear to auscultation anteriorly. Breath sounds equal bilaterally. GASTROINTESTINAL: Abdomen distended, diffusely tender to palpation. Hypoactive bowel sounds. MUSCULOSKELETAL: Extremities without clubbing, cyanosis, or edema. No obvious deformities. NEUROLOGICAL: Awake and alert. No obvious cranial nerve deficits. Motor grossly within normal limits. Able to move all extremities spontaneously. Normal speech. PSYCHIATRIC: Upset, irritated he has not gone for procedure yet. Appropriate mood and affect; insight and judgment normal. - Urinary Catheter Management Indwelling Urethral Catheter Cath placed during this visit: yes Reason for continuing: Hourly intake/output Insertion date: 07/26/18 Insertion time: 14:30 Assessment and Plan - Plan Assessment: 1. Acute Kidney injury: Acute kidney injury with increase in the creatinine. Admission creatinine was 1.00 Acute kidney injury possibly ATN from Sepsis, expect acute worsening, labs are pending s/p code CT of abdomen/pelvis showing kidneys with normal in size and shape. Left-sided cortical renal cysts. The largest involves the lower pole measuring 6.8 cm. There is a 3 mm nonobstructing left renal stone. No evidence of mass or hydronephrosis. 2. Hypotension and shock status. 3. Shock liver and Cholelithiasis. 4. Post Cardiac arrest. Plan Indwelling Harley catheter to be placed. Maintain MAP of 65 mmHg, on Levophed gtt Patient has SAMRA due to Hypotension and ATN. Maintain strict I+O Avoid nephrotoxins including IV contrast Creatinine continue to increase. Urine out put is minimal. On IV NaHco3. Will start CRRT, remove fluid gently. D/W the at bed side.
--- NOTE | 2018-07-27 11:07 | P.CONID ---
History of Present Illness Service: Infectious Disease Consult date: 07/27/18 Requesting Physician: Varghese Cullen Reason for Consult: Evaluation and Mment of Septic Shock secondary to acute inf pancreatitis. Primary Care Provider: PROVIDER NON STAFF Chief Complaint: Abdominal pain History of Present Illness: is a 77 y/o CM with PMHx of coronary disease status post CABG x3, essential hypertension, hyperlipidemia, hiatal hernia, osteoarthritis, gastroesophageal reflux disease and glaucoma. Patient was admitted on 2017. Patient originally presented to [facility] on 07/25 with chief complaint of abdominal pain. Patient was admitted under Hepas services and underwent a CT of the abdomen/pelvis. CT of the abdomen pelvis shows pancreatitis with no pseudocyst or pancreatic hemorrhage. There is a 2 mm calcification of the level of the ampulla that could relate to CBD stone at the ampullary region also reported is that there is no ductal dilatation to suggest an obstructing component. Other radiological findings include cholelithiasis and a 3 mm nonobstructing left renal stone. Patient was initially admitted at [facility]. He was thought to be unstable for ERCP as he clinically deteriorated. Patient was in acute renal failure creatinine increased from 1.0-2.1. It was decided to transfer the patient to the main hospital. Upon arrival at [facility] ICU patient was cold and clammy and essentially unresponsive 100% nonrebreather. He had extremely weak palpable femoral pulse at that point. A decision was made to emergently intubate him without anesthesia. Patient also had a central line placed in the left IJ. Patient also underwent CPR for approximately 7 minutes with return of spontaneous circulation. Important lab findings include a lipase of 30,000, total bili of 2.3 and an elevated white count of 38,000. Lipase was greater than 30,000. Patient had total bili 2.3. Elevated white cell count greater than 38,000. Gastroenterology was consulted. Was started on antibiotics with piperacillin/ tazobactam and planned for ERCP after results known were discovered. MRCP revealed a 3.5 mm distal common bile duct stone. Common bile duct was 4.5 cm. 8 cm liver cyst. Bilateral renal cyst. Acute pancreatitis. Patient is in the ICU at time of my visit and on max dose multiple pressors, remains intubated and sedated. UO poor and patient is being placed on CVVHD. ID consulted for evaluation and Mment of Septic Shock. Review of Systems unobtainable due to endotracheal tube PMFSH - History History Provided By: Patient, Significant Other - Medical History Medical History: Medical History (Last Updated 07/26/18 @ 15:08 by Varghese Cullen MD) Chronic gastroesophageal reflux disease History of cataract Nephrolithiasis Pars defect of lumbar spine CAD (coronary artery disease) Cholelithiasis Glaucoma High cholesterol Hypertension - Surgical History Surgical History: Surgical History (Last Updated 07/26/18 @ 15:08 by Varghese Cullen MD) History of bladder surgery History of total left knee replacement (TKR) H/O knee surgery History of appendectomy Hx of CABG - Family History Family History: Family History (Last Updated 07/25/18 @ 09:55 by Tomas Martinez MD) Sister Crohn disease - Tobacco History Second Hand Smoke Exposure: No Tobacco Use In Past 30 Days: No Smoking Status: Never smoker - Alcohol History How Often Do You Have a Drink Containing Alcohol: Never - Substance Use History Substance History: No History of Abuse - Travel History Recent Travel in the [facility] Within the Last 8 Weeks: Yes - Immunization History Tetanus Immunization: Unsure Hx Influenza Vaccine This Season: Yes Medications and Allergies Active Medications: Active Medications Albuterol (Albuterol Neb (Prn)) 2.5 mg NEB Q2HR NEB PRN PRN Reason: SHORTNESS OF BREATH/WHEEZING Albuterol (Duoneb Neb (Roxie)) 1 ampul NEB Q6HR NEB ROXIE Last Admin: 07/27/18 09:00 Dose: 1 ampul Artificial Tears (Refresh Tears 0.5% Opth Drops) 1 drop EACH EYE BID [facility] Last Admin: 07/27/18 10:22 Dose: 1 drop Bisacodyl (Dulcolax Supp) 10 mg RECTAL DAILY PRN PRN Reason: SEVERE CONSITIPATION Chlorhexidine Gluconate (Peridex 0.12% Oral Kit) 15 ml OROPHARYNG BID@0800, 2000 [facility] Last Admin: 07/27/18 07:45 Dose: 15 ml Chlorhexidine Gluconate (Chlorhexidine 2% Cloth) 3 pack TOPICAL DAILY@0400 ROXIE Stop: 08/01/18 03:59 Last Admin: 07/27/18 04:21 Dose: 3 pack Chlorhexidine Gluconate (Chlorhexidine 2% Cloth) 3 pack TOPICAL DAILY@0400 PRN PRN Reason: Extra cloth needed Stop: 08/01/18 03:59 Dextrose (D50w Vial) 50 ml IV.PUSH UNSCH PRN PRN Reason: PER HYPOGLYCEMIA PROTOCOL Last Admin: 07/26/18 22:13 Dose: 50 ml Dorzolamide/Timolol (Cosopt 2/0.5% Opth Drops) 1 drop EACH EYE BID [facility] Last Admin: 07/27/18 10:23 Dose: Not Given Glucagon (Glucagon Inj) 1 mg OTHER PRN PRN PRN Reason: for Hypoglycemia Protocol Heparin Sodium (Porcine) (Heparin Inj) 0 units IV.FLUSH WITH DIALYSIS PRN PRN Reason: Flush each lumen Hydrocortisone Sodium Succinate (Solucortef Inj) 100 mg IV.PUSH Q8HR [facility] Last Admin: 07/27/18 06:16 Dose: 100 mg Piperacillin/Tazobactam/Dextrose (Zosyn 2.25 Gm Premix) 50 mls @ 100 mls/hr IV.SIG Q6H [facility] Last Admin: 07/27/18 10:23 Dose: 100 mls/hr Fentanyl (Fentanyl 10 Mcg/Ml Premix Drip) 2,500 mcg in 250 mls @ 5 mls/hr IV.SIG TITRATE PRN; Protocol PRN Reason: Per Protocol Norepinephrine Bitartrate 16 (mg/ Sodium Chloride) 250 mls @ 1.87 mls/hr IV.CONT TITRATE PRN; Protocol PRN Reason: See Protocol Last Admin: 07/27/18 07:03 Dose: 24 mcg/min, 22.5 mls/hr Midazolam HCl (Versed Inj) 50 mg in 50 mls @ 2 mls/hr IV.CONT TITRATE PRN; Protocol PRN Reason: Per Protocol Last Admin: 07/27/18 03:01 Dose: 3 mg/hr, 3 mls/hr Epinephrine HCl 4 mg/ Sodium (Chloride) 250 mls @ 3.75 mls/hr IV.CONT TITRATE PRN; Protocol PRN Reason: See protocol Last Admin: 07/27/18 04:18 Dose: 6 mcg/min, 22.5 mls/hr Vasopressin 40 unit/ Sodium (Chloride) 100 mls @ 6 mls/hr IV.CONT CONT ROXIE; Protocol Last Admin: 07/27/18 07:07 Dose: 0.04 units/min, 6 mls/hr Sodium Chloride (Ns Inj) 1,000 mls @ 0 mls/hr IV.SIG BOLUS [facility] Sodium Bicarbonate 75 meq/ (Dextrose) 1,000 mls @ 200 mls/hr IV.CONT .Q5H [facility] Last Admin: 07/27/18 07:44 Dose: 200 mls/hr Micafungin Sodium 100 mg/ (Sodium Chloride) 100 mls @ 100 mls/hr IV.SIG Q24H [facility] Epoprostenol Sodium 87.5 ml/Sodium Chloride 12.5 ml/Syringe/Bag 100 mls @ 8 mls /hr NEB Q8H [facility] Last Admin: 07/27/18 05:00 Dose: 8 mls/hr Insulin Aspart (Novolog Insulin Correctional Sugar Inj) 0 unit SQ Q6HR [facility]; Protocol Last Admin: 07/27/18 06:11 Dose: 2 unit Lactulose (Lactulose Liq) 30 ml PO BID [facility] Last Admin: 07/27/18 10:23 Dose: 30 ml Latanoprost (Xalatan 0.005% Opth Drops) 1 drop EACH EYE QPM [facility] Last Admin: 07/26/18 23:11 Dose: 1 drop Ondansetron HCl (Zofran Inj) 4 mg IV.PUSH Q6H PRN PRN Reason: NAUSEA OR VOMITING Pantoprazole Sodium (Protonix Inj) 40 mg IV.PUSH Q24H [facility] Last Admin: 07/26/18 21:04 Dose: 40 mg Senna/Docusate Sodium (Chantell-Colace) 1 tab PO BID [facility] Last Admin: 07/27/18 10:23 Dose: 1 tab Sennosides (Senokot) 17.2 mg PO Q12H PRN PRN Reason: Moderate Constipation Sodium Chloride (Ns Flush) 2 ml IV.FLUSH BID [facility] Last Admin: 07/27/18 10:24 Dose: Not Given Sodium Chloride (Ns Flush) 2 ml IV.FLUSH PRN PRN PRN Reason: FLUSH AFTER USING IV ACCESS Sodium Chloride (Ns Flush) 0 ml IV.FLUSH PRN PRN PRN Reason: FLUSH AFTER USING IV ACCESS Terbutaline Sulfate (Brethine Inj) 1 mg SQ UNSCH PRN PRN Reason: For Extravasation Allergies Allergy/AdvReac Type Severity Reaction Status Date / Time SHINGLES VACCINE Allergy Rash Uncoded 07/25/18 07:53 Home Medications Medication Instructions Recorded Confirmed Type aspirin 81 mg PO DAILY 07/25/18 07/25/18 History bimatoprost [Lumigan] 1 drp OPHTHALMIC (EYE) QPM 07/25/18 07/25/18 History cholecalciferol (vitamin D3) 2,000 unit PO DAILY 07/25/18 07/25/18 History [Vitamin D3] dorzolamide-timolol [Cosopt] 1 drp OPHTHALMIC (EYE) BID 07/25/18 07/25/18 History evolocumab [Repatha Syringe] 140 mg SUB-Q Q2W 07/25/18 07/25/18 History ezetimibe [Zetia] 40 mg PO DAILY 07/25/18 07/25/18 History lisinopril 5 mg PO DAILY 07/25/18 07/25/18 History methylprednisolone [Medrol (Harris)] See Taper PO PER PKG DIR 07/25/18 History metoprolol succinate [Toprol XL] 50 mg PO DAILY 07/25/18 07/25/18 History omeprazole 20 mg PO DAILY 07/25/18 07/25/18 History Exam Vital signs: Vital Signs 07/26/18 11:40 07/26/18 11:50 07/26/18 12:20 Temperature 97.1 F L Pulse Rate 105 H 105 H 108 H Respiratory Rate 30 H Blood Pressure 106/55 L 85/49 L Pulse Oximetry 90 L 07/26/18 13:54 07/26/18 13:55 07/26/18 14:01 Temperature Pulse Rate 114 H Respiratory Rate 29 H 24 Blood Pressure Pulse Oximetry 0 L 93 L 07/26/18 15:13 07/26/18 17:49 07/26/18 19:15 Temperature Pulse Rate Respiratory Rate 20 22 28 H Blood Pressure Pulse Oximetry 100 100 94 L 07/26/18 20:00 07/26/18 20:32 07/26/18 21:00 Temperature 97.2 F L 97.2 F L Pulse Rate 100 H 93 H 93 H Respiratory Rate 28 H 28 H 28 H Blood Pressure 109/68 79/54 L 88/59 L Pulse Oximetry 95 94 L 07/26/18 22:00 07/26/18 22:06 07/26/18 22:19 Temperature Pulse Rate 93 H 93 H Respiratory Rate 28 H 28 H 28 H Blood Pressure 97/62 L Pulse Oximetry 98 07/26/18 23:00 07/27/18 00:00 07/27/18 01:00 Temperature 98.5 F Pulse Rate 95 H 97 H 97 H Respiratory Rate 28 H 28 H 28 H Blood Pressure 111/64 97/60 L 123/70 Pulse Oximetry 96 94 L 94 L 07/27/18 01:10 07/27/18 02:00 07/27/18 02:20 Temperature Pulse Rate 96 H 97 H Respiratory Rate 29 H 28 H 28 H Blood Pressure 100/62 Pulse Oximetry 96 96 95 07/27/18 03:00 07/27/18 04:00 07/27/18 04:30 Temperature 98.8 F Pulse Rate 96 H 97 H Respiratory Rate 28 H 28 H 28 H Blood Pressure 98/59 L 93/56 L Pulse Oximetry 97 95 97 07/27/18 05:00 07/27/18 05:12 07/27/18 06:00 Temperature Pulse Rate 97 H 96 H 96 H Respiratory Rate 28 H 28 H 28 H Blood Pressure 88/54 L 87/53 L Pulse Oximetry 96 96 07/27/18 06:03 07/27/18 07:00 07/27/18 07:44 Temperature Pulse Rate 96 H 99 H Respiratory Rate 28 H 28 H 28 H Blood Pressure 110/73 Pulse Oximetry 96 96 95 07/27/18 08:00 07/27/18 08:38 07/27/18 09:00 Temperature 99 F 99.1 F Pulse Rate 100 H 101 H 96 H Respiratory Rate 28 H 28 H 28 H Blood Pressure 103/72 103/72 Pulse Oximetry 95 95 Intake & Output 07/26/18 07/27/18 07/27/18 18:59 06:59 18:59 Intake Total 50 / 50 2239 / 2239 1370 / 1370 Output Total 205 / 205 0 / 0 Balance 50 / 50 2034 / 2034 1370 / 1370 Weight 76.2 kg 91.3 kg Intake: IV 50 / 50 1930 / 1930 1050 / 1050 EPINEPHrine (1:1000) Inj 4 MG 250 / 250 In NS Inj 246 ML @ 1 MCG/MIN 3. 75 mls/hr IV.CONT TITRATE PRN Rx#:[id number] Versed Inj 50 mg In 50 ml @ 2 50 / 50 MG/HR 2 mls/hr IV.CONT TITRATE PRN Rx#:[id number] Levophed Inj 16 MG In NS Inj 500 / 500 234 ML @ 2 MCG/MIN 1.87 mls/hr IV.CONT TITRATE PRN Rx#: [id number] Sodium Bicarbonate 8.4% Inj 75 1000 / 1000 1000 / 1000 MEQ In D5W Inj 925 ML @ 200 mls /hr IV.CONT .Q5H ROXIE Rx#: [id number] Zosyn 2.25 GM Premix 50 ML @ 50 / 50 50 / 50 50 / 50 100 mls/hr IV.SIG Q6H ROXIE Rx#: [id number] Flolan (30,000 ng/mL) Neb 87.5 80 / 80 ML NS Inj 12.5 ML In Bag/ Syringe 1 EACH @ 8 mls/hr NEB Q8H ROXIE Rx#:[id number] Other 20 / 20 Plasma Thawed 5 Day Cp2d Unit 20 / 20 [id number] Intake (Blood Product) Amt 289 / 289 320 / 320 Plasma Thawed 5 Day Cp2d Unit 0 / 0 [id number] Plasma Thawed 5 Day Cp2d Unit 320 / 320 [id number] Plasma Thawed 5 Day Cp2d Unit 289 / 289 [id number] Output: Urine Amount (Catheter) 25 / 25 0 / 0 Indwelling Urethral Catheter 25 / 25 0 / 0 Gastric Drainage 150 / 150 Right Nare Nasogastric Tube 150 / 150 Wound Drainage 30 / 30 Right Upper Abdomen Davol 30 / 30 Other: Weight On Admission 76.2 kg Narrative: GENERAL: Sedated, on the vent, NAD SKIN: Cool and clammy skin, no generalized rash HEAD: Atraumatic. Normocephalic. No temporal or scalp tenderness. EYES: Pupils reactive. No injection or drainage. No petechia ENT: Orally intubated NECK: Trachea midline. Supple, nontender, no meningeal signs. CARDIOVASCULAR: HS audible. RESPIRATORY: Air entry equal bilaterally. Clear to auscultation bilaterally. GASTROINTESTINAL: Abdomen soft,NT, cholecystostomy tube in place. MUSCULOSKELETAL: Extremities without clubbing, cyanosis. NEUROLOGICAL: Sedated Psych could not be assessed IV line sites ok. Results - Labs CBC & Chem 7: 07/28/18 04:00 07/28/18 04:00 Labs: Laboratory Results - last 24 hr 09/07/26/18 07/26/18 13:45 13:45 13:45 WBC 28.7 H RBC 4.54 Hgb 14.3 D Hct 45.0 MCV 99.0 D MCH 31.4 MCHC 31.7 L RDW 15.1 Plt Count 210 MPV 7.9 Prelim Diff (Auto) Slide review pending Neut % (Auto) 89.3 H Lymph % (Auto) 5.6 L [place] % (Auto) 4.6 Eos % (Auto) 0.2 Baso % (Auto) 0.3 Neut # (Auto) 25.6 H Lymph # (Auto) 1.6 [place] # (Auto) 1.3 H Eos # (Auto) 0.1 Baso # (Auto) 0.1 WBC Differential Manual diff final Seg Neuts % (Manual) 75 H Band Neuts % (Manual) 16 H Lymphocytes % (Manual) 5 L Monocytes % (Manual) 1 Metamyelocytes % (Man) 3 H Abs Neuts (Manual) 27.0 H Differential Comment . Platelet Estimate Platelet Morphology PT INR APTT Fibrinogen Puncture Site Patient Temperature O2 Saturation ABG pH ABG pCO2 ABG pO2 ABG HCO3 ABG O2 Content ABG Base Excess ABG Methemoglobin Gaudencio Test Hemoglobin Carboxyhemoglobin O2 Delivery Device Vent Setting Inspired O2 Critical Value Sodium 145 Potassium 5.2 H Chloride 109 H Carbon Dioxide 12.0 L Anion Gap 24 H BUN 42 H Creatinine 3.23 H Estimated GFR 19 L POC Glucose Random Glucose 56 L Lactic Acid 15.1 H* Calcium 6.3 L* Prot Corrected Calcium 7.4 L* Phosphorus 9.9 H Magnesium 2.4 Total Bilirubin 7.8 H AST 1426 H ALT 1143 H Alkaline Phosphatase 83 Ammonia Total Creatine Kinase 612 H CK-MB (CK-2) 14.3 H CK-MB (CK-2) % 2.3 Troponin I 0.49 H Total Protein 4.8 L D Albumin 1.9 L D Lipase Urine Color Urine Clarity Urine pH Ur Specific [place] Urine Protein Urine Glucose (UA) Urine Ketones Urine Occult Blood Urine Nitrate Urine Bilirubin Urine Urobilinogen Ur Leukocyte Esterase Urine RBC Urine WBC Amorphous Sediment Urine Bacteria Urine Sperm Micro UA Comment Ur Microscopic Review Urine Culture Comments Urine Eosinophils Urine Osmolality Ur Random Creatinine Ur Random Sodium Nasal Screen MRSA (PCR) Blood Bank Comment 07/26/18 07/26/18 07/26/18 13:45 13:45 13:45 WBC RBC Hgb Hct MCV MCH MCHC RDW Plt Count MPV Prelim Diff (Auto) Neut % (Auto) Lymph % (Auto) [place] % (Auto) Eos % (Auto) Baso % (Auto) Neut # (Auto) Lymph # (Auto) [place] # (Auto) Eos # (Auto) Baso # (Auto) WBC Differential Seg Neuts % (Manual) Band Neuts % (Manual) Lymphocytes % (Manual) Monocytes % (Manual) Metamyelocytes % (Man) Abs Neuts (Manual) Differential Comment Platelet Estimate Platelet Morphology PT 16.1 H INR 1.6 APTT 39.8 H Fibrinogen 401 H Puncture Site Patient Temperature O2 Saturation ABG pH ABG pCO2 ABG pO2 ABG HCO3 ABG O2 Content ABG Base Excess ABG Methemoglobin Gaudencio Test Hemoglobin Carboxyhemoglobin O2 Delivery Device Vent Setting Inspired O2 Critical Value Sodium Potassium Chloride Carbon Dioxide Anion Gap BUN Creatinine Estimated GFR POC Glucose Random Glucose Lactic Acid Cancelled Calcium Prot Corrected Calcium Phosphorus Magnesium Total Bilirubin AST ALT Alkaline Phosphatase Ammonia Total Creatine Kinase CK-MB (CK-2) CK-MB (CK-2) % Troponin I Total Protein Albumin Lipase Urine Color Urine Clarity Urine pH Ur Specific [place] Urine Protein Urine Glucose (UA) Urine Ketones Urine Occult Blood Urine Nitrate Urine Bilirubin Urine Urobilinogen Ur Leukocyte Esterase Urine RBC Urine WBC Amorphous Sediment Urine Bacteria Urine Sperm Micro UA Comment Ur Microscopic Review Urine Culture Comments Urine Eosinophils Urine Osmolality Ur Random Creatinine Ur Random Sodium Nasal Screen MRSA (PCR) Blood Bank Comment 07/26/18 07/26/18 07/26/18 13:50 15:15 15:15 WBC RBC Hgb Hct MCV MCH MCHC RDW Plt Count MPV Prelim Diff (Auto) Neut % (Auto) Lymph % (Auto) [place] % (Auto) Eos % (Auto) Baso % (Auto) Neut # (Auto) Lymph # (Auto) [place] # (Auto) Eos # (Auto) Baso # (Auto) WBC Differential Seg Neuts % (Manual) Band Neuts % (Manual) Lymphocytes % (Manual) Monocytes % (Manual) Metamyelocytes % (Man) Abs Neuts (Manual) Differential Comment Platelet Estimate Platelet Morphology PT INR APTT Fibrinogen Puncture Site Right radial Patient Temperature 98.6 O2 Saturation 96 ABG pH 7.00 L* ABG pCO2 38 ABG pO2 181 H ABG HCO3 9 L* ABG O2 Content 20.9 H ABG Base Excess -20.2 L ABG Methemoglobin 1.5 Gaudencio Test Present Hemoglobin 15.3 Carboxyhemoglobin 0.0 O2 Delivery Device Ventilator Vent Setting Ac20/550/+10 Inspired O2 100 Critical Value Yes Sodium Potassium Chloride Carbon Dioxide Anion Gap BUN Creatinine Estimated GFR POC Glucose Random Glucose Lactic Acid Calcium Prot Corrected Calcium Phosphorus Magnesium Total Bilirubin AST ALT Alkaline Phosphatase Ammonia Total Creatine Kinase CK-MB (CK-2) CK-MB (CK-2) % Troponin I Total Protein Albumin Lipase Urine Color Dark-yellow H Urine Clarity Cloudy H Urine pH 6.0 Ur Specific [place] 1.027 Urine Protein 100 H Urine Glucose (UA) Negative Urine Ketones Negative Urine Occult Blood Large H Urine Nitrate Negative Urine Bilirubin Negative Urine Urobilinogen Less than 2 Ur Leukocyte Esterase Negative Urine RBC 15 H Urine WBC 4 Amorphous Sediment Rare H Urine Bacteria Urine Sperm Many H Micro UA Comment Culture not ind Ur Microscopic Review Not Reportable Urine Culture Comments Culture not ind Urine Eosinophils Urine Osmolality Ur Random Creatinine 118 Ur Random Sodium Nasal Screen MRSA (PCR) Blood Bank Comment 07/26/18 07/26/18 07/26/18 15:15 15:15 15:45 WBC RBC Hgb Hct MCV MCH MCHC RDW Plt Count MPV Prelim Diff (Auto) Neut % (Auto) Lymph % (Auto) [place] % (Auto) Eos % (Auto) Baso % (Auto) Neut # (Auto) Lymph # (Auto) [place] # (Auto) Eos # (Auto) Baso # (Auto) WBC Differential Seg Neuts % (Manual) Band Neuts % (Manual) Lymphocytes % (Manual) Monocytes % (Manual) Metamyelocytes % (Man) Abs Neuts (Manual) Differential Comment Platelet Estimate Platelet Morphology PT INR APTT Fibrinogen Puncture Site Patient Temperature O2 Saturation ABG pH ABG pCO2 ABG pO2 ABG HCO3 ABG O2 Content ABG Base Excess ABG Methemoglobin Gaudencio Test Hemoglobin Carboxyhemoglobin O2 Delivery Device Vent Setting Inspired O2 Critical Value Sodium Potassium Chloride Carbon Dioxide Anion Gap BUN Creatinine Estimated GFR POC Glucose Random Glucose Lactic Acid Calcium Prot Corrected Calcium Phosphorus Magnesium Total Bilirubin AST ALT Alkaline Phosphatase Ammonia Total Creatine Kinase CK-MB (CK-2) CK-MB (CK-2) % Troponin I Total Protein Albumin Lipase Urine Color Urine Clarity Urine pH Ur Specific [place] Urine Protein Urine Glucose (UA) Urine Ketones Urine Occult Blood Urine Nitrate Urine Bilirubin Urine Urobilinogen Ur Leukocyte Esterase Urine RBC Urine WBC Amorphous Sediment Urine Bacteria Urine Sperm Micro UA Comment Ur Microscopic Review Urine Culture Comments Urine Eosinophils 0-2 H Urine Osmolality Ur Random Creatinine Ur Random Sodium 65 Nasal Screen MRSA (PCR) Not detected Blood Bank Comment 07/26/18 07/26/18 07/26/18 16:21 16:30 20:40 WBC RBC Hgb Hct MCV MCH MCHC RDW Plt Count MPV Prelim Diff (Auto) Neut % (Auto) Lymph % (Auto) [place] % (Auto) Eos % (Auto) Baso % (Auto) Neut # (Auto) Lymph # (Auto) [place] # (Auto) Eos # (Auto) Baso # (Auto) WBC Differential Seg Neuts % (Manual) Band Neuts % (Manual) Lymphocytes % (Manual) Monocytes % (Manual) Metamyelocytes % (Man) Abs Neuts (Manual) Differential Comment Platelet Estimate Platelet Morphology PT INR APTT Fibrinogen Puncture Site Cristina Patient Temperature 98.6 O2 Saturation 97 ABG pH 7.26 L* ABG pCO2 21 L* ABG pO2 119 ABG HCO3 9 L* ABG O2 Content 18.4 ABG Base Excess -16.6 L ABG Methemoglobin 0.7 Gaudencio Test Hemoglobin 13.4 Carboxyhemoglobin 0.5 O2 Delivery Device Vent Vent Setting Prvc/28/650/it7/4pee Inspired O2 100 Critical Value Yes Sodium 145 Potassium 4.5 Chloride 106 Carbon Dioxide 13.4 L Anion Gap 26 H BUN 48 H Creatinine 3.61 H Estimated GFR 16 L POC Glucose Random Glucose 19 L* Lactic Acid Calcium 6.0 L* Prot Corrected Calcium 7.0 L* Phosphorus Magnesium Total Bilirubin AST ALT Alkaline Phosphatase Ammonia Total Creatine Kinase 4156 H CK-MB (CK-2) 104.4 H CK-MB (CK-2) % 2.5 Troponin I 1.38 H* Total Protein 5.0 L Albumin Lipase Urine Color Urine Clarity Urine pH Ur Specific [place] Urine Protein Urine Glucose (UA) Urine Ketones Urine Occult Blood Urine Nitrate Urine Bilirubin Urine Urobilinogen Ur Leukocyte Esterase Urine RBC Urine WBC Amorphous Sediment Urine Bacteria Urine Sperm Micro UA Comment Ur Microscopic Review Urine Culture Comments Urine Eosinophils Urine Osmolality Ur Random Creatinine Ur Random Sodium Nasal Screen MRSA (PCR) Blood Bank Comment 07/26/18 07/26/18 07/26/18 20:40 20:54 22:26 WBC RBC Hgb Hct MCV MCH MCHC RDW Plt Count MPV Prelim Diff (Auto) Neut % (Auto) Lymph % (Auto) [place] % (Auto) Eos % (Auto) Baso % (Auto) Neut # (Auto) Lymph # (Auto) [place] # (Auto) Eos # (Auto) Baso # (Auto) WBC Differential Seg Neuts % (Manual) Band Neuts % (Manual) Lymphocytes % (Manual) Monocytes % (Manual) Metamyelocytes % (Man) Abs Neuts (Manual) Differential Comment Platelet Estimate Platelet Morphology PT INR APTT Fibrinogen Puncture Site Art line Patient Temperature 98.6 O2 Saturation 95 ABG pH 7.36 L ABG pCO2 22 L* ABG pO2 96 ABG HCO3 12 L* ABG O2 Content 17.1 ABG Base Excess -12.5 L ABG Methemoglobin 1.5 Gaudencio Test Present Hemoglobin 12.7 Carboxyhemoglobin 0.5 O2 Delivery Device Ventilator Vent Setting Prvc28/650/0.7/+5 Inspired O2 100 Critical Value Yes Sodium Potassium Chloride Carbon Dioxide Anion Gap BUN Creatinine Estimated GFR POC Glucose 93 Random Glucose Lactic Acid 14.1 H* Calcium Prot Corrected Calcium Phosphorus Magnesium Total Bilirubin AST ALT Alkaline Phosphatase Ammonia Total Creatine Kinase CK-MB (CK-2) CK-MB (CK-2) % Troponin I Total Protein Albumin Lipase Urine Color Urine Clarity Urine pH Ur Specific [place] Urine Protein Urine Glucose (UA) Urine Ketones Urine Occult Blood Urine Nitrate Urine Bilirubin Urine Urobilinogen Ur Leukocyte Esterase Urine RBC Urine WBC Amorphous Sediment Urine Bacteria Urine Sperm Micro UA Comment Ur Microscopic Review Urine Culture Comments Urine Eosinophils Urine Osmolality Ur Random Creatinine Ur Random Sodium Nasal Screen MRSA (PCR) Blood Bank Comment 07/26/18 07/26/18 07/26/18 Unknown Unknown Unknown WBC RBC Hgb Hct MCV MCH MCHC RDW Plt Count MPV Prelim Diff (Auto) Neut % (Auto) Lymph % (Auto) [place] % (Auto) Eos % (Auto) Baso % (Auto) Neut # (Auto) Lymph # (Auto) [place] # (Auto) Eos # (Auto) Baso # (Auto) WBC Differential Seg Neuts % (Manual) Band Neuts % (Manual) Lymphocytes % (Manual) Monocytes % (Manual) Metamyelocytes % (Man) Abs Neuts (Manual) Differential Comment Platelet Estimate Platelet Morphology PT INR APTT Fibrinogen Puncture Site Patient Temperature O2 Saturation ABG pH ABG pCO2 ABG pO2 ABG HCO3 ABG O2 Content ABG Base Excess ABG Methemoglobin Gaudencio Test Hemoglobin Carboxyhemoglobin O2 Delivery Device Vent Setting Inspired O2 Critical Value Sodium Potassium Chloride Carbon Dioxide Anion Gap BUN Creatinine Estimated GFR POC Glucose Random Glucose Lactic Acid Calcium Prot Corrected Calcium Phosphorus Magnesium Total Bilirubin AST ALT Alkaline Phosphatase Ammonia Total Creatine Kinase CK-MB (CK-2) CK-MB (CK-2) % Troponin I Total Protein Albumin Lipase Urine Color [place] Urine Clarity Turbid H Urine pH 5.0 Ur Specific [place] 1.036 H Urine Protein 100 H Urine Glucose (UA) 50 Urine Ketones Negative Urine Occult Blood Large H Urine Nitrate Negative Urine Bilirubin Negative Urine Urobilinogen Less than 2 Ur Leukocyte Esterase Negative Urine RBC 36 H Urine WBC Amorphous Sediment Urine Bacteria Many H Urine Sperm Micro UA Comment Cath-culture ind Ur Microscopic Review Not Reportable Urine Culture Comments Cath-cult indicated Urine Eosinophils Urine Osmolality 432 Ur Random Creatinine Ur Random Sodium 52 Nasal Screen MRSA (PCR) Blood Bank Comment 07/27/18 07/27/18 07/27/18 00:12 01:30 01:30 WBC RBC Hgb Hct MCV MCH MCHC RDW Plt Count MPV Prelim Diff (Auto) Neut % (Auto) Lymph % (Auto) [place] % (Auto) Eos % (Auto) Baso % (Auto) Neut # (Auto) Lymph # (Auto) [place] # (Auto) Eos # (Auto) Baso # (Auto) WBC Differential Seg Neuts % (Manual) Band Neuts % (Manual) Lymphocytes % (Manual) Monocytes % (Manual) Metamyelocytes % (Man) Abs Neuts (Manual) Differential Comment Platelet Estimate Platelet Morphology PT INR APTT Fibrinogen Puncture Site Patient Temperature O2 Saturation ABG pH ABG pCO2 ABG pO2 ABG HCO3 ABG O2 Content ABG Base Excess ABG Methemoglobin Gaudencio Test Hemoglobin Carboxyhemoglobin O2 Delivery Device Vent Setting Inspired O2 Critical Value Sodium Potassium Chloride Carbon Dioxide Anion Gap BUN Creatinine Estimated GFR POC Glucose 89 Random Glucose Lactic Acid 16.7 H* Calcium Prot Corrected Calcium Phosphorus Magnesium Total Bilirubin AST ALT Alkaline Phosphatase Ammonia Total Creatine Kinase 6876 H CK-MB (CK-2) 184.9 H CK-MB (CK-2) % 2.7 Troponin I 1.59 H* Total Protein Albumin Lipase Urine Color Urine Clarity Urine pH Ur Specific [place] Urine Protein Urine Glucose (UA) Urine Ketones Urine Occult Blood Urine Nitrate Urine Bilirubin Urine Urobilinogen Ur Leukocyte Esterase Urine RBC Urine WBC Amorphous Sediment Urine Bacteria Urine Sperm Micro UA Comment Ur Microscopic Review Urine Culture Comments Urine Eosinophils Urine Osmolality Ur Random Creatinine Ur Random Sodium Nasal Screen MRSA (PCR) Blood Bank Comment 07/27/18 07/27/18 07/27/18 05:05 05:20 05:20 WBC 21.7 H RBC 3.99 L Hgb 12.4 L Hct 37.9 L MCV 95.0 D MCH 31.0 MCHC 32.6 RDW 14.2 Plt Count 132 L D MPV 8.6 Prelim Diff (Auto) Slide review pending Neut % (Auto) 90.5 H Lymph % (Auto) 2.8 L [place] % (Auto) 6.1 Eos % (Auto) 0.4 Baso % (Auto) 0.2 Neut # (Auto) 19.6 H Lymph # (Auto) 0.6 L [place] # (Auto) 1.3 H Eos # (Auto) 0.1 Baso # (Auto) 0.0 WBC Differential Manual diff final Seg Neuts % (Manual) 54 Band Neuts % (Manual) 36 H Lymphocytes % (Manual) 4 L Monocytes % (Manual) 6 Metamyelocytes % (Man) Abs Neuts (Manual) 19.5 H Differential Comment . Platelet Estimate Low L Platelet Morphology Normal PT 22.9 H INR 2.3 APTT 34.8 H Fibrinogen Puncture Site Art line Patient Temperature 98.6 O2 Saturation 96 ABG pH 7.33 L ABG pCO2 16 L* ABG pO2 128 H ABG HCO3 8 L* ABG O2 Content 15.8 ABG Base Excess -16.7 L ABG Methemoglobin 1.9 Gaudencio Test Present Hemoglobin 11.6 L Carboxyhemoglobin 0.2 O2 Delivery Device Ventilator Vent Setting Prvc/ ac Inspired O2 100 Critical Value Yes Sodium Potassium Chloride Carbon Dioxide Anion Gap BUN Creatinine Estimated GFR POC Glucose Random Glucose Lactic Acid Calcium Prot Corrected Calcium Phosphorus Magnesium Total Bilirubin AST ALT Alkaline Phosphatase Ammonia Total Creatine Kinase CK-MB (CK-2) CK-MB (CK-2) % Troponin I Total Protein Albumin Lipase Urine Color Urine Clarity Urine pH Ur Specific [place] Urine Protein Urine Glucose (UA) Urine Ketones Urine Occult Blood Urine Nitrate Urine Bilirubin Urine Urobilinogen Ur Leukocyte Esterase Urine RBC Urine WBC Amorphous Sediment Urine Bacteria Urine Sperm Micro UA Comment Ur Microscopic Review Urine Culture Comments Urine Eosinophils Urine Osmolality Ur Random Creatinine Ur Random Sodium Nasal Screen MRSA (PCR) Blood Bank Comment 07/27/18 07/27/18 07/27/18 05:20 05:20 05:31 WBC RBC Hgb Hct MCV MCH MCHC RDW Plt Count MPV Prelim Diff (Auto) Neut % (Auto) Lymph % (Auto) [place] % (Auto) Eos % (Auto) Baso % (Auto) Neut # (Auto) Lymph # (Auto) [place] # (Auto) Eos # (Auto) Baso # (Auto) WBC Differential Seg Neuts % (Manual) Band Neuts % (Manual) Lymphocytes % (Manual) Monocytes % (Manual) Metamyelocytes % (Man) Abs Neuts (Manual) Differential Comment Platelet Estimate Platelet Morphology PT INR APTT Fibrinogen Puncture Site Patient Temperature O2 Saturation ABG pH ABG pCO2 ABG pO2 ABG HCO3 ABG O2 Content ABG Base Excess ABG Methemoglobin Gaudencio Test Hemoglobin Carboxyhemoglobin O2 Delivery Device Vent Setting Inspired O2 Critical Value Sodium 142 Potassium 4.7 Chloride 101 Carbon Dioxide 12.2 L Anion Gap 29 H BUN 57 H Creatinine 4.58 H Estimated GFR 12 L POC Glucose 157 H Random Glucose 147 H D Lactic Acid Calcium 6.4 L* Prot Corrected Calcium 7.5 L Phosphorus 8.3 H D Magnesium 2.2 Total Bilirubin 9.7 H AST 23450 H ALT 9013 H Alkaline Phosphatase 216 H Ammonia 75 H Total Creatine Kinase CK-MB (CK-2) CK-MB (CK-2) % Troponin I Total Protein 4.9 L Albumin 2.1 L Lipase 83159 H Urine Color Urine Clarity Urine pH Ur Specific [place] Urine Protein Urine Glucose (UA) Urine Ketones Urine Occult Blood Urine Nitrate Urine Bilirubin Urine Urobilinogen Ur Leukocyte Esterase Urine RBC Urine WBC Amorphous Sediment Urine Bacteria Urine Sperm Micro UA Comment Ur Microscopic Review Urine Culture Comments Urine Eosinophils Urine Osmolality Ur Random Creatinine Ur Random Sodium Nasal Screen MRSA (PCR) Blood Bank Comment 07/27/18 07:48 WBC RBC Hgb Hct MCV MCH MCHC RDW Plt Count MPV Prelim Diff (Auto) Neut % (Auto) Lymph % (Auto) [place] % (Auto) Eos % (Auto) Baso % (Auto) Neut # (Auto) Lymph # (Auto) [place] # (Auto) Eos # (Auto) Baso # (Auto) WBC Differential Seg Neuts % (Manual) Band Neuts % (Manual) Lymphocytes % (Manual) Monocytes % (Manual) Metamyelocytes % (Man) Abs Neuts (Manual) Differential Comment Platelet Estimate Platelet Morphology PT INR APTT Fibrinogen Puncture Site Patient Temperature O2 Saturation ABG pH ABG pCO2 ABG pO2 ABG HCO3 ABG O2 Content ABG Base Excess ABG Methemoglobin Gaudencio Test Hemoglobin Carboxyhemoglobin O2 Delivery Device Vent Setting Inspired O2 Critical Value Sodium Potassium Chloride Carbon Dioxide Anion Gap BUN Creatinine Estimated GFR POC Glucose Random Glucose Lactic Acid Calcium Prot Corrected Calcium Phosphorus Magnesium Total Bilirubin AST ALT Alkaline Phosphatase Ammonia Total Creatine Kinase CK-MB (CK-2) CK-MB (CK-2) % Troponin I Total Protein Albumin Lipase Urine Color Urine Clarity Urine pH Ur Specific [place] Urine Protein Urine Glucose (UA) Urine Ketones Urine Occult Blood Urine Nitrate Urine Bilirubin Urine Urobilinogen Ur Leukocyte Esterase Urine RBC Urine WBC Amorphous Sediment Urine Bacteria Urine Sperm Micro UA Comment Ur Microscopic Review Urine Culture Comments Urine Eosinophils Urine Osmolality Ur Random Creatinine Ur Random Sodium Nasal Screen MRSA (PCR) Blood Bank Comment - Imaging Impressions Abdomen/Pelvis CT 07/25/18 08:06 CONCLUSION: 1. Acute pancreatitis. No pseudocyst, pancreatic infarction, or pancreatic hemorrhage observed. No ductal dilatation. There is a 2 mm calcification at the level of the ampulla that could relate to a CBD stone at the ampullary region. There is no ductal dilatation to suggest an obstructing component. 2. Cholelithiasis. 3. 3 mm nonobstructing left renal stone. 4. 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 5. Umbilical and left inguinal hernias. Abdomen X-Ray 07/26/18 00:00 CONCLUSION: Nasogastric tube in place with the tip in the stomach. Chest X-Ray 07/26/18 00:00 CONCLUSION: Mild basilar hypoaeration with airspace disease characteristic of atelectasis. No evidence of significant lung consolidation or acute congestion. Satisfactory position of endotracheal tube and central venous catheter. Chest X-Ray 07/27/18 06:00 CONCLUSION: 1. Stable tubes and lines, as above. 2. Developing small bilateral pleural effusions and associated airspace disease in the lower lung zones. Assessment and Plan - Plan Septic Shock with Multi Organ dysfunction On multiple high dose pressors. Acute pancreatitis concern for necrotizing component or infected pseudocyst. Acute cholecystitis. GPC in Bile fluid likely Strep. Acute resp failure on vent Acute renal failure: prerenal, sepsis. On CVVHD. Acute metabolic encephalopathy prior to intubation likely secondary to sepsis. Recs: Continue Zosyn IV. If clinically deteriorates consider Meropenem IV and add Dapto IV for possible VRE. Continue Micafungin IV Follow cultures Follow clinically. CT Abd/Pelvis when clinically stable. KUB Abd with distended bowel. davide Person he will monitor bladder pressure and consider Surgery consult depending on readings and clinical progression. davide GI dw CCM MD Dr.Biga augustine RN Dw patients sepsis, septic shock definitions. Causes of sepsis in particular reference to her spouse. She understands he is critically ill and currently CT abd pelvis cannot be done as patient clinically not stable from cardio resp status standpoint. Critical time > 30 mins. Reviewed davide [facility] Nursing and MDs.
--- NOTE | 2018-07-27 11:12 | XR ---
EXAM DATE: 07/27/2018 11:08 AM EDT AGE/SEX: 77 years / Male INDICATIONS: Abdominal distention, possible ileus. CLINICAL DATA: This is the patient's initial encounter. Patient reports that signs and symptoms have been present for 1 day and indicates a pain score of Nonresponsive. MEDICAL/SURGICAL HISTORY: Non-responsive. Non-responsive. COMPARISON: C, ABDOMEN 1V KUB, 07/26/2018. . FINDINGS: There is mild gaseous distention of the colon greatest in the right lower quadrant. This is unchange d. NG tube coiled in the stomach. Degenerative changes of the spine. CONCLUSION: Stable exam. Electronically signed by: Montrell Lofton MD 07/27/2018 11:11 AM EDT
--- NOTE | 2018-07-27 11:23 | P.PNGI ---
Subjective Interval history: Pt is sedated on a vent, NGT to LIWS, bloody material noted in tubing and canister but no fresh bleed. Abd is distended. pt is Jaundiced. tammi tube with small bloody material. Family by bed side. <Jose Alfredo Rivera - Last Filed: 07/27/18 12:10> Physical Exam Vital signs: Vital Signs 07/26/18 11:40 07/26/18 11:50 07/26/18 12:20 Temperature 97.1 F L Pulse Rate 105 H 105 H 108 H Respiratory Rate 30 H Blood Pressure 106/55 L 85/49 L Pulse Oximetry 90 L 07/26/18 13:54 07/26/18 13:55 07/26/18 14:01 Temperature Pulse Rate 114 H Respiratory Rate 29 H 24 Blood Pressure Pulse Oximetry 0 L 93 L 07/26/18 15:13 07/26/18 17:49 07/26/18 19:15 Temperature Pulse Rate Respiratory Rate 20 22 28 H Blood Pressure Pulse Oximetry 100 100 94 L 07/26/18 20:00 07/26/18 20:32 07/26/18 21:00 Temperature 97.2 F L 97.2 F L Pulse Rate 100 H 93 H 93 H Respiratory Rate 28 H 28 H 28 H Blood Pressure 109/68 79/54 L 88/59 L Pulse Oximetry 95 94 L 07/26/18 22:00 07/26/18 22:06 07/26/18 22:19 Temperature Pulse Rate 93 H 93 H Respiratory Rate 28 H 28 H 28 H Blood Pressure 97/62 L Pulse Oximetry 98 07/26/18 23:00 07/27/18 00:00 07/27/18 01:00 Temperature 98.5 F Pulse Rate 95 H 97 H 97 H Respiratory Rate 28 H 28 H 28 H Blood Pressure 111/64 97/60 L 123/70 Pulse Oximetry 96 94 L 94 L 07/27/18 01:10 07/27/18 02:00 07/27/18 02:20 Temperature Pulse Rate 96 H 97 H Respiratory Rate 29 H 28 H 28 H Blood Pressure 100/62 Pulse Oximetry 96 96 95 07/27/18 03:00 07/27/18 04:00 07/27/18 04:30 Temperature 98.8 F Pulse Rate 96 H 97 H Respiratory Rate 28 H 28 H 28 H Blood Pressure 98/59 L 93/56 L Pulse Oximetry 97 95 97 07/27/18 05:00 07/27/18 05:12 07/27/18 06:00 Temperature Pulse Rate 97 H 96 H 96 H Respiratory Rate 28 H 28 H 28 H Blood Pressure 88/54 L 87/53 L Pulse Oximetry 96 96 07/27/18 06:03 07/27/18 07:00 07/27/18 07:44 Temperature Pulse Rate 96 H 99 H Respiratory Rate 28 H 28 H 28 H Blood Pressure 110/73 Pulse Oximetry 96 96 95 07/27/18 08:00 07/27/18 08:38 07/27/18 09:00 Temperature 99 F 99.1 F Pulse Rate 100 H 101 H 96 H Respiratory Rate 28 H 28 H 28 H Blood Pressure 103/72 103/72 Pulse Oximetry 95 95 Intake & Output 07/26/18 07/27/18 07/27/18 18:59 06:59 18:59 Intake Total 50 / 50 2239 / 2239 1370 / 1370 Output Total 205 / 205 Balance 50 / 50 2034 / 2034 1370 / 1370 Weight 76.2 kg 91.3 kg Intake: IV 50 / 50 1930 / 1930 1050 / 1050 EPINEPHrine (1:1000) Inj 4 MG 250 / 250 In NS Inj 246 ML @ 1 MCG/MIN 3. 75 mls/hr IV.CONT TITRATE PRN Rx#:[id number] Versed Inj 50 mg In 50 ml @ 2 50 / 50 MG/HR 2 mls/hr IV.CONT TITRATE PRN Rx#:[id number] Levophed Inj 16 MG In NS Inj 500 / 500 234 ML @ 2 MCG/MIN 1.87 mls/hr IV.CONT TITRATE PRN Rx#: [id number] Sodium Bicarbonate 8.4% Inj 75 1000 / 1000 1000 / 1000 MEQ In D5W Inj 925 ML @ 200 mls /hr IV.CONT .Q5H [facility] Rx#: [id number] Zosyn 2.25 GM Premix 50 ML @ 50 / 50 50 / 50 50 / 50 100 mls/hr IV.SIG Q6H [facility] Rx#: [id number] Flolan (30,000 ng/mL) Neb 87.5 80 / 80 ML NS Inj 12.5 ML In Bag/ Syringe 1 EACH @ 8 mls/hr NEB Q8H [facility] Rx#:[id number] Other 20 / 20 Plasma Thawed 5 Day Cp2d Unit 20 / 20 [id number] Intake (Blood Product) Amt 289 / 289 320 / 320 Plasma Thawed 5 Day Cp2d Unit 0 / 0 [id number] Plasma Thawed 5 Day Cp2d Unit 320 / 320 [id number] Plasma Thawed 5 Day Cp2d Unit 289 / 289 [id number] Output: Urine Amount (Catheter) 25 / Indwelling Urethral Catheter 25 / 25 Gastric Drainage 150 / 150 Right Nare Nasogastric Tube 150 / 150 Wound Drainage 30 / 30 Right Upper Abdomen Davol Other: Weight On Admission 76.2 kg - Constitutional chronically ill appearing Comments: Sedated on the vent - Routine HEENT Exam Head: Present: normocephalic - Routine Respiratory Exam Comments: vented - Routine Cardiovascular Exam Present: RRR - Routine Abdominal Exam Present: distended Comments: Hypotensive bowel sounds, tammi tube with bloody drain, minimal - Routine Extremities Exam Present: edema - Routine Skin Exam Present: intact, dry, jaundice - Routine Neurological Exam Sedated on a vent - Urinary Catheter Management Indwelling Urethral Catheter Cath placed during this visit: yes Reason for continuing: Hourly intake/output Insertion date: 07/26/18 Insertion time: 14:30 <Jose Alfredo Rivera - Last Filed: 07/27/18 12:10> Vital signs: Vital Signs 07/26/18 12:20 07/26/18 13:54 07/26/18 13:55 Temperature Pulse Rate 108 H 114 H Respiratory Rate 29 H Blood Pressure 85/49 L Pulse Oximetry 0 L 07/26/18 14:01 07/26/18 15:13 07/26/18 17:49 Temperature Pulse Rate Respiratory Rate 24 20 22 Blood Pressure Pulse Oximetry 93 L 100 100 07/26/18 19:15 07/26/18 20:00 07/26/18 20:32 Temperature 97.2 F L 97.2 F L Pulse Rate 100 H 93 H Respiratory Rate 28 H 28 H 28 H Blood Pressure 109/68 79/54 L Pulse Oximetry 94 L 95 07/26/18 21:00 07/26/18 22:00 07/26/18 22:06 Temperature Pulse Rate 93 H 93 H 93 H Respiratory Rate 28 H 28 H 28 H Blood Pressure 88/59 L 97/62 L Pulse Oximetry 94 L 07/26/18 22:19 07/26/18 23:00 07/27/18 00:00 Temperature 98.5 F Pulse Rate 95 H 97 H Respiratory Rate 28 H 28 H 28 H Blood Pressure 111/64 97/60 L Pulse Oximetry 98 96 94 L 07/27/18 01:00 07/27/18 01:10 07/27/18 02:00 Temperature Pulse Rate 97 H 96 H Respiratory Rate 28 H 29 H 28 H Blood Pressure 123/70 100/62 Pulse Oximetry 94 L 96 96 07/27/18 02:20 07/27/18 03:00 07/27/18 04:00 Temperature 98.8 F Pulse Rate 97 H 96 H 97 H Respiratory Rate 28 H 28 H 28 H Blood Pressure 98/59 L 93/56 L Pulse Oximetry 95 97 95 07/27/18 04:30 07/27/18 05:00 07/27/18 05:12 Temperature Pulse Rate 97 H 96 H Respiratory Rate 28 H 28 H 28 H Blood Pressure 88/54 L Pulse Oximetry 97 96 07/27/18 06:00 07/27/18 06:03 07/27/18 07:00 Temperature Pulse Rate 96 H 96 H 99 H Respiratory Rate 28 H 28 H 28 H Blood Pressure 87/53 L 110/73 Pulse Oximetry 96 96 96 07/27/18 07:44 07/27/18 08:00 07/27/18 08:38 Temperature 99 F 99.1 F Pulse Rate 100 H 101 H Respiratory Rate 28 H 28 H 28 H Blood Pressure 103/72 103/72 Pulse Oximetry 95 95 95 07/27/18 09:00 07/27/18 10:00 07/27/18 11:00 Temperature Pulse Rate 96 H 100 H 97 H Respiratory Rate 28 H 28 H 28 H Blood Pressure Pulse Oximetry 97 93 L 96 07/27/18 11:57 Temperature Pulse Rate Respiratory Rate 28 H Blood Pressure Pulse Oximetry 93 L Intake & Output 07/26/18 07/27/18 07/27/18 18:59 06:59 18:59 Intake Total 50 / 50 2239 / 2239 1370 / 1370 Output Total 205 / 205 0 / 0 Balance 50 / 50 4 / 2034 1370 / 1370 Weight 76.2 kg 91.3 kg Intake: IV 50 / 50 1930 / 1930 1050 / 1050 EPINEPHrine (1:1000) Inj 4 MG 250 / 250 In NS Inj 246 ML @ 1 MCG/MIN 3. 75 mls/hr IV.CONT TITRATE PRN Rx#:[id number] Versed Inj 50 mg In 50 ml @ 2 50 / 50 MG/HR 2 mls/hr IV.CONT TITRATE PRN Rx#:[id number] Levophed Inj 16 MG In NS Inj 500 / 500 234 ML @ 2 MCG/MIN 1.87 mls/hr IV.CONT TITRATE PRN Rx#: [id number] Sodium Bicarbonate 8.4% Inj 75 1000 / 1000 1000 / 1000 MEQ In D5W Inj 925 ML @ 200 mls /hr IV.CONT .Q5H [facility] Rx#: [id number] Zosyn 2.25 GM Premix 50 ML @ 50 / 50 50 / 50 50 / 50 100 mls/hr IV.SIG Q6H [facility] Rx#: [id number] Flolan (30,000 ng/mL) Neb 87.5 80 / 80 ML NS Inj 12.5 ML In Bag/ Syringe 1 EACH @ 8 mls/hr NEB Q8H [facility] Rx#:[id number] Other 20 / 20 Plasma Thawed 5 Day Cp2d Unit 20 / 20 [id number] Intake (Blood Product) Amt 289 / 289 320 / 320 Plasma Thawed 5 Day Cp2d Unit 0 / 0 [id number] Plasma Thawed 5 Day Cp2d Unit 320 / 320 [id number] Plasma Thawed 5 Day Cp2d Unit 289 / 289 [id number] Output: Urine Amount (Catheter) 25 / 25 0 / 0 Indwelling Urethral Catheter 25 / 25 0 / 0 Gastric Drainage 150 / 150 Right Nare Nasogastric Tube 150 / 150 Wound Drainage 30 / 30 Right Upper Abdomen Davol 30 / 30 Other: Weight On Admission 76.2 kg - Urinary Catheter Management Indwelling Urethral Catheter Cath placed during this visit: no <Carolynn Powell - Last Filed: 07/27/18 17:59> Results - Labs CBC & Chem 7: 07/27/18 05:20 07/27/18 05:20 Laboratory Results - last 24 hr 07/26/18 07/26/18 07/26/18 13:45 13:45 13:45 WBC 28.7 H RBC 4.54 Hgb 14.3 D Hct 45.0 MCV 99.0 D MCH 31.4 MCHC 31.7 L RDW 15.1 Plt Count 210 MPV 7.9 Prelim Diff (Auto) Slide review pending Neut % (Auto) 89.3 H Lymph % (Auto) 5.6 L Brooke % (Auto) 4.6 Eos % (Auto) 0.2 Baso % (Auto) 0.3 Neut # (Auto) 25.6 H Lymph # (Auto) 1.6 Brooke # (Auto) 1.3 H Eos # (Auto) 0.1 Baso # (Auto) 0.1 WBC Differential Manual diff final Seg Neuts % (Manual) 75 H Band Neuts % (Manual) 16 H Lymphocytes % (Manual) 5 L Monocytes % (Manual) 1 Metamyelocytes % (Man) 3 H Abs Neuts (Manual) 27.0 H Differential Comment . Platelet Estimate Platelet Morphology PT INR APTT Fibrinogen Puncture Site Patient Temperature O2 Saturation ABG pH ABG pCO2 ABG pO2 ABG HCO3 ABG O2 Content ABG Base Excess ABG Methemoglobin Gaudencio Test Hemoglobin Carboxyhemoglobin O2 Delivery Device Vent Setting Inspired O2 Critical Value Sodium 145 Potassium 5.2 H Chloride 109 H Carbon Dioxide 12.0 L Anion Gap 24 H BUN 42 H Creatinine 3.23 H Estimated GFR 19 L POC Glucose Random Glucose 56 L Lactic Acid 15.1 H* Calcium 6.3 L* Prot Corrected Calcium 7.4 L* Phosphorus 9.9 H Magnesium 2.4 Total Bilirubin 7.8 H AST 1426 H ALT 1143 H Alkaline Phosphatase 83 Ammonia Total Creatine Kinase 612 H CK-MB (CK-2) 14.3 H CK-MB (CK-2) % 2.3 Troponin I 0.49 H Total Protein 4.8 L D Albumin 1.9 L D Lipase Urine Color Urine Clarity Urine pH Ur Specific Pinch Urine Protein Urine Glucose (UA) Urine Ketones Urine Occult Blood Urine Nitrate Urine Bilirubin Urine Urobilinogen Ur Leukocyte Esterase Urine RBC Urine WBC Amorphous Sediment Urine Bacteria Urine Sperm Micro UA Comment Ur Microscopic Review Urine Culture Comments Urine Eosinophils Urine Osmolality Ur Random Creatinine Ur Random Sodium Nasal Screen MRSA (PCR) Blood Bank Comment 07/26/18 07/26/18 07/26/18 13:45 13:45 13:45 WBC RBC Hgb Hct MCV MCH MCHC RDW Plt Count MPV Prelim Diff (Auto) Neut % (Auto) Lymph % (Auto) Brooke % (Auto) Eos % (Auto) Baso % (Auto) Neut # (Auto) Lymph # (Auto) Brooke # (Auto) Eos # (Auto) Baso # (Auto) WBC Differential Seg Neuts % (Manual) Band Neuts % (Manual) Lymphocytes % (Manual) Monocytes % (Manual) Metamyelocytes % (Man) Abs Neuts (Manual) Differential Comment Platelet Estimate Platelet Morphology PT 16.1 H INR 1.6 APTT 39.8 H Fibrinogen 401 H Puncture Site Patient Temperature O2 Saturation ABG pH ABG pCO2 ABG pO2 ABG HCO3 ABG O2 Content ABG Base Excess ABG Methemoglobin Gaudencio Test Hemoglobin Carboxyhemoglobin O2 Delivery Device Vent Setting Inspired O2 Critical Value Sodium Potassium Chloride Carbon Dioxide Anion Gap BUN Creatinine Estimated GFR POC Glucose Random Glucose Lactic Acid Cancelled Calcium Prot Corrected Calcium Phosphorus Magnesium Total Bilirubin AST ALT Alkaline Phosphatase Ammonia Total Creatine Kinase CK-MB (CK-2) CK-MB (CK-2) % Troponin I Total Protein Albumin Lipase Urine Color Urine Clarity Urine pH Ur Specific Pinch Urine Protein Urine Glucose (UA) Urine Ketones Urine Occult Blood Urine Nitrate Urine Bilirubin Urine Urobilinogen Ur Leukocyte Esterase Urine RBC Urine WBC Amorphous Sediment Urine Bacteria Urine Sperm Micro UA Comment Ur Microscopic Review Urine Culture Comments Urine Eosinophils Urine Osmolality Ur Random Creatinine Ur Random Sodium Nasal Screen MRSA (PCR) Blood Bank Comment 07/26/18 07/26/18 07/26/18 13:50 15:15 15:15 WBC RBC Hgb Hct MCV MCH MCHC RDW Plt Count MPV Prelim Diff (Auto) Neut % (Auto) Lymph % (Auto) Brooke % (Auto) Eos % (Auto) Baso % (Auto) Neut # (Auto) Lymph # (Auto) Brooke # (Auto) Eos # (Auto) Baso # (Auto) WBC Differential Seg Neuts % (Manual) Band Neuts % (Manual) Lymphocytes % (Manual) Monocytes % (Manual) Metamyelocytes % (Man) Abs Neuts (Manual) Differential Comment Platelet Estimate Platelet Morphology PT INR APTT Fibrinogen Puncture Site Right radial Patient Temperature 98.6 O2 Saturation 96 ABG pH 7.00 L* ABG pCO2 38 ABG pO2 181 H ABG HCO3 9 L* ABG O2 Content 20.9 H ABG Base Excess -20.2 L ABG Methemoglobin 1.5 Gaudencio Test Present Hemoglobin 15.3 Carboxyhemoglobin 0.0 O2 Delivery Device Ventilator Vent Setting Ac20/550/+10 Inspired O2 100 Critical Value Yes Sodium Potassium Chloride Carbon Dioxide Anion Gap BUN Creatinine Estimated GFR POC Glucose Random Glucose Lactic Acid Calcium Prot Corrected Calcium Phosphorus Magnesium Total Bilirubin AST ALT Alkaline Phosphatase Ammonia Total Creatine Kinase CK-MB (CK-2) CK-MB (CK-2) % Troponin I Total Protein Albumin Lipase Urine Color Dark-yellow H Urine Clarity Cloudy H Urine pH 6.0 Ur Specific Pinch 1.027 Urine Protein 100 H Urine Glucose (UA) Negative Urine Ketones Negative Urine Occult Blood Large H Urine Nitrate Negative Urine Bilirubin Negative Urine Urobilinogen Less than 2 Ur Leukocyte Esterase Negative Urine RBC 15 H Urine WBC 4 Amorphous Sediment Rare H Urine Bacteria Urine Sperm Many H Micro UA Comment Culture not ind Ur Microscopic Review Not Reportable Urine Culture Comments Culture not ind Urine Eosinophils Urine Osmolality Ur Random Creatinine 118 Ur Random Sodium Nasal Screen MRSA (PCR) Blood Bank Comment 07/26/18 07/26/18 07/26/18 15:15 15:15 15:45 WBC RBC Hgb Hct MCV MCH MCHC RDW Plt Count MPV Prelim Diff (Auto) Neut % (Auto) Lymph % (Auto) Brooke % (Auto) Eos % (Auto) Baso % (Auto) Neut # (Auto) Lymph # (Auto) Brooke # (Auto) Eos # (Auto) Baso # (Auto) WBC Differential Seg Neuts % (Manual) Band Neuts % (Manual) Lymphocytes % (Manual) Monocytes % (Manual) Metamyelocytes % (Man) Abs Neuts (Manual) Differential Comment Platelet Estimate Platelet Morphology PT INR APTT Fibrinogen Puncture Site Patient Temperature O2 Saturation ABG pH ABG pCO2 ABG pO2 ABG HCO3 ABG O2 Content ABG Base Excess ABG Methemoglobin Gaudencio Test Hemoglobin Carboxyhemoglobin O2 Delivery Device Vent Setting Inspired O2 Critical Value Sodium Potassium Chloride Carbon Dioxide Anion Gap BUN Creatinine Estimated GFR POC Glucose Random Glucose Lactic Acid Calcium Prot Corrected Calcium Phosphorus Magnesium Total Bilirubin AST ALT Alkaline Phosphatase Ammonia Total Creatine Kinase CK-MB (CK-2) CK-MB (CK-2) % Troponin I Total Protein Albumin Lipase Urine Color Urine Clarity Urine pH Ur Specific Pinch Urine Protein Urine Glucose (UA) Urine Ketones Urine Occult Blood Urine Nitrate Urine Bilirubin Urine Urobilinogen Ur Leukocyte Esterase Urine RBC Urine WBC Amorphous Sediment Urine Bacteria Urine Sperm Micro UA Comment Ur Microscopic Review Urine Culture Comments Urine Eosinophils 0-2 H Urine Osmolality Ur Random Creatinine Ur Random Sodium 65 Nasal Screen MRSA (PCR) Not detected Blood Bank Comment 07/26/18 07/26/18 07/26/18 16:21 16:30 20:40 WBC RBC Hgb Hct MCV MCH MCHC RDW Plt Count MPV Prelim Diff (Auto) Neut % (Auto) Lymph % (Auto) Brooke % (Auto) Eos % (Auto) Baso % (Auto) Neut # (Auto) Lymph # (Auto) Brooke # (Auto) Eos # (Auto) Baso # (Auto) WBC Differential Seg Neuts % (Manual) Band Neuts % (Manual) Lymphocytes % (Manual) Monocytes % (Manual) Metamyelocytes % (Man) Abs Neuts (Manual) Differential Comment Platelet Estimate Platelet Morphology PT INR APTT Fibrinogen Puncture Site Cristina Patient Temperature 98.6 O2 Saturation 97 ABG pH 7.26 L* ABG pCO2 21 L* ABG pO2 119 ABG HCO3 9 L* ABG O2 Content 18.4 ABG Base Excess -16.6 L ABG Methemoglobin 0.7 Gaudencio Test Hemoglobin 13.4 Carboxyhemoglobin 0.5 O2 Delivery Device Vent Vent Setting [facility]/28/650/it7/4pee Inspired O2 100 Critical Value Yes Sodium 145 Potassium 4.5 Chloride 106 Carbon Dioxide 13.4 L Anion Gap 26 H BUN 48 H Creatinine 3.61 H Estimated GFR 16 L POC Glucose Random Glucose 19 L* Lactic Acid Calcium 6.0 L* Prot Corrected Calcium 7.0 L* Phosphorus Magnesium Total Bilirubin AST ALT Alkaline Phosphatase Ammonia Total Creatine Kinase 4156 H CK-MB (CK-2) 104.4 H CK-MB (CK-2) % 2.5 Troponin I 1.38 H* Total Protein 5.0 L Albumin Lipase Urine Color Urine Clarity Urine pH Ur Specific Pinch Urine Protein Urine Glucose (UA) Urine Ketones Urine Occult Blood Urine Nitrate Urine Bilirubin Urine Urobilinogen Ur Leukocyte Esterase Urine RBC Urine WBC Amorphous Sediment Urine Bacteria Urine Sperm Micro UA Comment Ur Microscopic Review Urine Culture Comments Urine Eosinophils Urine Osmolality Ur Random Creatinine Ur Random Sodium Nasal Screen MRSA (PCR) Blood Bank Comment 07/26/18 07/26/18 07/26/18 20:40 20:54 22:26 WBC RBC Hgb Hct MCV MCH MCHC RDW Plt Count MPV Prelim Diff (Auto) Neut % (Auto) Lymph % (Auto) Brooke % (Auto) Eos % (Auto) Baso % (Auto) Neut # (Auto) Lymph # (Auto) Brooke # (Auto) Eos # (Auto) Baso # (Auto) WBC Differential Seg Neuts % (Manual) Band Neuts % (Manual) Lymphocytes % (Manual) Monocytes % (Manual) Metamyelocytes % (Man) Abs Neuts (Manual) Differential Comment Platelet Estimate Platelet Morphology PT INR APTT Fibrinogen Puncture Site Art line Patient Temperature 98.6 O2 Saturation 95 ABG pH 7.36 L ABG pCO2 22 L* ABG pO2 96 ABG HCO3 12 L* ABG O2 Content 17.1 ABG Base Excess -12.5 L ABG Methemoglobin 1.5 Gaudencio Test Present Hemoglobin 12.7 Carboxyhemoglobin 0.5 O2 Delivery Device Ventilator Vent Setting Prvc28/650/0.7/+5 Inspired O2 100 Critical Value Yes Sodium Potassium Chloride Carbon Dioxide Anion Gap BUN Creatinine Estimated GFR POC Glucose 93 Random Glucose Lactic Acid 14.1 H* Calcium Prot Corrected Calcium Phosphorus Magnesium Total Bilirubin AST ALT Alkaline Phosphatase Ammonia Total Creatine Kinase CK-MB (CK-2) CK-MB (CK-2) % Troponin I Total Protein Albumin Lipase Urine Color Urine Clarity Urine pH Ur Specific Pinch Urine Protein Urine Glucose (UA) Urine Ketones Urine Occult Blood Urine Nitrate Urine Bilirubin Urine Urobilinogen Ur Leukocyte Esterase Urine RBC Urine WBC Amorphous Sediment Urine Bacteria Urine Sperm Micro UA Comment Ur Microscopic Review Urine Culture Comments Urine Eosinophils Urine Osmolality Ur Random Creatinine Ur Random Sodium Nasal Screen MRSA (PCR) Blood Bank Comment 07/26/18 07/26/18 07/26/18 Unknown Unknown Unknown WBC RBC Hgb Hct MCV MCH MCHC RDW Plt Count MPV Prelim Diff (Auto) Neut % (Auto) Lymph % (Auto) Brooke % (Auto) Eos % (Auto) Baso % (Auto) Neut # (Auto) Lymph # (Auto) Brooke # (Auto) Eos # (Auto) Baso # (Auto) WBC Differential Seg Neuts % (Manual) Band Neuts % (Manual) Lymphocytes % (Manual) Monocytes % (Manual) Metamyelocytes % (Man) Abs Neuts (Manual) Differential Comment Platelet Estimate Platelet Morphology PT INR APTT Fibrinogen Puncture Site Patient Temperature O2 Saturation ABG pH ABG pCO2 ABG pO2 ABG HCO3 ABG O2 Content ABG Base Excess ABG Methemoglobin Gaudencio Test Hemoglobin Carboxyhemoglobin O2 Delivery Device Vent Setting Inspired O2 Critical Value Sodium Potassium Chloride Carbon Dioxide Anion Gap BUN Creatinine Estimated GFR POC Glucose Random Glucose Lactic Acid Calcium Prot Corrected Calcium Phosphorus Magnesium Total Bilirubin AST ALT Alkaline Phosphatase Ammonia Total Creatine Kinase CK-MB (CK-2) CK-MB (CK-2) % Troponin I Total Protein Albumin Lipase Urine Color Heather Urine Clarity Turbid H Urine pH 5.0 Ur Specific Pinch 1.036 H Urine Protein 100 H Urine Glucose (UA) 50 Urine Ketones Negative Urine Occult Blood Large H Urine Nitrate Negative Urine Bilirubin Negative Urine Urobilinogen Less than 2 Ur Leukocyte Esterase Negative Urine RBC 36 H Urine WBC Amorphous Sediment Urine Bacteria Many H Urine Sperm Micro UA Comment Cath-culture ind Ur Microscopic Review Not Reportable Urine Culture Comments Cath-cult indicated Urine Eosinophils Urine Osmolality 432 Ur Random Creatinine Ur Random Sodium 52 Nasal Screen MRSA (PCR) Blood Bank Comment 07/27/18 07/27/18 07/27/18 00:12 01:30 01:30 WBC RBC Hgb Hct MCV MCH MCHC RDW Plt Count MPV Prelim Diff (Auto) Neut % (Auto) Lymph % (Auto) Brooke % (Auto) Eos % (Auto) Baso % (Auto) Neut # (Auto) Lymph # (Auto) Brooke # (Auto) Eos # (Auto) Baso # (Auto) WBC Differential Seg Neuts % (Manual) Band Neuts % (Manual) Lymphocytes % (Manual) Monocytes % (Manual) Metamyelocytes % (Man) Abs Neuts (Manual) Differential Comment Platelet Estimate Platelet Morphology PT INR APTT Fibrinogen Puncture Site Patient Temperature O2 Saturation ABG pH ABG pCO2 ABG pO2 ABG HCO3 ABG O2 Content ABG Base Excess ABG Methemoglobin Gaudencio Test Hemoglobin Carboxyhemoglobin O2 Delivery Device Vent Setting Inspired O2 Critical Value Sodium Potassium Chloride Carbon Dioxide Anion Gap BUN Creatinine Estimated GFR POC Glucose 89 Random Glucose Lactic Acid 16.7 H* Calcium Prot Corrected Calcium Phosphorus Magnesium Total Bilirubin AST ALT Alkaline Phosphatase Ammonia Total Creatine Kinase 6876 H CK-MB (CK-2) 184.9 H CK-MB (CK-2) % 2.7 Troponin I 1.59 H* Total Protein Albumin Lipase Urine Color Urine Clarity Urine pH Ur Specific Pinch Urine Protein Urine Glucose (UA) Urine Ketones Urine Occult Blood Urine Nitrate Urine Bilirubin Urine Urobilinogen Ur Leukocyte Esterase Urine RBC Urine WBC Amorphous Sediment Urine Bacteria Urine Sperm Micro UA Comment Ur Microscopic Review Urine Culture Comments Urine Eosinophils Urine Osmolality Ur Random Creatinine Ur Random Sodium Nasal Screen MRSA (PCR) Blood Bank Comment 07/27/18 07/27/18 07/27/18 05:05 05:20 05:20 WBC 21.7 H RBC 3.99 L Hgb 12.4 L Hct 37.9 L MCV 95.0 D MCH 31.0 MCHC 32.6 RDW 14.2 Plt Count 132 L D MPV 8.6 Prelim Diff (Auto) Slide review pending Neut % (Auto) 90.5 H Lymph % (Auto) 2.8 L Brooke % (Auto) 6.1 Eos % (Auto) 0.4 Baso % (Auto) 0.2 Neut # (Auto) 19.6 H Lymph # (Auto) 0.6 L Brooke # (Auto) 1.3 H Eos # (Auto) 0.1 Baso # (Auto) 0.0 WBC Differential Manual diff final Seg Neuts % (Manual) 54 Band Neuts % (Manual) 36 H Lymphocytes % (Manual) 4 L Monocytes % (Manual) 6 Metamyelocytes % (Man) Abs Neuts (Manual) 19.5 H Differential Comment . Platelet Estimate Low L Platelet Morphology Normal PT 22.9 H INR 2.3 APTT 34.8 H Fibrinogen Puncture Site Art line Patient Temperature 98.6 O2 Saturation 96 ABG pH 7.33 L ABG pCO2 16 L* ABG pO2 128 H ABG HCO3 8 L* ABG O2 Content 15.8 ABG Base Excess -16.7 L ABG Methemoglobin 1.9 Gaudencio Test Present Hemoglobin 11.6 L Carboxyhemoglobin 0.2 O2 Delivery Device Ventilator Vent Setting Prvc/ ac Inspired O2 100 Critical Value Yes Sodium Potassium Chloride Carbon Dioxide Anion Gap BUN Creatinine Estimated GFR POC Glucose Random Glucose Lactic Acid Calcium Prot Corrected Calcium Phosphorus Magnesium Total Bilirubin AST ALT Alkaline Phosphatase Ammonia Total Creatine Kinase CK-MB (CK-2) CK-MB (CK-2) % Troponin I Total Protein Albumin Lipase Urine Color Urine Clarity Urine pH Ur Specific Pinch Urine Protein Urine Glucose (UA) Urine Ketones Urine Occult Blood Urine Nitrate Urine Bilirubin Urine Urobilinogen Ur Leukocyte Esterase Urine RBC Urine WBC Amorphous Sediment Urine Bacteria Urine Sperm Micro UA Comment Ur Microscopic Review Urine Culture Comments Urine Eosinophils Urine Osmolality Ur Random Creatinine Ur Random Sodium Nasal Screen MRSA (PCR) Blood Bank Comment 07/27/18 07/27/18 07/27/18 05:20 05:20 05:31 WBC RBC Hgb Hct MCV MCH MCHC RDW Plt Count MPV Prelim Diff (Auto) Neut % (Auto) Lymph % (Auto) Brooke % (Auto) Eos % (Auto) Baso % (Auto) Neut # (Auto) Lymph # (Auto) Brooke # (Auto) Eos # (Auto) Baso # (Auto) WBC Differential Seg Neuts % (Manual) Band Neuts % (Manual) Lymphocytes % (Manual) Monocytes % (Manual) Metamyelocytes % (Man) Abs Neuts (Manual) Differential Comment Platelet Estimate Platelet Morphology PT INR APTT Fibrinogen Puncture Site Patient Temperature O2 Saturation ABG pH ABG pCO2 ABG pO2 ABG HCO3 ABG O2 Content ABG Base Excess ABG Methemoglobin Gaudencio Test Hemoglobin Carboxyhemoglobin O2 Delivery Device Vent Setting Inspired O2 Critical Value Sodium 142 Potassium 4.7 Chloride 101 Carbon Dioxide 12.2 L Anion Gap 29 H BUN 57 H Creatinine 4.58 H Estimated GFR 12 L POC Glucose 157 H Random Glucose 147 H D Lactic Acid Calcium 6.4 L* Prot Corrected Calcium 7.5 L Phosphorus 8.3 H D Magnesium 2.2 Total Bilirubin 9.7 H AST 76062 H ALT 9013 H Alkaline Phosphatase 216 H Ammonia 75 H Total Creatine Kinase CK-MB (CK-2) CK-MB (CK-2) % Troponin I Total Protein 4.9 L Albumin 2.1 L Lipase 71188 H Urine Color Urine Clarity Urine pH Ur Specific Pinch Urine Protein Urine Glucose (UA) Urine Ketones Urine Occult Blood Urine Nitrate Urine Bilirubin Urine Urobilinogen Ur Leukocyte Esterase Urine RBC Urine WBC Amorphous Sediment Urine Bacteria Urine Sperm Micro UA Comment Ur Microscopic Review Urine Culture Comments Urine Eosinophils Urine Osmolality Ur Random Creatinine Ur Random Sodium Nasal Screen MRSA (PCR) Blood Bank Comment 07/27/18 07:48 WBC RBC Hgb Hct MCV MCH MCHC RDW Plt Count MPV Prelim Diff (Auto) Neut % (Auto) Lymph % (Auto) Brooke % (Auto) Eos % (Auto) Baso % (Auto) Neut # (Auto) Lymph # (Auto) Brooke # (Auto) Eos # (Auto) Baso # (Auto) WBC Differential Seg Neuts % (Manual) Band Neuts % (Manual) Lymphocytes % (Manual) Monocytes % (Manual) Metamyelocytes % (Man) Abs Neuts (Manual) Differential Comment Platelet Estimate Platelet Morphology PT INR APTT Fibrinogen Puncture Site Patient Temperature O2 Saturation ABG pH ABG pCO2 ABG pO2 ABG HCO3 ABG O2 Content ABG Base Excess ABG Methemoglobin Gaudencio Test Hemoglobin Carboxyhemoglobin O2 Delivery Device Vent Setting Inspired O2 Critical Value Sodium Potassium Chloride Carbon Dioxide Anion Gap BUN Creatinine Estimated GFR POC Glucose Random Glucose Lactic Acid Calcium Prot Corrected Calcium Phosphorus Magnesium Total Bilirubin AST ALT Alkaline Phosphatase Ammonia Total Creatine Kinase CK-MB (CK-2) CK-MB (CK-2) % Troponin I Total Protein Albumin Lipase Urine Color Urine Clarity Urine pH Ur Specific Pinch Urine Protein Urine Glucose (UA) Urine Ketones Urine Occult Blood Urine Nitrate Urine Bilirubin Urine Urobilinogen Ur Leukocyte Esterase Urine RBC Urine WBC Amorphous Sediment Urine Bacteria Urine Sperm Micro UA Comment Ur Microscopic Review Urine Culture Comments Urine Eosinophils Urine Osmolality Ur Random Creatinine Ur Random Sodium Nasal Screen MRSA (PCR) Blood Bank Comment Microbiology 07/26/18 18:36 Fluid - Bile Fluid Gram Stain - Final 07/26/18 23:05 Sputum - Endotracheal Gram Stain - Final - Imaging Impressions Abdomen/Pelvis CT 07/25/18 08:06 CONCLUSION: 1. Acute pancreatitis. No pseudocyst, pancreatic infarction, or pancreatic hemorrhage observed. No ductal dilatation. There is a 2 mm calcification at the level of the ampulla that could relate to a CBD stone at the ampullary region. There is no ductal dilatation to suggest an obstructing component. 2. Cholelithiasis. 3. 3 mm nonobstructing left renal stone. 4. 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 5. Umbilical and left inguinal hernias. Abdomen X-Ray 07/26/18 00:00 CONCLUSION: Nasogastric tube in place with the tip in the stomach. Chest X-Ray 07/26/18 00:00 CONCLUSION: Mild basilar hypoaeration with airspace disease characteristic of atelectasis. No evidence of significant lung consolidation or acute congestion. Satisfactory position of endotracheal tube and central venous catheter. Chest X-Ray 07/27/18 06:00 CONCLUSION: 1. Stable tubes and lines, as above. 2. Developing small bilateral pleural effusions and associated airspace disease in the lower lung zones. <Jose Alfredo Rivera - Last Filed: 07/27/18 12:10> - Labs CBC & Chem 7: 07/27/18 05:20 07/27/18 05:20 Laboratory Results - last 24 hr 07/26/18 07/26/18 07/26/18 13:45 13:45 13:45 WBC 28.7 H RBC 4.54 Hgb 14.3 D Hct 45.0 MCV 99.0 D MCH 31.4 MCHC 31.7 L RDW 15.1 Plt Count 210 MPV 7.9 Prelim Diff (Auto) Slide review pending Neut % (Auto) 89.3 H Lymph % (Auto) 5.6 L Brooke % (Auto) 4.6 Eos % (Auto) 0.2 Baso % (Auto) 0.3 Neut # (Auto) 25.6 H Lymph # (Auto) 1.6 Brooke # (Auto) 1.3 H Eos # (Auto) 0.1 Baso # (Auto) 0.1 WBC Differential Manual diff final Seg Neuts % (Manual) 75 H Band Neuts % (Manual) 16 H Lymphocytes % (Manual) 5 L Monocytes % (Manual) 1 Metamyelocytes % (Man) 3 H Abs Neuts (Manual) 27.0 H Differential Comment . Platelet Estimate Platelet Morphology PT INR APTT Fibrinogen Puncture Site Patient Temperature O2 Saturation ABG pH ABG pCO2 ABG pO2 ABG HCO3 ABG O2 Content ABG Base Excess ABG Methemoglobin Gaudencio Test Hemoglobin Carboxyhemoglobin O2 Delivery Device Vent Setting Inspired O2 Critical Value Sodium 145 Potassium 5.2 H Chloride 109 H Carbon Dioxide 12.0 L Anion Gap 24 H BUN 42 H Creatinine 3.23 H Estimated GFR 19 L POC Glucose Random Glucose 56 L Lactic Acid 15.1 H* Calcium 6.3 L* Prot Corrected Calcium 7.4 L* Phosphorus 9.9 H Magnesium 2.4 Total Bilirubin 7.8 H AST 1426 H ALT 1143 H Alkaline Phosphatase 83 Ammonia Total Creatine Kinase 612 H CK-MB (CK-2) 14.3 H CK-MB (CK-2) % 2.3 Troponin I 0.49 H Total Protein 4.8 L D Albumin 1.9 L D Lipase Urine Color Urine Clarity Urine pH Ur Specific Pinch Urine Protein Urine Glucose (UA) Urine Ketones Urine Occult Blood Urine Nitrate Urine Bilirubin Urine Urobilinogen Ur Leukocyte Esterase Urine RBC Urine WBC Amorphous Sediment Urine Bacteria Urine Sperm Micro UA Comment Ur Microscopic Review Urine Culture Comments Urine Eosinophils Urine Osmolality Ur Random Creatinine Ur Random Sodium Nasal Screen MRSA (PCR) Blood Bank Comment 07/26/18 07/26/18 07/26/18 13:45 13:45 13:45 WBC RBC Hgb Hct MCV MCH MCHC RDW Plt Count MPV Prelim Diff (Auto) Neut % (Auto) Lymph % (Auto) Brooke % (Auto) Eos % (Auto) Baso % (Auto) Neut # (Auto) Lymph # (Auto) Brooke # (Auto) Eos # (Auto) Baso # (Auto) WBC Differential Seg Neuts % (Manual) Band Neuts % (Manual) Lymphocytes % (Manual) Monocytes % (Manual) Metamyelocytes % (Man) Abs Neuts (Manual) Differential Comment Platelet Estimate Platelet Morphology PT 16.1 H INR 1.6 APTT 39.8 H Fibrinogen 401 H Puncture Site Patient Temperature O2 Saturation ABG pH ABG pCO2 ABG pO2 ABG HCO3 ABG O2 Content ABG Base Excess ABG Methemoglobin Gaudencio Test Hemoglobin Carboxyhemoglobin O2 Delivery Device Vent Setting Inspired O2 Critical Value Sodium Potassium Chloride Carbon Dioxide Anion Gap BUN Creatinine Estimated GFR POC Glucose Random Glucose Lactic Acid Cancelled Calcium Prot Corrected Calcium Phosphorus Magnesium Total Bilirubin AST ALT Alkaline Phosphatase Ammonia Total Creatine Kinase CK-MB (CK-2) CK-MB (CK-2) % Troponin I Total Protein Albumin Lipase Urine Color Urine Clarity Urine pH Ur Specific Pinch Urine Protein Urine Glucose (UA) Urine Ketones Urine Occult Blood Urine Nitrate Urine Bilirubin Urine Urobilinogen Ur Leukocyte Esterase Urine RBC Urine WBC Amorphous Sediment Urine Bacteria Urine Sperm Micro UA Comment Ur Microscopic Review Urine Culture Comments Urine Eosinophils Urine Osmolality Ur Random Creatinine Ur Random Sodium Nasal Screen MRSA (PCR) Blood Bank Comment 07/26/18 07/26/18 07/26/18 13:50 15:15 15:15 WBC RBC Hgb Hct MCV MCH MCHC RDW Plt Count MPV Prelim Diff (Auto) Neut % (Auto) Lymph % (Auto) Brooke % (Auto) Eos % (Auto) Baso % (Auto) Neut # (Auto) Lymph # (Auto) Brooke # (Auto) Eos # (Auto) Baso # (Auto) WBC Differential Seg Neuts % (Manual) Band Neuts % (Manual) Lymphocytes % (Manual) Monocytes % (Manual) Metamyelocytes % (Man) Abs Neuts (Manual) Differential Comment Platelet Estimate Platelet Morphology PT INR APTT Fibrinogen Puncture Site Right radial Patient Temperature 98.6 O2 Saturation 96 ABG pH 7.00 L* ABG pCO2 38 ABG pO2 181 H ABG HCO3 9 L* ABG O2 Content 20.9 H ABG Base Excess -20.2 L ABG Methemoglobin 1.5 Gaudencio Test Present Hemoglobin 15.3 Carboxyhemoglobin 0.0 O2 Delivery Device Ventilator Vent Setting [id number]/550/+10 Inspired O2 100 Critical Value Yes Sodium Potassium Chloride Carbon Dioxide Anion Gap BUN Creatinine Estimated GFR POC Glucose Random Glucose Lactic Acid Calcium Prot Corrected Calcium Phosphorus Magnesium Total Bilirubin AST ALT Alkaline Phosphatase Ammonia Total Creatine Kinase CK-MB (CK-2) CK-MB (CK-2) % Troponin I Total Protein Albumin Lipase Urine Color Dark-yellow H Urine Clarity Cloudy H Urine pH 6.0 Ur Specific Pinch 1.027 Urine Protein 100 H Urine Glucose (UA) Negative Urine Ketones Negative Urine Occult Blood Large H Urine Nitrate Negative Urine Bilirubin Negative Urine Urobilinogen Less than 2 Ur Leukocyte Esterase Negative Urine RBC 15 H Urine WBC 4 Amorphous Sediment Rare H Urine Bacteria Urine Sperm Many H Micro UA Comment Culture not ind Ur Microscopic Review Not Reportable Urine Culture Comments Culture not ind Urine Eosinophils Urine Osmolality Ur Random Creatinine 118 Ur Random Sodium Nasal Screen MRSA (PCR) Blood Bank Comment 07/26/18 07/26/18 07/26/18 15:15 15:15 15:45 WBC RBC Hgb Hct MCV MCH MCHC RDW Plt Count MPV Prelim Diff (Auto) Neut % (Auto) Lymph % (Auto) Brooke % (Auto) Eos % (Auto) Baso % (Auto) Neut # (Auto) Lymph # (Auto) Brooke # (Auto) Eos # (Auto) Baso # (Auto) WBC Differential Seg Neuts % (Manual) Band Neuts % (Manual) Lymphocytes % (Manual) Monocytes % (Manual) Metamyelocytes % (Man) Abs Neuts (Manual) Differential Comment Platelet Estimate Platelet Morphology PT INR APTT Fibrinogen Puncture Site Patient Temperature O2 Saturation ABG pH ABG pCO2 ABG pO2 ABG HCO3 ABG O2 Content ABG Base Excess ABG Methemoglobin Gaudencio Test Hemoglobin Carboxyhemoglobin O2 Delivery Device Vent Setting Inspired O2 Critical Value Sodium Potassium Chloride Carbon Dioxide Anion Gap BUN Creatinine Estimated GFR POC Glucose Random Glucose Lactic Acid Calcium Prot Corrected Calcium Phosphorus Magnesium Total Bilirubin AST ALT Alkaline Phosphatase Ammonia Total Creatine Kinase CK-MB (CK-2) CK-MB (CK-2) % Troponin I Total Protein Albumin Lipase Urine Color Urine Clarity Urine pH Ur Specific Pinch Urine Protein Urine Glucose (UA) Urine Ketones Urine Occult Blood Urine Nitrate Urine Bilirubin Urine Urobilinogen Ur Leukocyte Esterase Urine RBC Urine WBC Amorphous Sediment Urine Bacteria Urine Sperm Micro UA Comment Ur Microscopic Review Urine Culture Comments Urine Eosinophils 0-2 H Urine Osmolality Ur Random Creatinine Ur Random Sodium 65 Nasal Screen MRSA (PCR) Not detected Blood Bank Comment 07/26/18 07/26/18 07/26/18 16:21 16:30 20:40 WBC RBC Hgb Hct MCV MCH MCHC RDW Plt Count MPV Prelim Diff (Auto) Neut % (Auto) Lymph % (Auto) Brooke % (Auto) Eos % (Auto) Baso % (Auto) Neut # (Auto) Lymph # (Auto) Brooke # (Auto) Eos # (Auto) Baso # (Auto) WBC Differential Seg Neuts % (Manual) Band Neuts % (Manual) Lymphocytes % (Manual) Monocytes % (Manual) Metamyelocytes % (Man) Abs Neuts (Manual) Differential Comment Platelet Estimate Platelet Morphology PT INR APTT Fibrinogen Puncture Site Cristina Patient Temperature 98.6 O2 Saturation 97 ABG pH 7.26 L* ABG pCO2 21 L* ABG pO2 119 ABG HCO3 9 L* ABG O2 Content 18.4 ABG Base Excess -16.6 L ABG Methemoglobin 0.7 Gaudencio Test Hemoglobin 13.4 Carboxyhemoglobin 0.5 O2 Delivery Device Vent Vent Setting [facility]/28/650/[id number]/4pee Inspired O2 100 Critical Value Yes Sodium 145 Potassium 4.5 Chloride 106 Carbon Dioxide 13.4 L Anion Gap 26 H BUN 48 H Creatinine 3.61 H Estimated GFR 16 L POC Glucose Random Glucose 19 L* Lactic Acid Calcium 6.0 L* Prot Corrected Calcium 7.0 L* Phosphorus Magnesium Total Bilirubin AST ALT Alkaline Phosphatase Ammonia Total Creatine Kinase 4156 H CK-MB (CK-2) 104.4 H CK-MB (CK-2) % 2.5 Troponin I 1.38 H* Total Protein 5.0 L Albumin Lipase Urine Color Urine Clarity Urine pH Ur Specific Pinch Urine Protein Urine Glucose (UA) Urine Ketones Urine Occult Blood Urine Nitrate Urine Bilirubin Urine Urobilinogen Ur Leukocyte Esterase Urine RBC Urine WBC Amorphous Sediment Urine Bacteria Urine Sperm Micro UA Comment Ur Microscopic Review Urine Culture Comments Urine Eosinophils Urine Osmolality Ur Random Creatinine Ur Random Sodium Nasal Screen MRSA (PCR) Blood Bank Comment 07/26/18 07/26/18 07/26/18 20:40 20:54 22:26 WBC RBC Hgb Hct MCV MCH MCHC RDW Plt Count MPV Prelim Diff (Auto) Neut % (Auto) Lymph % (Auto) Brooke % (Auto) Eos % (Auto) Baso % (Auto) Neut # (Auto) Lymph # (Auto) Brooke # (Auto) Eos # (Auto) Baso # (Auto) WBC Differential Seg Neuts % (Manual) Band Neuts % (Manual) Lymphocytes % (Manual) Monocytes % (Manual) Metamyelocytes % (Man) Abs Neuts (Manual) Differential Comment Platelet Estimate Platelet Morphology PT INR APTT Fibrinogen Puncture Site Art line Patient Temperature 98.6 O2 Saturation 95 ABG pH 7.36 L ABG pCO2 22 L* ABG pO2 96 ABG HCO3 12 L* ABG O2 Content 17.1 ABG Base Excess -12.5 L ABG Methemoglobin 1.5 Gaudencio Test Present Hemoglobin 12.7 Carboxyhemoglobin 0.5 O2 Delivery Device Ventilator Vent Setting Prvc28/650/0.7/+5 Inspired O2 100 Critical Value Yes Sodium Potassium Chloride Carbon Dioxide Anion Gap BUN Creatinine Estimated GFR POC Glucose 93 Random Glucose Lactic Acid 14.1 H* Calcium Prot Corrected Calcium Phosphorus Magnesium Total Bilirubin AST ALT Alkaline Phosphatase Ammonia Total Creatine Kinase CK-MB (CK-2) CK-MB (CK-2) % Troponin I Total Protein Albumin Lipase Urine Color Urine Clarity Urine pH Ur Specific Pinch Urine Protein Urine Glucose (UA) Urine Ketones Urine Occult Blood Urine Nitrate Urine Bilirubin Urine Urobilinogen Ur Leukocyte Esterase Urine RBC Urine WBC Amorphous Sediment Urine Bacteria Urine Sperm Micro UA Comment Ur Microscopic Review Urine Culture Comments Urine Eosinophils Urine Osmolality Ur Random Creatinine Ur Random Sodium Nasal Screen MRSA (PCR) Blood Bank Comment 07/26/18 07/26/18 07/26/18 Unknown Unknown Unknown WBC RBC Hgb Hct MCV MCH MCHC RDW Plt Count MPV Prelim Diff (Auto) Neut % (Auto) Lymph % (Auto) Brooke % (Auto) Eos % (Auto) Baso % (Auto) Neut # (Auto) Lymph # (Auto) Brooke # (Auto) Eos # (Auto) Baso # (Auto) WBC Differential Seg Neuts % (Manual) Band Neuts % (Manual) Lymphocytes % (Manual) Monocytes % (Manual) Metamyelocytes % (Man) Abs Neuts (Manual) Differential Comment Platelet Estimate Platelet Morphology PT INR APTT Fibrinogen Puncture Site Patient Temperature O2 Saturation ABG pH ABG pCO2 ABG pO2 ABG HCO3 ABG O2 Content ABG Base Excess ABG Methemoglobin Gaudencio Test Hemoglobin Carboxyhemoglobin O2 Delivery Device Vent Setting Inspired O2 Critical Value Sodium Potassium Chloride Carbon Dioxide Anion Gap BUN Creatinine Estimated GFR POC Glucose Random Glucose Lactic Acid Calcium Prot Corrected Calcium Phosphorus Magnesium Total Bilirubin AST ALT Alkaline Phosphatase Ammonia Total Creatine Kinase CK-MB (CK-2) CK-MB (CK-2) % Troponin I Total Protein Albumin Lipase Urine Color Heather Urine Clarity Turbid H Urine pH 5.0 Ur Specific Pinch 1.036 H Urine Protein 100 H Urine Glucose (UA) 50 Urine Ketones Negative Urine Occult Blood Large H Urine Nitrate Negative Urine Bilirubin Negative Urine Urobilinogen Less than 2 Ur Leukocyte Esterase Negative Urine RBC 36 H Urine WBC Amorphous Sediment Urine Bacteria Many H Urine Sperm Micro UA Comment Cath-culture ind Ur Microscopic Review Not Reportable Urine Culture Comments Cath-cult indicated Urine Eosinophils Urine Osmolality 432 Ur Random Creatinine Ur Random Sodium 52 Nasal Screen MRSA (PCR) Blood Bank Comment 07/27/18 07/27/18 07/27/18 00:12 01:30 01:30 WBC RBC Hgb Hct MCV MCH MCHC RDW Plt Count MPV Prelim Diff (Auto) Neut % (Auto) Lymph % (Auto) Brooke % (Auto) Eos % (Auto) Baso % (Auto) Neut # (Auto) Lymph # (Auto) Brooke # (Auto) Eos # (Auto) Baso # (Auto) WBC Differential Seg Neuts % (Manual) Band Neuts % (Manual) Lymphocytes % (Manual) Monocytes % (Manual) Metamyelocytes % (Man) Abs Neuts (Manual) Differential Comment Platelet Estimate Platelet Morphology PT INR APTT Fibrinogen Puncture Site Patient Temperature O2 Saturation ABG pH ABG pCO2 ABG pO2 ABG HCO3 ABG O2 Content ABG Base Excess ABG Methemoglobin Gaudencio Test Hemoglobin Carboxyhemoglobin O2 Delivery Device Vent Setting Inspired O2 Critical Value Sodium Potassium Chloride Carbon Dioxide Anion Gap BUN Creatinine Estimated GFR POC Glucose 89 Random Glucose Lactic Acid 16.7 H* Calcium Prot Corrected Calcium Phosphorus Magnesium Total Bilirubin AST ALT Alkaline Phosphatase Ammonia Total Creatine Kinase 6876 H CK-MB (CK-2) 184.9 H CK-MB (CK-2) % 2.7 Troponin I 1.59 H* Total Protein Albumin Lipase Urine Color Urine Clarity Urine pH Ur Specific Pinch Urine Protein Urine Glucose (UA) Urine Ketones Urine Occult Blood Urine Nitrate Urine Bilirubin Urine Urobilinogen Ur Leukocyte Esterase Urine RBC Urine WBC Amorphous Sediment Urine Bacteria Urine Sperm Micro UA Comment Ur Microscopic Review Urine Culture Comments Urine Eosinophils Urine Osmolality Ur Random Creatinine Ur Random Sodium Nasal Screen MRSA (PCR) Blood Bank Comment 07/27/18 07/27/18 07/27/18 05:05 05:20 05:20 WBC 21.7 H RBC 3.99 L Hgb 12.4 L Hct 37.9 L MCV 95.0 D MCH 31.0 MCHC 32.6 RDW 14.2 Plt Count 132 L D MPV 8.6 Prelim Diff (Auto) Slide review pending Neut % (Auto) 90.5 H Lymph % (Auto) 2.8 L Brooke % (Auto) 6.1 Eos % (Auto) 0.4 Baso % (Auto) 0.2 Neut # (Auto) 19.6 H Lymph # (Auto) 0.6 L Brooke # (Auto) 1.3 H Eos # (Auto) 0.1 Baso # (Auto) 0.0 WBC Differential Manual diff final Seg Neuts % (Manual) 54 Band Neuts % (Manual) 36 H Lymphocytes % (Manual) 4 L Monocytes % (Manual) 6 Metamyelocytes % (Man) Abs Neuts (Manual) 19.5 H Differential Comment . Platelet Estimate Low L Platelet Morphology Normal PT 22.9 H INR 2.3 APTT 34.8 H Fibrinogen Puncture Site Art line Patient Temperature 98.6 O2 Saturation 96 ABG pH 7.33 L ABG pCO2 16 L* ABG pO2 128 H ABG HCO3 8 L* ABG O2 Content 15.8 ABG Base Excess -16.7 L ABG Methemoglobin 1.9 Gaudencio Test Present Hemoglobin 11.6 L Carboxyhemoglobin 0.2 O2 Delivery Device Ventilator Vent Setting Prvc/ ac Inspired O2 100 Critical Value Yes Sodium Potassium Chloride Carbon Dioxide Anion Gap BUN Creatinine Estimated GFR POC Glucose Random Glucose Lactic Acid Calcium Prot Corrected Calcium Phosphorus Magnesium Total Bilirubin AST ALT Alkaline Phosphatase Ammonia Total Creatine Kinase CK-MB (CK-2) CK-MB (CK-2) % Troponin I Total Protein Albumin Lipase Urine Color Urine Clarity Urine pH Ur Specific Pinch Urine Protein Urine Glucose (UA) Urine Ketones Urine Occult Blood Urine Nitrate Urine Bilirubin Urine Urobilinogen Ur Leukocyte Esterase Urine RBC Urine WBC Amorphous Sediment Urine Bacteria Urine Sperm Micro UA Comment Ur Microscopic Review Urine Culture Comments Urine Eosinophils Urine Osmolality Ur Random Creatinine Ur Random Sodium Nasal Screen MRSA (PCR) Blood Bank Comment 07/27/18 07/27/18 07/27/18 05:20 05:20 05:31 WBC RBC Hgb Hct MCV MCH MCHC RDW Plt Count MPV Prelim Diff (Auto) Neut % (Auto) Lymph % (Auto) Brooke % (Auto) Eos % (Auto) Baso % (Auto) Neut # (Auto) Lymph # (Auto) Brooke # (Auto) Eos # (Auto) Baso # (Auto) WBC Differential Seg Neuts % (Manual) Band Neuts % (Manual) Lymphocytes % (Manual) Monocytes % (Manual) Metamyelocytes % (Man) Abs Neuts (Manual) Differential Comment Platelet Estimate Platelet Morphology PT INR APTT Fibrinogen Puncture Site Patient Temperature O2 Saturation ABG pH ABG pCO2 ABG pO2 ABG HCO3 ABG O2 Content ABG Base Excess ABG Methemoglobin Gaudencio Test Hemoglobin Carboxyhemoglobin O2 Delivery Device Vent Setting Inspired O2 Critical Value Sodium 142 Potassium 4.7 Chloride 101 Carbon Dioxide 12.2 L Anion Gap 29 H BUN 57 H Creatinine 4.58 H Estimated GFR 12 L POC Glucose 157 H Random Glucose 147 H D Lactic Acid Calcium 6.4 L* Prot Corrected Calcium 7.5 L Phosphorus 8.3 H D Magnesium 2.2 Total Bilirubin 9.7 H AST 76143 H ALT 9013 H Alkaline Phosphatase 216 H Ammonia 75 H Total Creatine Kinase CK-MB (CK-2) CK-MB (CK-2) % Troponin I Total Protein 4.9 L Albumin 2.1 L Lipase 46728 H Urine Color Urine Clarity Urine pH Ur Specific Pinch Urine Protein Urine Glucose (UA) Urine Ketones Urine Occult Blood Urine Nitrate Urine Bilirubin Urine Urobilinogen Ur Leukocyte Esterase Urine RBC Urine WBC Amorphous Sediment Urine Bacteria Urine Sperm Micro UA Comment Ur Microscopic Review Urine Culture Comments Urine Eosinophils Urine Osmolality Ur Random Creatinine Ur Random Sodium Nasal Screen MRSA (PCR) Blood Bank Comment 07/27/18 07:48 WBC RBC Hgb Hct MCV MCH MCHC RDW Plt Count MPV Prelim Diff (Auto) Neut % (Auto) Lymph % (Auto) Brooke % (Auto) Eos % (Auto) Baso % (Auto) Neut # (Auto) Lymph # (Auto) Brooke # (Auto) Eos # (Auto) Baso # (Auto) WBC Differential Seg Neuts % (Manual) Band Neuts % (Manual) Lymphocytes % (Manual) Monocytes % (Manual) Metamyelocytes % (Man) Abs Neuts (Manual) Differential Comment Platelet Estimate Platelet Morphology PT INR APTT Fibrinogen Puncture Site Patient Temperature O2 Saturation ABG pH ABG pCO2 ABG pO2 ABG HCO3 ABG O2 Content ABG Base Excess ABG Methemoglobin Gaudencio Test Hemoglobin Carboxyhemoglobin O2 Delivery Device Vent Setting Inspired O2 Critical Value Sodium Potassium Chloride Carbon Dioxide Anion Gap BUN Creatinine Estimated GFR POC Glucose Random Glucose Lactic Acid Calcium Prot Corrected Calcium Phosphorus Magnesium Total Bilirubin AST ALT Alkaline Phosphatase Ammonia Total Creatine Kinase CK-MB (CK-2) CK-MB (CK-2) % Troponin I Total Protein Albumin Lipase Urine Color Urine Clarity Urine pH Ur Specific Pinch Urine Protein Urine Glucose (UA) Urine Ketones Urine Occult Blood Urine Nitrate Urine Bilirubin Urine Urobilinogen Ur Leukocyte Esterase Urine RBC Urine WBC Amorphous Sediment Urine Bacteria Urine Sperm Micro UA Comment Ur Microscopic Review Urine Culture Comments Urine Eosinophils Urine Osmolality Ur Random Creatinine Ur Random Sodium Nasal Screen MRSA (PCR) Blood Bank Comment Microbiology 07/26/18 18:36 Fluid - Bile Fluid Gram Stain - Final 07/26/18 18:36 Fluid - Bile Fluid Body Fluid Culture - Preliminary 07/26/18 15:46 Blood - Peripheral Aerobic Blood Culture - Preliminary No growth in 1 day 07/26/18 15:46 Blood - Peripheral Anaerobic Blood Culture - Preliminary No growth in 1 day 07/26/18 15:41 Blood - Peripheral Aerobic Blood Culture - Preliminary No growth in 1 day 07/26/18 15:41 Blood - Peripheral Anaerobic Blood Culture - Preliminary No growth in 1 day 07/26/18 23:05 Sputum - Endotracheal Gram Stain - Final - Imaging Impressions Abdomen/Pelvis CT 07/25/18 08:06 CONCLUSION: 1. Acute pancreatitis. No pseudocyst, pancreatic infarction, or pancreatic hemorrhage observed. No ductal dilatation. There is a 2 mm calcification at the level of the ampulla that could relate to a CBD stone at the ampullary region. There is no ductal dilatation to suggest an obstructing component. 2. Cholelithiasis. 3. 3 mm nonobstructing left renal stone. 4. 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 5. Umbilical and left inguinal hernias. Abdomen X-Ray 07/26/18 00:00 CONCLUSION: Nasogastric tube in place with the tip in the stomach. Chest X-Ray 07/26/18 00:00 CONCLUSION: Mild basilar hypoaeration with airspace disease characteristic of atelectasis. No evidence of significant lung consolidation or acute congestion. Satisfactory position of endotracheal tube and central venous catheter. Abdomen X-Ray 07/27/18 00:00 CONCLUSION: Stable exam. Chest X-Ray 07/27/18 06:00 CONCLUSION: 1. Stable tubes and lines, as above. 2. Developing small bilateral pleural effusions and associated airspace disease in the lower lung zones. <Carolynn Powell - Last Filed: 07/27/18 17:59> Assessment and Plan - Plan Assessment: - Acute pancreatitis with elevated LFTs and imaging concerning for choledocholithiasis Presented to [facility] with complaints of abdominal pain, nausea, and vomiting. States pain is located throughout entire abdomen, started at midnight, came on suddenly. States that the pain is worse than all of the kidney stones he has had in the past. Also reports nausea and emesis, unsure of hematemesis and coffee ground emesis. States he has had a BM, unsure if it was formed or diarrhea. Denies history of pancreatitis. Does report known history of gallstones, but denies previous ERCP. Pt reports feeling clammy at home, denies any fevers. CT abdomen and pelvis W IV contrast (07/25) Acute pancreatitis. No pseudocyst, pancreatic infarction, or pancreatic hemorrhage observed. No ductal dilatation. There is a 2 mm calcification at the level of the ampulla that could relate to a CBD stone at the ampullary region. There is no ductal dilatation to suggest an obstructing component. Cholelithiasis. 3 mm nonobstructing left renal stone. 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 Umbilical and left inguinal hernias. Pt reports ETOH, approximately 2-3 beers a week. Denies smoking. (07/25) AST-503 ALT-349 T bili-2.3 Alk phos-68 Lipase >30,000 - Acute change in his condition since this morning, tachypneic and tachycardic, seen by anesthesia team and thought too unstable for procedure and sedation. his leucocytosis improved and worsening of LFT's noted. - MRCP reviewed 07/27/18 Pt is sedated on a vent, now with multiorgan failure, - Acute pancreatitis with elevated LFTs and imaging concerning for choledocholithiasis Deemed not medically stable for ERCP, he is s/p IR consult, PTC couldn't be performed safely due to lack of dilated bile duct, there fore, Cholecystostomy tube was performed on 07/26 Lipase [id number] KUB today pending - Liver failure/Elevated LFTs, coagulopathy Shocked pattern AST 56292, ALT 9013, ALP 216, bili 9.7 - CHRISTIANO- Nephrology on the case - leukocytosis- ID on the case - Anemia- hgb today 12.4, some blood noted in tubing of NGT - Respiratory failure per [facility] Plan: - NPO - NGT to LIWS - ICU care - Monitor LFTs - Monitor lipase - Monitor hh - ID, nephrology on the case - Protonix - IV fluids - Vit K - Need repeat CT when stable to leave floor - Supportive care - Pt seen and examined by Dr Powell and myself and this note is written on her behalf. <Jose Alfredo Rivera - Last Filed: 07/27/18 12:10> - Attending Attestation seen, examined agree with above patient had cholecystostomy tube placed, PTC not done due to nondilated biliary tree abdominal x ray reviewed discussed with in detail, answered all her questions offered second opinion gi from another group-at this point ok for our group to see supportive care critical clinical status at this point <Carolynn Powell - Last Filed: 07/27/18 17:59>
--- NOTE | 2018-07-27 12:00 | ECG ---
Date Performed: 07/27/2018 Time Performed: 01:13:10 PTAGE: 77 years EKG: Sinus rhythm Ant/septal and lateral T wave changes are nonspecific Low QRS voltages in precordial leads Borderlin e ECG PREVIOUS TRACING : 07/26/2018 19.16 DOCTOR: Jack Hurley Interpretating Date/Time 07/27/2018 11:56:59
--- NOTE | 2018-07-27 12:13 | IR ---
EXAM DATE: 07/26/2018 7:44 PM EDT AGE/SEX: 77 years / Male INDICATIONS: Patient with a history of choledocholithiasis. Intrahepatic biliary dilatation not obse rved. Patient to acutely ill for sedation for ERCP or sedation required for attempted PTH D. Cholecys tostomy tube the most prudent step to decompress the biliary tree. CLINICAL DATA: This is the patient's initial encounter. Patient reports that signs and symptoms have been present for 1 day and indicates a pain score of Nonresponsive. MEDICAL/SURGICAL HISTORY: Cholelithiases. Hypertension. Hypercholesterolemia. Glaucoma Appe ndectomy. CABG. Knee surgery COMPARISON: No prior exams available for comparison. FLUORO TIME (min): 2.7 IMAGE SERIES: 6 CONTRAST (cc): 3cc Omnipaque (iohexol) 350 DEVICE(S): 8 Malay biliary drain . . PROCEDURE: 1. Ultrasound guided puncture of the gallbladder. 2. Percutaneous cholangiogram. 3. Percutaneous cholecystostomy tube placement. 4. Conscious sedation with continuous EKG and oximetry monitoring. The risks, benefits and alternatives to the procedure were explained and verbal and written consent w as obtained. The site was prepped in sterile fashion. Full sterile technique was used, including ca p, mask, sterile gloves and gown and a large sterile sheet. Hand hygiene and 2% chlorhexidine and/or betadine/alcohol prep was utilized per protocol for cutaneous antisepsis. Sterile gel and sterile p robe cover were utilized for ultrasound guidance. The skin and subcutaneous tissues were infiltrated with local anesthetic solution. With ultrasound and fluoroscopic guidance the gallbladder was punctured with a micropuncture set and a 4 Malay dilator was placed. Injection of positive contrast demonstrates position within the gallb ladder. A 0.035 guidewire was placed within the gallbladder lumen and dilatation was performed to ac cept the prescribed catheter. Opacification of the gallbladder lumen was performed with a gentle injection of contrast. There are f illing defects consistent with stones. I did not attempt to opacify the common bile duct to assess th e distal stone due to the patient's acute illness. Conscious sedation was performed with the prescribed dosages and duration as above in the presence of an independent trained radiology nurse to assist in the monitoring of the patient. EKG and oximetry remained stable throughout the procedure. The patient tolerated the procedure well and there were n o complications. The patient was sent to post anesthesia recovery in stable condition. CONCLUSION: 1. Uncomplicated percutaneous cholecystostomy as above. Once the patient has stabilized can consider performing a cholangiogram through the cholecystostomy tube to assess the distal common bile duct. Electronically signed by: Leonard Arcos MD 07/27/2018 12:12 PM EDT
[2018-07-27 12:16] LABS: ABG Base Excess -13.1 mmol/L (-2-2); ABG PCO2 20 mmHg (38-42); ABG PO2 125 mmHG (61-120)
[2018-07-27] MEDS ORDERED: Potassium Chlor 40 mEq Premix 40 MEQ/100 ML PIGGYBACK IV.SIG ONE ×2 (13:00)
--- NOTE | 2018-07-27 13:56 | US ---
EXAM DATE: 07/27/2018 1:47 PM EDT AGE/SEX: 77 years / Male INDICATIONS: Pancreatitis. Abdominal distension. CLINICAL DATA: This is the patient's initial encounter. Patient reports that signs and symptoms have been present for 2 days and indicates a pain score of Nonresponsive. MEDICAL/SURGICAL HISTORY: . Coronary artery disease. Cholelithiasis. Chronic gastroesophageal reflux disease. Glaucoma. High cholesterol. Cataract. Hypertension. Nephrolithiasis. Pars defe ct of lumbar spine. . Coronary artery bypass graft. Appendectomy. Bladder surgery. Knee surgery. Total left knee replacement. COMPARISON: [facility], CT ABDOMEN & PELVIS W CONTRAST, 07/25/2018. . MEASUREMENTS: Liver:__ 15.3 cm. Common Bile Duct:___ 6mm. Right Kidney:___11.5 x 5.4 x 5.2 cm. Left Kidney:___13.4 x 6.4 x 5.5 cm. Spleen:___10.5 cm. FINDINGS: Liver: Mildly heterogeneous without mass. Mildly echogenic. No ductal dilatation. Hepatopedal flow w ithin the portal vein. No intrahepatic biliary dilatation.. Portal Vein: Hepatopedal flow seen in portal vein. Common Duct: No intraluminal mass or stone visualized. Gallbladder: Cholecystostomy tube coiled within the gallbladder. A fair amount of sludge is noted wit hin the lumen of the gallbladder. Gallbladder wall thickening is noted. Pancreas: Not well visualized. Right Kidney: Increased echotexture. No mass or hydronephrosis. Left Kidney: Increased echotexture. No mass or hydronephrosis. 2.6 cm cyst involving the midpole. 7. 5 cm cyst involving the lower pole. Ascites: Small volume simple ascites. Pleural Effusion: None Spleen: No focal lesion. Aorta: Not visualized. IVC: Totally obscured. Other: None. CONCLUSION: 1. Bowel gas limits the study. 2. Hepatic steatosis. No biliary dilatation. 3. Sludge and small stones within a decompressed gallbladder which contains a cholecystostomy tube. 4. Small volume ascites. 5. Pancreas is totally obscured and not well evaluated. Electronically signed by: Leonard Arcos MD 07/27/2018 1:54 PM EDT
[2018-07-27] MEDS: Sodium Bicarbonate 8.4% Inj 150 MEQ in Dextrose 5% in Water Inj 1,000 ML IV.SIG SCH ×10 (14:25→23:18)
--- NOTE | 2018-07-27 15:27 | ECHRPT ---
Indication: HEART FAILURE CONCLUSIONS The left ventricular systolic function is normal with an estimated ejection fraction in the range of 55-60%. Normal left ventricular size. Wall thickness is measured at the upper limits of normal. No regional wall motion abnormalities are present. There is trace tricuspid valve regurgitation. The estimated pulmonary arterial pressure is 27.5 mmHg. Trivial pulmonary valve regurgitation. The inferior vena cava was not well visualized. BP: / HR: Rhythm: Sinus MEASUREMENTS (Male / Female) Normal Values Technical Quality:Fair 2D ECHO LV Diastolic Diameter PLAX 3.7 cm 4.2 - 5.9 / 3.9 - 5.3 cm LV Systolic Diameter PLAX 2.8 cm IVS Diastolic Thickness 1.2 cm 0.6 - 1.0 / 0.6 - 0.9 cm LVPW Diastolic Thickness 1.2 cm 0.6 - 1.0 / 0.6 - 0.9 cm LV Relative Wall Thickness 0.6 LVOT Diameter 1.7 cm LV Ejection Fraction MOD 4C 54.4 % LV Ejection Fraction 4C AL 58.6 % M-MODE Aortic Root Diameter MM 2.4 cm LA Systolic Diameter MM 3.4 cm LA Ao Ratio MM 1.4 AV Cusp Separation MM 1.8 cm DOPPLER AV Peak Velocity 100.0 cm/s AV Peak Gradient 4.0 mmHg LVOT Peak Velocity 71.6 cm/s LVOT Peak Gradient 2.1 mmHg AV Area Cont Eq pk 1.6 cm MV Area PHT 5.0 cm Mitral E Point Velocity 31.1 cm/s Mitral A Point Velocity 47.4 cm/s Mitral E to A Ratio 0.7 LV E' Lateral Velocity 5.2 cm/s Mitral E to LV E' Lateral Ratio 6.0 LV E' Septal Velocity 6.0 cm/s Mitral E to LV E' Septal Ratio 5.1 TR Peak Velocity 209.0 cm/s TR Peak Gradient 17.5 mmHg Right Atrial Pressure 10.0 mmHg Pulmonary Artery Systolic Pressu 27.5 mmHg Right Ventricular Systolic Press 27.5 mmHg PV Peak Velocity 63.8 cm/s PV Peak Gradient 1.6 mmHg FINDINGS LEFT VENTRICLE The left ventricular systolic function is normal with an estimated ejection fraction in the range of 55-60%. Normal left ventricular size. Wall thickness is measured at the upper limits of normal. No regional wall motion abnormalities are present. RIGHT VENTRICLE Normal right ventricular size and systolic function. LEFT ATRIUM The left atrial size is normal. RIGHT ATRIUM The right atrial size is normal. ATRIAL SEPTUM Normal atrial septal thickness without atrial level shunting by limited color doppler interrogation. AORTA The aortic root and proximal ascending aorta are normal in size on limited imaging. MITRAL VALVE Structurally normal mitral valve. No mitral valve stenosis or regurgitation. AORTIC VALVE Trileaflet aortic valve. No aortic valve stenosis or regurgitation. TRICUSPID VALVE Structurally normal tricuspid valve. There is trace tricuspid valve regurgitation. The estimated pulmonary arterial pressure is 27.5 mmHg. PULMONARY VALVE Trivial pulmonary valve regurgitation. VESSELS The inferior vena cava was not well visualized. PERICARDIUM No pericardial effusion. Jack Hurley MD (Electronically Signed) Final Date:27 July 2018 15:26
[2018-07-27] MEDS ORDERED: Digoxin Inj 500 MCG/2 ML Ampul IV.PUSH ONE (15:56)
[2018-07-27] MEDS ORDERED: Digoxin Inj 500 MCG/2 ML Ampul ONE (15:59)
[2018-07-27] MEDS: Phenylephrine Inj 160 MG in Sodium Chlor 0.9% Inj 484 ML IV.CONT PRN (16:30)
[2018-07-27] MEDS ORDERED: Adenosine Inj 6 MG/2 ML Syringe IV.PUSH ONE (17:03)
[2018-07-27] MEDS ORDERED: Metoprolol Inj 5 MG/5 ML Vial IV.PUSH ONE (17:03)
[2018-07-27] MEDS ORDERED: Midazolam Inj 5 MG/ML 1 ML Vial ONE (17:38)
[2018-07-27] MEDS ORDERED: Methylnaltrexone Inj 12 MG/0.6 ML Vial SQ ONE (18:00)
[2018-07-27] MEDS ORDERED: Dextrose 50% in Water 50 ML Vial IV.PUSH PRN (18:12)
[2018-07-27] MEDS: Latanoprost 0.005% Opth Drops 2.5 ML Bottle EACH EYE SCH (18:15)
[2018-07-27 20:12] LABS: ABG Base Excess -9.6 mmol/L (-2-2); ABG PCO2 18 mmHg (38-42); ABG PO2 187 mmHG (61-120)
[2018-07-27] MEDS: Insulin Regular (For Infusion) 100 UNIT in Sodium Chlor 0.9% Inj 99 ML IV.CONT PRN (20:23)
[2018-07-27] MEDS: Pantoprazole Inj 40 MG Vial IV.PUSH SCH (20:42)
--- NOTE | 2018-07-27 21:56 | ECG ---
Date Performed: 07/27/2018 Time Performed: 17:13:12 PTAGE: 77 years EKG: ATRIAL FIBRILLATION WITH RAPID VENTRICULAR RESPONSE NONSPECIFIC ST & T-WAVE ABNORMALITY ABN ORMAL ECG PREVIOUS TRACING : 07/27/2018 01.13 DOCTOR: Jack Hurley Interpretating Date/Time 07/27/2018 21:53:46
--- NOTE | 2018-07-27 22:11 | ECG ---
Date Performed: 07/26/2018 Time Performed: 19:16:54 PTAGE: 77 years EKG: SINUS TACHYCARDIA BORDERLINE LEFT AXIS DEVIATION MODERATE T-WAVE ABNORMALITY, CONSIDER ANTE ROLATERAL ISCHEMIA ABNORMAL ECG PREVIOUS TRACING : 07/26/2018 13.55 DOCTOR: Jack Hurley Interpretating Date/Time 07/27/2018 22:08:30
--- NOTE | 2018-07-27 22:19 | ECG ---
Date Performed: 07/26/2018 Time Performed: 13:55:14 PTAGE: 77 years EKG: Sinus rhythm . Anteroseptal T wave changes are nonspecific Borderline ECG PREVIOUS TRACING : 07/25/2018 07.17 DOCTOR: Jack Hurley Interpretating Date/Time 07/27/2018 22:12:47
[2018-07-28] MEDS ORDERED: Amiodarone Inj 150 MG in Dextrose 5% in Water Inj 97 ML IV.SIG ONE ×2 (00:28)
[2018-07-28] MEDS: Sodium Bicarbonate 8.4% Inj 150 MEQ in Dextrose 5% in Water Inj 1,000 ML IV.SIG SCH ×8 (01:12→05:55)
[2018-07-28] MEDS: Oral Hygiene Kit OROPHARYNG SCH ×4 (01:15→16:23)
[2018-07-28] MEDS: Albumin Human 5% Inj 500 ML IV.SIG SCH ×4 (02:55→20:27)
[2018-07-28 04:05] LABS: ABG Base Excess -9.9 mmol/L (-2-2); ABG PCO2 19 mmHg (38-42); ABG PO2 238 mmHG (61-120)
[2018-07-28 04:15] LABS: Hematocrit 27.9 % (39.0-51.0); Hemoglobin 9.3 gm/dL (13.0-17.0); Mean Corpuscular HGB Conc 33.3 % (32.0-36.0); Mean Corpuscular Hemoglobin 31.6 pg (27.0-34.0); Mean Corpuscular Volume 94.8 fL (80.0-100.0); Mean Platelet Volume 9.5 fL (7.0-11.0); Platelet Count 91 th/mm3 (150-450); Red Blood Count 2.94 mil/mm3 (4.50-5.90)
[2018-07-28 04:34] LABS: Activated Partial Thrombo Time 39.6 sec (24.3-30.1); INR 2.4 Ratio; Prothrombin Time 24.6 sec (9.8-11.6)
[2018-07-28] MEDS: EPOPROSTENOL NEB SCH ×8 (05:12→22:06)
[2018-07-28] MEDS: [UNRECOGNIZED DRUG - OTHER] NEB SCH ×8 (05:12→22:06)
[2018-07-28] MEDS: Chlorhexidine Gluconate 2% 1 Pack (2 Cloths) TOPICAL SCH (05:13)
[2018-07-28] MEDS: Piperacil/Tazo 2.25 GM Premix 50 ML IV.SIG SCH (05:15)
[2018-07-28 05:18] LABS: Blast Cells 1 % (0-0); Lymphocytes 2 % (9-44); Metamyelocytes 6 % (0-1); Monocytes 4 % (0-8); Promyelocyte 4 % (0-0); Tallied Nucleated RBC 4 (0-0)
[2018-07-28 05:22] LABS: Dohle Bodies Present; Toxic Vacuolation Present
[2018-07-28 05:23] LABS: Albumin 2.4 g/dL (3.4-5.0); Carbon Dioxide 14.2 meq/L (21.0-32.0); Magnesium 1.9 mg/dL (1.5-2.5); Total Protein 4.7 g/dL (6.4-8.2)
[2018-07-28 05:25] LABS: Troponin I 0.94 ng/mL (0.02-0.05)
[2018-07-28 05:26] LABS: Pappenheimer Bodies Present; Platelet Morphology Normal (Normal)
--- NOTE | 2018-07-28 05:49 | XR ---
EXAM DATE: 07/28/2018 5:20 AM EDT AGE/SEX: 77 years / Male INDICATIONS: Shortness of breath, possible pulmonary disease. CLINICAL DATA: This is the patient's subsequent encounter. Patient reports that signs and symptoms h ave been present for 3 days and indicates a pain score of Nonresponsive. MEDICAL/SURGICAL HISTORY: Gastroesophageal reflux disease. Hypertension. CAD. CABG. Appendec terri. Total knee replacement, left. COMPARISON: [facility], CHEST 1V SINGLE AP, 07/27/2018. . FINDINGS: Stable ETT, left IJ central line and NGT. Worsening bilateral lxlfz-bk-fydzpknp pleural effusions wit h associated lower lobe airspace disease. Cardiac silhouette is enlarged. Remainder of exam is unchan ged. CONCLUSION: 1. Stable tubes and lines. 2. Worsening bilateral vloew-fe-rlutfcpt pleural effusions with associated lower lobe airspace disea se. Electronically signed by: Imtiaz Harris MD 07/28/2018 5:48 AM EDT
[2018-07-28] MEDS: Insulin Regular (For Infusion) 100 UNIT in Sodium Chlor 0.9% Inj 99 ML IV.CONT PRN (07:54)
[2018-07-28] MEDS: Sodium Bicarbonate 8.4% Inj 150 MEQ in Dextrose 5% in Water Inj 850 ML IV.SIG SCH ×8 (07:54→18:47)
[2018-07-28] MEDS ORDERED: Phytonadione Inj 10 MG in Sodium Chlor 0.9% Inj 50 ML IV.SIG ONE (08:00)
[2018-07-28] MEDS ORDERED: Methylnaltrexone Inj 12 MG/0.6 ML Vial SQ ONE (08:00)
[2018-07-28] MEDS ORDERED: Sodium Bicarbonate 8.4% Inj 50 MEQ/50 ML Syringe ONE (08:08)
[2018-07-28] MEDS: Norepinephrine Inj 16 MG in Sodium Chlor 0.9% Inj 234 ML IV.CONT PRN ×2 (08:50→22:15)
[2018-07-28] MEDS: rifAXIMin 550 MG Tablet PO SCH ×2 (09:00→20:26)
[2018-07-28] MEDS: Senna/Docusate Sodium 8.6/50 MG Tablet PO SCH ×2 (09:00→20:26)
[2018-07-28] MEDS: Carboxymethylcellulose 0.5% Opth Drops 15 ML Bottle EACH EYE SCH ×2 (09:02→22:00)
[2018-07-28] MEDS: Dorzolamide-Timolol 2/0.5% Opth Drops 10 ML Bottle EACH EYE SCH ×2 (09:02→22:00)
[2018-07-28] MEDS: Hydrocortisone Sod Succinate 100 MG Vial IV.PUSH SCH ×3 (09:05→21:59)
[2018-07-28] MEDS ORDERED: Calcium Gluconate Inj 2 GM in Sodium Chlor 0.9% Inj 100 ML IV.SIG ONE (09:10)
--- NOTE | 2018-07-28 09:14 | P.PNCC ---
Subjective Subjective Remarks/Hospital Course: This is a 77-year-old male. Date of admission 07/25/2018. Date of consultation 07/26/2018. Past medical history includes coronary disease status post CABG x3, essential hypertension, hyperlipidemia, hiatal hernia, osteoarthritis, gastroesophageal reflux disease and glaucoma. Patient originally presented to [facility] on 07/25 festers 18 with chief complaint of abdominal pain. This started around midnight on 07/25. CT of the abdomen/pelvis 2 mm area at the ampulla likely related to stone. Also revealed cholelithiasis. Umbilical, left hiatal hernia/inguinal and a 3 mm left renal stone obstructing. Bilateral L4 pars defect grade 2 anterolisthesis. Lipase was greater than 30,000. Patient had total bili 2.3. Elevated white cell count greater than 38,000. Gastroenterology was consulted. Was started on antibiotics with piperacillin/ tazobactam and planned for ERCP after results known were discovered. MRCP revealed a 3.5 mm distal common bile duct stone. Common bile duct was 4.5 cm. 8 cm liver cyst. Bilateral renal cyst. Acute pancreatitis. Patient presented to same-day surgery from [place] today for ERCP. noted, patient had an elevated total bilirubin today of 12,000, creatinine elevated from normal 1.0-2.1. Please see Dr. Almazan's note. While I was being called, this patient arrived in room 508. Patient was essentially unresponsive on 100% nonrebreather. Cold and clammy. Very weak palpable femoral pulse. Unable to register pulse oximetry. Patient was emergently intubate without anesthesia please see procedure note. A peripheral IV was established and patient received normal saline wide open and was started on norepinephrine drip. IV access was lost. A central line was emergently placed under sterile technique in the left IJ. Please note while the line was being placed, unable to palpate pulse and CPR was initiated. This lasted approximately 7 minutes please see note. Patient had a recent return of spontaneous circulation at 1330. Laboratory so far reveal a lactate of 15. PH is 7.0. Patient received 3 ampoules of sodium bicarb and i being hyperventilated on mechanical ventilator. He is currently on norepinephrine 20 mcg/min. Subjective 07/27: Status post percutaneous cholecystostomy tube last night. Remains on 3 vasopressors and hemodynamically very tenuous. Shock liver, acute renal failure , acute respiratory failure requiring her percent FiO2 and had a non-STEMI type II secondary to demand ischemia. 07/28: Patient remains in profound septic shock currently on epinephrine micrograms per minute, Levophed 30 mcg/min, Sherif-Synephrine 300 mcg/min, and vasopressin 0.04 international units. Map remains 65-70. Shock liver persists. at the bedside tearful very upset about the course of events. I have updated her. I also explained to her that a 77-year-old man with acute pancreatitis and cholangitis, associated renal failure is very critical to begin with, and has guarded prognosis. Remains on amiodarone infusion for rate control. Currently on FiO2 at 80% getting CVVH Objective Vital Signs / I&O: Vital Signs 07/27/18 10:00 07/27/18 11:00 07/27/18 11:57 Temperature Pulse Rate 100 H 97 H Respiratory Rate 28 H 28 H 28 H Blood Pressure Pulse Oximetry 93 L 96 93 L 07/27/18 12:00 07/27/18 13:00 07/27/18 14:00 Temperature 99.1 F Pulse Rate 93 H 91 H 96 H Respiratory Rate 28 H 28 H 28 H Blood Pressure 116/75 Pulse Oximetry 95 96 90 L 07/27/18 15:00 07/27/18 15:45 07/27/18 16:00 Temperature 98.7 F Pulse Rate 96 H 95 H 137 H Respiratory Rate 28 H Blood Pressure 99/66 L Pulse Oximetry 95 96 07/27/18 16:41 07/27/18 17:00 07/27/18 18:00 Temperature Pulse Rate 150 H 145 H Respiratory Rate 28 H Blood Pressure Pulse Oximetry 95 91 L 93 L 07/27/18 19:00 07/27/18 20:00 07/27/18 21:00 Temperature 98.3 F Pulse Rate 144 H 140 H 141 H Respiratory Rate Blood Pressure 97/60 L Pulse Oximetry 95 98 93 L 07/27/18 21:01 07/27/18 21:16 07/27/18 21:26 Temperature Pulse Rate 140 H 125 H 147 H Respiratory Rate 28 H Blood Pressure 105/75 87/55 L Pulse Oximetry 92 L 96 07/27/18 22:00 07/27/18 23:00 07/27/18 23:36 Temperature Pulse Rate 144 H 131 H Respiratory Rate 28 H Blood Pressure 87/69 L 96/74 L Pulse Oximetry 96 96 96 07/27/18 23:45 07/28/18 00:00 07/28/18 00:42 Temperature 96.8 F L 96.5 F L Pulse Rate 138 H 136 H Respiratory Rate Blood Pressure 76/50 L 106/70 Pulse Oximetry 82 L 07/28/18 01:00 07/28/18 01:01 07/28/18 01:36 Temperature Pulse Rate 138 H 139 H 113 H Respiratory Rate Blood Pressure 85/63 L 79/64 L Pulse Oximetry 90 L 99 88 L 07/28/18 02:00 07/28/18 03:00 07/28/18 03:23 Temperature Pulse Rate 113 H 114 H 114 H Respiratory Rate Blood Pressure 95/60 L Pulse Oximetry 94 L 76 L 94 L 07/28/18 03:56 07/28/18 04:00 07/28/18 04:01 Temperature Pulse Rate 103 H 99 H 104 H Respiratory Rate 28 H 28 H Blood Pressure 89/70 L 89/70 L Pulse Oximetry 100 72 L 07/28/18 05:00 07/28/18 05:01 07/28/18 06:00 Temperature 96.6 F L 96.6 F L 96.1 F L Pulse Rate 102 H 100 H 99 H Respiratory Rate 28 H Blood Pressure 91/69 L 90/61 L Pulse Oximetry 86 L 63 L 07/28/18 08:24 Temperature Pulse Rate 102 H Respiratory Rate 28 H Blood Pressure Pulse Oximetry Intake & Output 07/27/18 07/28/18 07/28/18 18:59 06:59 18:59 Intake Total 5999 / 5999 7750 / 7750 100 / 100 Output Total 240 / 240 Balance 5989 / 5989 7510 / 7510 100 / 100 Weight 96.1 kg Intake: IV 5371 / 5371 7750 / 7750 100 / 100 EPINEPHrine (1:1000) Inj 4 MG 250 / 250 In NS Inj 246 ML @ 1 MCG/MIN 3. 75 mls/hr IV.CONT TITRATE PRN Rx#:[id number] NovoLIN R (IV Infusion) 100 100 / 100 UNIT In NS Inj 99 ML @ Per Protocol IV.CONT TITRATE PRN Rx #:[id number] Versed Inj 50 mg In 50 ml @ 2 50 / 50 MG/HR 2 mls/hr IV.CONT TITRATE PRN Rx#:[id number] Levophed Inj 16 MG In NS Inj 250 / 250 234 ML @ 2 MCG/MIN 1.87 mls/hr IV.CONT TITRATE PRN Rx#: [id number] Sodium Bicarbonate 8.4% Inj 75 2000 / 2000 MEQ In D5W Inj 925 ML @ 200 mls /hr IV.CONT .Q5H LORENA Rx#: [id number] Pitressin Inj 40 UNIT In NS Inj 100 / 100 98 ML @ 0.04 UNITS/MIN 6 mls/ hr IV.CONT CONT LORENA Rx#: [id number] Alburx 5% Inj 500 ML @ 250 mls/ 500 / 500 hr IV.SIG Q6H LORENA Rx#:[id number] Cordarone Inj 150 MG In D5W Inj 100 / 100 97 ML @ 600 mls/hr IV.SIG ONCE ONE Rx#:[id number] Mycamine Inj 100 MG In NS Inj 100 / 100 100 ML @ 100 mls/hr IV.SIG Q24H LORENA Rx#:[id number] Vitamin K Inj 10 MG In D5W Inj 51 / 51 50 ML @ 102 mls/hr IV.SIG ONCE ONE Rx#:[id number] Zosyn 2.25 GM Premix 50 ML @ 150 / 150 50 / 50 100 mls/hr IV.SIG Q6H LORENA Rx#: [id number] Sodium Bicarbonate 8.4% Inj 150 2300 / 2300 6900 / 6900 MEQ In D5W Inj 1,000 ML @ 500 mls/hr IV.SIG .Q2H18M LORENA Rx#: [id number] Flolan (30,000 ng/mL) Neb 87.5 100 / 100 100 / 100 ML NS Inj 12.5 ML In Bag/ Syringe 1 EACH @ 8 mls/hr NEB Q8H LORENA Rx#:[id number] Oral 0 / 0 Tube Feeding 0 / 0 Intake (Blood Product) Amt 628 / 628 Plasma Thawed 5 Day Cp2d Unit 308 / 308 [id number] Plasma Thawed 5 Day Cp2d Unit 320 / 320 [id number] Output: Urine 0 / 0 Urine Amount (Catheter) 40 Indwelling Urethral Catheter 40 Gastric Drainage 200 / 200 Right Nare Nasogastric Tube 200 / 200 Wound Drainage 0 / 0 Right Upper Abdomen Davol 0 / 0 Other: # Bowel Movements 0 Result Diagrams: 07/28/18 04:00 07/28/18 04:00 Objective Remarks: GENERAL: 77-year-old male currently very critical, orotracheally intubated SKIN: Warm and dry. HEAD: Atraumatic. Normocephalic. EYES: Pupils equal and round about 3 mm bilaterally. + scleral icterus. No injection or drainage. ENT: No nasal bleeding or discharge. Orotracheally intubated NECK: Trachea midline. No JVD. Left IJ is clean dry and intact CARDIOVASCULAR: Tachycardic, RR. S1, S2. No S4. Currently on high doses of epinephrine, norepinephrine, Sherif-Synephrine and vasopressin and also amiodarone RESPIRATORY: Coarse breath sounds appreciated bilaterally. Breath sounds equal bilaterally. GASTROINTESTINAL: Abdomen protuberant, tense. No bowel sounds appreciated. No grimacing on palpation the abdomen. MUSCULOSKELETAL: Extremities with 1+ peripheral edema. No obvious deformities. NEUROLOGICAL: Remains unresponsive on the ventilator. Positive gag. Positive cough. Positive corneal reflex. Assessment and Plan - Assessment and Plan Plan: Neuro/Psych: Glaucoma Currently written for midazolam drip for sedation while intubated. As needed fentanyl drip ordered for analgosedation Post code blue, patient nodded his head to purposefully to command. Continue bimatoprost 0.01% -latanoprost 0.005% 1 drop each eye every p.m. and dorzolamide/timolol 2/0.5 1 drop each eye twice daily CV: Severe septic shock on multiple vasopressors Lactic acidosis NSTEMI likely type II to demand ischemia troponin 0.89 Atrial fibrillation with RVR Coronary artery disease status post CABG 3 -the mid LAD, reverse SVG to diagonal 2 and OM1 History of essential hypertension Hyperlipidemia Currently on norepinephrine drip at 30mcg/kg/min, epinephrine drip at 6 mcg/min , Sherif-Synephrine 300 mcg/kg/min and vasopressin drip at 0.04 U/min to maintain mean arterial pressure greater than equal to 65 Stress dose hydrocodone 100 mg every 8 hours Echo: The left ventricular systolic function is normal with an estimated ejection fraction in the range of 55-60%. Cycle troponins until peak. Serial lactates until cleared. Currently 20 s/p Aggressive crystalloid resuscitation. Give IV albumin 25 g 1 Continue Flowtrack. Holding metoprolol succinate 50 mg daily and lisinopril 5 mg daily in light of acute shock. Holding ezetimibe 10 mg daily and evolocumab 140 mg sq every 2 weeks for list lipidemia Aspirin 81 mg daily when able Continue IV amiodarone infusion for A. fib rate control Resp: Acute respiratory failure PRVC 28/600/0.74/5/80, reduce rate to 24 Ventilator bundle. Albuterol/ipratropium aerosols every 6 hours with albuterol aerosols every 2 hours as needed for dyspnea Epoprostenol aerosolized Chest x-ray revealed adequate positioning of ET tube and left IJ CVL on 07/27 ABG daily GI: Acute pancreatitis Cholelithiasis with acute cholangitis 3.5 mm distal common bile duct stone with common bile duct dilatation 4.5 cm on MRCP Transaminitis secondary to shock liver Umbilical, left inguinal hernia Hiatal hernia Gastroesophageal reflux disease on omeprazole 20 mg daily at home Status post cholecystostomy tube Hyperammonemia 8 mm liver cyst Hypoalbuminemia MRCP revealed a 3.5 mm distal common bile duct stone. Acute pancreatitis. 8 mm liver cyst. Bilateral renal cysts. Common bile duct was 4.5 cm Gastroenterology unable to perform EGD secondary to instability. Cholecystostomy tube placed 07/26 by IR Lactulose 30 cc twice daily. Recheck in a.m. NGT to [facility] Recheck KUB a.m. Pantoprazole for GI prophylaxis Docusate sodium/senna 1 tablet twice daily for bowel regimen CT abdomen/pelvis when stable See ID section for broad-spectrum antibiotics : Nonobstructing nephrolithiasis Harley catheter will be placed for accurate I's and O's in a critically ill patient Endo: Sliding scale insulin with Accu-Cheks to maintain euglycemia Renal: Acute kidney failure Bilateral renal cysts Rhabdomyolysis Nephrology's been consulted. Initiated on CVVH for severe metabolic acidosis and renal failure Urine sodium, osmolality pending No hydronephrosis on previous CT abdomen/pelvis. Heme: Acute coagulopathic state likely secondary to DIC Leukocytosis Normocytic anemia Thrombocytopenia Monitor CBC daily. Follow trends. Received 10 mg of phytonadione and 2 FFP 07/26. 2 FFP 07/27. Recheck coags in a.m. type and screen ID: Septic shock Acute Cholangitis Currently on piperacillin /tazobactam and micafungin day #3. Add renally dosed Daptomycin Blood cultures 2 ordered /. Sputum and UA ordered results pending Gallbladder fluid growing staph aureus Infectious disease Dr. Brown FEN/ENDO: Hypocalcemia Hyperphosphatemia Hypoglycemia CMP at 1400. Correct electrolytes as clinically indicated 2 g of IV calcium gluconate Insulin infusion Access -Left IJ CVL day 3 placed 9/14 Right radial arterial line day #3 placed by respiratory therapy Prophylaxis -GI - pantoprazole -DVT-SCD/holding pharmacologic prophylaxis in light of coagulopathic state Acute care time 80 minutes not including procedures Patient is very critical with multiorgan failure refractory septic shock. On 4 pressors lactic acid is 20 getting CRRT. His chance of survival is dismal and almost certainly terminal at this time. I have updated family several times
[2018-07-28] MEDS ORDERED: Albumin Human 25% Inj 100 ML IV.SIG ONE (09:22)
[2018-07-28] MEDS ORDERED: Vancomycin Inj 1 GM/200 ML PIGGYBACK IV.SIG ONE (09:26)
[2018-07-28] MEDS ORDERED: Vancomycin Consult Pharmacy OTHER PRN (09:27)
[2018-07-28] MEDS: Chlorhexidine 0.12% Oral Kit 15 ML UDC OROPHARYNG SCH ×2 (10:02→20:28)
[2018-07-28] MEDS ORDERED: [UNRECOGNIZED DRUG - MIXTURE] OTHER PRN (10:11)
--- NOTE | 2018-07-28 10:16 | P.PNID ---
Subjective Remarks: is a 77 y/o CM with PMHx of coronary disease status post CABG x3, essential hypertension, hyperlipidemia, hiatal hernia, osteoarthritis, gastroesophageal reflux disease and glaucoma. Patient was admitted on 2017. Patient originally presented to [facility] on 07/25 with chief complaint of abdominal pain. Patient was admitted under [facility] services and underwent a CT of the abdomen/pelvis. CT of the abdomen pelvis shows pancreatitis with no pseudocyst or pancreatic hemorrhage. There is a 2 mm calcification of the level of the ampulla that could relate to CBD stone at the ampullary region also reported is that there is no ductal dilatation to suggest an obstructing component. Other radiological findings include cholelithiasis and a 3 mm nonobstructing left renal stone. Patient was initially admitted at [facility]. He was thought to be unstable for ERCP as he clinically deteriorated. Patient was in acute renal failure creatinine increased from 1.0-2.1. It was decided to transfer the patient to the main hospital. Upon arrival at [facility] ICU patient was cold and clammy and essentially unresponsive 100% nonrebreather. He had extremely weak palpable femoral pulse at that point. A decision was made to emergently intubate him without anesthesia. Patient also had a central line placed in the left IJ. Patient also underwent CPR for approximately 7 minutes with return of spontaneous circulation. Important lab findings include a lipase of 30,000, total bili of 2.3 and an elevated white count of 38,000. Lipase was greater than 30,000. Patient had total bili 2.3. Elevated white cell count greater than 38,000. Gastroenterology was consulted. Was started on antibiotics with piperacillin/ tazobactam and planned for ERCP after results known were discovered. MRCP revealed a 3.5 mm distal common bile duct stone. Common bile duct was 4.5 cm. 8 cm liver cyst. Bilateral renal cyst. Acute pancreatitis. Patient is in the ICU at time of my visit and on max dose multiple pressors, remains intubated and sedated. UO poor and patient is being placed on CVVHD. ID consulted for evaluation and Mment of Septic Shock. Overnight events reviewed with RN Remains in profound septic shock On epinephrine 5 mics/min, Levophed 30 mcg/min, Sherif-Synephrine 300 mcg/min, and vasopressin 0.04 international units. Map remains 65-70. On Afib with RVR last night started on Amiodarone gtt. Also on Insulin gtt Calcium low. Mag low Albumin low. On vent FiO2 Currently on FiO2 at 80%, PEEP 5. On CVVHD, UO none Antibiotics: Zosyn IV Vanco IV Micafungin IV Lines: Lines ok Past Medical History: reviewed Allergies/Adverse Reactions: Allergies SHINGLES VACCINE Allergy (Uncoded 07/25/18 07:53) Rash Objective Vital Signs 07/27/18 11:00 07/27/18 11:57 07/27/18 12:00 Temperature 99.1 F Pulse Rate 97 H 93 H Respiratory Rate 28 H 28 H 28 H Blood Pressure 116/75 Pulse Oximetry 96 93 L 95 07/27/18 13:00 07/27/18 14:00 07/27/18 15:00 Temperature Pulse Rate 91 H 96 H 96 H Respiratory Rate 28 H 28 H Blood Pressure Pulse Oximetry 96 90 L 95 07/27/18 15:45 07/27/18 16:00 07/27/18 16:41 Temperature 98.7 F Pulse Rate 95 H 137 H Respiratory Rate 28 H 28 H Blood Pressure 99/66 L Pulse Oximetry 96 95 07/27/18 17:00 07/27/18 18:00 07/27/18 19:00 Temperature Pulse Rate 150 H 145 H 144 H Respiratory Rate Blood Pressure Pulse Oximetry 91 L 93 L 95 07/27/18 20:00 07/27/18 21:00 07/27/18 21:01 Temperature 98.3 F Pulse Rate 140 H 141 H 140 H Respiratory Rate Blood Pressure 97/60 L 105/75 Pulse Oximetry 98 93 L 92 L 07/27/18 21:16 07/27/18 21:26 07/27/18 22:00 Temperature Pulse Rate 125 H 147 H 144 H Respiratory Rate 28 H Blood Pressure 87/55 L 87/69 L Pulse Oximetry 96 96 07/27/18 23:00 07/27/18 23:36 07/27/18 23:45 Temperature 96.8 F L Pulse Rate 131 H Respiratory Rate 28 H Blood Pressure 96/74 L Pulse Oximetry 96 96 07/28/18 00:00 07/28/18 00:42 07/28/18 01:00 Temperature 96.5 F L Pulse Rate 138 H 136 H 138 H Respiratory Rate Blood Pressure 76/50 L 106/70 Pulse Oximetry 82 L 90 L 07/28/18 01:01 07/28/18 01:36 07/28/18 02:00 Temperature Pulse Rate 139 H 113 H 113 H Respiratory Rate Blood Pressure 85/63 L 79/64 L Pulse Oximetry 99 88 L 94 L 07/28/18 03:00 07/28/18 03:23 07/28/18 03:56 Temperature Pulse Rate 114 H 114 H 103 H Respiratory Rate 28 H Blood Pressure 95/60 L Pulse Oximetry 76 L 94 L 07/28/18 04:00 07/28/18 04:01 07/28/18 05:00 Temperature 96.6 F L Pulse Rate 99 H 104 H 102 H Respiratory Rate 28 H 28 H Blood Pressure 89/70 L 89/70 L Pulse Oximetry 100 72 L 86 L 07/28/18 05:01 07/28/18 06:00 07/28/18 08:24 Temperature 96.6 F L 96.1 F L Pulse Rate 100 H 99 H 102 H Respiratory Rate 28 H Blood Pressure 91/69 L 90/61 L Pulse Oximetry 63 L Intake & Output 07/27/18 07/28/18 07/28/18 18:59 06:59 18:59 Intake Total 5999 / 5999 7750 / 7750 1100 / 1100 Output Total 10 240 / 240 Balance 5989 / 5989 7510 / 7510 1100 / 1100 Weight 96.1 kg Intake: IV 5371 / 5371 7750 / 7750 1100 / 1100 EPINEPHrine (1:1000) Inj 4 MG 250 / 250 In NS Inj 246 ML @ 1 MCG/MIN 3. 75 mls/hr IV.CONT TITRATE PRN Rx#:[id number] NovoLIN R (IV Infusion) 100 100 / 100 UNIT In NS Inj 99 ML @ Per Protocol IV.CONT TITRATE PRN Rx #:[id number] Versed Inj 50 mg In 50 ml @ 2 50 / 50 MG/HR 2 mls/hr IV.CONT TITRATE PRN Rx#:[id number] Levophed Inj 16 MG In NS Inj 250 / 250 234 ML @ 2 MCG/MIN 1.87 mls/hr IV.CONT TITRATE PRN Rx#: [id number] Sodium Bicarbonate 8.4% Inj 75 2000 / 2000 MEQ In D5W Inj 925 ML @ 200 mls /hr IV.CONT .Q5H [facility] Rx#: [id number] Pitressin Inj 40 UNIT In NS Inj 100 / 100 98 ML @ 0.04 UNITS/MIN 6 mls/ hr IV.CONT CONT [facility] Rx#: [id number] Alburx 5% Inj 500 ML @ 250 mls/ 500 / 500 hr IV.SIG Q6H [facility] Rx#:[id number] Cordarone Inj 150 MG In D5W Inj 100 / 100 97 ML @ 600 mls/hr IV.SIG ONCE ONE Rx#:[id number] Mycamine Inj 100 MG In NS Inj 100 / 100 100 ML @ 100 mls/hr IV.SIG Q24H [facility] Rx#:[id number] Vitamin K Inj 10 MG In D5W Inj 51 / 51 50 ML @ 102 mls/hr IV.SIG ONCE ONE Rx#:[id number] Zosyn 2.25 GM Premix 50 ML @ 150 / 150 50 / 50 100 mls/hr IV.SIG Q6H [facility] Rx#: [id number] Sodium Bicarbonate 8.4% Inj 150 2300 / 2300 6900 / 6900 1000 / 1000 MEQ In D5W Inj 850 ML @ 500 mls/hr IV.SIG .Q2H [facility] Rx#: [id number] Flolan (30,000 ng/mL) Neb 87.5 100 / 100 100 / 100 ML NS Inj 12.5 ML In Bag/ Syringe 1 EACH @ 8 mls/hr NEB Q8H [facility] Rx#:[id number] Oral 0 / 0 Tube Feeding 0 / 0 Intake (Blood Product) Amt 628 / 628 Plasma Thawed 5 Day Cp2d Unit 308 / 308 [id number] Plasma Thawed 5 Day Cp2d Unit 320 / 320 [id number] Output: Urine 0 / 0 Urine Amount (Catheter) 40 / 40 Indwelling Urethral Catheter 40 / 40 Gastric Drainage 200 / 200 Right Nare Nasogastric Tube 200 / 200 Wound Drainage 0 / 0 Right Upper Abdomen Davol 0 / 0 Other: # Bowel Movements 0 07/26/18 18:36 Fluid - Bile Fluid Gram Stain - Final 07/26/18 18:36 Fluid - Bile Fluid Body Fluid Culture - Preliminary Staphylococcus aureus 07/26/18 Unknown Clean Catch Urine Urine Culture - Preliminary No growth in 24 hours 07/26/18 15:46 Blood - Peripheral Aerobic Blood Culture - Preliminary No growth in 1 day 07/26/18 15:46 Blood - Peripheral Anaerobic Blood Culture - Preliminary No growth in 1 day 07/26/18 15:41 Blood - Peripheral Aerobic Blood Culture - Preliminary No growth in 1 day 07/26/18 15:41 Blood - Peripheral Anaerobic Blood Culture - Preliminary No growth in 1 day 07/26/18 23:05 Sputum - Endotracheal Gram Stain - Final 07/26/18 23:05 Sputum - Endotracheal Sputum Culture - Pending Lab - Hematology Results 07/26/18 07/27/18 07/28/18 13:45 05:20 04:00 WBC 28.7 H 21.7 H 31.0 H RBC 4.54 3.99 L 2.94 L Hgb 14.3 D 12.4 L 9.3 L D Hct 45.0 37.9 L 27.9 L MCV 99.0 D 95.0 D 94.8 MCH 31.4 31.0 31.6 MCHC 31.7 L 32.6 33.3 RDW 15.1 14.2 14.0 Plt Count 210 132 L D 91 L D MPV 7.9 8.6 9.5 Prelim Diff (Auto) Slide review pending Slide review pending Manual diff required Neut % (Auto) 89.3 H 90.5 H Lymph % (Auto) 5.6 L 2.8 L [place] % (Auto) 4.6 6.1 Eos % (Auto) 0.2 0.4 Baso % (Auto) 0.3 0.2 Neut # (Auto) 25.6 H 19.6 H Lymph # (Auto) 1.6 0.6 L [place] # (Auto) 1.3 H 1.3 H Eos # (Auto) 0.1 0.1 Baso # (Auto) 0.1 0.0 WBC Differential Manual diff final Manual diff final Manual diff final Seg Neuts % (Manual) 75 H 54 46 Band Neuts % (Manual) 16 H 36 H 37 H Lymphocytes % (Manual) 5 L 4 L 2 L Monocytes % (Manual) 1 6 4 Metamyelocytes % (Man) 3 H 6 H Promyelocytes % (Man) 4 H Blast Cells % (Manual) 1 H Abs Neuts (Manual) 27.0 H 19.5 H 28.8 H Nucleated RBCs/100 WBC 4 H Differential Comment . . . Toxic Vacuolation Present H Dohle Bodies Present H Platelet Estimate Low L Low L Platelet Morphology Normal Normal Pappenheimer Bodies Present H Lab - Chemistry Results 07/26/18 07/26/18 07/26/18 13:45 13:45 13:45 Sodium 145 Potassium 5.2 H Chloride 109 H Carbon Dioxide 12.0 L Anion Gap 24 H BUN 42 H Creatinine 3.23 H Estimated GFR 19 L POC Glucose Random Glucose 56 L Lactic Acid 15.1 H* Cancelled Calcium 6.3 L* Prot Corrected Calcium 7.4 L* Phosphorus 9.9 H Magnesium 2.4 Total Bilirubin 7.8 H AST 1426 H ALT 1143 H Alkaline Phosphatase 83 Ammonia Total Creatine Kinase 612 H CK-MB (CK-2) 14.3 H CK-MB (CK-2) % 2.3 Troponin I 0.49 H Total Protein 4.8 L D Albumin 1.9 L D Lipase [facility] 07/26/18 07/26/18 07/26/18 20:40 20:40 22:26 Sodium 145 Potassium 4.5 Chloride 106 Carbon Dioxide 13.4 L Anion Gap 26 H BUN 48 H Creatinine 3.61 H Estimated GFR 16 L POC Glucose 93 Random Glucose 19 L* Lactic Acid 14.1 H* Calcium 6.0 L* Prot Corrected Calcium 7.0 L* Phosphorus Magnesium Total Bilirubin AST ALT Alkaline Phosphatase Ammonia Total Creatine Kinase 4156 H CK-MB (CK-2) 104.4 H CK-MB (CK-2) % 2.5 Troponin I 1.38 H* Total Protein 5.0 L Albumin Lipase [facility] 07/27/18 07/27/18 07/27/18 00:12 01:30 01:30 Sodium Potassium Chloride Carbon Dioxide Anion Gap BUN Creatinine Estimated GFR POC Glucose 89 Random Glucose Lactic Acid 16.7 H* Calcium Prot Corrected Calcium Phosphorus Magnesium Total Bilirubin AST ALT Alkaline Phosphatase Ammonia Total Creatine Kinase 6876 H CK-MB (CK-2) 184.9 H CK-MB (CK-2) % 2.7 Troponin I 1.59 H* Total Protein Albumin Lipase [facility] 07/27/18 07/27/18 07/27/18 05:20 05:20 05:31 Sodium 142 Potassium 4.7 Chloride 101 Carbon Dioxide 12.2 L Anion Gap 29 H BUN 57 H Creatinine 4.58 H Estimated GFR 12 L POC Glucose 157 H Random Glucose 147 H D Lactic Acid Calcium 6.4 L* Prot Corrected Calcium 7.5 L Phosphorus 8.3 H D Magnesium 2.2 Total Bilirubin 9.7 H AST 44862 H ALT 9013 H Alkaline Phosphatase 216 H Ammonia 75 H Total Creatine Kinase CK-MB (CK-2) CK-MB (CK-2) % Troponin I Total Protein 4.9 L Albumin 2.1 L Lipase 09317 H [facility] 07/27/18 07/27/18 07/27/18 11:30 11:30 11:33 Sodium Potassium Chloride Carbon Dioxide Anion Gap BUN Creatinine Estimated GFR POC Glucose Random Glucose Lactic Acid 16.1 H* Calcium Prot Corrected Calcium Phosphorus Magnesium Total Bilirubin AST ALT Alkaline Phosphatase Ammonia Total Creatine Kinase CK-MB (CK-2) CK-MB (CK-2) % Troponin I 1.15 H* Total Protein Albumin Lipase [facility] 0.882 07/27/18 07/27/18 07/27/18 12:04 16:02 16:20 Sodium Potassium Chloride Carbon Dioxide Anion Gap BUN Creatinine Estimated GFR POC Glucose 182 H 219 H Random Glucose Lactic Acid Calcium Prot Corrected Calcium Phosphorus Magnesium Total Bilirubin AST ALT Alkaline Phosphatase Ammonia Total Creatine Kinase CK-MB (CK-2) CK-MB (CK-2) % Troponin I 1.00 H* Total Protein Albumin Lipase [facility] 07/27/18 07/27/18 07/27/18 18:09 20:05 20:18 Sodium Potassium Chloride Carbon Dioxide Anion Gap BUN Creatinine Estimated GFR POC Glucose 378 H 224 H Random Glucose Lactic Acid 15.5 H* Calcium Prot Corrected Calcium Phosphorus Magnesium Total Bilirubin AST ALT Alkaline Phosphatase Ammonia Total Creatine Kinase CK-MB (CK-2) CK-MB (CK-2) % Troponin I Total Protein Albumin Lipase [facility] 07/27/18 07/27/18 07/27/18 20:30 21:07 21:54 Sodium Potassium Chloride Carbon Dioxide Anion Gap BUN Creatinine Estimated GFR POC Glucose 261 H 290 H Random Glucose Lactic Acid Calcium Prot Corrected Calcium Phosphorus Magnesium Total Bilirubin AST ALT Alkaline Phosphatase Ammonia Total Creatine Kinase CK-MB (CK-2) CK-MB (CK-2) % Troponin I 0.89 H* Total Protein Albumin Lipase [facility] 07/27/18 07/28/18 07/28/18 23:08 00:06 01:05 Sodium Potassium Chloride Carbon Dioxide Anion Gap BUN Creatinine Estimated GFR POC Glucose 271 H 257 H 306 H Random Glucose Lactic Acid Calcium Prot Corrected Calcium Phosphorus Magnesium Total Bilirubin AST ALT Alkaline Phosphatase Ammonia Total Creatine Kinase CK-MB (CK-2) CK-MB (CK-2) % Troponin I Total Protein Albumin Lipase [facility] 07/28/18 07/28/18 07/28/18 01:52 02:59 04:00 Sodium Potassium Chloride Carbon Dioxide Anion Gap BUN Creatinine Estimated GFR POC Glucose 240 H 248 H Random Glucose Lactic Acid 20.1 H* Calcium Prot Corrected Calcium Phosphorus Magnesium Total Bilirubin AST ALT Alkaline Phosphatase Ammonia Total Creatine Kinase CK-MB (CK-2) CK-MB (CK-2) % Troponin I Total Protein Albumin Lipase [facility] 07/28/18 07/28/18 07/28/18 04:00 04:00 04:16 Sodium 136 Potassium 4.0 Chloride 89 L D Carbon Dioxide 14.2 L Anion Gap 33 H BUN 44 H Creatinine 4.37 H Estimated GFR 13 L POC Glucose 224 H Random Glucose 258 H D Lactic Acid Calcium 5.0 L* D Prot Corrected Calcium 5.9 L* D Phosphorus 7.0 H D Magnesium 1.9 Total Bilirubin 11.6 H AST 09018 H ALT 6469 H Alkaline Phosphatase 210 H Ammonia 128 H Total Creatine Kinase CK-MB (CK-2) CK-MB (CK-2) % Troponin I 0.94 H* Total Protein 4.7 L Albumin 2.4 L Lipase [facility] 07/28/18 07/28/18 07/28/18 05:07 06:01 06:56 Sodium Potassium Chloride Carbon Dioxide Anion Gap BUN Creatinine Estimated GFR POC Glucose 224 H 220 H 240 H Random Glucose Lactic Acid Calcium Prot Corrected Calcium Phosphorus Magnesium Total Bilirubin AST ALT Alkaline Phosphatase Ammonia Total Creatine Kinase CK-MB (CK-2) CK-MB (CK-2) % Troponin I Total Protein Albumin Lipase [facility] 07/28/18 07/28/18 07/28/18 08:13 09:12 09:16 Sodium Potassium Chloride Carbon Dioxide Anion Gap BUN Creatinine Estimated GFR POC Glucose 241 H 506 H* 269 H Random Glucose Lactic Acid Calcium Prot Corrected Calcium Phosphorus Magnesium Total Bilirubin AST ALT Alkaline Phosphatase Ammonia Total Creatine Kinase CK-MB (CK-2) CK-MB (CK-2) % Troponin I Total Protein Albumin Lipase [facility] 07/28/18 10:08 Sodium Potassium Chloride Carbon Dioxide Anion Gap BUN Creatinine Estimated GFR POC Glucose 254 H Random Glucose Lactic Acid Calcium Prot Corrected Calcium Phosphorus Magnesium Total Bilirubin AST ALT Alkaline Phosphatase Ammonia Total Creatine Kinase CK-MB (CK-2) CK-MB (CK-2) % Troponin I Total Protein Albumin Lipase TSH Imaging: ITS Impressions Cholangiopancreatography MRI 07/25/18 00:00 CONCLUSION: 1. Tiny distal common bile duct stone at the ampulla, estimated at 3.5 mm in size. This appears to be minimally obstructing, if any, with generally a normal size common bile duct for a patient this age and no pancreatic duct dilatation. Several similar sized stones are seen in the gallbladder near the neck. No other definite stones are clearly demonstrated. 2. Acute pancreatitis. Abdomen/Pelvis CT 07/25/18 08:06 CONCLUSION: 1. Acute pancreatitis. No pseudocyst, pancreatic infarction, or pancreatic hemorrhage observed. No ductal dilatation. There is a 2 mm calcification at the level of the ampulla that could relate to a CBD stone at the ampullary region. There is no ductal dilatation to suggest an obstructing component. 2. Cholelithiasis. 3. 3 mm nonobstructing left renal stone. 4. 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 5. Umbilical and left inguinal hernias. Percutaneous Cholangiogram 07/26/18 00:00 CONCLUSION: 1. Uncomplicated percutaneous cholecystostomy as above. Once the patient has stabilized can consider performing a cholangiogram through the cholecystostomy tube to assess the distal common bile duct. Abdomen X-Ray 07/27/18 00:00 CONCLUSION: Stable exam. Abdomen Ultrasound 07/27/18 12:05 CONCLUSION: 1. Bowel gas limits the study. 2. Hepatic steatosis. No biliary dilatation. 3. Sludge and small stones within a decompressed gallbladder which contains a cholecystostomy tube. 4. Small volume ascites. 5. Pancreas is totally obscured and not well evaluated. Chest X-Ray 07/28/18 06:00 CONCLUSION: 1. Stable tubes and lines. 2. Worsening bilateral [id number] pleural effusions with associated lower lobe airspace disease. Physical Exam: GENERAL: Sedated, on the vent, NAD SKIN: Cool and clammy skin, no generalized rash HEAD: Atraumatic. Normocephalic. No temporal or scalp tenderness. EYES: Pupils reactive. No injection or drainage. No petechia ENT: Orally intubated NECK: Trachea midline. Supple, nontender, no meningeal signs. CARDIOVASCULAR: HS audible. RESPIRATORY: Air entry equal bilaterally. Clear to auscultation bilaterally. GASTROINTESTINAL: Abdomen soft,NT, cholecystostomy tube in place. MUSCULOSKELETAL: Extremities without clubbing, cyanosis. NEUROLOGICAL: Sedated Psych could not be assessed IV line sites ok. Assessment and Plan - Plan Septic Shock with Multi Organ dysfunction On multiple high dose pressors. Acute pancreatitis concern for necrotizing component or infected pseudocyst. Acute cholecystitis. GPC in Bile fluid likely Strep. Acute resp failure on vent Acute renal failure: prerenal, sepsis. On CVVHD. Acute metabolic encephalopathy prior to intubation likely secondary to sepsis. Recs: DC Zosyn IV Start Meropenem IV stat Continue Dapto IV for possible VRE (pt in [facility] on CVVHD) Continue Micafungin IV Follow cultures Follow clinically. CT Abd/Pelvis when clinically stable. davide CCM MD Dr.John augustine RN Raoul Bladder pressures stable at 18. Also davide RN to watch for Flank discoloration as a sign of necrotizing hemorrhagic pancreatitis. Dw patients the culture findings and explained reasoning for escalating antibiotics. Prognosis guarded. Based on Ransons criteriascore in 7-11 points range. Critical time > 30 mins. Reviewed CARLITOS, davide Nursing and MDs.
[2018-07-28] MEDS ORDERED: DAPTOmycin Inj 800 MG in Sodium Chlor 0.9% Inj 100 ML IV.SIG SCH (11:00)
[2018-07-28] MEDS: Vasopressin Inj 40 UNIT in Sodium Chlor 0.9% Inj 98 ML IV.CONT SCH (12:14)
[2018-07-28 12:48] LABS: ABG Base Excess -2.8 mmol/L (-2-2); ABG PCO2 26 mmHg (38-42); ABG PO2 131 mmHG (61-120)
[2018-07-28 13:11] LABS: Hematocrit 24.1 % (39.0-51.0); Hemoglobin 8.3 gm/dL (13.0-17.0)
[2018-07-28 13:17] LABS: INR 2.9 Ratio; Prothrombin Time 29.4 sec (9.8-11.6)
--- NOTE | 2018-07-28 13:24 | P.PNGI ---
Subjective Interval history: Pt is sedated on a vent, no acute changes, remains critically ill. by bed side <Jose Alfredo Rivera - Last Filed: 07/28/18 13:26> Physical Exam Vital signs: Vital Signs 07/27/18 14:00 07/27/18 15:00 07/27/18 15:45 Temperature Pulse Rate 96 H 96 H 95 H Respiratory Rate 28 H 28 H Blood Pressure Pulse Oximetry 90 L 95 07/27/18 16:00 07/27/18 16:41 07/27/18 17:00 Temperature 98.7 F Pulse Rate 137 H 150 H Respiratory Rate 28 H Blood Pressure 99/66 L Pulse Oximetry 96 95 91 L 07/27/18 18:00 07/27/18 19:00 07/27/18 20:00 Temperature 98.3 F Pulse Rate 145 H 144 H 140 H Respiratory Rate Blood Pressure 97/60 L Pulse Oximetry 93 L 95 98 07/27/18 21:00 07/27/18 21:01 07/27/18 21:16 Temperature Pulse Rate 141 H 140 H 125 H Respiratory Rate 28 H Blood Pressure 105/75 Pulse Oximetry 93 L 92 L 96 07/27/18 21:26 07/27/18 22:00 07/27/18 23:00 Temperature Pulse Rate 147 H 144 H 131 H Respiratory Rate Blood Pressure 87/55 L 87/69 L 96/74 L Pulse Oximetry 96 96 07/27/18 23:36 07/27/18 23:45 07/28/18 00:00 Temperature 96.8 F L Pulse Rate 138 H Respiratory Rate 28 H Blood Pressure 76/50 L Pulse Oximetry 96 07/28/18 00:42 07/28/18 01:00 07/28/18 01:01 Temperature 96.5 F L Pulse Rate 136 H 138 H 139 H Respiratory Rate Blood Pressure 106/70 85/63 L Pulse Oximetry 82 L 90 L 99 07/28/18 01:36 07/28/18 02:00 07/28/18 03:00 Temperature Pulse Rate 113 H 113 H 114 H Respiratory Rate Blood Pressure 79/64 L Pulse Oximetry 88 L 94 L 76 L 07/28/18 03:23 07/28/18 03:56 07/28/18 04:00 Temperature Pulse Rate 114 H 103 H 99 H Respiratory Rate 28 H 28 H Blood Pressure 95/60 L 89/70 L Pulse Oximetry 94 L 100 07/28/18 04:01 07/28/18 05:00 07/28/18 05:01 Temperature 96.6 F L 96.6 F L Pulse Rate 104 H 102 H 100 H Respiratory Rate 28 H Blood Pressure 89/70 L 91/69 L Pulse Oximetry 72 L 86 L 63 L 07/28/18 06:00 07/28/18 07:00 07/28/18 08:00 Temperature 96.1 F L 95.9 F L 96.1 F L Pulse Rate 99 H 97 H 99 H Respiratory Rate Blood Pressure 90/61 L 94/63 L 101/71 Pulse Oximetry 38 L 07/28/18 08:24 07/28/18 09:00 07/28/18 10:00 Temperature 96.3 F L 96.6 F L Pulse Rate 102 H 105 H 103 H Respiratory Rate 28 H Blood Pressure 89/69 L 94/75 L Pulse Oximetry 94 L 78 L 07/28/18 11:00 07/28/18 11:01 07/28/18 11:04 Temperature 96.6 F L 96.6 F L Pulse Rate 109 H 104 H Respiratory Rate 24 Blood Pressure 126/69 Pulse Oximetry 85 L 83 L 07/28/18 12:00 Temperature 98.4 F Pulse Rate 97 H Respiratory Rate Blood Pressure 142/82 H Pulse Oximetry 74 L Intake & Output 07/27/18 07/28/18 07/28/18 18:59 06:59 18:59 Intake Total 5999 / 5999 7750 / 7750 4621 / 4621 Output Total 10 / 10 240 / 240 25 / 25 Balance 5989 / 5989 7510 / 7510 4596 / 4596 Weight 96.1 kg Intake: IV 5371 / 5371 7750 / 7750 4621 / 4621 Cordarone Inj 450 MG In D5W Inj 250 / 250 241 ML @ 1 MG/MIN 33.33 mls/hr IV.CONT TITRATE PRN Rx#: [id number] EPINEPHrine (1:1000) Inj 4 MG 250 / 250 In NS Inj 246 ML @ 1 MCG/MIN 3. 75 mls/hr IV.CONT TITRATE PRN Rx#:[id number] NovoLIN R (IV Infusion) 100 100 / 100 UNIT In NS Inj 99 ML @ Per Protocol IV.CONT TITRATE PRN Rx #:[id number] Versed Inj 50 mg In 50 ml @ 2 50 / 50 MG/HR 2 mls/hr IV.CONT TITRATE PRN Rx#:[id number] Levophed Inj 16 MG In NS Inj 250 / 250 234 ML @ 2 MCG/MIN 1.87 mls/hr IV.CONT TITRATE PRN Rx#: [id number] Sodium Bicarbonate 8.4% Inj 75 2000 / 2000 MEQ In D5W Inj 925 ML @ 200 mls /hr IV.CONT .Q5H [facility] Rx#: [id number] Pitressin Inj 40 UNIT In NS Inj 100 / 100 100 / 100 98 ML @ 0.04 UNITS/MIN 6 mls/ hr IV.CONT CONT [facility] Rx#: [id number] Flexbumin 25% Inj 100 ML @ 60 100 / 100 mls/hr IV.SIG ONCE ONE Rx#: [id number] Alburx 5% Inj 500 ML @ 250 mls/ 500 / 500 500 / 500 hr IV.SIG Q6H [facility] Rx#:[id number] Cordarone Inj 150 MG In D5W Inj 100 / 100 97 ML @ 600 mls/hr IV.SIG ONCE ONE Rx#:[id number] Calcium Gluconate Inj 2 GM In 120 / 120 NS Inj 100 ML @ 120 mls/hr IV. SIG ONCE ONE Rx#:[id number] Cubicin Inj 800 MG In NS Inj 100 / 100 100 ML @ 200 mls/hr IV.SIG Q48H [facility] Rx#:[id number] Merrem Inj 1,000 MG In NS Inj 100 / 100 100 ML @ 200 mls/hr IV.SIG Q8H [facility] Rx#:[id number] Mycamine Inj 100 MG In NS Inj 100 / 100 0 / 0 100 ML @ 100 mls/hr IV.SIG Q24H [facility] Rx#:[id number] Vitamin K Inj 10 MG In D5W Inj 51 / 51 50 ML @ 102 mls/hr IV.SIG ONCE ONE Rx#:[id number] Vitamin K Inj 10 MG In NS Inj 51 / 51 50 ML @ 102 mls/hr IV.SIG ONCE ONE Rx#:[id number] Zosyn 2.25 GM Premix 50 ML @ 150 / 150 50 / 50 50 / 50 100 mls/hr IV.SIG Q6H [facility] Rx#: [id number] Sodium Bicarbonate 8.4% Inj 150 2300 / 2300 6900 / 6900 3150 / 3150 MEQ In D5W Inj 850 ML @ 500 mls/hr IV.SIG .Q2H [facility] Rx#: [id number] Flolan (30,000 ng/mL) Neb 87.5 100 / 100 100 / 100 ML NS Inj 12.5 ML In Bag/ Syringe 1 EACH @ 8 mls/hr NEB Q8H [facility] Rx#:[id number] Oral 0 / 0 0 / 0 Tube Feeding 0 / 0 0 / 0 Intake (Blood Product) Amt 628 / 628 Plasma Thawed 5 Day Cp2d Unit 308 / 308 [id number] Plasma Thawed 5 Day Cp2d Unit 320 / 320 [id number] Output: Urine 0 / 0 25 / 25 Urine Amount (Catheter) Indwelling Urethral Catheter 40 Gastric Drainage 200 / 200 Right Nare Nasogastric Tube 200 / 200 Wound Drainage 0 / 0 Right Upper Abdomen Davol 0 / 0 Other: # Bowel Movements 0 0 Narrative: GENERAL: WDWN elderly male patient who appears younger than stated age. Awake and alert. In mild distress secondary to abdominal pain. is at the bedside. SKIN: Warm and dry. 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 HEAD: Atraumatic. Normocephalic. EYES: Pupils equal and round. No scleral icterus. No injection or drainage. ENT: No nasal bleeding or discharge. Mucous membranes pink and moist. NECK: Trachea midline. No JVD. CARDIOVASCULAR: Tachycardic. RESPIRATORY: No accessory muscle use. Clear to auscultation anteriorly. Breath sounds equal bilaterally. GASTROINTESTINAL: Abdomen distended, diffusely tender to palpation. Hypoactive bowel sounds. MUSCULOSKELETAL: Extremities without clubbing, cyanosis, or edema. No obvious deformities. NEUROLOGICAL: Awake and alert. No obvious cranial nerve deficits. Motor grossly within normal limits. Able to move all extremities spontaneously. Normal speech. PSYCHIATRIC: Upset, irritated he has not gone for procedure yet. Appropriate mood and affect; insight and judgment normal. - Constitutional chronically ill appearing - Routine HEENT Exam Head: Present: normocephalic - Routine Respiratory Exam Present: CTA bilaterally - Routine Cardiovascular Exam Present: RRR - Routine Abdominal Exam Present: normoactive bowel sounds, distended, organomegaly. Absent: Elder Anderson 's sign, Del's sign - Routine Extremities Exam Present: edema - Routine Skin Exam Present: intact, dry, jaundice - Routine Neurological Exam Sedated on a vent - Urinary Catheter Management Indwelling Urethral Catheter Cath placed during this visit: yes Reason for continuing: Hourly intake/output Insertion date: 07/26/18 Insertion time: 14:30 <Jose Alfredo Rivera - Last Filed: 07/28/18 13:26> Vital signs: Vital Signs 07/27/18 16:41 07/27/18 17:00 07/27/18 18:00 Temperature Pulse Rate 150 H 145 H Respiratory Rate 28 H Blood Pressure Pulse Oximetry 95 91 L 93 L 07/27/18 19:00 07/27/18 20:00 07/27/18 21:00 Temperature 98.3 F Pulse Rate 144 H 140 H 141 H Respiratory Rate Blood Pressure 97/60 L Pulse Oximetry 95 98 93 L 07/27/18 21:01 07/27/18 21:16 07/27/18 21:26 Temperature Pulse Rate 140 H 125 H 147 H Respiratory Rate 28 H Blood Pressure 105/75 87/55 L Pulse Oximetry 92 L 96 07/27/18 22:00 07/27/18 23:00 07/27/18 23:36 Temperature Pulse Rate 144 H 131 H Respiratory Rate 28 H Blood Pressure 87/69 L 96/74 L Pulse Oximetry 96 96 96 07/27/18 23:45 07/28/18 00:00 07/28/18 00:42 Temperature 96.8 F L 96.5 F L Pulse Rate 138 H 136 H Respiratory Rate Blood Pressure 76/50 L 106/70 Pulse Oximetry 82 L 07/28/18 01:00 07/28/18 01:01 07/28/18 01:36 Temperature Pulse Rate 138 H 139 H 113 H Respiratory Rate Blood Pressure 85/63 L 79/64 L Pulse Oximetry 90 L 99 88 L 07/28/18 02:00 07/28/18 03:00 07/28/18 03:23 Temperature Pulse Rate 113 H 114 H 114 H Respiratory Rate Blood Pressure 95/60 L Pulse Oximetry 94 L 76 L 94 L 07/28/18 03:56 07/28/18 04:00 07/28/18 04:01 Temperature Pulse Rate 103 H 99 H 104 H Respiratory Rate 28 H 28 H Blood Pressure 89/70 L 89/70 L Pulse Oximetry 100 72 L 07/28/18 05:00 07/28/18 05:01 07/28/18 06:00 Temperature 96.6 F L 96.6 F L 96.1 F L Pulse Rate 102 H 100 H 99 H Respiratory Rate 28 H Blood Pressure 91/69 L 90/61 L Pulse Oximetry 86 L 63 L 07/28/18 07:00 07/28/18 08:00 07/28/18 08:24 Temperature 95.9 F L 96.1 F L Pulse Rate 97 H 99 H 102 H Respiratory Rate 28 H Blood Pressure 94/63 L 101/71 Pulse Oximetry 38 L 07/28/18 09:00 07/28/18 10:00 07/28/18 11:00 Temperature 96.3 F L 96.6 F L 96.6 F L Pulse Rate 105 H 103 H 109 H Respiratory Rate Blood Pressure 89/69 L 94/75 L Pulse Oximetry 94 L 78 L 85 L 07/28/18 11:01 07/28/18 11:04 07/28/18 12:00 Temperature 96.6 F L 98.4 F Pulse Rate 104 H 97 H Respiratory Rate 24 Blood Pressure 126/69 142/82 H Pulse Oximetry 83 L 74 L 07/28/18 13:00 07/28/18 14:00 07/28/18 14:56 Temperature 97.2 F L 97.3 F L Pulse Rate 103 H 98 H 101 H Respiratory Rate 18 Blood Pressure 114/72 121/69 Pulse Oximetry 79 L 78 L 98 07/28/18 15:00 07/28/18 15:23 Temperature 97.5 F L 98.4 F Pulse Rate 101 H 96 H Respiratory Rate 18 Blood Pressure 106/69 94/54 L Pulse Oximetry 100 Intake & Output 07/27/18 07/28/18 07/28/18 18:59 06:59 18:59 Intake Total 5999 / 5999 7750 / 7750 4721 / 4721 Output Total 240 / 240 25 / 25 Balance 5989 / 5989 7510 / 7510 4696 / 4696 Weight 96.1 kg Intake: IV 5371 / 5371 7750 / 7750 4721 / 4721 Cordarone Inj 450 MG In D5W Inj 250 / 250 241 ML @ 1 MG/MIN 33.33 mls/hr IV.CONT TITRATE PRN Rx#: [id number] EPINEPHrine (1:1000) Inj 4 MG 250 / 250 In NS Inj 246 ML @ 1 MCG/MIN 3. 75 mls/hr IV.CONT TITRATE PRN Rx#:[id number] NovoLIN R (IV Infusion) 100 100 / 100 UNIT In NS Inj 99 ML @ Per Protocol IV.CONT TITRATE PRN Rx #:[id number] Versed Inj 50 mg In 50 ml @ 2 50 / 50 MG/HR 2 mls/hr IV.CONT TITRATE PRN Rx#:[id number] Levophed Inj 16 MG In NS Inj 250 / 250 234 ML @ 2 MCG/MIN 1.87 mls/hr IV.CONT TITRATE PRN Rx#: [id number] Sodium Bicarbonate 8.4% Inj 75 2000 / 2000 MEQ In D5W Inj 925 ML @ 200 mls /hr IV.CONT .Q5H [facility] Rx#: [id number] Pitressin Inj 40 UNIT In NS Inj 100 / 100 100 / 100 98 ML @ 0.04 UNITS/MIN 6 mls/ hr IV.CONT CONT [facility] Rx#: [id number] Flexbumin 25% Inj 100 ML @ 60 100 / 100 mls/hr IV.SIG ONCE ONE Rx#: [id number] Alburx 5% Inj 500 ML @ 250 mls/ 500 / 500 500 / 500 hr IV.SIG Q6H [facility] Rx#:[id number] Cordarone Inj 150 MG In D5W Inj 100 / 100 97 ML @ 600 mls/hr IV.SIG ONCE ONE Rx#:[id number] Calcium Gluconate Inj 2 GM In 120 / 120 NS Inj 100 ML @ 120 mls/hr IV. SIG ONCE ONE Rx#:[id number] Cubicin Inj 800 MG In NS Inj 100 / 100 100 ML @ 200 mls/hr IV.SIG Q48H [facility] Rx#:[id number] Merrem Inj 1,000 MG In NS Inj 100 / 100 100 ML @ 200 mls/hr IV.SIG Q8H [facility] Rx#:[id number] Mycamine Inj 100 MG In NS Inj 100 / 100 0 / 0 100 ML @ 100 mls/hr IV.SIG Q24H [facility] Rx#:[id number] Vitamin K Inj 10 MG In D5W Inj 51 / 51 50 ML @ 102 mls/hr IV.SIG ONCE ONE Rx#:[id number] Vitamin K Inj 10 MG In NS Inj 51 / 51 50 ML @ 102 mls/hr IV.SIG ONCE ONE Rx#:[id number] Zosyn 2.25 GM Premix 50 ML @ 150 / 150 50 / 50 50 / 50 100 mls/hr IV.SIG Q6H [facility] Rx#: [id number] Sodium Bicarbonate 8.4% Inj 150 2300 / 2300 6900 / 6900 3150 / 3150 MEQ In D5W Inj 850 ML @ 500 mls/hr IV.SIG .Q2H [facility] Rx#: [id number] Flolan (30,000 ng/mL) Neb 87.5 100 / 100 100 / 100 100 / 100 ML NS Inj 12.5 ML In Bag/ Syringe 1 EACH @ 8 mls/hr NEB Q8H [facility] Rx#:[id number] Oral 0 / 0 0 / 0 Tube Feeding 0 / 0 0 / 0 Intake (Blood Product) Amt 628 / 628 0 / 0 Plasma Thawed 5 Day Cp2d Unit 0 / 0 [id number] Plasma Thawed 5 Day Cp2d Unit 308 / 308 [id number] Plasma Thawed 5 Day Cp2d Unit 320 / 320 [id number] Output: Urine 0 / 0 25 / 25 Urine Amount (Catheter) 40 / 40 Indwelling Urethral Catheter 40 / 40 Gastric Drainage 200 / 200 Right Nare Nasogastric Tube 200 / 200 Wound Drainage 0 / 0 Right Upper Abdomen Davol 0 / 0 Other: # Bowel Movements 0 0 - Urinary Catheter Management Indwelling Urethral Catheter Cath placed during this visit: no <Carolynn Powell - Last Filed: 07/28/18 16:23> Results - Labs CBC & Chem 7: 07/28/18 12:50 07/28/18 04:00 Laboratory Results - last 24 hr 07/26/18 07/27/18 07/27/18 16:21 16:02 16:20 WBC RBC Hgb Hct MCV MCH MCHC RDW Plt Count MPV Prelim Diff (Auto) WBC Differential Seg Neuts % (Manual) Band Neuts % (Manual) Lymphocytes % (Manual) Monocytes % (Manual) Metamyelocytes % (Man) Promyelocytes % (Man) Blast Cells % (Manual) Abs Neuts (Manual) Nucleated RBCs/100 WBC Differential Comment Toxic Vacuolation Dohle Bodies Platelet Estimate Platelet Morphology Pappenheimer Bodies PT INR APTT Puncture Site Patient Temperature O2 Saturation ABG pH ABG pCO2 ABG pO2 ABG HCO3 ABG O2 Content ABG Base Excess ABG Methemoglobin Hemoglobin Carboxyhemoglobin O2 Delivery Device Vent Setting Inspired O2 Critical Value Sodium Potassium Chloride Carbon Dioxide Anion Gap BUN Creatinine Estimated GFR POC Glucose 219 H Random Glucose Lactic Acid Calcium Prot Corrected Calcium Phosphorus Magnesium Total Bilirubin AST ALT Alkaline Phosphatase Ammonia Troponin I 1.00 H* Total Protein Albumin Lipase Blood Bank Comment 07/27/18 07/27/18 07/27/18 18:09 20:00 20:05 WBC RBC Hgb Hct MCV MCH MCHC RDW Plt Count MPV Prelim Diff (Auto) WBC Differential Seg Neuts % (Manual) Band Neuts % (Manual) Lymphocytes % (Manual) Monocytes % (Manual) Metamyelocytes % (Man) Promyelocytes % (Man) Blast Cells % (Manual) Abs Neuts (Manual) Nucleated RBCs/100 WBC Differential Comment Toxic Vacuolation Dohle Bodies Platelet Estimate Platelet Morphology Pappenheimer Bodies PT INR APTT Puncture Site Art line Patient Temperature 98.6 O2 Saturation 96 ABG pH 7.48 H ABG pCO2 18 L* ABG pO2 187 H ABG HCO3 13 L* ABG O2 Content 13.9 ABG Base Excess -9.6 L ABG Methemoglobin 2.3 H Hemoglobin 10.0 L Carboxyhemoglobin 0.7 O2 Delivery Device Ventilator Vent Setting 28/650/it0.7/5peep Inspired O2 100 Critical Value Yes Sodium Potassium Chloride Carbon Dioxide Anion Gap BUN Creatinine Estimated GFR POC Glucose 378 H Random Glucose Lactic Acid 15.5 H* Calcium Prot Corrected Calcium Phosphorus Magnesium Total Bilirubin AST ALT Alkaline Phosphatase Ammonia Troponin I Total Protein Albumin Lipase Blood Bank Comment 07/27/18 07/27/18 07/27/18 20:18 20:30 21:07 WBC RBC Hgb Hct MCV MCH MCHC RDW Plt Count MPV Prelim Diff (Auto) WBC Differential Seg Neuts % (Manual) Band Neuts % (Manual) Lymphocytes % (Manual) Monocytes % (Manual) Metamyelocytes % (Man) Promyelocytes % (Man) Blast Cells % (Manual) Abs Neuts (Manual) Nucleated RBCs/100 WBC Differential Comment Toxic Vacuolation Dohle Bodies Platelet Estimate Platelet Morphology Pappenheimer Bodies PT INR APTT Puncture Site Patient Temperature O2 Saturation ABG pH ABG pCO2 ABG pO2 ABG HCO3 ABG O2 Content ABG Base Excess ABG Methemoglobin Hemoglobin Carboxyhemoglobin O2 Delivery Device Vent Setting Inspired O2 Critical Value Sodium Potassium Chloride Carbon Dioxide Anion Gap BUN Creatinine Estimated GFR POC Glucose 224 H 261 H Random Glucose Lactic Acid Calcium Prot Corrected Calcium Phosphorus Magnesium Total Bilirubin AST ALT Alkaline Phosphatase Ammonia Troponin I 0.89 H* Total Protein Albumin Lipase Blood Bank Comment 07/27/18 07/27/18 07/28/18 21:54 23:08 00:06 WBC RBC Hgb Hct MCV MCH MCHC RDW Plt Count MPV Prelim Diff (Auto) WBC Differential Seg Neuts % (Manual) Band Neuts % (Manual) Lymphocytes % (Manual) Monocytes % (Manual) Metamyelocytes % (Man) Promyelocytes % (Man) Blast Cells % (Manual) Abs Neuts (Manual) Nucleated RBCs/100 WBC Differential Comment Toxic Vacuolation Dohle Bodies Platelet Estimate Platelet Morphology Pappenheimer Bodies PT INR APTT Puncture Site Patient Temperature O2 Saturation ABG pH ABG pCO2 ABG pO2 ABG HCO3 ABG O2 Content ABG Base Excess ABG Methemoglobin Hemoglobin Carboxyhemoglobin O2 Delivery Device Vent Setting Inspired O2 Critical Value Sodium Potassium Chloride Carbon Dioxide Anion Gap BUN Creatinine Estimated GFR POC Glucose 290 H 271 H 257 H Random Glucose Lactic Acid Calcium Prot Corrected Calcium Phosphorus Magnesium Total Bilirubin AST ALT Alkaline Phosphatase Ammonia Troponin I Total Protein Albumin Lipase Blood Bank Comment 07/28/18 07/28/18 07/28/18 01:05 01:52 02:59 WBC RBC Hgb Hct MCV MCH MCHC RDW Plt Count MPV Prelim Diff (Auto) WBC Differential Seg Neuts % (Manual) Band Neuts % (Manual) Lymphocytes % (Manual) Monocytes % (Manual) Metamyelocytes % (Man) Promyelocytes % (Man) Blast Cells % (Manual) Abs Neuts (Manual) Nucleated RBCs/100 WBC Differential Comment Toxic Vacuolation Dohle Bodies Platelet Estimate Platelet Morphology Pappenheimer Bodies PT INR APTT Puncture Site Patient Temperature O2 Saturation ABG pH ABG pCO2 ABG pO2 ABG HCO3 ABG O2 Content ABG Base Excess ABG Methemoglobin Hemoglobin Carboxyhemoglobin O2 Delivery Device Vent Setting Inspired O2 Critical Value Sodium Potassium Chloride Carbon Dioxide Anion Gap BUN Creatinine Estimated GFR POC Glucose 306 H 240 H 248 H Random Glucose Lactic Acid Calcium Prot Corrected Calcium Phosphorus Magnesium Total Bilirubin AST ALT Alkaline Phosphatase Ammonia Troponin I Total Protein Albumin Lipase Blood Bank Comment 07/28/18 07/28/18 07/28/18 03:50 04:00 04:00 WBC RBC Hgb Hct MCV MCH MCHC RDW Plt Count MPV Prelim Diff (Auto) WBC Differential Seg Neuts % (Manual) Band Neuts % (Manual) Lymphocytes % (Manual) Monocytes % (Manual) Metamyelocytes % (Man) Promyelocytes % (Man) Blast Cells % (Manual) Abs Neuts (Manual) Nucleated RBCs/100 WBC Differential Comment Toxic Vacuolation Dohle Bodies Platelet Estimate Platelet Morphology Pappenheimer Bodies PT INR APTT Puncture Site Art line Patient Temperature 98.6 O2 Saturation 96 ABG pH 7.47 H ABG pCO2 19 L* ABG pO2 238 H ABG HCO3 13 L* ABG O2 Content 12.8 ABG Base Excess -9.9 L ABG Methemoglobin 2.4 H Hemoglobin 9.1 L Carboxyhemoglobin 0.5 O2 Delivery Device Ventilator Vent Setting 28/650/it0.71/5peep Inspired O2 100 Critical Value Yes Sodium Cancelled Potassium Cancelled Chloride Cancelled Carbon Dioxide Cancelled Anion Gap Cancelled BUN Cancelled Creatinine Cancelled Estimated GFR Cancelled POC Glucose Random Glucose Cancelled Lactic Acid 20.1 H* Calcium Cancelled Prot Corrected Calcium Phosphorus Magnesium Total Bilirubin AST ALT Alkaline Phosphatase Ammonia Troponin I Cancelled Total Protein Albumin Lipase 6839 H Blood Bank Comment 07/28/18 07/28/18 07/28/18 04:00 04:00 04:00 WBC 31.0 H RBC 2.94 L Hgb 9.3 L D Hct 27.9 L MCV 94.8 MCH 31.6 MCHC 33.3 RDW 14.0 Plt Count 91 L D MPV 9.5 Prelim Diff (Auto) Manual diff required WBC Differential Manual diff final Seg Neuts % (Manual) 46 Band Neuts % (Manual) 37 H Lymphocytes % (Manual) 2 L Monocytes % (Manual) 4 Metamyelocytes % (Man) 6 H Promyelocytes % (Man) 4 H Blast Cells % (Manual) 1 H Abs Neuts (Manual) 28.8 H Nucleated RBCs/100 WBC 4 H Differential Comment . Toxic Vacuolation Present H Dohle Bodies Present H Platelet Estimate Low L Platelet Morphology Normal Pappenheimer Bodies Present H PT 24.6 H INR 2.4 APTT 39.6 H Puncture Site Patient Temperature O2 Saturation ABG pH ABG pCO2 ABG pO2 ABG HCO3 ABG O2 Content ABG Base Excess ABG Methemoglobin Hemoglobin Carboxyhemoglobin O2 Delivery Device Vent Setting Inspired O2 Critical Value Sodium 136 Potassium 4.0 Chloride 89 L D Carbon Dioxide 14.2 L Anion Gap 33 H BUN 44 H Creatinine 4.37 H Estimated GFR 13 L POC Glucose Random Glucose 258 H D Lactic Acid Calcium 5.0 L* D Prot Corrected Calcium 5.9 L* D Phosphorus 7.0 H D Magnesium 1.9 Total Bilirubin 11.6 H AST 62278 H ALT 6469 H Alkaline Phosphatase 210 H Ammonia Troponin I 0.94 H* Total Protein 4.7 L Albumin 2.4 L Lipase Blood Bank Comment 07/28/18 07/28/18 07/28/18 04:00 04:16 05:07 WBC RBC Hgb Hct MCV MCH MCHC RDW Plt Count MPV Prelim Diff (Auto) WBC Differential Seg Neuts % (Manual) Band Neuts % (Manual) Lymphocytes % (Manual) Monocytes % (Manual) Metamyelocytes % (Man) Promyelocytes % (Man) Blast Cells % (Manual) Abs Neuts (Manual) Nucleated RBCs/100 WBC Differential Comment Toxic Vacuolation Dohle Bodies Platelet Estimate Platelet Morphology Pappenheimer Bodies PT INR APTT Puncture Site Patient Temperature O2 Saturation ABG pH ABG pCO2 ABG pO2 ABG HCO3 ABG O2 Content ABG Base Excess ABG Methemoglobin Hemoglobin Carboxyhemoglobin O2 Delivery Device Vent Setting Inspired O2 Critical Value Sodium Potassium Chloride Carbon Dioxide Anion Gap BUN Creatinine Estimated GFR POC Glucose 224 H 224 H Random Glucose Lactic Acid Calcium Prot Corrected Calcium Phosphorus Magnesium Total Bilirubin AST ALT Alkaline Phosphatase Ammonia 128 H Troponin I Total Protein Albumin Lipase Blood Bank Comment 07/28/18 07/28/18 07/28/18 06:01 06:56 08:13 WBC RBC Hgb Hct MCV MCH MCHC RDW Plt Count MPV Prelim Diff (Auto) WBC Differential Seg Neuts % (Manual) Band Neuts % (Manual) Lymphocytes % (Manual) Monocytes % (Manual) Metamyelocytes % (Man) Promyelocytes % (Man) Blast Cells % (Manual) Abs Neuts (Manual) Nucleated RBCs/100 WBC Differential Comment Toxic Vacuolation Dohle Bodies Platelet Estimate Platelet Morphology Pappenheimer Bodies PT INR APTT Puncture Site Patient Temperature O2 Saturation ABG pH ABG pCO2 ABG pO2 ABG HCO3 ABG O2 Content ABG Base Excess ABG Methemoglobin Hemoglobin Carboxyhemoglobin O2 Delivery Device Vent Setting Inspired O2 Critical Value Sodium Potassium Chloride Carbon Dioxide Anion Gap BUN Creatinine Estimated GFR POC Glucose 220 H 240 H 241 H Random Glucose Lactic Acid Calcium Prot Corrected Calcium Phosphorus Magnesium Total Bilirubin AST ALT Alkaline Phosphatase Ammonia Troponin I Total Protein Albumin Lipase Blood Bank Comment 07/28/18 07/28/18 07/28/18 09:12 09:16 10:08 WBC RBC Hgb Hct MCV MCH MCHC RDW Plt Count MPV Prelim Diff (Auto) WBC Differential Seg Neuts % (Manual) Band Neuts % (Manual) Lymphocytes % (Manual) Monocytes % (Manual) Metamyelocytes % (Man) Promyelocytes % (Man) Blast Cells % (Manual) Abs Neuts (Manual) Nucleated RBCs/100 WBC Differential Comment Toxic Vacuolation Dohle Bodies Platelet Estimate Platelet Morphology Pappenheimer Bodies PT INR APTT Puncture Site Patient Temperature O2 Saturation ABG pH ABG pCO2 ABG pO2 ABG HCO3 ABG O2 Content ABG Base Excess ABG Methemoglobin Hemoglobin Carboxyhemoglobin O2 Delivery Device Vent Setting Inspired O2 Critical Value Sodium Potassium Chloride Carbon Dioxide Anion Gap BUN Creatinine Estimated GFR POC Glucose 506 H* 269 H 254 H Random Glucose Lactic Acid Calcium Prot Corrected Calcium Phosphorus Magnesium Total Bilirubin AST ALT Alkaline Phosphatase Ammonia Troponin I Total Protein Albumin Lipase Blood Bank Comment 07/28/18 07/28/18 07/28/18 11:01 12:11 12:40 WBC RBC Hgb Hct MCV MCH MCHC RDW Plt Count MPV Prelim Diff (Auto) WBC Differential Seg Neuts % (Manual) Band Neuts % (Manual) Lymphocytes % (Manual) Monocytes % (Manual) Metamyelocytes % (Man) Promyelocytes % (Man) Blast Cells % (Manual) Abs Neuts (Manual) Nucleated RBCs/100 WBC Differential Comment Toxic Vacuolation Dohle Bodies Platelet Estimate Platelet Morphology Pappenheimer Bodies PT INR APTT Puncture Site Art line Patient Temperature 98.6 O2 Saturation 95 ABG pH 7.50 H ABG pCO2 26 L ABG pO2 131 H ABG HCO3 20 L ABG O2 Content 11.4 L ABG Base Excess -2.8 L ABG Methemoglobin 2.6 H Hemoglobin 8.4 L Carboxyhemoglobin 0.9 O2 Delivery Device Ventilator Vent Setting [id number]/[id number]/24/peep5 Inspired O2 80 Critical Value No Sodium Potassium Chloride Carbon Dioxide Anion Gap BUN Creatinine Estimated GFR POC Glucose 189 H 233 H Random Glucose Lactic Acid Calcium Prot Corrected Calcium Phosphorus Magnesium Total Bilirubin AST ALT Alkaline Phosphatase Ammonia Troponin I Total Protein Albumin Lipase Blood Bank Comment Microbiology 07/26/18 15:46 Blood - Peripheral Aerobic Blood Culture - Preliminary No growth in 2 days 07/26/18 15:46 Blood - Peripheral Anaerobic Blood Culture - Preliminary No growth in 2 days 07/26/18 15:41 Blood - Peripheral Aerobic Blood Culture - Preliminary No growth in 2 days 07/26/18 15:41 Blood - Peripheral Anaerobic Blood Culture - Preliminary No growth in 2 days 07/26/18 Unknown Clean Catch Urine Urine Culture - Final No growth in 48 hours 07/26/18 18:36 Fluid - Bile Fluid Gram Stain - Final 07/26/18 18:36 Fluid - Bile Fluid Body Fluid Culture - Preliminary Staphylococcus aureus - Imaging Impressions Abdomen Ultrasound 07/27/18 12:05 CONCLUSION: 1. Bowel gas limits the study. 2. Hepatic steatosis. No biliary dilatation. 3. Sludge and small stones within a decompressed gallbladder which contains a cholecystostomy tube. 4. Small volume ascites. 5. Pancreas is totally obscured and not well evaluated. Chest X-Ray 07/28/18 06:00 CONCLUSION: 1. Stable tubes and lines. 2. Worsening bilateral [id number] pleural effusions with associated lower lobe airspace disease. <Jose Alfredo Rivera - Last Filed: 07/28/18 13:26> - Labs CBC & Chem 7: 07/28/18 12:50 07/28/18 12:50 Laboratory Results - last 24 hr 07/26/18 07/27/18 07/27/18 16:21 16:02 16:20 WBC RBC Hgb Hct MCV MCH MCHC RDW Plt Count MPV Prelim Diff (Auto) WBC Differential Seg Neuts % (Manual) Band Neuts % (Manual) Lymphocytes % (Manual) Monocytes % (Manual) Metamyelocytes % (Man) Promyelocytes % (Man) Blast Cells % (Manual) Abs Neuts (Manual) Nucleated RBCs/100 WBC Differential Comment Toxic Vacuolation Dohle Bodies Platelet Estimate Platelet Morphology Pappenheimer Bodies PT INR APTT Puncture Site Patient Temperature O2 Saturation ABG pH ABG pCO2 ABG pO2 ABG HCO3 ABG O2 Content ABG Base Excess ABG Methemoglobin Hemoglobin Carboxyhemoglobin O2 Delivery Device Vent Setting Inspired O2 Critical Value Sodium Potassium Chloride Carbon Dioxide Anion Gap BUN Creatinine Estimated GFR POC Glucose 219 H Random Glucose Lactic Acid Calcium Prot Corrected Calcium Phosphorus Magnesium Total Bilirubin AST ALT Alkaline Phosphatase Ammonia Troponin I 1.00 H* Total Protein Albumin Lipase Blood Type Antibody Screen [facility] Gel Crossmatch Blood Bank Comment Bld Prod Order Comment 07/27/18 07/27/18 07/27/18 18:09 20:00 20:05 WBC RBC Hgb Hct MCV MCH MCHC RDW Plt Count MPV Prelim Diff (Auto) WBC Differential Seg Neuts % (Manual) Band Neuts % (Manual) Lymphocytes % (Manual) Monocytes % (Manual) Metamyelocytes % (Man) Promyelocytes % (Man) Blast Cells % (Manual) Abs Neuts (Manual) Nucleated RBCs/100 WBC Differential Comment Toxic Vacuolation Dohle Bodies Platelet Estimate Platelet Morphology Pappenheimer Bodies PT INR APTT Puncture Site Art line Patient Temperature 98.6 O2 Saturation 96 ABG pH 7.48 H ABG pCO2 18 L* ABG pO2 187 H ABG HCO3 13 L* ABG O2 Content 13.9 ABG Base Excess -9.6 L ABG Methemoglobin 2.3 H Hemoglobin 10.0 L Carboxyhemoglobin 0.7 O2 Delivery Device Ventilator Vent Setting 28/650/it0.7/5peep Inspired O2 100 Critical Value Yes Sodium Potassium Chloride Carbon Dioxide Anion Gap BUN Creatinine Estimated GFR POC Glucose 378 H Random Glucose Lactic Acid 15.5 H* Calcium Prot Corrected Calcium Phosphorus Magnesium Total Bilirubin AST ALT Alkaline Phosphatase Ammonia Troponin I Total Protein Albumin Lipase Blood Type Antibody Screen [facility] Gel Crossmatch Blood Bank Comment Bld Prod Order Comment 07/27/18 07/27/18 07/27/18 20:18 20:30 21:07 WBC RBC Hgb Hct MCV MCH MCHC RDW Plt Count MPV Prelim Diff (Auto) WBC Differential Seg Neuts % (Manual) Band Neuts % (Manual) Lymphocytes % (Manual) Monocytes % (Manual) Metamyelocytes % (Man) Promyelocytes % (Man) Blast Cells % (Manual) Abs Neuts (Manual) Nucleated RBCs/100 WBC Differential Comment Toxic Vacuolation Dohle Bodies Platelet Estimate Platelet Morphology Pappenheimer Bodies PT INR APTT Puncture Site Patient Temperature O2 Saturation ABG pH ABG pCO2 ABG pO2 ABG HCO3 ABG O2 Content ABG Base Excess ABG Methemoglobin Hemoglobin Carboxyhemoglobin O2 Delivery Device Vent Setting Inspired O2 Critical Value Sodium Potassium Chloride Carbon Dioxide Anion Gap BUN Creatinine Estimated GFR POC Glucose 224 H 261 H Random Glucose Lactic Acid Calcium Prot Corrected Calcium Phosphorus Magnesium Total Bilirubin AST ALT Alkaline Phosphatase Ammonia Troponin I 0.89 H* Total Protein Albumin Lipase Blood Type Antibody Screen [facility] [employer] Blood Bank Comment Bld Prod Order Comment 07/27/18 07/27/18 07/28/18 21:54 23:08 00:06 WBC RBC Hgb Hct MCV MCH MCHC RDW Plt Count MPV Prelim Diff (Auto) WBC Differential Seg Neuts % (Manual) Band Neuts % (Manual) Lymphocytes % (Manual) Monocytes % (Manual) Metamyelocytes % (Man) Promyelocytes % (Man) Blast Cells % (Manual) Abs Neuts (Manual) Nucleated RBCs/100 WBC Differential Comment Toxic Vacuolation Dohle Bodies Platelet Estimate Platelet Morphology Pappenheimer Bodies PT INR APTT Puncture Site Patient Temperature O2 Saturation ABG pH ABG pCO2 ABG pO2 ABG HCO3 ABG O2 Content ABG Base Excess ABG Methemoglobin Hemoglobin Carboxyhemoglobin O2 Delivery Device Vent Setting Inspired O2 Critical Value Sodium Potassium Chloride Carbon Dioxide Anion Gap BUN Creatinine Estimated GFR POC Glucose 290 H 271 H 257 H Random Glucose Lactic Acid Calcium Prot Corrected Calcium Phosphorus Magnesium Total Bilirubin AST ALT Alkaline Phosphatase Ammonia Troponin I Total Protein Albumin Lipase Blood Type Antibody Screen [facility] Blood Bank Comment Bld Prod Order Comment 07/28/18 07/28/18 07/28/18 01:05 01:52 02:59 WBC RBC Hgb Hct MCV MCH MCHC RDW Plt Count MPV Prelim Diff (Auto) WBC Differential Seg Neuts % (Manual) Band Neuts % (Manual) Lymphocytes % (Manual) Monocytes % (Manual) Metamyelocytes % (Man) Promyelocytes % (Man) Blast Cells % (Manual) Abs Neuts (Manual) Nucleated RBCs/100 WBC Differential Comment Toxic Vacuolation Dohle Bodies Platelet Estimate Platelet Morphology Pappenheimer Bodies PT INR APTT Puncture Site Patient Temperature O2 Saturation ABG pH ABG pCO2 ABG pO2 ABG HCO3 ABG O2 Content ABG Base Excess ABG Methemoglobin Hemoglobin Carboxyhemoglobin O2 Delivery Device Vent Setting Inspired O2 Critical Value Sodium Potassium Chloride Carbon Dioxide Anion Gap BUN Creatinine Estimated GFR POC Glucose 306 H 240 H 248 H Random Glucose Lactic Acid Calcium Prot Corrected Calcium Phosphorus Magnesium Total Bilirubin AST ALT Alkaline Phosphatase Ammonia Troponin I Total Protein Albumin Lipase Blood Type Antibody Screen [facility] Gel Crossmatch Blood Bank Comment Bld Prod Order Comment 07/28/18 07/28/18 07/28/18 03:50 04:00 04:00 WBC RBC Hgb Hct MCV MCH MCHC RDW Plt Count MPV Prelim Diff (Auto) WBC Differential Seg Neuts % (Manual) Band Neuts % (Manual) Lymphocytes % (Manual) Monocytes % (Manual) Metamyelocytes % (Man) Promyelocytes % (Man) Blast Cells % (Manual) Abs Neuts (Manual) Nucleated RBCs/100 WBC Differential Comment Toxic Vacuolation Dohle Bodies Platelet Estimate Platelet Morphology Pappenheimer Bodies PT INR APTT Puncture Site Art line Patient Temperature 98.6 O2 Saturation 96 ABG pH 7.47 H ABG pCO2 19 L* ABG pO2 238 H ABG HCO3 13 L* ABG O2 Content 12.8 ABG Base Excess -9.9 L ABG Methemoglobin 2.4 H Hemoglobin 9.1 L Carboxyhemoglobin 0.5 O2 Delivery Device Ventilator Vent Setting 28/650/it0.71/5peep Inspired O2 100 Critical Value Yes Sodium Cancelled Potassium Cancelled Chloride Cancelled Carbon Dioxide Cancelled Anion Gap Cancelled BUN Cancelled Creatinine Cancelled Estimated GFR Cancelled POC Glucose Random Glucose Cancelled Lactic Acid 20.1 H* Calcium Cancelled Prot Corrected Calcium Phosphorus Magnesium Total Bilirubin AST ALT Alkaline Phosphatase Ammonia Troponin I Cancelled Total Protein Albumin Lipase 6839 H Blood Type Antibody Screen [facility] Gel Crossmatch Blood Bank Comment Bld Prod Order Comment 07/28/18 07/28/18 07/28/18 04:00 04:00 04:00 WBC 31.0 H RBC 2.94 L Hgb 9.3 L D Hct 27.9 L MCV 94.8 MCH 31.6 MCHC 33.3 RDW 14.0 Plt Count 91 L D MPV 9.5 Prelim Diff (Auto) Manual diff required WBC Differential Manual diff final Seg Neuts % (Manual) 46 Band Neuts % (Manual) 37 H Lymphocytes % (Manual) 2 L Monocytes % (Manual) 4 Metamyelocytes % (Man) 6 H Promyelocytes % (Man) 4 H Blast Cells % (Manual) 1 H Abs Neuts (Manual) 28.8 H Nucleated RBCs/100 WBC 4 H Differential Comment . Toxic Vacuolation Present H Dohle Bodies Present H Platelet Estimate Low L Platelet Morphology Normal Pappenheimer Bodies Present H PT 24.6 H INR 2.4 APTT 39.6 H Puncture Site Patient Temperature O2 Saturation ABG pH ABG pCO2 ABG pO2 ABG HCO3 ABG O2 Content ABG Base Excess ABG Methemoglobin Hemoglobin Carboxyhemoglobin O2 Delivery Device Vent Setting Inspired O2 Critical Value Sodium 136 Potassium 4.0 Chloride 89 L D Carbon Dioxide 14.2 L Anion Gap 33 H BUN 44 H Creatinine 4.37 H Estimated GFR 13 L POC Glucose Random Glucose 258 H D Lactic Acid Calcium 5.0 L* D Prot Corrected Calcium 5.9 L* D Phosphorus 7.0 H D Magnesium 1.9 Total Bilirubin 11.6 H AST 95976 H ALT 6469 H Alkaline Phosphatase 210 H Ammonia Troponin I 0.94 H* Total Protein 4.7 L Albumin 2.4 L Lipase Blood Type Antibody Screen [employer] Blood Bank Comment Pinsd Prod Order Comment 07/28/18 07/28/18 07/28/18 04:00 04:16 05:07 WBC RBC Hgb Hct MCV MCH MCHC RDW Plt Count MPV Prelim Diff (Auto) WBC Differential Seg Neuts % (Manual) Band Neuts % (Manual) Lymphocytes % (Manual) Monocytes % (Manual) Metamyelocytes % (Man) Promyelocytes % (Man) Blast Cells % (Manual) Abs Neuts (Manual) Nucleated RBCs/100 WBC Differential Comment Toxic Vacuolation Dohle Bodies Platelet Estimate Platelet Morphology Pappenheimer Bodies PT INR APTT Puncture Site Patient Temperature O2 Saturation ABG pH ABG pCO2 ABG pO2 ABG HCO3 ABG O2 Content ABG Base Excess ABG Methemoglobin Hemoglobin Carboxyhemoglobin O2 Delivery Device Vent Setting Inspired O2 Critical Value Sodium Potassium Chloride Carbon Dioxide Anion Gap BUN Creatinine Estimated GFR POC Glucose 224 H 224 H Random Glucose Lactic Acid Calcium Prot Corrected Calcium Phosphorus Magnesium Total Bilirubin AST ALT Alkaline Phosphatase Ammonia 128 H Troponin I Total Protein Albumin Lipase Blood Type Antibody Screen [employer] Blood Bank Comment Pinsd Prod Order Comment 07/28/18 07/28/18 07/28/18 06:01 06:56 08:13 WBC RBC Hgb Hct MCV MCH MCHC RDW Plt Count MPV Prelim Diff (Auto) WBC Differential Seg Neuts % (Manual) Band Neuts % (Manual) Lymphocytes % (Manual) Monocytes % (Manual) Metamyelocytes % (Man) Promyelocytes % (Man) Blast Cells % (Manual) Abs Neuts (Manual) Nucleated RBCs/100 WBC Differential Comment Toxic Vacuolation Dohle Bodies Platelet Estimate Platelet Morphology Pappenheimer Bodies PT INR APTT Puncture Site Patient Temperature O2 Saturation ABG pH ABG pCO2 ABG pO2 ABG HCO3 ABG O2 Content ABG Base Excess ABG Methemoglobin Hemoglobin Carboxyhemoglobin O2 Delivery Device Vent Setting Inspired O2 Critical Value Sodium Potassium Chloride Carbon Dioxide Anion Gap BUN Creatinine Estimated GFR POC Glucose 220 H 240 H 241 H Random Glucose Lactic Acid Calcium Prot Corrected Calcium Phosphorus Magnesium Total Bilirubin AST ALT Alkaline Phosphatase Ammonia Troponin I Total Protein Albumin Lipase Blood Type Antibody Screen [facility] [employer] Blood Bank Comment Bld Prod Order Comment 07/28/18 07/28/18 07/28/18 09:12 09:16 10:08 WBC RBC Hgb Hct MCV MCH MCHC RDW Plt Count MPV Prelim Diff (Auto) WBC Differential Seg Neuts % (Manual) Band Neuts % (Manual) Lymphocytes % (Manual) Monocytes % (Manual) Metamyelocytes % (Man) Promyelocytes % (Man) Blast Cells % (Manual) Abs Neuts (Manual) Nucleated RBCs/100 WBC Differential Comment Toxic Vacuolation Dohle Bodies Platelet Estimate Platelet Morphology Pappenheimer Bodies PT INR APTT Puncture Site Patient Temperature O2 Saturation ABG pH ABG pCO2 ABG pO2 ABG HCO3 ABG O2 Content ABG Base Excess ABG Methemoglobin Hemoglobin Carboxyhemoglobin O2 Delivery Device Vent Setting Inspired O2 Critical Value Sodium Potassium Chloride Carbon Dioxide Anion Gap BUN Creatinine Estimated GFR POC Glucose 506 H* 269 H 254 H Random Glucose Lactic Acid Calcium Prot Corrected Calcium Phosphorus Magnesium Total Bilirubin AST ALT Alkaline Phosphatase Ammonia Troponin I Total Protein Albumin Lipase Blood Type Antibody Screen [facility] [employer] Blood Bank Comment Bld Prod Order Comment 07/28/18 07/28/18 07/28/18 11:01 12:11 12:40 WBC RBC Hgb Hct MCV MCH MCHC RDW Plt Count MPV Prelim Diff (Auto) WBC Differential Seg Neuts % (Manual) Band Neuts % (Manual) Lymphocytes % (Manual) Monocytes % (Manual) Metamyelocytes % (Man) Promyelocytes % (Man) Blast Cells % (Manual) Abs Neuts (Manual) Nucleated RBCs/100 WBC Differential Comment Toxic Vacuolation Dohle Bodies Platelet Estimate Platelet Morphology Pappenheimer Bodies PT INR APTT Puncture Site Art line Patient Temperature 98.6 O2 Saturation 95 ABG pH 7.50 H ABG pCO2 26 L ABG pO2 131 H ABG HCO3 20 L ABG O2 Content 11.4 L ABG Base Excess -2.8 L ABG Methemoglobin 2.6 H Hemoglobin 8.4 L Carboxyhemoglobin 0.9 O2 Delivery Device Ventilator Vent Setting [id number] Inspired O2 80 Critical Value No Sodium Potassium Chloride Carbon Dioxide Anion Gap BUN Creatinine Estimated GFR POC Glucose 189 H 233 H Random Glucose Lactic Acid Calcium Prot Corrected Calcium Phosphorus Magnesium Total Bilirubin AST ALT Alkaline Phosphatase Ammonia Troponin I Total Protein Albumin Lipase Blood Type Antibody Screen [employer] Blood Bank Comment Bld Prod Order Comment 07/28/18 07/28/18 07/28/18 12:50 12:50 12:50 WBC RBC Hgb 8.3 L Hct 24.1 L MCV MCH MCHC RDW Plt Count MPV Prelim Diff (Auto) WBC Differential Seg Neuts % (Manual) Band Neuts % (Manual) Lymphocytes % (Manual) Monocytes % (Manual) Metamyelocytes % (Man) Promyelocytes % (Man) Blast Cells % (Manual) Abs Neuts (Manual) Nucleated RBCs/100 WBC Differential Comment Toxic Vacuolation Dohle Bodies Platelet Estimate Platelet Morphology Pappenheimer Bodies PT 29.4 H INR 2.9 APTT Puncture Site Patient Temperature O2 Saturation ABG pH ABG pCO2 ABG pO2 ABG HCO3 ABG O2 Content ABG Base Excess ABG Methemoglobin Hemoglobin Carboxyhemoglobin O2 Delivery Device Vent Setting Inspired O2 Critical Value Sodium 137 Potassium 4.1 Chloride 85 L Carbon Dioxide 21.4 Anion Gap 31 H BUN 41 H Creatinine 4.43 H Estimated GFR 13 L POC Glucose Random Glucose 226 H Lactic Acid Calcium 5.1 L* Prot Corrected Calcium 5.9 L* Phosphorus Magnesium Total Bilirubin 15.2 H AST 62994 H ALT 7156 H Alkaline Phosphatase 249 H Ammonia Troponin I Total Protein 5.0 L Albumin 3.3 L D Lipase Blood Type Antibody Screen [employer] Blood Bank Comment Bld Prod Order Comment 07/28/18 07/28/18 07/28/18 13:07 13:59 14:00 WBC RBC Hgb Hct MCV MCH MCHC RDW Plt Count MPV Prelim Diff (Auto) WBC Differential Seg Neuts % (Manual) Band Neuts % (Manual) Lymphocytes % (Manual) Monocytes % (Manual) Metamyelocytes % (Man) Promyelocytes % (Man) Blast Cells % (Manual) Abs Neuts (Manual) Nucleated RBCs/100 WBC Differential Comment Toxic Vacuolation Dohle Bodies Platelet Estimate Platelet Morphology Pappenheimer Bodies PT INR APTT Puncture Site Patient Temperature O2 Saturation ABG pH ABG pCO2 ABG pO2 ABG HCO3 ABG O2 Content ABG Base Excess ABG Methemoglobin Hemoglobin Carboxyhemoglobin O2 Delivery Device Vent Setting Inspired O2 Critical Value Sodium Potassium Chloride Carbon Dioxide Anion Gap BUN Creatinine Estimated GFR POC Glucose 214 H 221 H Random Glucose Lactic Acid Calcium Prot Corrected Calcium Phosphorus Magnesium Total Bilirubin AST ALT Alkaline Phosphatase Ammonia Troponin I Total Protein Albumin Lipase Blood Type Antibody Screen [employer] Crossmatch Blood Bank Comment Bld Prod Order Comment 07/28/18 07/28/18 14:15 15:08 WBC RBC Hgb Hct MCV MCH MCHC RDW Plt Count MPV Prelim Diff (Auto) WBC Differential Seg Neuts % (Manual) Band Neuts % (Manual) Lymphocytes % (Manual) Monocytes % (Manual) Metamyelocytes % (Man) Promyelocytes % (Man) Blast Cells % (Manual) Abs Neuts (Manual) Nucleated RBCs/100 WBC Differential Comment Toxic Vacuolation Dohle Bodies Platelet Estimate Platelet Morphology Pappenheimer Bodies PT INR APTT Puncture Site Patient Temperature O2 Saturation ABG pH ABG pCO2 ABG pO2 ABG HCO3 ABG O2 Content ABG Base Excess ABG Methemoglobin Hemoglobin Carboxyhemoglobin O2 Delivery Device Vent Setting Inspired O2 Critical Value Sodium Potassium Chloride Carbon Dioxide Anion Gap BUN Creatinine Estimated GFR POC Glucose 166 H Random Glucose Lactic Acid Calcium Prot Corrected Calcium Phosphorus Magnesium Total Bilirubin AST ALT Alkaline Phosphatase Ammonia Troponin I Total Protein Albumin Lipase Blood Type O Positive Antibody Screen Negative [employer] Gel Crossmatch See Detail Blood Bank Comment Bld Prod Order Comment Microbiology 07/26/18 23:05 Sputum - Endotracheal Gram Stain - Final 07/26/18 23:05 Sputum - Endotracheal Sputum Culture - Preliminary No growth in 24 hours 07/26/18 15:46 Blood - Peripheral Aerobic Blood Culture - Preliminary No growth in 2 days 07/26/18 15:46 Blood - Peripheral Anaerobic Blood Culture - Preliminary No growth in 2 days 07/26/18 15:41 Blood - Peripheral Aerobic Blood Culture - Preliminary No growth in 2 days 07/26/18 15:41 Blood - Peripheral Anaerobic Blood Culture - Preliminary No growth in 2 days 07/26/18 Unknown Clean Catch Urine Urine Culture - Final No growth in 48 hours 07/26/18 18:36 Fluid - Bile Fluid Gram Stain - Final 07/26/18 18:36 Fluid - Bile Fluid Body Fluid Culture - Preliminary Staphylococcus aureus - Imaging Impressions Chest X-Ray 07/28/18 06:00 CONCLUSION: 1. Stable tubes and lines. 2. Worsening bilateral [id number] pleural effusions with associated lower lobe airspace disease. <Carolynn Powell - Last Filed: 07/28/18 16:23> Assessment and Plan - Plan Assessment: - Acute pancreatitis with elevated LFTs and imaging concerning for choledocholithiasis Presented to [facility] with complaints of abdominal pain, nausea, and vomiting. States pain is located throughout entire abdomen, started at midnight, came on suddenly. States that the pain is worse than all of the kidney stones he has had in the past. Also reports nausea and emesis, unsure of hematemesis and coffee ground emesis. States he has had a BM, unsure if it was formed or diarrhea. Denies history of pancreatitis. Does report known history of gallstones, but denies previous ERCP. Pt reports feeling clammy at home, denies any fevers. CT abdomen and pelvis W IV contrast (07/25) Acute pancreatitis. No pseudocyst, pancreatic infarction, or pancreatic hemorrhage observed. No ductal dilatation. There is a 2 mm calcification at the level of the ampulla that could relate to a CBD stone at the ampullary region. There is no ductal dilatation to suggest an obstructing component. Cholelithiasis. 3 mm nonobstructing left renal stone. 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 Umbilical and left inguinal hernias. Pt reports ETOH, approximately 2-3 beers a week. Denies smoking. (07/25) AST-503 ALT-349 T bili-2.3 Alk phos-68 Lipase >30,000 - Acute change in his condition since this morning, tachypneic and tachycardic, seen by anesthesia team and thought too unstable for procedure and sedation. his leucocytosis improved and worsening of LFT's noted. - MRCP reviewed 07/28/18 - Acute pancreatitis with elevated LFTs and imaging concerning for choledocholithiasis Deemed not medically stable for ERCP, he is s/p IR consult, PTC couldn't be performed safely due to lack of dilated bile duct, there fore, Cholecystostomy tube was performed on 07/26 Lipase, trending down [id number]---> [id number] - Liver failure/Elevated LFTs Shocked pattern Slowly trending down - CHRISTIANO- Nephrology on the case.CVVH initiated - leukocytosis-Gallbladder fluid growing staph aureus. ID on the case - Coagulopathy / thrombocytosis- INR 2.9, plt 91 possibly secondary to acute liver failure - Anemia- hgb declining, hgb today 8.3, no bleeding noted form NGT, no bleeding reported - Respiratory failure per [facility] Plan: - NPO - NGT to [facility] - ICU care - Monitor LFTs - Monitor lipase - Monitor hh - ID, nephrology on the case - Protonix - IV fluids - Vit K - Need repeat CT when stable to leave floor - Supportive care - Pt seen and examined by Dr Powell and myself and this note is written on her behalf. <Jose Alfredo Rivera - Last Filed: 07/28/18 13:26> - Attending Attestation Patient seen earlier in the day. Abdominal us , labs reviewed with family . Added Reglan, Rifaximin . Continue vitamin k, Relistor today Remains critically ill. Consider starting enteral feeding tomorrow-will need Dobbhoff tube <Carolynn Powell - Last Filed: 07/28/18 16:23>
[2018-07-28 14:17] LABS: Albumin 3.3 g/dL (3.4-5.0); Calcium 5.1 mg/dL (8.5-10.1); Carbon Dioxide 21.4 meq/L (21.0-32.0); Potassium 4.1 meq/L (3.5-5.1)
--- NOTE | 2018-07-28 14:17 | P.DIET ---
Nutritional Evaluation Screening comments: NPO ALERT X 3 DAYS. PLEASE CONSULT DIETITIAN NEEDED.
[2018-07-28] MEDS ORDERED: Calcium Chloride Inj 1 GM/10 ML Syringe ONE (14:31)
[2018-07-28] MEDS: Sod Chloride 0.9% Inj 1,000 ML IV.SIG SCH ×7 (14:38→23:45)
[2018-07-28] MEDS: Phenylephrine Inj 160 MG in Sodium Chlor 0.9% Inj 484 ML IV.CONT PRN (14:40)
[2018-07-28] MEDS ORDERED: Calcium Chloride Inj 1 GM/10 ML Syringe IV.PUSH ONE (14:45)
[2018-07-28 16:20] LABS: ABG Base Excess -4.6 mmol/L (-2-2); ABG PCO2 32 mmHg (38-42); ABG PO2 147 mmHG (61-120)
--- NOTE | 2018-07-28 16:54 | P.PNNP ---
Subjective Interval history: Patient seen in the afternoon, remain on the vent. and sedated, on pressors. Physical Exam Vital signs: Vital Signs 07/27/18 17:00 07/27/18 18:00 07/27/18 19:00 Temperature Pulse Rate 150 H 145 H 144 H Respiratory Rate Blood Pressure Pulse Oximetry 91 L 93 L 95 07/27/18 20:00 07/27/18 21:00 07/27/18 21:01 Temperature 98.3 F Pulse Rate 140 H 141 H 140 H Respiratory Rate Blood Pressure 97/60 L 105/75 Pulse Oximetry 98 93 L 92 L 07/27/18 21:16 07/27/18 21:26 07/27/18 22:00 Temperature Pulse Rate 125 H 147 H 144 H Respiratory Rate 28 H Blood Pressure 87/55 L 87/69 L Pulse Oximetry 96 96 07/27/18 23:00 07/27/18 23:36 07/27/18 23:45 Temperature 96.8 F L Pulse Rate 131 H Respiratory Rate 28 H Blood Pressure 96/74 L Pulse Oximetry 96 96 07/28/18 00:00 07/28/18 00:42 07/28/18 01:00 Temperature 96.5 F L Pulse Rate 138 H 136 H 138 H Respiratory Rate Blood Pressure 76/50 L 106/70 Pulse Oximetry 82 L 90 L 07/28/18 01:01 07/28/18 01:36 07/28/18 02:00 Temperature Pulse Rate 139 H 113 H 113 H Respiratory Rate Blood Pressure 85/63 L 79/64 L Pulse Oximetry 99 88 L 94 L 07/28/18 03:00 07/28/18 03:23 07/28/18 03:56 Temperature Pulse Rate 114 H 114 H 103 H Respiratory Rate 28 H Blood Pressure 95/60 L Pulse Oximetry 76 L 94 L 07/28/18 04:00 07/28/18 04:01 07/28/18 05:00 Temperature 96.6 F L Pulse Rate 99 H 104 H 102 H Respiratory Rate 28 H 28 H Blood Pressure 89/70 L 89/70 L Pulse Oximetry 100 72 L 86 L 07/28/18 05:01 07/28/18 06:00 07/28/18 07:00 Temperature 96.6 F L 96.1 F L 95.9 F L Pulse Rate 100 H 99 H 97 H Respiratory Rate Blood Pressure 91/69 L 90/61 L 94/63 L Pulse Oximetry 63 L 07/28/18 08:00 07/28/18 08:24 07/28/18 09:00 Temperature 96.1 F L 96.3 F L Pulse Rate 99 H 102 H 105 H Respiratory Rate 28 H Blood Pressure 101/71 89/69 L Pulse Oximetry 38 L 94 L 07/28/18 10:00 07/28/18 11:00 07/28/18 11:01 Temperature 96.6 F L 96.6 F L 96.6 F L Pulse Rate 103 H 109 H 104 H Respiratory Rate Blood Pressure 94/75 L 126/69 Pulse Oximetry 78 L 85 L 83 L 07/28/18 11:04 07/28/18 12:00 07/28/18 13:00 Temperature 98.4 F 97.2 F L Pulse Rate 97 H 103 H Respiratory Rate 24 Blood Pressure 142/82 H 114/72 Pulse Oximetry 74 L 79 L 07/28/18 14:00 07/28/18 14:56 07/28/18 15:00 Temperature 97.3 F L 97.5 F L Pulse Rate 98 H 101 H 101 H Respiratory Rate 18 Blood Pressure 121/69 106/69 Pulse Oximetry 78 L 98 100 07/28/18 15:23 07/28/18 16:17 Temperature 98.4 F 97.7 F Pulse Rate 96 H 92 H Respiratory Rate 18 18 Blood Pressure 94/54 L 106/64 Pulse Oximetry 100 Intake & Output 07/27/18 07/28/18 07/28/18 18:59 06:59 18:59 Intake Total 5999 / 5999 7750 / 7750 5721 / 5721 Output Total 10 / 240 / 240 25 / 25 Balance 5989 / 5989 7510 / 7510 5696 / 5696 Weight 96.1 kg Intake: IV 5371 / 5371 7750 / 7750 5721 / 5721 Cordarone Inj 450 MG In D5W Inj 250 / 250 241 ML @ 1 MG/MIN 33.33 mls/hr IV.CONT TITRATE PRN Rx#: [id number] EPINEPHrine (1:1000) Inj 4 MG 250 / 250 In NS Inj 246 ML @ 1 MCG/MIN 3. 75 mls/hr IV.CONT TITRATE PRN Rx#:[id number] NovoLIN R (IV Infusion) 100 100 / 100 UNIT In NS Inj 99 ML @ Per Protocol IV.CONT TITRATE PRN Rx #:[id number] Versed Inj 50 mg In 50 ml @ 2 50 / 50 MG/HR 2 mls/hr IV.CONT TITRATE PRN Rx#:[id number] Levophed Inj 16 MG In NS Inj 250 / 250 234 ML @ 2 MCG/MIN 1.87 mls/hr IV.CONT TITRATE PRN Rx#: [id number] Sodium Bicarbonate 8.4% Inj 75 2000 / 2000 MEQ In D5W Inj 925 ML @ 200 mls /hr IV.CONT .Q5H [place] Rx#: [id number] Pitressin Inj 40 UNIT In NS Inj 100 / 100 100 / 100 98 ML @ 0.04 UNITS/MIN 6 mls/ hr IV.CONT CONT [place] Rx#: [id number] Flexbumin 25% Inj 100 ML @ 60 100 / 100 mls/hr IV.SIG ONCE ONE Rx#: [id number] Alburx 5% Inj 500 ML @ 250 mls/ 500 / 500 500 / 500 hr IV.SIG Q6H [place] Rx#:[id number] Cordarone Inj 150 MG In D5W Inj 100 / 100 97 ML @ 600 mls/hr IV.SIG ONCE ONE Rx#:[id number] Calcium Gluconate Inj 2 GM In 120 / 120 NS Inj 100 ML @ 120 mls/hr IV. SIG ONCE ONE Rx#:[id number] Cubicin Inj 800 MG In NS Inj 100 / 100 100 ML @ 200 mls/hr IV.SIG Q48H [place] Rx#:[id number] Merrem Inj 1,000 MG In NS Inj 100 / 100 100 ML @ 200 mls/hr IV.SIG Q8H [place] Rx#:[id number] Mycamine Inj 100 MG In NS Inj 100 / 100 0 / 0 100 ML @ 100 mls/hr IV.SIG Q24H [place] Rx#:[id number] Vitamin K Inj 10 MG In D5W Inj 51 / 51 50 ML @ 102 mls/hr IV.SIG ONCE ONE Rx#:[id number] Vitamin K Inj 10 MG In NS Inj 51 / 51 50 ML @ 102 mls/hr IV.SIG ONCE ONE Rx#:[id number] Zosyn 2.25 GM Premix 50 ML @ 150 / 150 50 / 50 50 / 50 100 mls/hr IV.SIG Q6H [place] Rx#: [id number] NS Inj 1,000 ML @ 500 mls/hr IV 1000 / 1000 .SIG .Q2H [place] Rx#:[id number] Sodium Bicarbonate 8.4% Inj 150 2300 / 2300 6900 / 6900 3150 / 3150 MEQ In D5W Inj 850 ML @ 500 mls/hr IV.SIG .Q2H [place] Rx#: [id number] Flolan (30,000 ng/mL) Neb 87.5 100 / 100 100 / 100 100 / 100 ML NS Inj 12.5 ML In Bag/ Syringe 1 EACH @ 8 mls/hr NEB Q8H [place] Rx#:[id number] Oral 0 / 0 0 / 0 Tube Feeding 0 / 0 0 / 0 Intake (Blood Product) Amt 628 / 628 0 / 0 Plasma Thawed 5 Day Cp2d Unit 0 / 0 [id number] Plasma Thawed 5 Day Cp2d Unit 308 / 308 [id number] Plasma Thawed 5 Day Cp2d Unit 320 / 320 [id number] Rbc Cp2d Leukoreduced Unit 0 / 0 [id number] Output: Urine 0 / 0 25 / 25 Urine Amount (Catheter) 40 / 40 Indwelling Urethral Catheter 40 / 40 Gastric Drainage 200 / 200 Right Nare Nasogastric Tube 200 / 200 Wound Drainage 0 / 0 Right Upper Abdomen Davol 0 / 0 Other: # Bowel Movements 0 0 Narrative: GENERAL: Patient remain intubated and sedated, on pressors. SKIN: Warm and dry. 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 HEAD: Atraumatic. Normocephalic. EYES: Pupils equal and round. No scleral icterus. No injection or drainage. ENT: No nasal bleeding or discharge. Mucous membranes pink and moist. NECK: Trachea midline. No JVD. CARDIOVASCULAR: Tachycardic. RESPIRATORY: No accessory muscle use. Clear to auscultation anteriorly. Breath sounds equal bilaterally. GASTROINTESTINAL: Abdomen distended, diffusely tender to palpation. Hypoactive bowel sounds. MUSCULOSKELETAL: Extremities without clubbing, cyanosis, or edema. No obvious deformities. NEUROLOGICAL: Sedated, and on the vent. - Urinary Catheter Management Indwelling Urethral Catheter Cath placed during this visit: yes Reason for continuing: Hourly intake/output Insertion date: 07/26/18 Insertion time: 14:30 Assessment and Plan - Plan Assessment: 1. Acute Kidney injury: Acute kidney injury with increase in the creatinine. Admission creatinine was 1.00 Acute kidney injury possibly ATN from Sepsis, expect acute worsening, labs are pending s/p code CT of abdomen/pelvis showing kidneys with normal in size and shape. Left-sided cortical renal cysts. The largest involves the lower pole measuring 6.8 cm. There is a 3 mm nonobstructing left renal stone. No evidence of mass or hydronephrosis. 2. Hypotension and shock status. 3. Shock liver and Cholelithiasis. 4. Post Cardiac arrest. Plan: Indwelling Harley catheter to be placed. Maintain MAP of 65 mmHg, on Levophed gtt Patient has SAMRA due to Hypotension and ATN. Maintain strict I+O Avoid nephrotoxins including IV contrast Started on CRRT on 07/27. BP is still low, acidosis is better.BS increasing, change the pre dilutional fluid to NS. Watch for renal recovery. D/W the at bed side.
[2018-07-28] MEDS: Latanoprost 0.005% Opth Drops 2.5 ML Bottle EACH EYE SCH (17:08)
[2018-07-28 17:42] LABS: Hematocrit 26.9 % (39.0-51.0); Hemoglobin 9.2 gm/dL (13.0-17.0); Mean Corpuscular HGB Conc 34.2 % (32.0-36.0); Mean Corpuscular Hemoglobin 31.7 pg (27.0-34.0); Mean Corpuscular Volume 92.9 fL (80.0-100.0); Mean Platelet Volume 9.8 fL (7.0-11.0); Platelet Count 68 th/mm3 (150-450); Red Cell Distribution Width 14.2 % (11.6-17.2); White Blood Count 25.5 th/mm3 (4.0-11.0)
[2018-07-28 17:59] LABS: VBG Base Excess -2.9 mmol/L (-2-2); VBG Blood Gas Oxygen Content 4.3 Vol % (9.0-17.0); VBG PCO2 43 mmHG (44-48); VBG PH 7.33 (7.360-7.400)
[2018-07-28 18:00] LABS: VBG PO2 26 mmHG (35-40)
--- NOTE | 2018-07-28 18:03 | US ---
EXAM DATE: 07/28/2018 5:55 PM EDT AGE/SEX: 77 years / Male INDICATIONS: Right upper quadrant pain with biliary drain and decreased drainage. CLINICAL DATA: This is the patient's subsequent encounter. Patient reports that signs and symptoms h ave been present for 1 week and indicates a pain score of Nonresponsive. MEDICAL/SURGICAL HISTORY: Cholelithiasis. Gastroesophageal reflux disease. Hypercholesterolem ia. Coronary artery disease. Hypertension. Nephrolithiasis. Pars defect of lumbar spine. Appendect mathew. Knee surgery. Bladder surgery. CABG. COMPARISON: [facility] [place], [place]. . MEASUREMENTS: Liver:__ 16.4 cm. Common Bile Duct:__ Nonvisualized. FINDINGS: Liver: Diffusely echogenic without focal lesion or ductal dilatation. Portal Vein: Hepatopedal flow seen in portal vein. Common Duct: No intraluminal mass or stone visualized. Gallbladder: A cholecystostomy tube is seen coiled within the gallbladder. The gallbladder contains stones and sludge. A small amount of fluid is seen within the gallbladder. No dilatation of the gallb ladder. Pancreas: Not well visualized. Right Kidney: Increased echotexture. No mass or hydronephrosis. CONCLUSION: 1. The cholecystostomy tube is coiled within the lumen of the gallbladder. The gallbladder does cont ain stones and sludge with a small amount of fluid. No dilatation of the gallbladder. The reduced lucy inage from the gallbladder tube likely relates to internal drainage down the common bile duct. Inject ion of contrast in the cholecystostomy tube can be performed to evaluate the patency of the common bi le duct. This can be performed when the patient is stable and able to leave the unit. Electronically signed by: Leonard Arcos MD 07/28/2018 6:02 PM EDT
[2018-07-28 20:03] LABS: ABG Base Excess -6.1 mmol/L (-2-2); ABG PCO2 32 mmHg (38-42); ABG PO2 143 mmHG (61-120)
[2018-07-28] MEDS: Dextrose 50% in Water 50 ML Vial IV.PUSH PRN (20:07)
[2018-07-28 20:25] LABS: INR 2.2 Ratio; Prothrombin Time 22.7 sec (9.8-11.6)
[2018-07-28] MEDS: Pantoprazole Inj 40 MG Vial IV.PUSH SCH (20:26)
[2018-07-28 20:41] LABS: Albumin 3.8 g/dL (3.4-5.0); Calcium 5.9 mg/dL (8.5-10.1); Carbon Dioxide 18.8 meq/L (21.0-32.0); Potassium 4.2 meq/L (3.5-5.1); Total Protein 5.7 g/dL (6.4-8.2)
[2018-07-28 20:44] LABS: Troponin I 0.82 ng/mL (0.02-0.05)
[2018-07-28] MEDS ORDERED: Calcium Chloride Inj 2 GM in Dextrose 5% in Water Inj 100 ML IV.SIG ONE ×2 (22:00)
[2018-07-28] MEDS ORDERED: DC Insulin drip 2 hrs post basal insulin dose OTHER ONE (22:17)
[2018-07-28] MEDS ORDERED: DC previous DKA orders (HMC 1917) OTHER ONE (22:17)
[2018-07-29] MEDS: Insulin NovoLOG Aspart Correctional Sugar Inj SQ SCH ×3 (00:15→18:36)
[2018-07-29] MEDS: Oral Hygiene Kit OROPHARYNG SCH ×4 (00:15→16:14)
[2018-07-29] MEDS: Phenylephrine Inj 160 MG in Sodium Chlor 0.9% Inj 484 ML IV.CONT PRN ×2 (00:59→14:14)
[2018-07-29] MEDS: Sod Chloride 0.9% Inj 1,000 ML IV.SIG SCH ×8 (01:53→18:37)
[2018-07-29] MEDS: Dextrose 50% in Water 50 ML Vial IV.PUSH PRN ×3 (02:55→07:45)
[2018-07-29] MEDS: Chlorhexidine Gluconate 2% 1 Pack (2 Cloths) TOPICAL SCH (03:12)
[2018-07-29 03:55] LABS: Hematocrit 24.3 % (39.0-51.0); Hemoglobin 8.2 gm/dL (13.0-17.0); Mean Corpuscular HGB Conc 33.6 % (32.0-36.0); Mean Corpuscular Hemoglobin 32.2 pg (27.0-34.0); Mean Corpuscular Volume 95.9 fL (80.0-100.0); Mean Platelet Volume 9.9 fL (7.0-11.0); Platelet Count 56 th/mm3 (150-450); Red Blood Count 2.54 mil/mm3 (4.50-5.90); Red Cell Distribution Width 15.3 % (11.6-17.2); White Blood Count 20.8 th/mm3 (4.0-11.0)
[2018-07-29 04:35] LABS: Albumin 3.6 g/dL (3.4-5.0); Calcium 6.4 mg/dL (8.5-10.1); Carbon Dioxide 13.4 meq/L (21.0-32.0); Magnesium 1.9 mg/dL (1.5-2.5); Potassium 5.1 meq/L (3.5-5.1); Total Protein 5.3 g/dL (6.4-8.2)
[2018-07-29 04:38] LABS: Troponin I 0.76 ng/mL (0.02-0.05)
[2018-07-29] MEDS: Hydrocortisone Sod Succinate 100 MG Vial IV.PUSH SCH ×2 (05:09→13:13)
[2018-07-29] MEDS ORDERED: Calcium Chloride Inj 2 GM in Sodium Chlor 0.9% Inj 100 ML IV.SIG ONE (05:30)
--- NOTE | 2018-07-29 05:51 | XR ---
EXAM DATE: 07/29/2018 4:03 AM EDT AGE/SEX: 77 years / Male INDICATIONS: Shortness of breath, possible pulmonary disease. CLINICAL DATA: This is the patient's subsequent encounter. Patient reports that signs and symptoms h ave been present for 4 - 6 days and indicates a pain score of Nonresponsive. MEDICAL/SURGICAL HISTORY: Gastroesophageal reflux disease. Hypercholesterolemia. Hypertension . CAD.Pars defect of lumbar spine. Appendectomy. CABG. COMPARISON: [facility], CHEST 1V SINGLE AP, 07/28/2018. . FINDINGS: Endotracheal tube, nasogastric tube and left neck central line are stable in good position. Bilateral fairly symmetric diffuse pleural parenchymal opacities persist grossly unchanged. Visualized cardiac contours are stable. CONCLUSION: No significant change. Electronically signed by: Amilcar Caicedo MD 07/29/2018 5:50 AM EDT
[2018-07-29] MEDS: Vasopressin Inj 40 UNIT in Sodium Chlor 0.9% Inj 98 ML IV.CONT SCH ×2 (06:38→16:34)
[2018-07-29] MEDS: Chlorhexidine 0.12% Oral Kit 15 ML UDC OROPHARYNG SCH (08:03)
[2018-07-29] MEDS: Carboxymethylcellulose 0.5% Opth Drops 15 ML Bottle EACH EYE SCH (08:03)
--- NOTE | 2018-07-29 08:07 | P.PNCC ---
Subjective Subjective Remarks/Hospital Course: This is a 77-year-old male. Date of admission 07/25/2018. Date of consultation 07/26/2018. Past medical history includes coronary disease status post CABG x3, essential hypertension, hyperlipidemia, hiatal hernia, osteoarthritis, gastroesophageal reflux disease and glaucoma. Patient originally presented to [facility] on 07/25 festers 18 with chief complaint of abdominal pain. This started around midnight on 07/25. CT of the abdomen/pelvis 2 mm area at the ampulla likely related to stone. Also revealed cholelithiasis. Umbilical, left hiatal hernia/inguinal and a 3 mm left renal stone obstructing. Bilateral L4 pars defect grade 2 anterolisthesis. Lipase was greater than 30,000. Patient had total bili 2.3. Elevated white cell count greater than 38,000. Gastroenterology was consulted. Was started on antibiotics with piperacillin/ tazobactam and planned for ERCP after results known were discovered. MRCP revealed a 3.5 mm distal common bile duct stone. Common bile duct was 4.5 cm. 8 cm liver cyst. Bilateral renal cyst. Acute pancreatitis. Patient presented to same-day surgery from [place] today for ERCP. noted, patient had an elevated total bilirubin today of 12,000, creatinine elevated from normal 1.0-2.1. Please see Dr. Almazan's note. While I was being called, this patient arrived in room 508. Patient was essentially unresponsive on 100% nonrebreather. Cold and clammy. Very weak palpable femoral pulse. Unable to register pulse oximetry. Patient was emergently intubate without anesthesia please see procedure note. A peripheral IV was established and patient received normal saline wide open and was started on norepinephrine drip. IV access was lost. A central line was emergently placed under sterile technique in the left IJ. Please note while the line was being placed, unable to palpate pulse and CPR was initiated. This lasted approximately 7 minutes please see note. Patient had a recent return of spontaneous circulation at 1330. Laboratory so far reveal a lactate of 15. PH is 7.0. Patient received 3 ampoules of sodium bicarb and i being hyperventilated on mechanical ventilator. He is currently on norepinephrine 20 mcg/min. 07/27: Status post percutaneous cholecystostomy tube last night. Remains on 3 vasopressors and hemodynamically very tenuous. Shock liver, acute renal failure , acute respiratory failure requiring her percent FiO2 and had a non-STEMI type II secondary to demand ischemia. 07/28: Patient remains in profound septic shock currently on epinephrine micrograms per minute, Levophed 30 mcg/min, Sherif-Synephrine 300 mcg/min, and vasopressin 0.04 international units. Map remains 65-70. Shock liver persists. at the bedside tearful very upset about the course of events. I have updated her. I also explained to her that a 77-year-old man with acute pancreatitis and cholangitis, associated renal failure is very critical to begin with, and has guarded prognosis. Remains on amiodarone infusion for rate control. Currently on FiO2 at 80% getting CVVH Subjective 07/29: Remains on 3 vasopressors. According to , slightly opened eyes and moves upper extremities slightly. Off all sedation. No bowel movement today. Remains critically ill. Heart rate currently in the 70s. Objective Vital Signs / I&O: Vital Signs 07/28/18 08:00 07/28/18 08:24 07/28/18 09:00 Temperature 96.1 F L 96.3 F L Pulse Rate 99 H 102 H 105 H Respiratory Rate 28 H Blood Pressure 101/71 89/69 L Pulse Oximetry 38 L 94 L 07/28/18 10:00 07/28/18 11:00 07/28/18 11:01 Temperature 96.6 F L 96.6 F L 96.6 F L Pulse Rate 103 H 109 H 104 H Respiratory Rate Blood Pressure 94/75 L 126/69 Pulse Oximetry 78 L 85 L 83 L 07/28/18 11:04 07/28/18 12:00 07/28/18 13:00 Temperature 98.4 F 97.2 F L Pulse Rate 97 H 103 H Respiratory Rate 24 Blood Pressure 142/82 H 114/72 Pulse Oximetry 74 L 79 L 07/28/18 14:00 07/28/18 14:56 07/28/18 15:00 Temperature 97.3 F L 97.5 F L Pulse Rate 98 H 101 H 101 H Respiratory Rate 18 Blood Pressure 121/69 106/69 Pulse Oximetry 78 L 98 100 07/28/18 15:23 07/28/18 16:00 07/28/18 16:17 Temperature 98.4 F 97.7 F 97.7 F Pulse Rate 96 H 88 92 H Respiratory Rate 18 18 Blood Pressure 94/54 L 111/67 106/64 Pulse Oximetry 100 100 07/28/18 17:00 07/28/18 17:59 07/28/18 18:00 Temperature 97.7 F 96.3 F L Pulse Rate 89 87 87 Respiratory Rate 18 Blood Pressure 117/72 99/65 L 98/65 L Pulse Oximetry 100 99 97 07/28/18 19:00 07/28/18 19:51 07/28/18 20:00 Temperature 96.7 F L 96.7 F L Pulse Rate 84 78 78 Respiratory Rate 18 18 18 Blood Pressure 99/61 L 120/72 Pulse Oximetry 97 96 96 07/28/18 20:13 07/28/18 21:00 07/28/18 22:00 Temperature 96.7 F L 96.7 F L 96.7 F L Pulse Rate 83 72 75 Respiratory Rate 18 18 18 Blood Pressure 107/65 94/56 L 93/55 L Pulse Oximetry 92 L 93 L 07/28/18 23:00 07/28/18 23:48 07/29/18 00:00 Temperature 96.5 F L 96.4 F L Pulse Rate 83 83 Respiratory Rate 18 18 18 Blood Pressure 119/61 103/56 L Pulse Oximetry 88 L 92 L 94 L 07/29/18 01:00 07/29/18 02:00 07/29/18 02:48 Temperature 96.4 F L 96.4 F L Pulse Rate 82 79 80 Respiratory Rate 18 18 18 Blood Pressure 89/51 L 101/55 L Pulse Oximetry 92 L 94 L 07/29/18 03:00 07/29/18 03:59 07/29/18 04:00 Temperature 96.5 F L 96.7 F L Pulse Rate 75 79 Respiratory Rate 18 18 18 Blood Pressure 95/50 L 92/50 L Pulse Oximetry 86 L 94 L 94 L 07/29/18 05:00 07/29/18 06:00 07/29/18 07:37 Temperature 96.7 F L 96.6 F L Pulse Rate 79 73 Respiratory Rate 18 18 18 Blood Pressure 84/48 L 96/50 L Pulse Oximetry 92 L 84 L Intake & Output 07/28/18 07/29/18 07/29/18 18:59 06:59 18:59 Intake Total 9042 / 9042 7991 / 7991 Output Total 35 / 35 700 / 700 Balance 9007 / 9007 7291 / 7291 Weight 99.9 kg Intake: IV 8321 / 8321 7390 / 7390 Cordarone Inj 450 MG In D5W Inj 250 / 250 250 / 250 241 ML @ 1 MG/MIN 33.33 mls/hr IV.CONT TITRATE PRN Rx#: [id number] NovoLIN R (IV Infusion) 100 100 / 100 UNIT In NS Inj 99 ML @ Per Protocol IV.CONT TITRATE PRN Rx #:[id number] Pitressin Inj 40 UNIT In NS Inj 100 / 100 100 / 100 98 ML @ 0.04 UNITS/MIN 6 mls/ hr IV.CONT CONT LORENA Rx#: [id number] Flexbumin 25% Inj 100 ML @ 60 100 / 100 mls/hr IV.SIG ONCE ONE Rx#: [id number] Alburx 5% Inj 500 ML @ 250 mls/ 1000 / 1000 500 / 500 hr IV.SIG Q6H LORENA Rx#:[id number] Calcium Chloride Inj 2 GM In 120 / 120 D5W Inj 100 ML @ 120 mls/hr IV. SIG ONCE ONE Rx#:[id number] Calcium Chloride Inj 2 GM In NS 120 / 120 Inj 100 ML @ 120 mls/hr IV.SIG ONCE ONE Rx#:[id number] Calcium Gluconate Inj 2 GM In 120 / 120 NS Inj 100 ML @ 120 mls/hr IV. SIG ONCE ONE Rx#:[id number] Cubicin Inj 800 MG In NS Inj 100 / 100 100 ML @ 200 mls/hr IV.SIG Q48H LORENA Rx#:[id number] Merrem Inj 1,000 MG In NS Inj 100 / 100 200 / 200 100 ML @ 200 mls/hr IV.SIG Q8H LORENA Rx#:[id number] Mycamine Inj 100 MG In NS Inj 100 / 100 100 ML @ 100 mls/hr IV.SIG Q24H LORENA Rx#:[id number] Vitamin K Inj 10 MG In NS Inj 51 / 51 50 ML @ 102 mls/hr IV.SIG ONCE ONE Rx#:[id number] Zosyn 2.25 GM Premix 50 ML @ 50 / 50 100 mls/hr IV.SIG Q6H LORENA Rx#: [id number] NS Inj 1,000 ML @ 500 mls/hr IV 1999 / 1999 6000 / 6000 .SIG .Q2H LORENA Rx#:[id number] Sodium Bicarbonate 8.4% Inj 150 4150 / 4150 MEQ In D5W Inj 850 ML @ 500 mls/hr IV.SIG .Q2H LORENA Rx#: [id number] Flolan (30,000 ng/mL) Neb 87.5 100 / 100 100 / 100 ML NS Inj 12.5 ML In Bag/ Syringe 1 EACH @ 8 mls/hr NEB Q8H LORENA Rx#:[id number] Oral 0 / 0 Tube Feeding 0 / 0 Intake (Blood Product) Amt 721 / 721 601 / 601 Plasma Thawed 5 Day Cp2d Unit 321 / 321 [id number] Plasma Thawed 5 Day Cp2d Unit 0 / 0 310 / 310 [id number] Plasma Thawed 5 Day Cp2d Unit 291 / 291 [id number] Rbc Cp2d Leukoreduced Unit 400 / 400 [id number] Output: Urine 35 / 35 Urine Amount (Catheter) 200 / 200 Indwelling Urethral Catheter 200 / 200 Gastric Drainage 500 / 500 Right Nare Nasogastric Tube 500 / 500 Other: Bladder Irrigation Fluid - Amount Instilled Indwelling Urethral Catheter 25 # Bowel Movements 0 Result Diagrams: 07/29/18 03:45 07/29/18 03:45 Other Results: Microbiology 07/26/18 23:05 Sputum - Endotracheal Gram Stain - Final 07/26/18 23:05 Sputum - Endotracheal Sputum Culture - Preliminary No growth in 24 hours 07/26/18 15:46 Blood - Peripheral Aerobic Blood Culture - Preliminary No growth in 2 days 07/26/18 15:46 Blood - Peripheral Anaerobic Blood Culture - Preliminary No growth in 2 days 07/26/18 15:41 Blood - Peripheral Aerobic Blood Culture - Preliminary No growth in 2 days 07/26/18 15:41 Blood - Peripheral Anaerobic Blood Culture - Preliminary No growth in 2 days 07/26/18 Unknown Clean Catch Urine Urine Culture - Final No growth in 48 hours 07/26/18 18:36 Fluid - Bile Fluid Gram Stain - Final 07/26/18 18:36 Fluid - Bile Fluid Body Fluid Culture - Preliminary Staphylococcus aureus Imaging: Cholangiopancreatography MRI 07/25/18 00:00 CONCLUSION: 1. Tiny distal common bile duct stone at the ampulla, estimated at 3.5 mm in size. This appears to be minimally obstructing, if any, with generally a normal size common bile duct for a patient this age and no pancreatic duct dilatation. Several similar sized stones are seen in the gallbladder near the neck. No other definite stones are clearly demonstrated. 2. Acute pancreatitis. Chest X-Ray 07/25/18 07:37 CONCLUSION: Chronic interstitial changes. No acute cardiopulmonary findings identified. Abdomen/Pelvis CT 07/25/18 08:06 CONCLUSION: 1. Acute pancreatitis. No pseudocyst, pancreatic infarction, or pancreatic hemorrhage observed. No ductal dilatation. There is a 2 mm calcification at the level of the ampulla that could relate to a CBD stone at the ampullary region. There is no ductal dilatation to suggest an obstructing component. 2. Cholelithiasis. 3. 3 mm nonobstructing left renal stone. 4. 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 5. Umbilical and left inguinal hernias. Abdomen X-Ray 07/26/18 00:00 CONCLUSION: Nasogastric tube in place with the tip in the stomach. Chest X-Ray 07/26/18 00:00 CONCLUSION: Mild basilar hypoaeration with airspace disease characteristic of atelectasis. No evidence of significant lung consolidation or acute congestion. Satisfactory position of endotracheal tube and central venous catheter. Percutaneous Cholangiogram 07/26/18 00:00 CONCLUSION: 1. Uncomplicated percutaneous cholecystostomy as above. Once the patient has stabilized can consider performing a cholangiogram through the cholecystostomy tube to assess the distal common bile duct. Abdomen X-Ray 07/27/18 00:00 CONCLUSION: Stable exam. Chest X-Ray 07/27/18 06:00 CONCLUSION: 1. Stable tubes and lines, as above. 2. Developing small bilateral pleural effusions and associated airspace disease in the lower lung zones. Abdomen Ultrasound 07/27/18 12:05 CONCLUSION: 1. Bowel gas limits the study. 2. Hepatic steatosis. No biliary dilatation. 3. Sludge and small stones within a decompressed gallbladder which contains a cholecystostomy tube. 4. Small volume ascites. 5. Pancreas is totally obscured and not well evaluated. Chest X-Ray 07/28/18 06:00 CONCLUSION: 1. Stable tubes and lines. 2. Worsening bilateral [id number] pleural effusions with associated lower lobe airspace disease. Gallbladder Ultrasound 07/28/18 16:46 CONCLUSION: 1. The cholecystostomy tube is coiled within the lumen of the gallbladder. The gallbladder does contain stones and sludge with a small amount of fluid. No dilatation of the gallbladder. The reduced drainage from the gallbladder tube likely relates to internal drainage down the common bile duct. Injection of contrast in the cholecystostomy tube can be performed to evaluate the patency of the common bile duct. This can be performed when the patient is stable and able to leave the unit. Chest X-Ray 07/29/18 06:00 CONCLUSION: No significant change. Objective Remarks: GENERAL: 77-year-old male currently very critical, orotracheally intubated SKIN: Warm and dry. HEAD: Atraumatic. Normocephalic. EYES: Pupils equal and round about 4 mm bilaterally. Noted cataract in right eye. + scleral icterus. No injection or drainage. ENT: No nasal bleeding or discharge. Orotracheally intubated NECK: Trachea midline. No JVD. Left IJ is clean dry and intact CARDIOVASCULAR: Tachycardic, RR. S1, S2. No S4. Currently on high doses of epinephrine, norepinephrine, Sherif-Synephrine and vasopressin and also amiodarone RESPIRATORY: Coarse breath sounds appreciated bilaterally. Breath sounds equal bilaterally. GASTROINTESTINAL: Abdomen protuberant, tense. No bowel sounds appreciated. No grimacing on palpation the abdomen. Right femoral hematemesis catheter with no hematoma MUSCULOSKELETAL: Extremities with 1+ peripheral edema. No obvious deformities. NEUROLOGICAL: Remains unresponsive on the ventilator. Positive gag. Positive cough. Positive corneal reflex. Assessment and Plan - Assessment and Plan Plan: Neuro/Psych: Glaucoma Currently written for midazolam drip for sedation while intubated. As needed fentanyl drip ordered for analgosedation. Currently not requiring Post code blue, patient nodded his head to purposefully to command. Continue bimatoprost 0.01% -latanoprost 0.005% 1 drop each eye every p.m. and dorzolamide/timolol 2/0.5 1 drop each eye twice daily CV: Severe septic shock on multiple vasopressors Lactic acidosis NSTEMI likely type II to demand ischemia troponin 0.89 Atrial fibrillation with RVR -now rate controlled Coronary artery disease status post CABG 3 -the mid LAD, reverse SVG to diagonal 2 and OM1 History of essential hypertension Hyperlipidemia Currently on norepinephrine drip at 24mcg/kg/min, phenylephrine drip at 240 mcg/ kg/min and vasopressin drip at 0.04 U/min to maintain mean arterial pressure greater than equal to 65 Stress dose hydrocortisone 100 mg every 8 hours Echo: The left ventricular systolic function is normal with an estimated ejection fraction in the range of 55-60%. Cycle troponins until peak. Serial lactates until cleared. Currently 20 s/p Aggressive crystalloid resuscitation. Currently on Flowtrack. Will discontinue is currently in atrial fibrillation Holding metoprolol succinate 50 mg daily and lisinopril 5 mg daily in light of acute shock. Holding ezetimibe 10 mg daily and evolocumab 140 mg sq every 2 weeks for list lipidemia Aspirin 81 mg daily when able Discontinue amiodarone drip with elevated transaminases Cardiology consult for cystoscopy with management Resp: Acute respiratory failure PRVC 24/600/0.74/5/60, Ventilator bundle. Albuterol/ipratropium aerosols every 6 hours with albuterol aerosols every 2 hours as needed for dyspnea Epoprostenol aerosolized Chest x-ray order 07/30. ABG daily. Will recheck at noon and 6 PM and adjust accordingly for acidosis GI: Acute pancreatitis Cholelithiasis with acute cholangitis 3.5 mm distal common bile duct stone with common bile duct dilatation 4.5 cm on MRCP Transaminitis secondary to shock liver Umbilical, left inguinal hernia Hiatal hernia Gastroesophageal reflux disease on omeprazole 20 mg daily at home Status post cholecystostomy tube Hyperammonemia 8 mm liver cyst Hypoalbuminemia MRCP revealed a 3.5 mm distal common bile duct stone. Acute pancreatitis. 8 mm liver cyst. Bilateral renal cysts. Common bile duct was 4.5 cm Gastroenterology unable to perform EGD secondary to instability. Cholecystostomy tube placed 07/26 by IR Lactulose 30 cc 4 times daily with rifaximin 550 mg twice daily for elevated ammonia. Adding NGT to LIWS Recheck KUB a.m. 07/30 Pantoprazole for GI prophylaxis Docusate sodium/senna 1 tablet twice daily for bowel regimen. Add polythene glycol 17 g twice daily and lactulose 30 cc 4 times daily for bowel regimen. No BM today. CT abdomen/pelvis when stable See ID section for broad-spectrum antibiotics and antifungals Bladder pressures currently 18 : Nonobstructing nephrolithiasis Harley catheter will be placed for accurate I's and O's in a critically ill patient Endo: Sliding scale insulin with Accu-Cheks to maintain euglycemia Renal: Acute kidney failure Bilateral renal cysts Rhabdomyolysis Nephrology's been consulted. Initiated on CVVH for severe metabolic acidosis and renal failure 200 cc urine output past 24 hours No hydronephrosis on previous CT abdomen/pelvis. Heme: Acute coagulopathic state likely secondary to DIC Leukocytosis Normocytic anemia Thrombocytopenia Monitor CBC daily. Follow trends. Received 10 mg of phytonadione and 2 FFP 07/26, /. Received 7 FFP 1 PRBCs to date type and screen ID: Septic shock Acute Cholangitis Currently on day #2 daptomycin, day #3 meropenem and and micafungin day #4. Previously on piperacillin/tazobactam Blood cultures 2 ordered /. Sputum and UA ordered results no growth Gallbladder fluid growing staph aureus Infectious disease Dr. Brown FEN/ENDO: Hypocalcemia Hyperphosphatemia Acute hyperglycemia/resolving now hypoglycemic Holding insulin detemir/off insulin drip Replace electrolytes as clinically indicated Currently on D10 water at 42 cc. Accu-Cheks q. naris. Initiate TPN later this evening. See 2 g calcium chloride this a.m. per documentation. Access -Left IJ CVL day 4 placed / Right radial arterial line day #4 placed by respiratory therapy Right femoral hemodialysis catheter day #3 placed /15 Prophylaxis -GI - pantoprazole -DVT-SCD/holding pharmacologic prophylaxis in light of coagulopathic state Acute care time 50 minutes not including procedures Discussed with and physician's bankruptcy assistant for gastroenterology Discussed with Purvi, sons Gianluca and Harris.
[2018-07-29 08:13] LABS: ABG Base Excess -20.4 mmol/L (-2-2); ABG PCO2 32 mmHg (38-42); ABG PO2 96 mmHG (61-120)
[2018-07-29] MEDS ORDERED: Dextrose 10% in Water Inj 1,000 ML IV.CONT SCH (08:15)
[2018-07-29] MEDS ORDERED: Sodium Bicarbonate 8.4% Inj 50 MEQ/50 ML Syringe ONE ×2 (08:23)
[2018-07-29] MEDS ORDERED: Sodium Bicarbonate 8.4% Inj 50 MEQ/50 ML Syringe IV.PUSH ONE ×3 (08:30→17:28)
[2018-07-29] MEDS ORDERED: Phytonadione Inj 10 MG in Sodium Chlor 0.9% Inj 50 ML IV.SIG ONE (09:00)
[2018-07-29] MEDS ORDERED: Polyethylene Glycol 3350 17 GM Packet PO SCH (09:00)
[2018-07-29] MEDS ORDERED: Insulin Detemir Inj 1,000 UNIT/10 ML Vial SQ SCH (09:00)
[2018-07-29] MEDS: rifAXIMin 550 MG Tablet PO SCH (09:50)
[2018-07-29] MEDS: EPOPROSTENOL NEB SCH ×6 (09:51→19:55)
[2018-07-29] MEDS: [UNRECOGNIZED DRUG - OTHER] NEB SCH ×6 (09:51→19:55)
[2018-07-29] MEDS: Senna/Docusate Sodium 8.6/50 MG Tablet PO SCH (09:52)
[2018-07-29] MEDS ORDERED: Sodium Bicarbonate 8.4% Inj 150 MEQ in Water for Inj, Sterile 850 ML IV.CONT SCH (10:00)
--- NOTE | 2018-07-29 10:24 | P.PNID ---
Subjective Remarks: is a 77 y/o CM with PMHx of coronary disease status post CABG x3, essential hypertension, hyperlipidemia, hiatal hernia, osteoarthritis, gastroesophageal reflux disease and glaucoma. Patient was admitted on 2017. Patient originally presented to [facility] on 07/25 with chief complaint of abdominal pain. Patient was admitted under [facility] services and underwent a CT of the abdomen/pelvis. CT of the abdomen pelvis shows pancreatitis with no pseudocyst or pancreatic hemorrhage. There is a 2 mm calcification of the level of the ampulla that could relate to CBD stone at the ampullary region also reported is that there is no ductal dilatation to suggest an obstructing component. Other radiological findings include cholelithiasis and a 3 mm nonobstructing left renal stone. Patient was initially admitted at [facility]. He was thought to be unstable for ERCP as he clinically deteriorated. Patient was in acute renal failure creatinine increased from 1.0-2.1. It was decided to transfer the patient to the main hospital. Upon arrival at [facility] ICU patient was cold and clammy and essentially unresponsive 100% nonrebreather. He had extremely weak palpable femoral pulse at that point. A decision was made to emergently intubate him without anesthesia. Patient also had a central line placed in the left IJ. Patient also underwent CPR for approximately 7 minutes with return of spontaneous circulation. Important lab findings include a lipase of 30,000, total bili of 2.3 and an elevated white count of 38,000. Lipase was greater than 30,000. Patient had total bili 2.3. Elevated white cell count greater than 38,000. Gastroenterology was consulted. Was started on antibiotics with piperacillin/ tazobactam and planned for ERCP after results known were discovered. MRCP revealed a 3.5 mm distal common bile duct stone. Common bile duct was 4.5 cm. 8 cm liver cyst. Bilateral renal cyst. Acute pancreatitis. Patient is in the ICU at time of my visit and on max dose multiple pressors, remains intubated and sedated. UO poor and patient is being placed on CVVHD. ID consulted for evaluation and Mment of Septic Shock. Overnight events reviewed with RN Remains in profound septic shock On multiple pressors close to max dose. On vent FiO2 Currently on FiO2 at 80%, PEEP 5. On CVVHD, UO none New A line placed in left groin Left IJ CL in place. Antibiotics: Meropenem IV Dapto IV Micafungin IV Lines: Lines ok Past Medical History: reviewed Allergies/Adverse Reactions: Allergies SHINGLES VACCINE Allergy (Uncoded 07/25/18 07:53) Rash Objective Vital Signs 07/28/18 11:00 07/28/18 11:01 07/28/18 11:04 Temperature 96.6 F L 96.6 F L Pulse Rate 109 H 104 H Respiratory Rate 24 Blood Pressure 126/69 Pulse Oximetry 85 L 83 L 07/28/18 12:00 07/28/18 13:00 07/28/18 14:00 Temperature 98.4 F 97.2 F L 97.3 F L Pulse Rate 97 H 103 H 98 H Respiratory Rate Blood Pressure 142/82 H 114/72 121/69 Pulse Oximetry 74 L 79 L 78 L 07/28/18 14:56 07/28/18 15:00 07/28/18 15:23 Temperature 97.5 F L 98.4 F Pulse Rate 101 H 101 H 96 H Respiratory Rate 18 18 Blood Pressure 106/69 94/54 L Pulse Oximetry 98 100 07/28/18 16:00 07/28/18 16:17 07/28/18 17:00 Temperature 97.7 F 97.7 F Pulse Rate 88 92 H 89 Respiratory Rate 18 Blood Pressure 111/67 106/64 117/72 Pulse Oximetry 100 100 100 07/28/18 17:59 07/28/18 18:00 07/28/18 19:00 Temperature 97.7 F 96.3 F L 96.7 F L Pulse Rate 87 87 84 Respiratory Rate 18 18 Blood Pressure 99/65 L 98/65 L 99/61 L Pulse Oximetry 99 97 97 07/28/18 19:51 07/28/18 20:00 07/28/18 20:13 Temperature 96.7 F L 96.7 F L Pulse Rate 78 78 83 Respiratory Rate 18 18 18 Blood Pressure 120/72 107/65 Pulse Oximetry 96 96 07/28/18 21:00 07/28/18 22:00 07/28/18 23:00 Temperature 96.7 F L 96.7 F L 96.5 F L Pulse Rate 72 75 83 Respiratory Rate 18 18 18 Blood Pressure 94/56 L 93/55 L 119/61 Pulse Oximetry 92 L 93 L 88 L 09/16/18 23:48 07/29/18 00:00 07/29/18 01:00 Temperature 96.4 F L 96.4 F L Pulse Rate 83 82 Respiratory Rate 18 18 18 Blood Pressure 103/56 L 89/51 L Pulse Oximetry 92 L 94 L 92 L 07/29/18 02:00 07/29/18 02:48 07/29/18 03:00 Temperature 96.4 F L 96.5 F L Pulse Rate 79 80 75 Respiratory Rate 18 18 18 Blood Pressure 101/55 L 95/50 L Pulse Oximetry 94 L 86 L 07/29/18 03:59 07/29/18 04:00 07/29/18 05:00 Temperature 96.7 F L 96.7 F L Pulse Rate 79 79 Respiratory Rate 18 18 18 Blood Pressure 92/50 L 84/48 L Pulse Oximetry 94 L 94 L 92 L 07/29/18 06:00 07/29/18 07:37 07/29/18 09:15 Temperature 96.6 F L Pulse Rate 73 76 Respiratory Rate 18 18 18 Blood Pressure 96/50 L Pulse Oximetry 84 L Intake & Output 07/28/18 07/29/18 07/29/18 18:59 06:59 18:59 Intake Total 9042 / 9042 7991 / 7991 2099 Output Total 35 / 35 700 / 700 Balance 9007 / 9007 7291 / 7291 2099 Weight 99.9 kg Intake: IV 8321 / 8321 7390 / 7390 2099 Cordarone Inj 450 MG In D5W Inj 250 / 250 250 / 250 241 ML @ 1 MG/MIN 33.33 mls/hr IV.CONT TITRATE PRN Rx#: [id number] NovoLIN R (IV Infusion) 100 100 / 100 UNIT In NS Inj 99 ML @ Per Protocol IV.CONT TITRATE PRN Rx #:[id number] Pitressin Inj 40 UNIT In NS Inj 100 / 100 100 / 100 98 ML @ 0.04 UNITS/MIN 6 mls/ hr IV.CONT CONT [facility] Rx#: [id number] Flexbumin 25% Inj 100 ML @ 60 100 / 100 mls/hr IV.SIG ONCE ONE Rx#: [id number] Alburx 5% Inj 500 ML @ 250 mls/ 1000 / 1000 500 / 500 hr IV.SIG Q6H [facility] Rx#:[id number] Calcium Chloride Inj 2 GM In 120 / 120 D5W Inj 100 ML @ 120 mls/hr IV. SIG ONCE ONE Rx#:[id number] Calcium Chloride Inj 2 GM In NS 120 / 120 Inj 100 ML @ 120 mls/hr IV.SIG ONCE ONE Rx#:[id number] Calcium Gluconate Inj 2 GM In 120 / 120 NS Inj 100 ML @ 120 mls/hr IV. SIG ONCE ONE Rx#:[id number] Cubicin Inj 800 MG In NS Inj 100 / 100 100 ML @ 200 mls/hr IV.SIG Q48H [facility] Rx#:[id number] Merrem Inj 1,000 MG In NS Inj 100 / 100 200 / 200 100 ML @ 200 mls/hr IV.SIG Q8H [facility] Rx#:[id number] Mycamine Inj 100 MG In NS Inj 100 / 100 100 ML @ 100 mls/hr IV.SIG Q24H [facility] Rx#:[id number] Vitamin K Inj 10 MG In NS Inj 51 / 51 50 ML @ 102 mls/hr IV.SIG ONCE ONE Rx#:[id number] Zosyn 2.25 GM Premix 50 ML @ 50 / 50 100 mls/hr IV.SIG Q6H [facility] Rx#: [id number] NS Inj 1,000 ML @ 500 mls/hr IV 1999 / 1999 6000 / 6000 1999 / 1999 .SIG .Q2H [facility] Rx#:[id number] Sodium Bicarbonate 8.4% Inj 150 4150 / 4150 MEQ In D5W Inj 850 ML @ 500 mls/hr IV.SIG .Q2H [facility] Rx#: [id number] Flolan (30,000 ng/mL) Neb 87.5 100 / 100 100 / 100 100 / 100 ML NS Inj 12.5 ML In Bag/ Syringe 1 EACH @ 8 mls/hr NEB Q8H [facility] Rx#:[id number] Oral 0 / 0 Tube Feeding 0 / 0 Intake (Blood Product) Amt 721 / 721 601 / 601 Plasma Thawed 5 Day Cp2d Unit 321 / 321 [id number] Plasma Thawed 5 Day Cp2d Unit 0 / 0 310 / 310 [id number] Plasma Thawed 5 Day Cp2d Unit 291 / 291 [id number] Rbc Cp2d Leukoreduced Unit 400 / 400 [id number] Output: Urine 35 / 35 Urine Amount (Catheter) 200 / 200 Indwelling Urethral Catheter 200 / 200 Gastric Drainage 500 / 500 Right Nare Nasogastric Tube 500 / 500 Other: Bladder Irrigation Fluid - Amount Instilled Indwelling Urethral Catheter 25 # Bowel Movements 0 07/26/18 23:05 Sputum - Endotracheal Gram Stain - Final 07/26/18 23:05 Sputum - Endotracheal Sputum Culture - Preliminary No growth in 24 hours 07/26/18 15:46 Blood - Peripheral Aerobic Blood Culture - Preliminary No growth in 2 days 07/26/18 15:46 Blood - Peripheral Anaerobic Blood Culture - Preliminary No growth in 2 days 07/26/18 15:41 Blood - Peripheral Aerobic Blood Culture - Preliminary No growth in 2 days 07/26/18 15:41 Blood - Peripheral Anaerobic Blood Culture - Preliminary No growth in 2 days 07/26/18 Unknown Clean Catch Urine Urine Culture - Final No growth in 48 hours 07/26/18 18:36 Fluid - Bile Fluid Gram Stain - Final 07/26/18 18:36 Fluid - Bile Fluid Body Fluid Culture - Preliminary Staphylococcus aureus Lab - Hematology Results 07/28/18 07/28/18 07/28/18 04:00 12:50 17:05 WBC 31.0 H 25.5 H RBC 2.94 L 2.90 L Hgb 9.3 L D 8.3 L 9.2 L Hct 27.9 L 24.1 L 26.9 L MCV 94.8 92.9 MCH 31.6 31.7 MCHC 33.3 34.2 RDW 14.0 14.2 Plt Count 91 L D 68 L MPV 9.5 9.8 Prelim Diff (Auto) Manual diff required WBC Differential Manual diff final Seg Neuts % (Manual) 46 Band Neuts % (Manual) 37 H Lymphocytes % (Manual) 2 L Monocytes % (Manual) 4 Metamyelocytes % (Man) 6 H Promyelocytes % (Man) 4 H Blast Cells % (Manual) 1 H Abs Neuts (Manual) 28.8 H Nucleated RBCs/100 WBC 4 H Differential Comment . Toxic Vacuolation Present H Dohle Bodies Present H Platelet Estimate Low L Platelet Morphology Normal Pappenheimer Bodies Present H 07/29/18 03:45 WBC 20.8 H RBC 2.54 L Hgb 8.2 L Hct 24.3 L MCV 95.9 MCH 32.2 MCHC 33.6 RDW 15.3 Plt Count 56 L MPV 9.9 Prelim Diff (Auto) WBC Differential Seg Neuts % (Manual) Band Neuts % (Manual) Lymphocytes % (Manual) Monocytes % (Manual) Metamyelocytes % (Man) Promyelocytes % (Man) Blast Cells % (Manual) Abs Neuts (Manual) Nucleated RBCs/100 WBC Differential Comment Toxic Vacuolation Dohle Bodies Platelet Estimate Platelet Morphology Pappenheimer Bodies Lab - Chemistry Results 07/27/18 07/27/18 07/27/18 11:30 11:30 11:33 Sodium Potassium Chloride Carbon Dioxide Anion Gap BUN Creatinine Estimated GFR POC Glucose Random Glucose Lactic Acid 16.1 H* Calcium Prot Corrected Calcium Phosphorus Magnesium Total Bilirubin AST ALT Alkaline Phosphatase Ammonia Troponin I 1.15 H* Total Protein Albumin Lipase [facility] 0.882 07/27/18 07/27/18 07/27/18 12:04 16:02 16:20 Sodium Potassium Chloride Carbon Dioxide Anion Gap BUN Creatinine Estimated GFR POC Glucose 182 H 219 H Random Glucose Lactic Acid Calcium Prot Corrected Calcium Phosphorus Magnesium Total Bilirubin AST ALT Alkaline Phosphatase Ammonia Troponin I 1.00 H* Total Protein Albumin Lipase [facility] 07/27/18 07/27/18 07/27/18 18:09 20:05 20:18 Sodium Potassium Chloride Carbon Dioxide Anion Gap BUN Creatinine Estimated GFR POC Glucose 378 H 224 H Random Glucose Lactic Acid 15.5 H* Calcium Prot Corrected Calcium Phosphorus Magnesium Total Bilirubin AST ALT Alkaline Phosphatase Ammonia Troponin I Total Protein Albumin Lipase [facility] 07/27/18 07/27/18 07/27/18 20:30 21:07 21:54 Sodium Potassium Chloride Carbon Dioxide Anion Gap BUN Creatinine Estimated GFR POC Glucose 261 H 290 H Random Glucose Lactic Acid Calcium Prot Corrected Calcium Phosphorus Magnesium Total Bilirubin AST ALT Alkaline Phosphatase Ammonia Troponin I 0.89 H* Total Protein Albumin Lipase [facility] 07/27/18 07/28/18 07/28/18 23:08 00:06 01:05 Sodium Potassium Chloride Carbon Dioxide Anion Gap BUN Creatinine Estimated GFR POC Glucose 271 H 257 H 306 H Random Glucose Lactic Acid Calcium Prot Corrected Calcium Phosphorus Magnesium Total Bilirubin AST ALT Alkaline Phosphatase Ammonia Troponin I Total Protein Albumin Lipase [facility] 07/28/18 07/28/18 07/28/18 01:52 02:59 04:00 Sodium Cancelled Potassium Cancelled Chloride Cancelled Carbon Dioxide Cancelled Anion Gap Cancelled BUN Cancelled Creatinine Cancelled Estimated GFR Cancelled POC Glucose 240 H 248 H Random Glucose Cancelled Lactic Acid Calcium Cancelled Prot Corrected Calcium Phosphorus Magnesium Total Bilirubin AST ALT Alkaline Phosphatase Ammonia Troponin I Cancelled Total Protein Albumin Lipase 6839 H [facility] 07/28/18 07/28/18 07/28/18 04:00 04:00 04:00 Sodium 136 Potassium 4.0 Chloride 89 L D Carbon Dioxide 14.2 L Anion Gap 33 H BUN 44 H Creatinine 4.37 H Estimated GFR 13 L POC Glucose Random Glucose 258 H D Lactic Acid 20.1 H* Calcium 5.0 L* D Prot Corrected Calcium 5.9 L* D Phosphorus 7.0 H D Magnesium 1.9 Total Bilirubin 11.6 H AST 24951 H ALT 6469 H Alkaline Phosphatase 210 H Ammonia 128 H Troponin I 0.94 H* Total Protein 4.7 L Albumin 2.4 L Lipase [facility] 07/28/18 07/28/18 07/28/18 04:16 05:07 06:01 Sodium Potassium Chloride Carbon Dioxide Anion Gap BUN Creatinine Estimated GFR POC Glucose 224 H 224 H 220 H Random Glucose Lactic Acid Calcium Prot Corrected Calcium Phosphorus Magnesium Total Bilirubin AST ALT Alkaline Phosphatase Ammonia Troponin I Total Protein Albumin Lipase [facility] 07/28/18 07/28/18 07/28/18 06:56 08:13 09:12 Sodium Potassium Chloride Carbon Dioxide Anion Gap BUN Creatinine Estimated GFR POC Glucose 240 H 241 H 506 H* Random Glucose Lactic Acid Calcium Prot Corrected Calcium Phosphorus Magnesium Total Bilirubin AST ALT Alkaline Phosphatase Ammonia Troponin I Total Protein Albumin Lipase [facility] 07/28/18 07/28/18 07/28/18 09:16 10:08 11:01 Sodium Potassium Chloride Carbon Dioxide Anion Gap BUN Creatinine Estimated GFR POC Glucose 269 H 254 H 189 H Random Glucose Lactic Acid Calcium Prot Corrected Calcium Phosphorus Magnesium Total Bilirubin AST ALT Alkaline Phosphatase Ammonia Troponin I Total Protein Albumin Lipase [facility] 07/28/18 07/28/18 07/28/18 12:11 12:50 13:07 Sodium 137 Potassium 4.1 Chloride 85 L Carbon Dioxide 21.4 Anion Gap 31 H BUN 41 H Creatinine 4.43 H Estimated GFR 13 L POC Glucose 233 H 214 H Random Glucose 226 H Lactic Acid Calcium 5.1 L* Prot Corrected Calcium 5.9 L* Phosphorus Magnesium Total Bilirubin 15.2 H AST 14758 H ALT 7156 H Alkaline Phosphatase 249 H Ammonia Troponin I Total Protein 5.0 L Albumin 3.3 L D Lipase [facility] 07/28/18 07/28/18 07/28/18 14:00 15:08 16:03 Sodium Potassium Chloride Carbon Dioxide Anion Gap BUN Creatinine Estimated GFR POC Glucose 221 H 166 H 137 H Random Glucose Lactic Acid Calcium Prot Corrected Calcium Phosphorus Magnesium Total Bilirubin AST ALT Alkaline Phosphatase Ammonia Troponin I Total Protein Albumin Lipase [facility] 07/28/18 07/28/18 07/28/18 17:11 18:03 18:20 Sodium Potassium Chloride Carbon Dioxide Anion Gap BUN Creatinine Estimated GFR POC Glucose 112 H 106 Random Glucose Lactic Acid 14.0 H* Calcium Prot Corrected Calcium Phosphorus Magnesium Total Bilirubin AST ALT Alkaline Phosphatase Ammonia Troponin I Total Protein Albumin Lipase [facility] 07/28/18 07/28/18 07/28/18 19:17 19:55 19:55 Sodium 137 Potassium 4.2 Chloride 93 L D Carbon Dioxide 18.8 L Anion Gap 25 H BUN 37 H Creatinine 4.12 H Estimated GFR 14 L POC Glucose 75 Random Glucose 56 L D Lactic Acid 13.8 H* Calcium 5.9 L* D Prot Corrected Calcium 6.5 L* Phosphorus Magnesium Total Bilirubin 17.5 H AST 69078 H ALT 6411 H Alkaline Phosphatase 264 H Ammonia Troponin I 0.82 H* Total Protein 5.7 L D Albumin 3.8 Lipase [facility] 07/28/18 07/28/18 07/28/18 20:03 20:32 21:06 Sodium Potassium Chloride Carbon Dioxide Anion Gap BUN Creatinine Estimated GFR POC Glucose 72 160 H 128 H Random Glucose Lactic Acid Calcium Prot Corrected Calcium Phosphorus Magnesium Total Bilirubin AST ALT Alkaline Phosphatase Ammonia Troponin I Total Protein Albumin Lipase [facility] 07/29/18 07/29/18 07/29/18 00:13 02:45 03:11 Sodium Potassium Chloride Carbon Dioxide Anion Gap BUN Creatinine Estimated GFR POC Glucose 87 52 L 118 H Random Glucose Lactic Acid Calcium Prot Corrected Calcium Phosphorus Magnesium Total Bilirubin AST ALT Alkaline Phosphatase Ammonia Troponin I Total Protein Albumin Lipase [facility] 07/29/18 07/29/18 07/29/18 03:45 03:45 05:16 Sodium 140 Potassium 5.1 D Chloride 98 Carbon Dioxide 13.4 L Anion Gap 29 H BUN 34 H Creatinine 4.13 H Estimated GFR 14 L POC Glucose 76 Random Glucose 105 Lactic Acid 16.3 H* Calcium 6.4 L* Prot Corrected Calcium 7.3 L* D Phosphorus Magnesium 1.9 Total Bilirubin 15.9 H AST 29424 H ALT 5221 H Alkaline Phosphatase 245 H Ammonia Troponin I 0.76 H* Total Protein 5.3 L Albumin 3.6 Lipase TSH 07/29/18 07/29/18 07/29/18 05:49 06:14 08:07 Sodium Potassium Chloride Carbon Dioxide Anion Gap BUN Creatinine Estimated GFR POC Glucose 61 L 149 H 40 L* Random Glucose Lactic Acid Calcium Prot Corrected Calcium Phosphorus Magnesium Total Bilirubin AST ALT Alkaline Phosphatase Ammonia Troponin I Total Protein Albumin Lipase TSH 07/29/18 08:09 Sodium Potassium Chloride Carbon Dioxide Anion Gap BUN Creatinine Estimated GFR POC Glucose 39 L* Random Glucose Lactic Acid Calcium Prot Corrected Calcium Phosphorus Magnesium Total Bilirubin AST ALT Alkaline Phosphatase Ammonia Troponin I Total Protein Albumin Lipase TSH Imaging: ITS Impressions Cholangiopancreatography MRI 07/25/18 00:00 CONCLUSION: 1. Tiny distal common bile duct stone at the ampulla, estimated at 3.5 mm in size. This appears to be minimally obstructing, if any, with generally a normal size common bile duct for a patient this age and no pancreatic duct dilatation. Several similar sized stones are seen in the gallbladder near the neck. No other definite stones are clearly demonstrated. 2. Acute pancreatitis. Abdomen/Pelvis CT 07/25/18 08:06 CONCLUSION: 1. Acute pancreatitis. No pseudocyst, pancreatic infarction, or pancreatic hemorrhage observed. No ductal dilatation. There is a 2 mm calcification at the level of the ampulla that could relate to a CBD stone at the ampullary region. There is no ductal dilatation to suggest an obstructing component. 2. Cholelithiasis. 3. 3 mm nonobstructing left renal stone. 4. 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 5. Umbilical and left inguinal hernias. Percutaneous Cholangiogram 07/26/18 00:00 CONCLUSION: 1. Uncomplicated percutaneous cholecystostomy as above. Once the patient has stabilized can consider performing a cholangiogram through the cholecystostomy tube to assess the distal common bile duct. Abdomen X-Ray 07/27/18 00:00 CONCLUSION: Stable exam. Abdomen Ultrasound 07/27/18 12:05 CONCLUSION: 1. Bowel gas limits the study. 2. Hepatic steatosis. No biliary dilatation. 3. Sludge and small stones within a decompressed gallbladder which contains a cholecystostomy tube. 4. Small volume ascites. 5. Pancreas is totally obscured and not well evaluated. Gallbladder Ultrasound 07/28/18 16:46 CONCLUSION: 1. The cholecystostomy tube is coiled within the lumen of the gallbladder. The gallbladder does contain stones and sludge with a small amount of fluid. No dilatation of the gallbladder. The reduced drainage from the gallbladder tube likely relates to internal drainage down the common bile duct. Injection of contrast in the cholecystostomy tube can be performed to evaluate the patency of the common bile duct. This can be performed when the patient is stable and able to leave the unit. Chest X-Ray 07/29/18 06:00 CONCLUSION: No significant change. Physical Exam: GENERAL: Sedated, on the vent, NAD SKIN: Cool and clammy skin, no generalized rash HEAD: Atraumatic. Normocephalic. No temporal or scalp tenderness. EYES: Pupils reactive. No injection or drainage. No petechia ENT: Orally intubated NECK: Trachea midline. Supple, nontender, no meningeal signs. CARDIOVASCULAR: HS audible. RESPIRATORY: Air entry equal bilaterally. Clear to auscultation bilaterally. GASTROINTESTINAL: Abdomen soft,NT, cholecystostomy tube in place. MUSCULOSKELETAL: Extremities without clubbing, cyanosis. NEUROLOGICAL: Sedated Psych could not be assessed IV line sites ok. Assessment and Plan - Plan Septic Shock with Multi Organ dysfunction On multiple high dose pressors. Acute pancreatitis concern for necrotizing component or infected pseudocyst. Acute cholecystitis/Acute cholangitis. GPC in Bile fluid likely Strep. Acute resp failure on vent Acute renal failure: prerenal, sepsis. On CVVHD. Acute metabolic encephalopathy prior to intubation likely secondary to sepsis. Recs: Continue Meropenem IV Continue Dapto IV for possible VRE (pt in ARF on CVVHD) Continue Micafungin IV Follow cultures Follow clinically. davide [facility] MD Dr. Alyse augustine RN Bladder pressures stable at 18. Also davide RN to watch for Flank discoloration as a sign of necrotizing hemorrhagic pancreatitis. Dw patients the culture findings and explained reasoning for escalating antibiotics. dw patients sons in the room: sources of infection and how source control would be important. Unfortunately as patient is unstable he cannot undergo any procedures or imaging. dw them concerns for ongoing pancreatic necrosis and possible hemorrhage. Prognosis guarded. Based on [place]'s criteria score in 7-11 points range. Critical time > 30 mins. Reviewed CARLITOS, davide Nursing and MDs.
[2018-07-29] MEDS: Norepinephrine Inj 16 MG in Sodium Chlor 0.9% Inj 234 ML IV.CONT PRN ×3 (10:47→20:59)
[2018-07-29] MEDS: Dorzolamide-Timolol 2/0.5% Opth Drops 10 ML Bottle EACH EYE SCH (10:50)
--- NOTE | 2018-07-29 10:53 | P.PNGI ---
Subjective Interval history: Pt remain critically ill, family by bed side. getting CVVH. <Jose Alfredo Rivera - Last Filed: 08/13/18 20:45> Physical Exam Vital signs: Vital Signs 07/28/18 15:23 07/28/18 16:00 07/28/18 16:17 Temperature 98.4 F 97.7 F 97.7 F Pulse Rate 96 H 88 92 H Respiratory Rate 18 18 Blood Pressure 94/54 L 111/67 106/64 Pulse Oximetry 100 100 07/28/18 17:00 07/28/18 17:59 07/28/18 18:00 Temperature 97.7 F 96.3 F L Pulse Rate 89 87 87 Respiratory Rate 18 Blood Pressure 117/72 99/65 L 98/65 L Pulse Oximetry 100 99 97 07/28/18 19:00 07/28/18 19:51 07/28/18 20:00 Temperature 96.7 F L 96.7 F L Pulse Rate 84 78 78 Respiratory Rate 18 18 18 Blood Pressure 99/61 L 120/72 Pulse Oximetry 97 96 96 07/28/18 20:13 07/28/18 21:00 07/28/18 22:00 Temperature 96.7 F L 96.7 F L 96.7 F L Pulse Rate 83 72 75 Respiratory Rate 18 18 18 Blood Pressure 107/65 94/56 L 93/55 L Pulse Oximetry 92 L 93 L 07/28/18 23:00 07/28/18 23:48 07/29/18 00:00 Temperature 96.5 F L 96.4 F L Pulse Rate 83 83 Respiratory Rate 18 18 18 Blood Pressure 119/61 103/56 L Pulse Oximetry 88 L 92 L 94 L 07/29/18 01:00 07/29/18 02:00 07/29/18 02:48 Temperature 96.4 F L 96.4 F L Pulse Rate 82 79 80 Respiratory Rate 18 18 18 Blood Pressure 89/51 L 101/55 L Pulse Oximetry 92 L 94 L 07/29/18 03:00 07/29/18 03:59 07/29/18 04:00 Temperature 96.5 F L 96.7 F L Pulse Rate 75 79 Respiratory Rate 18 18 18 Blood Pressure 95/50 L 92/50 L Pulse Oximetry 86 L 94 L 94 L 07/29/18 05:00 07/29/18 06:00 07/29/18 07:37 Temperature 96.7 F L 96.6 F L Pulse Rate 79 73 Respiratory Rate 18 18 18 Blood Pressure 84/48 L 96/50 L Pulse Oximetry 92 L 84 L 07/29/18 09:15 07/29/18 11:02 Temperature Pulse Rate 76 Respiratory Rate 18 24 Blood Pressure Pulse Oximetry Intake & Output 07/28/18 07/29/18 07/29/18 18:59 06:59 18:59 Intake Total 9042 / 9042 7991 / 7991 3850 / 3850 Output Total 35 / 35 700 / 700 Balance 9007 / 9007 7291 / 7291 3850 / 3850 Weight 99.9 kg Intake: IV 8321 / 8321 7390 / 7390 3850 / 3850 Cordarone Inj 450 MG In D5W Inj 250 / 250 250 / 250 241 ML @ 1 MG/MIN 33.33 mls/hr IV.CONT TITRATE PRN Rx#: [id number] NovoLIN R (IV Infusion) 100 100 / 100 UNIT In NS Inj 99 ML @ Per Protocol IV.CONT TITRATE PRN Rx #:[id number] Levophed Inj 16 MG In NS Inj 250 / 250 234 ML @ 2 MCG/MIN 1.87 mls/hr IV.CONT TITRATE PRN Rx#: [id number] Neosynephrine Inj 160 MG In NS 500 / 500 Inj 484 ML @ 40 MCG/MIN 7.5 mls /hr IV.CONT TITRATE PRN Rx#: [id number] Pitressin Inj 40 UNIT In NS Inj 100 / 100 100 / 100 98 ML @ 0.04 UNITS/MIN 6 mls/ hr IV.CONT CONT [facility] Rx#: [id number] Flexbumin 25% Inj 100 ML @ 60 100 / 100 mls/hr IV.SIG ONCE ONE Rx#: [id number] Alburx 5% Inj 500 ML @ 250 mls/ 1000 / 1000 500 / 500 hr IV.SIG Q6H [facility] Rx#:[id number] Calcium Chloride Inj 2 GM In 120 / 120 D5W Inj 100 ML @ 120 mls/hr IV. SIG ONCE ONE Rx#:[id number] Calcium Chloride Inj 2 GM In NS 120 / 120 Inj 100 ML @ 120 mls/hr IV.SIG ONCE ONE Rx#:[id number] Calcium Gluconate Inj 2 GM In 120 / 120 NS Inj 100 ML @ 120 mls/hr IV. SIG ONCE ONE Rx#:[id number] Cubicin Inj 800 MG In NS Inj 100 / 100 100 ML @ 200 mls/hr IV.SIG Q48H [facility] Rx#:[id number] Merrem Inj 1,000 MG In NS Inj 100 / 100 200 / 200 100 ML @ 200 mls/hr IV.SIG Q8H [facility] Rx#:[id number] Mycamine Inj 100 MG In NS Inj 100 / 100 100 ML @ 100 mls/hr IV.SIG Q24H [facility] Rx#:[id number] Vitamin K Inj 10 MG In NS Inj 51 / 51 50 ML @ 102 mls/hr IV.SIG ONCE ONE Rx#:[id number] Zosyn 2.25 GM Premix 50 ML @ 50 / 50 100 mls/hr IV.SIG Q6H [facility] Rx#: [id number] NS Inj 1,000 ML @ 500 mls/hr IV 2000 / 2000 6000 / 6000 3000 / 3000 .SIG .Q2H [facility] Rx#:[id number] Sodium Bicarbonate 8.4% Inj 150 4150 / 4150 MEQ In D5W Inj 850 ML @ 500 mls/hr IV.SIG .Q2H [facility] Rx#: [id number] Flolan (30,000 ng/mL) Neb 87.5 100 / 100 100 / 100 100 / 100 ML NS Inj 12.5 ML In Bag/ Syringe 1 EACH @ 8 mls/hr NEB Q8H [facility] Rx#:[id number] Oral 0 / 0 Tube Feeding 0 / 0 Intake (Blood Product) Amt 721 / 721 601 / 601 Plasma Thawed 5 Day Cp2d Unit 321 / 321 [id number] Plasma Thawed 5 Day Cp2d Unit 0 / 0 310 / 310 [id number] Plasma Thawed 5 Day Cp2d Unit 291 / 291 [id number] Rbc Cp2d Leukoreduced Unit 400 / 400 [id number] Output: Urine 35 / 35 Urine Amount (Catheter) 200 / 200 Indwelling Urethral Catheter 200 / 200 Gastric Drainage 500 / 500 Right Nare Nasogastric Tube 500 / 500 Other: Bladder Irrigation Fluid - Amount Instilled Indwelling Urethral Catheter 25 # Bowel Movements 0 - Urinary Catheter Management Indwelling Urethral Catheter Cath placed during this visit: no <Jaspreet Marcano E - Last Filed: 07/29/18 15:00> Vital signs: Vital Signs 07/28/18 11:00 07/28/18 11:01 07/28/18 11:04 Temperature 96.6 F L 96.6 F L Pulse Rate 109 H 104 H Respiratory Rate 24 Blood Pressure 126/69 Pulse Oximetry 85 L 83 L 07/28/18 12:00 07/28/18 13:00 07/28/18 14:00 Temperature 98.4 F 97.2 F L 97.3 F L Pulse Rate 97 H 103 H 98 H Respiratory Rate Blood Pressure 142/82 H 114/72 121/69 Pulse Oximetry 74 L 79 L 78 L 07/28/18 14:56 07/28/18 15:00 07/28/18 15:23 Temperature 97.5 F L 98.4 F Pulse Rate 101 H 101 H 96 H Respiratory Rate 18 18 Blood Pressure 106/69 94/54 L Pulse Oximetry 98 100 07/28/18 16:00 07/28/18 16:17 07/28/18 17:00 Temperature 97.7 F 97.7 F Pulse Rate 88 92 H 89 Respiratory Rate 18 Blood Pressure 111/67 106/64 117/72 Pulse Oximetry 100 100 100 07/28/18 17:59 07/28/18 18:00 07/28/18 19:00 Temperature 97.7 F 96.3 F L 96.7 F L Pulse Rate 87 87 84 Respiratory Rate 18 18 Blood Pressure 99/65 L 98/65 L 99/61 L Pulse Oximetry 99 97 97 07/28/18 19:51 07/28/18 20:00 07/28/18 20:13 Temperature 96.7 F L 96.7 F L Pulse Rate 78 78 83 Respiratory Rate 18 18 18 Blood Pressure 120/72 107/65 Pulse Oximetry 96 96 07/28/18 21:00 07/28/18 22:00 07/28/18 23:00 Temperature 96.7 F L 96.7 F L 96.5 F L Pulse Rate 72 75 83 Respiratory Rate 18 18 18 Blood Pressure 94/56 L 93/55 L 119/61 Pulse Oximetry 92 L 93 L 88 L 07/28/18 23:48 07/29/18 00:00 07/29/18 01:00 Temperature 96.4 F L 96.4 F L Pulse Rate 83 82 Respiratory Rate 18 18 18 Blood Pressure 103/56 L 89/51 L Pulse Oximetry 92 L 94 L 92 L 07/29/18 02:00 07/29/18 02:48 07/29/18 03:00 Temperature 96.4 F L 96.5 F L Pulse Rate 79 80 75 Respiratory Rate 18 18 18 Blood Pressure 101/55 L 95/50 L Pulse Oximetry 94 L 86 L 07/29/18 03:59 07/29/18 04:00 07/29/18 05:00 Temperature 96.7 F L 96.7 F L Pulse Rate 79 79 Respiratory Rate 18 18 18 Blood Pressure 92/50 L 84/48 L Pulse Oximetry 94 L 94 L 92 L 07/29/18 06:00 07/29/18 07:37 07/29/18 09:15 Temperature 96.6 F L Pulse Rate 73 76 Respiratory Rate 18 18 18 Blood Pressure 96/50 L Pulse Oximetry 84 L Intake & Output 07/28/18 07/29/18 07/29/18 18:59 06:59 18:59 Intake Total 9042 / 9042 7991 / 7991 2099 Output Total 35 / 35 700 / 700 Balance 9007 / 9007 7291 / 7291 2099 Weight 99.9 kg Intake: IV 8321 / 8321 7390 / 7390 2099 / 2099 Cordarone Inj 450 MG In D5W Inj 250 / 250 250 / 250 241 ML @ 1 MG/MIN 33.33 mls/hr IV.CONT TITRATE PRN Rx#: [id number] NovoLIN R (IV Infusion) 100 100 / 100 UNIT In NS Inj 99 ML @ Per Protocol IV.CONT TITRATE PRN Rx #:[id number] Pitressin Inj 40 UNIT In NS Inj 100 / 100 100 / 100 98 ML @ 0.04 UNITS/MIN 6 mls/ hr IV.CONT CONT [facility] Rx#: [id number] Flexbumin 25% Inj 100 ML @ 60 100 / 100 mls/hr IV.SIG ONCE ONE Rx#: [id number] Alburx 5% Inj 500 ML @ 250 mls/ 1000 / 1000 500 / 500 hr IV.SIG Q6H [facility] Rx#:[id number] Calcium Chloride Inj 2 GM In 120 / 120 D5W Inj 100 ML @ 120 mls/hr IV. SIG ONCE ONE Rx#:[id number] Calcium Chloride Inj 2 GM In NS 120 / 120 Inj 100 ML @ 120 mls/hr IV.SIG ONCE ONE Rx#:[id number] Calcium Gluconate Inj 2 GM In 120 / 120 NS Inj 100 ML @ 120 mls/hr IV. SIG ONCE ONE Rx#:[id number] Cubicin Inj 800 MG In NS Inj 100 / 100 100 ML @ 200 mls/hr IV.SIG Q48H [facility] Rx#:[id number] Merrem Inj 1,000 MG In NS Inj 100 / 100 200 / 200 100 ML @ 200 mls/hr IV.SIG Q8H [facility] Rx#:[id number] Mycamine Inj 100 MG In NS Inj 100 / 100 100 ML @ 100 mls/hr IV.SIG Q24H [facility] Rx#:[id number] Vitamin K Inj 10 MG In NS Inj 51 / 51 50 ML @ 102 mls/hr IV.SIG ONCE ONE Rx#:[id number] Zosyn 2.25 GM Premix 50 ML @ 50 / 50 100 mls/hr IV.SIG Q6H [facility] Rx#: [id number] NS Inj 1,000 ML @ 500 mls/hr IV 1999 6000 / 6000 1999 / 1999 .SIG .Q2H [facility] Rx#:[id number] Sodium Bicarbonate 8.4% Inj 150 4150 / 4150 MEQ In D5W Inj 850 ML @ 500 mls/hr IV.SIG .Q2H [facility] Rx#: [id number] Flolan (30,000 ng/mL) Neb 87.5 100 / 100 100 / 100 100 / 100 ML NS Inj 12.5 ML In Bag/ Syringe 1 EACH @ 8 mls/hr NEB Q8H [facility] Rx#:[id number] Oral 0 / 0 Tube Feeding 0 / 0 Intake (Blood Product) Amt 721 / 721 601 / 601 Plasma Thawed 5 Day Cp2d Unit 321 / 321 [id number] Plasma Thawed 5 Day Cp2d Unit 0 / 0 310 / 310 [id number] Plasma Thawed 5 Day Cp2d Unit 291 / 291 [id number] Rbc Cp2d Leukoreduced Unit 400 / 400 [id number] Output: Urine 35 / 35 Urine Amount (Catheter) 200 / 200 Indwelling Urethral Catheter 200 / 200 Gastric Drainage 500 / 500 Right Nare Nasogastric Tube 500 / 500 Other: Bladder Irrigation Fluid - Amount Instilled Indwelling Urethral Catheter 25 # Bowel Movements 0 Narrative: GENERAL: Patient remain intubated and sedated, on pressors. SKIN: Warm and dry. 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 HEAD: Atraumatic. Normocephalic. EYES: Pupils equal and round. No scleral icterus. No injection or drainage. ENT: No nasal bleeding or discharge. Mucous membranes pink and moist. NECK: Trachea midline. No JVD. CARDIOVASCULAR: Tachycardic. RESPIRATORY: No accessory muscle use. Clear to auscultation anteriorly. Breath sounds equal bilaterally. GASTROINTESTINAL: Abdomen distended, diffusely tender to palpation. Hypoactive bowel sounds. MUSCULOSKELETAL: Extremities without clubbing, cyanosis, or edema. No obvious deformities. NEUROLOGICAL: Sedated, and on the vent. - Constitutional chronically ill appearing - Routine HEENT Exam Head: Present: normocephalic - Routine Respiratory Exam Present: patient mechanically ventilated - Routine Cardiovascular Exam Present: tachycardia - Routine Abdominal Exam Present: distended, firm, organomegaly, drain. Absent: Elder Anderson's sign, Del's sign Comments: has blisters on the lateral right side of abd. - Routine Extremities Exam Present: edema - Routine Skin Exam Present: dry, jaundice - Routine Neurological Exam vented - Urinary Catheter Management Indwelling Urethral Catheter Cath placed during this visit: yes Reason for continuing: Hourly intake/output Insertion date: 07/26/18 Insertion time: 14:30 <Jose Alfredo Rivera - Last Filed: 08/13/18 20:45> Results - Labs CBC & Chem 7: 07/29/18 03:45 07/29/18 03:45 Laboratory Results - last 24 hr 07/28/18 07/28/18 07/28/18 13:59 14:15 14:15 WBC RBC Hgb Hct MCV MCH MCHC RDW Plt Count MPV PT INR Fibrinogen Puncture Site Patient Temperature O2 Saturation ABG pH ABG pCO2 ABG pO2 ABG HCO3 ABG O2 Content ABG Base Excess ABG Methemoglobin Gaudencio Test VBG pH VBG pCO2 VBG pO2 VBG HCO3 VBG O2 Saturation VBG O2 Content VBG Base Excess VBG Carboxyhemoglobin VBG Methemoglobin Hemoglobin Carboxyhemoglobin O2 Delivery Device Vent Setting Inspired O2 Critical Value Sodium Potassium Chloride Carbon Dioxide Anion Gap BUN Creatinine Estimated GFR POC Glucose Random Glucose Lactic Acid Calcium Prot Corrected Calcium Magnesium Total Bilirubin AST ALT Alkaline Phosphatase Troponin I Total Protein Albumin Blood Type O Positive Antibody Screen Negative MTS Gel Crossmatch See Detail Blood Bank Comment Bld Prod Order Comment 07/28/18 07/28/18 07/28/18 15:08 16:03 16:15 WBC RBC Hgb Hct MCV MCH MCHC RDW Plt Count MPV PT INR Fibrinogen Puncture Site Art line Patient Temperature 98.6 O2 Saturation 95 ABG pH 7.40 ABG pCO2 32 L ABG pO2 147 H ABG HCO3 19 L ABG O2 Content 10.6 L ABG Base Excess -4.6 L ABG Methemoglobin 2.9 H Gaudencio Test VBG pH VBG pCO2 VBG pO2 VBG HCO3 VBG O2 Saturation VBG O2 Content VBG Base Excess VBG Carboxyhemoglobin VBG Methemoglobin Hemoglobin 7.7 L* Carboxyhemoglobin 0.9 O2 Delivery Device Ventilator Vent Setting Prvc/ac600/18/5peep Inspired O2 80 Critical Value Yes Sodium Potassium Chloride Carbon Dioxide Anion Gap BUN Creatinine Estimated GFR POC Glucose 166 H 137 H Random Glucose Lactic Acid Calcium Prot Corrected Calcium Magnesium Total Bilirubin AST ALT Alkaline Phosphatase Troponin I Total Protein Albumin Blood Type Antibody Screen [facility]TS Gel Crossmatch Blood Bank Comment Bld Prod Order Comment 07/28/18 07/28/18 07/28/18 17:05 17:11 17:50 WBC 25.5 H RBC 2.90 L Hgb 9.2 L Hct 26.9 L MCV 92.9 MCH 31.7 MCHC 34.2 RDW 14.2 Plt Count 68 L MPV 9.8 PT INR Fibrinogen Puncture Site Central line Patient Temperature 98.6 O2 Saturation ABG pH ABG pCO2 ABG pO2 ABG HCO3 ABG O2 Content ABG Base Excess ABG Methemoglobin Gaudencio Test VBG pH 7.33 L VBG pCO2 43 L VBG pO2 26 L* VBG HCO3 22 VBG O2 Saturation 34 L VBG O2 Content 4.3 L VBG Base Excess -2.9 L VBG Carboxyhemoglobin 0.7 VBG Methemoglobin 2.6 H Hemoglobin 8.9 L Carboxyhemoglobin O2 Delivery Device Ventilator Vent Setting Prvc/ac600/18/5peep Inspired O2 70 Critical Value Yes Sodium Potassium Chloride Carbon Dioxide Anion Gap BUN Creatinine Estimated GFR POC Glucose 112 H Random Glucose Lactic Acid Calcium Prot Corrected Calcium Magnesium Total Bilirubin AST ALT Alkaline Phosphatase Troponin I Total Protein Albumin Blood Type Antibody Screen MTS Gel Crossmatch Blood Bank Comment Bld Prod Order Comment 07/28/18 07/28/18 07/28/18 18:03 18:20 19:17 WBC RBC Hgb Hct MCV MCH MCHC RDW Plt Count MPV PT INR Fibrinogen Puncture Site Patient Temperature O2 Saturation ABG pH ABG pCO2 ABG pO2 ABG HCO3 ABG O2 Content ABG Base Excess ABG Methemoglobin Gaudencio Test VBG pH VBG pCO2 VBG pO2 VBG HCO3 VBG O2 Saturation VBG O2 Content VBG Base Excess VBG Carboxyhemoglobin VBG Methemoglobin Hemoglobin Carboxyhemoglobin O2 Delivery Device Vent Setting Inspired O2 Critical Value Sodium Potassium Chloride Carbon Dioxide Anion Gap BUN Creatinine Estimated GFR POC Glucose 106 75 Random Glucose Lactic Acid 14.0 H* Calcium Prot Corrected Calcium Magnesium Total Bilirubin AST ALT Alkaline Phosphatase Troponin I Total Protein Albumin Blood Type Antibody Screen [facility] Blood Bank Comment Bld Prod Order Comment 07/28/18 07/28/18 07/28/18 19:44 19:50 19:55 WBC RBC Hgb Hct MCV MCH MCHC RDW Plt Count MPV PT INR Fibrinogen Puncture Site Art line Patient Temperature 98.6 O2 Saturation 95 ABG pH 7.37 L ABG pCO2 32 L ABG pO2 143 H ABG HCO3 18 L ABG O2 Content 11.9 L ABG Base Excess -6.1 L ABG Methemoglobin 2.5 H Gaudencio Test VBG pH VBG pCO2 VBG pO2 VBG HCO3 VBG O2 Saturation VBG O2 Content VBG Base Excess VBG Carboxyhemoglobin VBG Methemoglobin Hemoglobin 8.7 L Carboxyhemoglobin 0.7 O2 Delivery Device Ventilator Vent Setting 18/600/it0.75/5peep Inspired O2 70 Critical Value No Sodium Potassium Chloride Carbon Dioxide Anion Gap BUN Creatinine Estimated GFR POC Glucose Random Glucose Lactic Acid 13.8 H* Calcium Prot Corrected Calcium Magnesium Total Bilirubin AST ALT Alkaline Phosphatase Troponin I Total Protein Albumin Blood Type Antibody Screen [facility] Blood Bank Comment Bld Prod Order Comment 07/28/18 07/28/18 07/28/18 19:55 19:55 20:03 WBC RBC Hgb Hct MCV MCH MCHC RDW Plt Count MPV PT 22.7 H INR 2.2 Fibrinogen 211 L Puncture Site Patient Temperature O2 Saturation ABG pH ABG pCO2 ABG pO2 ABG HCO3 ABG O2 Content ABG Base Excess ABG Methemoglobin Gaudencio Test VBG pH VBG pCO2 VBG pO2 VBG HCO3 VBG O2 Saturation VBG O2 Content VBG Base Excess VBG Carboxyhemoglobin VBG Methemoglobin Hemoglobin Carboxyhemoglobin O2 Delivery Device Vent Setting Inspired O2 Critical Value Sodium 137 Potassium 4.2 Chloride 93 L D Carbon Dioxide 18.8 L Anion Gap 25 H BUN 37 H Creatinine 4.12 H Estimated GFR 14 L POC Glucose 72 Random Glucose 56 L D Lactic Acid Calcium 5.9 L* D Prot Corrected Calcium 6.5 L* Magnesium Total Bilirubin 17.5 H AST 17300 H ALT 6411 H Alkaline Phosphatase 264 H Troponin I 0.82 H* Total Protein 5.7 L D Albumin 3.8 Blood Type Antibody Screen [facility] Gel Crossmatch Blood Bank Comment Bld Prod Order Comment 07/28/18 07/28/18 07/29/18 20:32 21:06 00:13 WBC RBC Hgb Hct MCV MCH MCHC RDW Plt Count MPV PT INR Fibrinogen Puncture Site Patient Temperature O2 Saturation ABG pH ABG pCO2 ABG pO2 ABG HCO3 ABG O2 Content ABG Base Excess ABG Methemoglobin Gaudencio Test VBG pH VBG pCO2 VBG pO2 VBG HCO3 VBG O2 Saturation VBG O2 Content VBG Base Excess VBG Carboxyhemoglobin VBG Methemoglobin Hemoglobin Carboxyhemoglobin O2 Delivery Device Vent Setting Inspired O2 Critical Value Sodium Potassium Chloride Carbon Dioxide Anion Gap BUN Creatinine Estimated GFR POC Glucose 160 H 128 H 87 Random Glucose Lactic Acid Calcium Prot Corrected Calcium Magnesium Total Bilirubin AST ALT Alkaline Phosphatase Troponin I Total Protein Albumin Blood Type Antibody Screen [facility] Gel Et3arraftch Blood Bank Comment Bld Prod Order Comment 07/29/18 07/29/18 07/29/18 02:45 03:11 03:45 WBC 20.8 H RBC 2.54 L Hgb 8.2 L Hct 24.3 L MCV 95.9 MCH 32.2 MCHC 33.6 RDW 15.3 Plt Count 56 L MPV 9.9 PT INR Fibrinogen Puncture Site Patient Temperature O2 Saturation ABG pH ABG pCO2 ABG pO2 ABG HCO3 ABG O2 Content ABG Base Excess ABG Methemoglobin Gaudencio Test VBG pH VBG pCO2 VBG pO2 VBG HCO3 VBG O2 Saturation VBG O2 Content VBG Base Excess VBG Carboxyhemoglobin VBG Methemoglobin Hemoglobin Carboxyhemoglobin O2 Delivery Device Vent Setting Inspired O2 Critical Value Sodium Potassium Chloride Carbon Dioxide Anion Gap BUN Creatinine Estimated GFR POC Glucose 52 L 118 H Random Glucose Lactic Acid Calcium Prot Corrected Calcium Magnesium Total Bilirubin AST ALT Alkaline Phosphatase Troponin I Total Protein Albumin Blood Type Antibody Screen [facility] Gel Et3arraftch Blood Bank Comment Bld Prod Order Comment 07/29/18 07/29/18 07/29/18 03:45 03:45 05:16 WBC RBC Hgb Hct MCV MCH MCHC RDW Plt Count MPV PT INR Fibrinogen Puncture Site Patient Temperature O2 Saturation ABG pH ABG pCO2 ABG pO2 ABG HCO3 ABG O2 Content ABG Base Excess ABG Methemoglobin Gaudencio Test VBG pH VBG pCO2 VBG pO2 VBG HCO3 VBG O2 Saturation VBG O2 Content VBG Base Excess VBG Carboxyhemoglobin VBG Methemoglobin Hemoglobin Carboxyhemoglobin O2 Delivery Device Vent Setting Inspired O2 Critical Value Sodium 140 Potassium 5.1 D Chloride 98 Carbon Dioxide 13.4 L Anion Gap 29 H BUN 34 H Creatinine 4.13 H Estimated GFR 14 L POC Glucose 76 Random Glucose 105 Lactic Acid 16.3 H* Calcium 6.4 L* Prot Corrected Calcium 7.3 L* D Magnesium 1.9 Total Bilirubin 15.9 H AST 81893 H ALT 5221 H Alkaline Phosphatase 245 H Troponin I 0.76 H* Total Protein 5.3 L Albumin 3.6 Blood Type Antibody Screen [facility] Gel Et3arraftch Blood Bank Comment Bld Prod Order Comment 07/29/18 07/29/18 07/29/18 05:49 06:14 07:58 WBC RBC Hgb Hct MCV MCH MCHC RDW Plt Count MPV PT INR Fibrinogen Puncture Site Art line Patient Temperature 98.6 O2 Saturation 89 L* ABG pH 7.04 L* ABG pCO2 32 L ABG pO2 96 ABG HCO3 8 L* ABG O2 Content 10.5 L ABG Base Excess -20.4 L ABG Methemoglobin 2.7 H Gaudencio Test Present VBG pH VBG pCO2 VBG pO2 VBG HCO3 VBG O2 Saturation VBG O2 Content VBG Base Excess VBG Carboxyhemoglobin VBG Methemoglobin Hemoglobin 8.3 L Carboxyhemoglobin 0.1 O2 Delivery Device Ventilator Vent Setting Prvc/ac Inspired O2 60 Critical Value Yes Sodium Potassium Chloride Carbon Dioxide Anion Gap BUN Creatinine Estimated GFR POC Glucose 61 L 149 H Random Glucose Lactic Acid Calcium Prot Corrected Calcium Magnesium Total Bilirubin AST ALT Alkaline Phosphatase Troponin I Total Protein Albumin Blood Type Antibody Screen [facility] Gel Et3arraft[facility] Blood Bank Comment Bld Prod Order Comment 07/29/18 07/29/18 07/29/18 08:07 08:09 10:10 WBC RBC Hgb Hct MCV MCH MCHC RDW Plt Count MPV PT INR Fibrinogen Puncture Site Patient Temperature O2 Saturation ABG pH ABG pCO2 ABG pO2 ABG HCO3 ABG O2 Content ABG Base Excess ABG Methemoglobin Gaudencio Test VBG pH VBG pCO2 VBG pO2 VBG HCO3 VBG O2 Saturation VBG O2 Content VBG Base Excess VBG Carboxyhemoglobin VBG Methemoglobin Hemoglobin Carboxyhemoglobin O2 Delivery Device Vent Setting Inspired O2 Critical Value Sodium Potassium Chloride Carbon Dioxide Anion Gap BUN Creatinine Estimated GFR POC Glucose 40 L* 39 L* 29 L* Random Glucose Lactic Acid Calcium Prot Corrected Calcium Magnesium Total Bilirubin AST ALT Alkaline Phosphatase Troponin I Total Protein Albumin Blood Type Antibody Screen [employer] Gel Et3arraftch Blood Bank Comment Bld Prod Order Comment 07/29/18 07/29/18 07/29/18 10:13 11:21 11:50 WBC RBC Hgb Hct MCV MCH MCHC RDW Plt Count MPV PT INR Fibrinogen Puncture Site Art line Patient Temperature 98.6 O2 Saturation ABG pH ABG pCO2 ABG pO2 ABG HCO3 ABG O2 Content ABG Base Excess ABG Methemoglobin Gaudencio Test VBG pH 6.98 L* VBG pCO2 42 L VBG pO2 40 VBG HCO3 9 L* VBG O2 Saturation 45 L VBG O2 Content 4.9 L VBG Base Excess -20.1 L VBG Carboxyhemoglobin 0.3 VBG Methemoglobin 2.9 H Hemoglobin 7.7 L Carboxyhemoglobin O2 Delivery Device Ventilator Vent Setting Prvc/ac Inspired O2 100 Critical Value Yes Sodium Potassium Chloride Carbon Dioxide Anion Gap BUN Creatinine Estimated GFR POC Glucose 111 H 104 Random Glucose Lactic Acid Calcium Prot Corrected Calcium Magnesium Total Bilirubin AST ALT Alkaline Phosphatase Troponin I Total Protein Albumin Blood Type Antibody Screen [employer] Gel Et3arraftch Blood Bank Comment Bld Prod Order Comment 07/29/18 07/29/18 07/29/18 11:55 12:00 12:08 WBC RBC Hgb Hct MCV MCH MCHC RDW Plt Count MPV PT INR Fibrinogen Puncture Site Art line Patient Temperature 98.6 O2 Saturation 94 ABG pH 7.04 L* ABG pCO2 25 L ABG pO2 153 H ABG HCO3 6 L* ABG O2 Content 9.9 L ABG Base Excess -22.2 L ABG Methemoglobin 2.9 H Gaudencio Test VBG pH VBG pCO2 VBG pO2 VBG HCO3 VBG O2 Saturation VBG O2 Content VBG Base Excess VBG Carboxyhemoglobin VBG Methemoglobin Hemoglobin 7.2 L* Carboxyhemoglobin 0.0 O2 Delivery Device Ventilator Vent Setting Prvc/ac Inspired O2 100 Critical Value Yes Sodium Potassium Chloride Carbon Dioxide Anion Gap BUN Creatinine Estimated GFR POC Glucose 335 H 111 H Random Glucose Lactic Acid Calcium Prot Corrected Calcium Magnesium Total Bilirubin AST ALT Alkaline Phosphatase Troponin I Total Protein Albumin Blood Type Antibody Screen [facility] Gel Crossmatch Blood Bank Comment Bld Prod Order Comment 07/29/18 07/29/18 13:01 14:26 WBC RBC Hgb Hct MCV MCH MCHC RDW Plt Count MPV PT INR Fibrinogen Puncture Site Patient Temperature O2 Saturation ABG pH ABG pCO2 ABG pO2 ABG HCO3 ABG O2 Content ABG Base Excess ABG Methemoglobin Gaudencio Test VBG pH VBG pCO2 VBG pO2 VBG HCO3 VBG O2 Saturation VBG O2 Content VBG Base Excess VBG Carboxyhemoglobin VBG Methemoglobin Hemoglobin Carboxyhemoglobin O2 Delivery Device Vent Setting Inspired O2 Critical Value Sodium Potassium Chloride Carbon Dioxide Anion Gap BUN Creatinine Estimated GFR POC Glucose 102 106 Random Glucose Lactic Acid Calcium Prot Corrected Calcium Magnesium Total Bilirubin AST ALT Alkaline Phosphatase Troponin I Total Protein Albumin Blood Type Antibody Screen [facility] Gel Crossmatch Blood Bank Comment Bld Prod Order Comment Microbiology 07/26/18 23:05 Sputum - Endotracheal Gram Stain - Final 07/26/18 23:05 Sputum - Endotracheal Sputum Culture - Final No growth in 48 hours 07/26/18 18:36 Fluid - Bile Fluid Gram Stain - Final 07/26/18 18:36 Fluid - Bile Fluid Body Fluid Culture - Final Staphylococcus aureus 07/26/18 15:46 Blood - Peripheral Aerobic Blood Culture - Preliminary No growth in 3 days 07/26/18 15:46 Blood - Peripheral Anaerobic Blood Culture - Preliminary No growth in 3 days 07/26/18 15:41 Blood - Peripheral Aerobic Blood Culture - Preliminary No growth in 3 days 07/26/18 15:41 Blood - Peripheral Anaerobic Blood Culture - Preliminary No growth in 3 days - Imaging Impressions Gallbladder Ultrasound 07/28/18 16:46 CONCLUSION: 1. The cholecystostomy tube is coiled within the lumen of the gallbladder. The gallbladder does contain stones and sludge with a small amount of fluid. No dilatation of the gallbladder. The reduced drainage from the gallbladder tube likely relates to internal drainage down the common bile duct. Injection of contrast in the cholecystostomy tube can be performed to evaluate the patency of the common bile duct. This can be performed when the patient is stable and able to leave the unit. Chest X-Ray 07/29/18 06:00 CONCLUSION: No significant change. <Jaspreet Marcano E - Last Filed: 07/29/18 15:00> - Labs CBC & Chem 7: 07/29/18 17:55 07/29/18 17:15 Laboratory Results - last 24 hr 07/28/18 07/28/18 07/28/18 04:00 11:01 12:11 WBC RBC Hgb Hct MCV MCH MCHC RDW Plt Count MPV PT INR Fibrinogen Puncture Site Patient Temperature O2 Saturation ABG pH ABG pCO2 ABG pO2 ABG HCO3 ABG O2 Content ABG Base Excess ABG Methemoglobin Gaudencio Test VBG pH VBG pCO2 VBG pO2 VBG HCO3 VBG O2 Saturation VBG O2 Content VBG Base Excess VBG Carboxyhemoglobin VBG Methemoglobin Hemoglobin Carboxyhemoglobin O2 Delivery Device Vent Setting Inspired O2 Critical Value Sodium Cancelled Potassium Cancelled Chloride Cancelled Carbon Dioxide Cancelled Anion Gap Cancelled BUN Cancelled Creatinine Cancelled Estimated GFR Cancelled POC Glucose 189 H 233 H Random Glucose Cancelled Lactic Acid Calcium Cancelled Prot Corrected Calcium Magnesium Total Bilirubin AST ALT Alkaline Phosphatase Troponin I Cancelled Total Protein Albumin Lipase 6839 H Blood Type Antibody Screen MTS Gel Crossmatch Blood Bank Comment Bld Prod Order Comment 07/28/18 07/28/18 07/28/18 12:40 12:50 12:50 WBC RBC Hgb Hct MCV MCH MCHC RDW Plt Count MPV PT 29.4 H INR 2.9 Fibrinogen Puncture Site Art line Patient Temperature 98.6 O2 Saturation 95 ABG pH 7.50 H ABG pCO2 26 L ABG pO2 131 H ABG HCO3 20 L ABG O2 Content 11.4 L ABG Base Excess -2.8 L ABG Methemoglobin 2.6 H Gaudencio Test VBG pH VBG pCO2 VBG pO2 VBG HCO3 VBG O2 Saturation VBG O2 Content VBG Base Excess VBG Carboxyhemoglobin VBG Methemoglobin Hemoglobin 8.4 L Carboxyhemoglobin 0.9 O2 Delivery Device Ventilator Vent Setting [id number]/[id number] Inspired O2 80 Critical Value No Sodium 137 Potassium 4.1 Chloride 85 L Carbon Dioxide 21.4 Anion Gap 31 H BUN 41 H Creatinine 4.43 H Estimated GFR 13 L POC Glucose Random Glucose 226 H Lactic Acid Calcium 5.1 L* Prot Corrected Calcium 5.9 L* Magnesium Total Bilirubin 15.2 H AST 99157 H ALT 7156 H Alkaline Phosphatase 249 H Troponin I Total Protein 5.0 L Albumin 3.3 L D Lipase Blood Type Antibody Screen MTS Gel Crossmatch Blood Bank Comment Bld Prod Order Comment 07/28/18 07/28/18 07/28/18 12:50 13:07 13:59 WBC RBC Hgb 8.3 L Hct 24.1 L MCV MCH MCHC RDW Plt Count MPV PT INR Fibrinogen Puncture Site Patient Temperature O2 Saturation ABG pH ABG pCO2 ABG pO2 ABG HCO3 ABG O2 Content ABG Base Excess ABG Methemoglobin Gaudencio Test VBG pH VBG pCO2 VBG pO2 VBG HCO3 VBG O2 Saturation VBG O2 Content VBG Base Excess VBG Carboxyhemoglobin VBG Methemoglobin Hemoglobin Carboxyhemoglobin O2 Delivery Device Vent Setting Inspired O2 Critical Value Sodium Potassium Chloride Carbon Dioxide Anion Gap BUN Creatinine Estimated GFR POC Glucose 214 H Random Glucose Lactic Acid Calcium Prot Corrected Calcium Magnesium Total Bilirubin AST ALT Alkaline Phosphatase Troponin I Total Protein Albumin Lipase Blood Type Antibody Screen MTS Gel Crossmatch Blood Bank Comment Bld Prod Order Comment 07/28/18 07/28/18 07/28/18 14:00 14:15 14:15 WBC RBC Hgb Hct MCV MCH MCHC RDW Plt Count MPV PT INR Fibrinogen Puncture Site Patient Temperature O2 Saturation ABG pH ABG pCO2 ABG pO2 ABG HCO3 ABG O2 Content ABG Base Excess ABG Methemoglobin Gaudencio Test VBG pH VBG pCO2 VBG pO2 VBG HCO3 VBG O2 Saturation VBG O2 Content VBG Base Excess VBG Carboxyhemoglobin VBG Methemoglobin Hemoglobin Carboxyhemoglobin O2 Delivery Device Vent Setting Inspired O2 Critical Value Sodium Potassium Chloride Carbon Dioxide Anion Gap BUN Creatinine Estimated GFR POC Glucose 221 H Random Glucose Lactic Acid Calcium Prot Corrected Calcium Magnesium Total Bilirubin AST ALT Alkaline Phosphatase Troponin I Total Protein Albumin Lipase Blood Type O Positive Antibody Screen Negative MTS Gel Crossmatch See Detail Blood Bank Comment Bld Prod Order Comment 07/28/18 07/28/18 07/28/18 15:08 16:03 16:15 WBC RBC Hgb Hct MCV MCH MCHC RDW Plt Count MPV PT INR Fibrinogen Puncture Site Art line Patient Temperature 98.6 O2 Saturation 95 ABG pH 7.40 ABG pCO2 32 L ABG pO2 147 H ABG HCO3 19 L ABG O2 Content 10.6 L ABG Base Excess -4.6 L ABG Methemoglobin 2.9 H Gaudencio Test VBG pH VBG pCO2 VBG pO2 VBG HCO3 VBG O2 Saturation VBG O2 Content VBG Base Excess VBG Carboxyhemoglobin VBG Methemoglobin Hemoglobin 7.7 L* Carboxyhemoglobin 0.9 O2 Delivery Device Ventilator Vent Setting [id number]/[id number]/[id number] Inspired O2 80 Critical Value Yes Sodium Potassium Chloride Carbon Dioxide Anion Gap BUN Creatinine Estimated GFR POC Glucose 166 H 137 H Random Glucose Lactic Acid Calcium Prot Corrected Calcium Magnesium Total Bilirubin AST ALT Alkaline Phosphatase Troponin I Total Protein Albumin Lipase Blood Type Antibody Screen [employer] Blood Bank Comment Bld Prod Order Comment 07/28/18 07/28/18 07/28/18 17:05 17:11 17:50 WBC 25.5 H RBC 2.90 L Hgb 9.2 L Hct 26.9 L MCV 92.9 MCH 31.7 MCHC 34.2 RDW 14.2 Plt Count 68 L MPV 9.8 PT INR Fibrinogen Puncture Site Central line Patient Temperature 98.6 O2 Saturation ABG pH ABG pCO2 ABG pO2 ABG HCO3 ABG O2 Content ABG Base Excess ABG Methemoglobin Gaudencio Test VBG pH 7.33 L VBG pCO2 43 L VBG pO2 26 L* VBG HCO3 22 VBG O2 Saturation 34 L VBG O2 Content 4.3 L VBG Base Excess -2.9 L VBG Carboxyhemoglobin 0.7 VBG Methemoglobin 2.6 H Hemoglobin 8.9 L Carboxyhemoglobin O2 Delivery Device Ventilator Vent Setting Prvc/[id number]/18/5peep Inspired O2 70 Critical Value Yes Sodium Potassium Chloride Carbon Dioxide Anion Gap BUN Creatinine Estimated GFR POC Glucose 112 H Random Glucose Lactic Acid Calcium Prot Corrected Calcium Magnesium Total Bilirubin AST ALT Alkaline Phosphatase Troponin I Total Protein Albumin Lipase Blood Type Antibody Screen [employer] Blood Bank Comment Bld Prod Order Comment 07/28/18 07/28/18 07/28/18 18:03 18:20 19:17 WBC RBC Hgb Hct MCV MCH MCHC RDW Plt Count MPV PT INR Fibrinogen Puncture Site Patient Temperature O2 Saturation ABG pH ABG pCO2 ABG pO2 ABG HCO3 ABG O2 Content ABG Base Excess ABG Methemoglobin Gaudencio Test VBG pH VBG pCO2 VBG pO2 VBG HCO3 VBG O2 Saturation VBG O2 Content VBG Base Excess VBG Carboxyhemoglobin VBG Methemoglobin Hemoglobin Carboxyhemoglobin O2 Delivery Device Vent Setting Inspired O2 Critical Value Sodium Potassium Chloride Carbon Dioxide Anion Gap BUN Creatinine Estimated GFR POC Glucose 106 75 Random Glucose Lactic Acid 14.0 H* Calcium Prot Corrected Calcium Magnesium Total Bilirubin AST ALT Alkaline Phosphatase Troponin I Total Protein Albumin Lipase Blood Type Antibody Screen [facility] Gel [employer] Blood Bank Comment Bld Prod Order Comment 07/28/18 07/28/18 07/28/18 19:44 19:50 19:55 WBC RBC Hgb Hct MCV MCH MCHC RDW Plt Count MPV PT INR Fibrinogen Puncture Site Art line Patient Temperature 98.6 O2 Saturation 95 ABG pH 7.37 L ABG pCO2 32 L ABG pO2 143 H ABG HCO3 18 L ABG O2 Content 11.9 L ABG Base Excess -6.1 L ABG Methemoglobin 2.5 H Gaudencio Test VBG pH VBG pCO2 VBG pO2 VBG HCO3 VBG O2 Saturation VBG O2 Content VBG Base Excess VBG Carboxyhemoglobin VBG Methemoglobin Hemoglobin 8.7 L Carboxyhemoglobin 0.7 O2 Delivery Device Ventilator Vent Setting 18/600/it0.75/5peep Inspired O2 70 Critical Value No Sodium Potassium Chloride Carbon Dioxide Anion Gap BUN Creatinine Estimated GFR POC Glucose Random Glucose Lactic Acid 13.8 H* Calcium Prot Corrected Calcium Magnesium Total Bilirubin AST ALT Alkaline Phosphatase Troponin I Total Protein Albumin Lipase Blood Type Antibody Screen [facility] Gel [employer] Blood Bank Comment Bld Prod Order Comment 07/28/18 07/28/18 07/28/18 19:55 19:55 20:03 WBC RBC Hgb Hct MCV MCH MCHC RDW Plt Count MPV PT 22.7 H INR 2.2 Fibrinogen 211 L Puncture Site Patient Temperature O2 Saturation ABG pH ABG pCO2 ABG pO2 ABG HCO3 ABG O2 Content ABG Base Excess ABG Methemoglobin Gaudencio Test VBG pH VBG pCO2 VBG pO2 VBG HCO3 VBG O2 Saturation VBG O2 Content VBG Base Excess VBG Carboxyhemoglobin VBG Methemoglobin Hemoglobin Carboxyhemoglobin O2 Delivery Device Vent Setting Inspired O2 Critical Value Sodium 137 Potassium 4.2 Chloride 93 L D Carbon Dioxide 18.8 L Anion Gap 25 H BUN 37 H Creatinine 4.12 H Estimated GFR 14 L POC Glucose 72 Random Glucose 56 L D Lactic Acid Calcium 5.9 L* D Prot Corrected Calcium 6.5 L* Magnesium Total Bilirubin 17.5 H AST 48815 H ALT 6411 H Alkaline Phosphatase 264 H Troponin I 0.82 H* Total Protein 5.7 L D Albumin 3.8 Lipase Blood Type Antibody Screen [facility] Gel [employer] Blood Bank Comment Bld Prod Order Comment 07/28/18 07/28/18 07/29/18 20:32 21:06 00:13 WBC RBC Hgb Hct MCV MCH MCHC RDW Plt Count MPV PT INR Fibrinogen Puncture Site Patient Temperature O2 Saturation ABG pH ABG pCO2 ABG pO2 ABG HCO3 ABG O2 Content ABG Base Excess ABG Methemoglobin Gaudencio Test VBG pH VBG pCO2 VBG pO2 VBG HCO3 VBG O2 Saturation VBG O2 Content VBG Base Excess VBG Carboxyhemoglobin VBG Methemoglobin Hemoglobin Carboxyhemoglobin O2 Delivery Device Vent Setting Inspired O2 Critical Value Sodium Potassium Chloride Carbon Dioxide Anion Gap BUN Creatinine Estimated GFR POC Glucose 160 H 128 H 87 Random Glucose Lactic Acid Calcium Prot Corrected Calcium Magnesium Total Bilirubin AST ALT Alkaline Phosphatase Troponin I Total Protein Albumin Lipase Blood Type Antibody Screen [facility] Gel [employer] Blood Bank Comment Bld Prod Order Comment 07/29/18 07/29/18 07/29/18 02:45 03:11 03:45 WBC 20.8 H RBC 2.54 L Hgb 8.2 L Hct 24.3 L MCV 95.9 MCH 32.2 MCHC 33.6 RDW 15.3 Plt Count 56 L MPV 9.9 PT INR Fibrinogen Puncture Site Patient Temperature O2 Saturation ABG pH ABG pCO2 ABG pO2 ABG HCO3 ABG O2 Content ABG Base Excess ABG Methemoglobin Gaudencio Test VBG pH VBG pCO2 VBG pO2 VBG HCO3 VBG O2 Saturation VBG O2 Content VBG Base Excess VBG Carboxyhemoglobin VBG Methemoglobin Hemoglobin Carboxyhemoglobin O2 Delivery Device Vent Setting Inspired O2 Critical Value Sodium Potassium Chloride Carbon Dioxide Anion Gap BUN Creatinine Estimated GFR POC Glucose 52 L 118 H Random Glucose Lactic Acid Calcium Prot Corrected Calcium Magnesium Total Bilirubin AST ALT Alkaline Phosphatase Troponin I Total Protein Albumin Lipase Blood Type Antibody Screen [facility] Gel [employer] Blood Bank Comment Bld Prod Order Comment 07/29/18 07/29/18 07/29/18 03:45 03:45 05:16 WBC RBC Hgb Hct MCV MCH MCHC RDW Plt Count MPV PT INR Fibrinogen Puncture Site Patient Temperature O2 Saturation ABG pH ABG pCO2 ABG pO2 ABG HCO3 ABG O2 Content ABG Base Excess ABG Methemoglobin Gaudencio Test VBG pH VBG pCO2 VBG pO2 VBG HCO3 VBG O2 Saturation VBG O2 Content VBG Base Excess VBG Carboxyhemoglobin VBG Methemoglobin Hemoglobin Carboxyhemoglobin O2 Delivery Device Vent Setting Inspired O2 Critical Value Sodium 140 Potassium 5.1 D Chloride 98 Carbon Dioxide 13.4 L Anion Gap 29 H BUN 34 H Creatinine 4.13 H Estimated GFR 14 L POC Glucose 76 Random Glucose 105 Lactic Acid 16.3 H* Calcium 6.4 L* Prot Corrected Calcium 7.3 L* D Magnesium 1.9 Total Bilirubin 15.9 H AST 84313 H ALT 5221 H Alkaline Phosphatase 245 H Troponin I 0.76 H* Total Protein 5.3 L Albumin 3.6 Lipase Blood Type Antibody Screen [employer] Gel [employer] Blood Bank Comment Bld Prod Order Comment 07/29/18 07/29/18 07/29/18 05:49 06:14 07:58 WBC RBC Hgb Hct MCV MCH MCHC RDW Plt Count MPV PT INR Fibrinogen Puncture Site Art line Patient Temperature 98.6 O2 Saturation 89 L* ABG pH 7.04 L* ABG pCO2 32 L ABG pO2 96 ABG HCO3 8 L* ABG O2 Content 10.5 L ABG Base Excess -20.4 L ABG Methemoglobin 2.7 H Gaudencio Test Present VBG pH VBG pCO2 VBG pO2 VBG HCO3 VBG O2 Saturation VBG O2 Content VBG Base Excess VBG Carboxyhemoglobin VBG Methemoglobin Hemoglobin 8.3 L Carboxyhemoglobin 0.1 O2 Delivery Device Ventilator Vent Setting Prvc/ac Inspired O2 60 Critical Value Yes Sodium Potassium Chloride Carbon Dioxide Anion Gap BUN Creatinine Estimated GFR POC Glucose 61 L 149 H Random Glucose Lactic Acid Calcium Prot Corrected Calcium Magnesium Total Bilirubin AST ALT Alkaline Phosphatase Troponin I Total Protein Albumin Lipase Blood Type Antibody Screen [employer] Gel [employer] Blood Bank Comment Bld Prod Order Comment 07/29/18 07/29/18 07/29/18 08:07 08:09 10:10 WBC RBC Hgb Hct MCV MCH MCHC RDW Plt Count MPV PT INR Fibrinogen Puncture Site Patient Temperature O2 Saturation ABG pH ABG pCO2 ABG pO2 ABG HCO3 ABG O2 Content ABG Base Excess ABG Methemoglobin Gaudencio Test VBG pH VBG pCO2 VBG pO2 VBG HCO3 VBG O2 Saturation VBG O2 Content VBG Base Excess VBG Carboxyhemoglobin VBG Methemoglobin Hemoglobin Carboxyhemoglobin O2 Delivery Device Vent Setting Inspired O2 Critical Value Sodium Potassium Chloride Carbon Dioxide Anion Gap BUN Creatinine Estimated GFR POC Glucose 40 L* 39 L* 29 L* Random Glucose Lactic Acid Calcium Prot Corrected Calcium Magnesium Total Bilirubin AST ALT Alkaline Phosphatase Troponin I Total Protein Albumin Lipase Blood Type Antibody Screen MTS Gel Crossmatch Blood Bank Comment Bld Prod Order Comment 07/29/18 10:13 WBC RBC Hgb Hct MCV MCH MCHC RDW Plt Count MPV PT INR Fibrinogen Puncture Site Patient Temperature O2 Saturation ABG pH ABG pCO2 ABG pO2 ABG HCO3 ABG O2 Content ABG Base Excess ABG Methemoglobin Gaudencio Test VBG pH VBG pCO2 VBG pO2 VBG HCO3 VBG O2 Saturation VBG O2 Content VBG Base Excess VBG Carboxyhemoglobin VBG Methemoglobin Hemoglobin Carboxyhemoglobin O2 Delivery Device Vent Setting Inspired O2 Critical Value Sodium Potassium Chloride Carbon Dioxide Anion Gap BUN Creatinine Estimated GFR POC Glucose 111 H Random Glucose Lactic Acid Calcium Prot Corrected Calcium Magnesium Total Bilirubin AST ALT Alkaline Phosphatase Troponin I Total Protein Albumin Lipase Blood Type Antibody Screen MTS Gel Crossmatch Blood Bank Comment Bld Prod Order Comment Microbiology 07/26/18 23:05 Sputum - Endotracheal Gram Stain - Final 07/26/18 23:05 Sputum - Endotracheal Sputum Culture - Preliminary No growth in 24 hours 07/26/18 15:46 Blood - Peripheral Aerobic Blood Culture - Preliminary No growth in 2 days 07/26/18 15:46 Blood - Peripheral Anaerobic Blood Culture - Preliminary No growth in 2 days 07/26/18 15:41 Blood - Peripheral Aerobic Blood Culture - Preliminary No growth in 2 days 07/26/18 15:41 Blood - Peripheral Anaerobic Blood Culture - Preliminary No growth in 2 days 07/26/18 Unknown Clean Catch Urine Urine Culture - Final No growth in 48 hours 07/26/18 18:36 Fluid - Bile Fluid Gram Stain - Final 07/26/18 18:36 Fluid - Bile Fluid Body Fluid Culture - Preliminary Staphylococcus aureus - Imaging Impressions Gallbladder Ultrasound 07/28/18 16:46 CONCLUSION: 1. The cholecystostomy tube is coiled within the lumen of the gallbladder. The gallbladder does contain stones and sludge with a small amount of fluid. No dilatation of the gallbladder. The reduced drainage from the gallbladder tube likely relates to internal drainage down the common bile duct. Injection of contrast in the cholecystostomy tube can be performed to evaluate the patency of the common bile duct. This can be performed when the patient is stable and able to leave the unit. Chest X-Ray 07/29/18 06:00 CONCLUSION: No significant change. Cholangiopancreatography MRI 07/25/18 00:00 CONCLUSION: 1. Tiny distal common bile duct stone at the ampulla, estimated at 3.5 mm in size. This appears to be minimally obstructing, if any, with generally a normal size common bile duct for a patient this age and no pancreatic duct dilatation. Several similar sized stones are seen in the gallbladder near the neck. No other definite stones are clearly demonstrated. 2. Acute pancreatitis. Chest X-Ray 07/25/18 07:37 CONCLUSION: Chronic interstitial changes. No acute cardiopulmonary findings identified. Abdomen/Pelvis CT 07/25/18 08:06 CONCLUSION: 1. Acute pancreatitis. No pseudocyst, pancreatic infarction, or pancreatic hemorrhage observed. No ductal dilatation. There is a 2 mm calcification at the level of the ampulla that could relate to a CBD stone at the ampullary region. There is no ductal dilatation to suggest an obstructing component. 2. Cholelithiasis. 3. 3 mm nonobstructing left renal stone. 4. 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 5. Umbilical and left inguinal hernias. Abdomen X-Ray 07/26/18 00:00 CONCLUSION: Nasogastric tube in place with the tip in the stomach. Chest X-Ray 07/26/18 00:00 CONCLUSION: Mild basilar hypoaeration with airspace disease characteristic of atelectasis. No evidence of significant lung consolidation or acute congestion. Satisfactory position of endotracheal tube and central venous catheter. Percutaneous Cholangiogram 07/26/18 00:00 CONCLUSION: 1. Uncomplicated percutaneous cholecystostomy as above. Once the patient has stabilized can consider performing a cholangiogram through the cholecystostomy tube to assess the distal common bile duct. Abdomen X-Ray 07/27/18 00:00 CONCLUSION: Stable exam. Chest X-Ray 07/27/18 06:00 CONCLUSION: 1. Stable tubes and lines, as above. 2. Developing small bilateral pleural effusions and associated airspace disease in the lower lung zones. Abdomen Ultrasound 07/27/18 12:05 CONCLUSION: 1. Bowel gas limits the study. 2. Hepatic steatosis. No biliary dilatation. 3. Sludge and small stones within a decompressed gallbladder which contains a cholecystostomy tube. 4. Small volume ascites. 5. Pancreas is totally obscured and not well evaluated. Chest X-Ray 07/28/18 06:00 CONCLUSION: 1. Stable tubes and lines. 2. Worsening bilateral [id number] pleural effusions with associated lower lobe airspace disease. Gallbladder Ultrasound 07/28/18 16:46 CONCLUSION: 1. The cholecystostomy tube is coiled within the lumen of the gallbladder. The gallbladder does contain stones and sludge with a small amount of fluid. No dilatation of the gallbladder. The reduced drainage from the gallbladder tube likely relates to internal drainage down the common bile duct. Injection of contrast in the cholecystostomy tube can be performed to evaluate the patency of the common bile duct. This can be performed when the patient is stable and able to leave the unit. Chest X-Ray 07/29/18 06:00 CONCLUSION: No significant change. <Jose Alfredo Rivera - Last Filed: 08/13/18 20:45> Assessment and Plan - Attending Attestation Patient seen and examined Agree with above Continue with current supportive care Monitor labs Case discussed with Dr. Cullen Abdominal x-ray shows the colon to be at about 6-7 cm at this point consistent with ileus which is probably multifactorial The rectal examination reveals no solid stools are soft stool in the rectum We will continue with current laxatives No result from Relistor yesterday Repeat KUB in the morning if any worsening of colon size or distention we will consider decompressive colonoscopy but certainly even this at this point carries a risk for this gentleman with severe pancreatitis and subsequent consequences including acute renal failure acute respiratory failure amongst others <Jaspreet Marcano - Last Filed: 07/29/18 15:00> - Plan Assessment: - Acute pancreatitis with elevated LFTs and imaging concerning for choledocholithiasis Presented to [facility] with complaints of abdominal pain, nausea, and vomiting. States pain is located throughout entire abdomen, started at midnight, came on suddenly. States that the pain is worse than all of the kidney stones he has had in the past. Also reports nausea and emesis, unsure of hematemesis and coffee ground emesis. States he has had a BM, unsure if it was formed or diarrhea. Denies history of pancreatitis. Does report known history of gallstones, but denies previous ERCP. Pt reports feeling clammy at home, denies any fevers. CT abdomen and pelvis W IV contrast (07/25) Acute pancreatitis. No pseudocyst, pancreatic infarction, or pancreatic hemorrhage observed. No ductal dilatation. There is a 2 mm calcification at the level of the ampulla that could relate to a CBD stone at the ampullary region. There is no ductal dilatation to suggest an obstructing component. Cholelithiasis. 3 mm nonobstructing left renal stone. 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 Umbilical and left inguinal hernias. Pt reports ETOH, approximately 2-3 beers a week. Denies smoking. (07/25) AST-503 ALT-349 T bili-2.3 Alk phos-68 Lipase >30,000 - Acute change in his condition since this morning, tachypneic and tachycardic, seen by anesthesia team and thought too unstable for procedure and sedation. his leucocytosis improved and worsening of LFT's noted. - MRCP reviewed 07/29/18 - Acute pancreatitis with elevated LFTs and imaging concerning for choledocholithiasis Deemed not medically stable for ERCP, he is s/p IR consult, PTC couldn't be performed safely due to lack of dilated bile duct, there fore, Cholecystostomy tube was performed on 07/26 Lipase, trending down [id number]---> [id number] yesterday, non done today - Cholecystostomy tube- minimal drainage Gallbladder Ultrasound 07/28/18 The cholecystostomy tube is coiled within the lumen of the gallbladder. The gallbladder does contain stones and sludge with a small amount of fluid. No dilatation of the gallbladder. The reduced drainage from the gallbladder tube likely relates to internal drainage down the common bile duct. Injection of contrast in the cholecystostomy tube can be performed to evaluate the patency of the common bile duct. This can be performed when the patient is stable and able to leave the unit. - Liver failure/Elevated LFTs Shocked pattern Slowly trending down - Distension- abd X-ray on 07/27/18 showed mild gaseous distention of the colon [id number] in the right lower quadrant. Abd X-ray today pending. - CHRISTIANO- Nephrology on the case.CVVH initiated - leukocytosis-Gallbladder fluid growing staph aureus. ID on the case - Coagulopathy / thrombocytosis- INR 2.2, plt 56 possibly secondary to acute liver failure - Anemia- hgb declining, hgb today 8.2, no bleeding noted form NGT, no bleeding reported - High ammonia- 128 yesterday, on lactulose and Xifaxan - Respiratory failure per [facility] Plan: - Consider Dobbhoff for enteral feeding - ICU care - Await results of Abd X-ray - Pt might need decompressive flex/sig Case discussed with Dr. Marcano and Dr. Herman - Monitor LFTs - Monitor lipase - Monitor hh - ID, nephrology on the case - Cont lactulose and Xifaxan - Reglan - Protonix - IV fluids - Vit K - Need repeat CT when stable to leave floor - Pt with poor prognosis, not medically stable to leave the floor for any intervention will cont supportive care for now. - Pt seen and examined by Dr Marcano and myself and this note is written on his behalf. <Jose Alfredo Rivera - Last Filed: 08/13/18 20:45>
[2018-07-29 12:03] LABS: VBG Base Excess -20.1 mmol/L (-2-2); VBG Blood Gas Oxygen Content 4.9 Vol % (9.0-17.0); VBG PCO2 42 mmHG (44-48); VBG PH 6.98 (7.360-7.400); VBG PO2 40 mmHG (35-40)
[2018-07-29 12:06] LABS: ABG Base Excess -22.2 mmol/L (-2-2); ABG PCO2 25 mmHg (38-42); ABG PO2 153 mmHG (61-120)
[2018-07-29] MEDS: Sodium Bicarbonate 8.4% Inj 100 MEQ in Sodium Chloride 0.45 % Inj 1,000 ML IV.CONT SCH ×6 (14:17→21:14)
[2018-07-29 15:05] LABS: ABG Base Excess -21.5 mmol/L (-2-2); ABG PCO2 30 mmHg (38-42); ABG PO2 110 mmHG (61-120)
--- NOTE | 2018-07-29 15:07 | XR ---
EXAM DATE: 07/29/2018 1:54 PM EDT AGE/SEX: 77 years / Male INDICATIONS: Evaluate ileus. CLINICAL DATA: This is the patient's subsequent encounter. Patient reports that signs and symptoms h ave been present for 3 days and indicates a pain score of Nonresponsive. MEDICAL/SURGICAL HISTORY: . Gastroesophageal reflux disease. Hypertension. CAD. CABG. . Append ectomy. Total knee replacement, left. COMPARISON: [facility], ABDOMEN 1V KUB, 07/27/2018. . FINDINGS: The air within the colon is unchanged compared to the previous examination. There is no new dilatatio n of the small or large bowel. A pigtail catheter is noted within the right upper quadrant. A nasogas tric tube is noted in the stomach. Right femoral tunneled dialysis catheter is noted with its tip in the expected region of the inferior vena cava. Mild degenerative changes are noted throughout the lum bar spine and bilateral hips. CONCLUSION: No significant change compared to 07/27/2018. Electronically signed by: Chino Beach MD 07/29/2018 3:06 PM EDT
[2018-07-29 15:49] VITALS: RESP 28
--- NOTE | 2018-07-29 16:15 | P.PNNP ---
Subjective Interval history: On ventilator, CRRT, on pressors. Family at bedside. <Karen Velez - Last Filed: 07/29/18 16:10> Physical Exam Vital signs: Vital Signs 07/28/18 16:17 07/28/18 17:00 07/28/18 17:59 Temperature 97.7 F 97.7 F Pulse Rate 92 H 89 87 Respiratory Rate 18 18 Blood Pressure 106/64 117/72 99/65 L Pulse Oximetry 100 100 99 07/28/18 18:00 07/28/18 19:00 07/28/18 19:51 Temperature 96.3 F L 96.7 F L Pulse Rate 87 84 78 Respiratory Rate 18 18 Blood Pressure 98/65 L 99/61 L Pulse Oximetry 97 97 96 07/28/18 20:00 07/28/18 20:13 07/28/18 21:00 Temperature 96.7 F L 96.7 F L 96.7 F L Pulse Rate 78 83 72 Respiratory Rate 18 18 18 Blood Pressure 120/72 107/65 94/56 L Pulse Oximetry 96 92 L 07/28/18 22:00 07/28/18 23:00 07/28/18 23:48 Temperature 96.7 F L 96.5 F L Pulse Rate 75 83 Respiratory Rate 18 18 18 Blood Pressure 93/55 L 119/61 Pulse Oximetry 93 L 88 L 92 L 07/29/18 00:00 07/29/18 01:00 07/29/18 02:00 Temperature 96.4 F L 96.4 F L 96.4 F L Pulse Rate 83 82 79 Respiratory Rate 18 18 18 Blood Pressure 103/56 L 89/51 L 101/55 L Pulse Oximetry 94 L 92 L 94 L 07/29/18 02:48 07/29/18 03:00 07/29/18 03:59 Temperature 96.5 F L Pulse Rate 80 75 Respiratory Rate 18 18 18 Blood Pressure 95/50 L Pulse Oximetry 86 L 94 L 07/29/18 04:00 07/29/18 05:00 07/29/18 06:00 Temperature 96.7 F L 96.7 F L 96.6 F L Pulse Rate 79 79 73 Respiratory Rate 18 18 18 Blood Pressure 92/50 L 84/48 L 96/50 L Pulse Oximetry 94 L 92 L 84 L 07/29/18 07:37 07/29/18 08:00 07/29/18 09:15 Temperature Pulse Rate 75 76 Respiratory Rate 18 18 Blood Pressure Pulse Oximetry 07/29/18 10:00 07/29/18 11:02 07/29/18 12:00 Temperature Pulse Rate 79 76 Respiratory Rate 24 Blood Pressure Pulse Oximetry 07/29/18 14:00 07/29/18 15:48 07/29/18 15:49 Temperature Pulse Rate 56 L 50 L Respiratory Rate 28 H 28 H Blood Pressure Pulse Oximetry Intake & Output 07/28/18 07/29/18 07/29/18 18:59 06:59 18:59 Intake Total 9042 / 9042 7991 / 7991 5950 / 5950 Output Total 35 / 35 700 / 700 Balance 9007 / 9007 7291 / 7291 5950 / 5950 Weight 99.9 kg Intake: IV 8321 / 8321 7390 / 7390 5950 / 5950 Cordarone Inj 450 MG In D5W Inj 250 / 250 250 / 250 241 ML @ 1 MG/MIN 33.33 mls/hr IV.CONT TITRATE PRN Rx#: [id number] NovoLIN R (IV Infusion) 100 100 / 100 UNIT In NS Inj 99 ML @ Per Protocol IV.CONT TITRATE PRN Rx #:[id number] Levophed Inj 16 MG In NS Inj 250 / 250 234 ML @ 2 MCG/MIN 1.87 mls/hr IV.CONT TITRATE PRN Rx#: [id number] Neosynephrine Inj 160 MG In NS 500 / 500 Inj 484 ML @ 40 MCG/MIN 7.5 mls /hr IV.CONT TITRATE PRN Rx#: [id number] Sodium Bicarbonate 8.4% Inj 100 1100 / 1100 MEQ In 1/2 Normal Saline Inj 1 ,000 ML @ 500 mls/hr IV.CONT . Q2H12M [facility] Rx#:[id number] Pitressin Inj 40 UNIT In NS Inj 100 / 100 100 / 100 98 ML @ 0.04 UNITS/MIN 6 mls/ hr IV.CONT CONT [facility] Rx#: [id number] Flexbumin 25% Inj 100 ML @ 60 100 / 100 mls/hr IV.SIG ONCE ONE Rx#: [id number] Alburx 5% Inj 500 ML @ 250 mls/ 1000 / 1000 500 / 500 hr IV.SIG Q6H [facility] Rx#:[id number] Calcium Chloride Inj 2 GM In 120 / 120 D5W Inj 100 ML @ 120 mls/hr IV. SIG ONCE ONE Rx#:[id number] Calcium Chloride Inj 2 GM In NS 120 / 120 Inj 100 ML @ 120 mls/hr IV.SIG ONCE ONE Rx#:[id number] Calcium Gluconate Inj 2 GM In 120 / 120 NS Inj 100 ML @ 120 mls/hr IV. SIG ONCE ONE Rx#:[id number] Cubicin Inj 800 MG In NS Inj 100 / 100 100 ML @ 200 mls/hr IV.SIG Q48H [facility] Rx#:[id number] Merrem Inj 1,000 MG In NS Inj 100 / 100 200 / 200 100 ML @ 200 mls/hr IV.SIG Q8H [facility] Rx#:[id number] Mycamine Inj 100 MG In NS Inj 100 / 100 100 ML @ 100 mls/hr IV.SIG Q24H [facility] Rx#:[id number] Vitamin K Inj 10 MG In NS Inj 51 / 51 50 ML @ 102 mls/hr IV.SIG ONCE ONE Rx#:[id number] Zosyn 2.25 GM Premix 50 ML @ 50 / 50 100 mls/hr IV.SIG Q6H [facility] Rx#: [id number] NS Inj 1,000 ML @ 500 mls/hr IV 2000 / 2000 6000 / 6000 4000 / 4000 .SIG .Q2H [facility] Rx#:[id number] Sodium Bicarbonate 8.4% Inj 150 4150 / 4150 MEQ In D5W Inj 850 ML @ 500 mls/hr IV.SIG .Q2H [facility] Rx#: [id number] Flolan (30,000 ng/mL) Neb 87.5 100 / 100 100 / 100 100 / 100 ML NS Inj 12.5 ML In Bag/ Syringe 1 EACH @ 8 mls/hr NEB Q8H [facility] Rx#:[id number] Oral 0 / 0 Tube Feeding 0 / 0 Intake (Blood Product) Amt 721 / 721 601 / 601 Plasma Thawed 5 Day Cp2d Unit 321 / 321 [id number] Plasma Thawed 5 Day Cp2d Unit 0 / 0 310 / 310 [id number] Plasma Thawed 5 Day Cp2d Unit 291 / 291 [id number] Rbc Cp2d Leukoreduced Unit 400 / 400 [id number] Output: Urine 35 / 35 Urine Amount (Catheter) 200 / 200 Indwelling Urethral Catheter 200 / 200 Gastric Drainage 500 / 500 Right Nare Nasogastric Tube 500 / 500 Other: Bladder Irrigation Fluid - Amount Instilled Indwelling Urethral Catheter 25 # Bowel Movements 0 Narrative: GENERAL: Patient remain intubated and sedated, on pressors. SKIN: Warm and dry. HEAD: Atraumatic. Normocephalic. EYES: Pupils equal and round. No scleral icterus. No injection or drainage. ENT: No nasal bleeding or discharge. Mucous membranes pink and moist. NECK: Trachea midline. No JVD. CARDIOVASCULAR: Tachycardic. RESPIRATORY: No accessory muscle use. Clear to auscultation anteriorly. Breath sounds equal bilaterally. GASTROINTESTINAL: Abdomen distended, diffusely tender to palpation. Hypoactive bowel sounds. MUSCULOSKELETAL: Extremities without clubbing, cyanosis. No obvious deformities. Generalized edema. - Urinary Catheter Management Indwelling Urethral Catheter Cath placed during this visit: yes Reason for continuing: Hourly intake/output Insertion date: 07/26/18 Insertion time: 14:30 <Karen Velez - Last Filed: 07/29/18 16:10> Vital signs: Vital Signs 07/28/18 17:59 07/28/18 18:00 07/28/18 19:00 Temperature 97.7 F 96.3 F L 96.7 F L Pulse Rate 87 87 84 Respiratory Rate 18 18 Blood Pressure 99/65 L 98/65 L 99/61 L Pulse Oximetry 99 97 97 07/28/18 19:51 07/28/18 20:00 07/28/18 20:13 Temperature 96.7 F L 96.7 F L Pulse Rate 78 78 83 Respiratory Rate 18 18 18 Blood Pressure 120/72 107/65 Pulse Oximetry 96 96 07/28/18 21:00 07/28/18 22:00 07/28/18 23:00 Temperature 96.7 F L 96.7 F L 96.5 F L Pulse Rate 72 75 83 Respiratory Rate 18 18 18 Blood Pressure 94/56 L 93/55 L 119/61 Pulse Oximetry 92 L 93 L 88 L 07/28/18 23:48 07/29/18 00:00 07/29/18 01:00 Temperature 96.4 F L 96.4 F L Pulse Rate 83 82 Respiratory Rate 18 18 18 Blood Pressure 103/56 L 89/51 L Pulse Oximetry 92 L 94 L 92 L 07/29/18 02:00 07/29/18 02:48 07/29/18 03:00 Temperature 96.4 F L 96.5 F L Pulse Rate 79 80 75 Respiratory Rate 18 18 18 Blood Pressure 101/55 L 95/50 L Pulse Oximetry 94 L 86 L 07/29/18 03:59 07/29/18 04:00 07/29/18 05:00 Temperature 96.7 F L 96.7 F L Pulse Rate 79 79 Respiratory Rate 18 18 18 Blood Pressure 92/50 L 84/48 L Pulse Oximetry 94 L 94 L 92 L 07/29/18 06:00 07/29/18 07:37 07/29/18 08:00 Temperature 96.6 F L Pulse Rate 73 75 Respiratory Rate 18 18 Blood Pressure 96/50 L Pulse Oximetry 84 L 07/29/18 09:15 07/29/18 10:00 07/29/18 11:02 Temperature Pulse Rate 76 79 Respiratory Rate 18 24 Blood Pressure Pulse Oximetry 07/29/18 12:00 07/29/18 14:00 07/29/18 14:01 Temperature 96.8 F L Pulse Rate 76 56 L 61 Respiratory Rate Blood Pressure Pulse Oximetry 07/29/18 14:11 07/29/18 14:15 07/29/18 14:20 Temperature 96.8 F L 96.8 F L 96.8 F L Pulse Rate 55 L 52 L 52 L Respiratory Rate Blood Pressure 106/51 L 79/49 L Pulse Oximetry 07/29/18 14:23 07/29/18 14:30 07/29/18 14:40 Temperature 96.8 F L 97.0 F L 97.0 F L Pulse Rate 48 L 53 L 49 L Respiratory Rate Blood Pressure 79/49 L 78/52 L 74/55 L Pulse Oximetry 07/29/18 14:45 07/29/18 14:50 07/29/18 15:00 Temperature 97.2 F L 97.2 F L 97.2 F L Pulse Rate 72 50 L 51 L Respiratory Rate Blood Pressure 81/51 L 85/47 L Pulse Oximetry 07/29/18 15:10 07/29/18 15:15 07/29/18 15:20 Temperature 97.3 F L 97.3 F L 97.3 F L Pulse Rate 52 L 53 L 52 L Respiratory Rate Blood Pressure 84/49 L 89/54 L Pulse Oximetry 57 L 56 L 55 L 07/29/18 15:30 07/29/18 15:40 07/29/18 15:45 Temperature 97.3 F L 97.5 F L 97.5 F L Pulse Rate 54 L 50 L 61 Respiratory Rate Blood Pressure 96/52 L 87/53 L Pulse Oximetry 55 L 07/29/18 15:48 07/29/18 15:49 07/29/18 15:51 Temperature 97.5 F L Pulse Rate 50 L 50 L Respiratory Rate 28 H 28 H Blood Pressure 86/48 L Pulse Oximetry 07/29/18 16:00 07/29/18 16:10 07/29/18 16:15 Temperature 97.5 F L 97.5 F L 97.5 F L Pulse Rate 52 L 76 93 H Respiratory Rate Blood Pressure 92/48 L 96/53 L Pulse Oximetry 07/29/18 16:20 07/29/18 16:30 07/29/18 16:40 Temperature 97.5 F L 97.5 F L 97.5 F L Pulse Rate 102 H 93 H 85 Respiratory Rate Blood Pressure 133/60 103/58 L 96/52 L Pulse Oximetry 07/29/18 16:45 07/29/18 16:50 07/29/18 17:00 Temperature 97.5 F L 97.7 F 97.7 F Pulse Rate 78 69 72 Respiratory Rate Blood Pressure 95/52 L 85/52 L Pulse Oximetry 95 54 L 71 L 07/29/18 17:10 07/29/18 17:15 07/29/18 17:20 Temperature 97.7 F 97.7 F 97.7 F Pulse Rate 51 L 61 70 Respiratory Rate Blood Pressure 93/54 L 94/50 L Pulse Oximetry 57 L 74 L 71 L Intake & Output 07/28/18 07/29/18 07/29/18 18:59 06:59 18:59 Intake Total 9042 / 9042 7991 / 7991 7400 / 7400 Output Total 35 / 35 700 / 700 Balance 9007 / 9007 7291 / 7291 7400 / 7400 Weight 99.9 kg Intake: IV 8321 / 8321 7390 / 7390 7400 / 7400 Cordarone Inj 450 MG In D5W Inj 250 / 250 250 / 250 241 ML @ 1 MG/MIN 33.33 mls/hr IV.CONT TITRATE PRN Rx#: [id number] NovoLIN R (IV Infusion) 100 100 / 100 UNIT In NS Inj 99 ML @ Per Protocol IV.CONT TITRATE PRN Rx #:[id number] Levophed Inj 16 MG In NS Inj 500 / 500 234 ML @ 2 MCG/MIN 1.87 mls/hr IV.CONT TITRATE PRN Rx#: [id number] Neosynephrine Inj 160 MG In NS 500 / 500 Inj 484 ML @ 40 MCG/MIN 7.5 mls /hr IV.CONT TITRATE PRN Rx#: [id number] Sodium Bicarbonate 8.4% Inj 100 2200 / 2200 MEQ In 1/2 Normal Saline Inj 1 ,000 ML @ 500 mls/hr IV.CONT . Q2H12M [facility] Rx#:[id number] Pitressin Inj 40 UNIT In NS Inj 100 / 100 100 / 100 100 / 100 98 ML @ 0.04 UNITS/MIN 6 mls/ hr IV.CONT CONT [facility] Rx#: [id number] Flexbumin 25% Inj 100 ML @ 60 100 / 100 mls/hr IV.SIG ONCE ONE Rx#: [id number] Alburx 5% Inj 500 ML @ 250 mls/ 1000 / 1000 500 / 500 hr IV.SIG Q6H [facility] Rx#:[id number] Calcium Chloride Inj 2 GM In 120 / 120 D5W Inj 100 ML @ 120 mls/hr IV. SIG ONCE ONE Rx#:[id number] Calcium Chloride Inj 2 GM In NS 120 / 120 Inj 100 ML @ 120 mls/hr IV.SIG ONCE ONE Rx#:[id number] Calcium Gluconate Inj 2 GM In 120 / 120 NS Inj 100 ML @ 120 mls/hr IV. SIG ONCE ONE Rx#:[id number] Cubicin Inj 800 MG In NS Inj 100 / 100 100 ML @ 200 mls/hr IV.SIG Q48H [facility] Rx#:[id number] Merrem Inj 1,000 MG In NS Inj 100 / 100 200 / 200 100 ML @ 200 mls/hr IV.SIG Q8H [facility] Rx#:[id number] Mycamine Inj 100 MG In NS Inj 100 / 100 100 ML @ 100 mls/hr IV.SIG Q24H [facility] Rx#:[id number] Vitamin K Inj 10 MG In NS Inj 51 / 51 50 ML @ 102 mls/hr IV.SIG ONCE ONE Rx#:[id number] Zosyn 2.25 GM Premix 50 ML @ 50 / 50 100 mls/hr IV.SIG Q6H [facility] Rx#: [id number] NS Inj 1,000 ML @ 500 mls/hr IV 2000 / 2000 6000 / 6000 4000 / 4000 .SIG .Q2H [facility] Rx#:[id number] Sodium Bicarbonate 8.4% Inj 150 4150 / 4150 MEQ In D5W Inj 850 ML @ 500 mls/hr IV.SIG .Q2H [facility] Rx#: [id number] Flolan (30,000 ng/mL) Neb 87.5 100 / 100 100 / 100 100 / 100 ML NS Inj 12.5 ML In Bag/ Syringe 1 EACH @ 8 mls/hr NEB Q8H [facility] Rx#:[id number] Oral 0 / 0 Tube Feeding 0 / 0 Intake (Blood Product) Amt 721 / 721 601 / 601 Plasma Thawed 5 Day Cp2d Unit 321 / 321 [id number] Plasma Thawed 5 Day Cp2d Unit 0 / 0 310 / 310 [id number] Plasma Thawed 5 Day Cp2d Unit 291 / 291 [id number] Rbc Cp2d Leukoreduced Unit 400 / 400 [id number] Output: Urine 35 / 35 Urine Amount (Catheter) 200 / 200 Indwelling Urethral Catheter 200 / 200 Gastric Drainage 500 / 500 Right Nare Nasogastric Tube 500 / 500 Other: Bladder Irrigation Fluid - Amount Instilled Indwelling Urethral Catheter 25 # Bowel Movements 0 - Urinary Catheter Management Indwelling Urethral Catheter Cath placed during this visit: no <Bhavana Medina Q - Last Filed: 07/29/18 17:55> Assessment and Plan - Plan Assessment: 1. Acute Kidney injury: Acute kidney injury with increase in the creatinine. Admission creatinine was 1.00 Acute kidney injury possibly ATN from Sepsis and hypotension. S/p code CT of abdomen/pelvis showing kidneys with normal in size and shape. Left-sided cortical renal cysts. The largest involves the lower pole measuring 6.8 cm. There is a 3 mm nonobstructing left renal stone. No evidence of mass or hydronephrosis. Plan: Indwelling Harley catheter to be placed. Maintain MAP of 65 mmHg, on Levophed gtt Maintain strict I+O Avoid nephrotoxins including IV contrast Started on CRRT on 07/27. HCO3 at 7, IVP sodium bicarbonate push given and on drip. CRRT rate adjusted . <Karen Velez - Last Filed: 07/29/18 16:10> - Plan Patient seen and examined, agree with above. Patient has been CRRT. Has severe metabolic acidosis with high Lactic acid level. Increase Bicarb. replacement and increase Dialysate. <Khadra Medina - Last Filed: 07/29/18 17:55>
--- NOTE | 2018-07-29 16:49 | P.PCN ---
Date of procedure: 07/29/18 Pre-op diagnosis: Severe sepsis/pancreatitis/ascending cholangitis Post-op diagnosis: same Procedure: DATE: 07/29/2018 PROCEDURE: Left femoral arterial catheter placement INDICATION: Severe sepsis DETAILS OF PROCEDURE The patient was placed in supine position. The skin was cleansed with Chloraprep. Additional barrier precautions included large sterile drape, sterile gloves, sterile gown, face mask, and hat. 1% lidocaine was used for local anesthesia. Under direct ultrasound guidance and on the initial attempt, the artery was accessed with an introducer needle. The guide wire was advanced. Using Seldinger technique 20 gauge arterial catheter was placed. The guide wire was removed. The catheter was connected to a transducer line and flushed with saline. The video monitor displayed normal arterial wave forms. The catheter was secured with 2-0 silk. A sterile dressing with antibiotic disc was applied. ESTIMATED BLOOD LOSS: minimal COMPLICATIONS: None
[2018-07-29 17:23] LABS: ABG Base Excess -20.2 mmol/L (-2-2); ABG PCO2 32 mmHg (38-42); ABG PO2 97 mmHG (61-120)
[2018-07-29] MEDS ORDERED: Cisatracurium Inj 100 MG in Sodium Chlor 0.9% Inj 240 ML IV.CONT PRN (17:50)
[2018-07-29 18:31] LABS: Calcium 5.5 mg/dL (8.5-10.1); Magnesium 2.1 mg/dL (1.5-2.5)
[2018-07-29 18:37] LABS: Hematocrit 25.5 % (39.0-51.0); Hemoglobin 7.9 gm/dL (13.0-17.0); Mean Corpuscular Hemoglobin 31.7 pg (27.0-34.0); Mean Corpuscular Volume 102.8 fL (80.0-100.0); Mean Platelet Volume 9.1 fL (7.0-11.0); Platelet Count 80 th/mm3 (150-450); Red Blood Count 2.49 mil/mm3 (4.50-5.90); Red Cell Distribution Width 17.7 % (11.6-17.2); White Blood Count 24.9 th/mm3 (4.0-11.0)
[2018-07-29 18:42] LABS: Mean Corpuscular HGB Conc 30.9 % (32.0-36.0)
[2018-07-29] MEDS ORDERED: Sodium Bicarbonate 8.4% Inj 100 MEQ in Sodium Chloride 0.45 % Inj 1,000 ML IV.CONT SCH ×2 (19:00→21:45)
[2018-07-29 19:02] LABS: Total Protein 4.3 g/dL (6.4-8.2)
[2018-07-29 19:07] LABS: Potassium 6.9 meq/L (3.5-5.1)
[2018-07-29 19:19] LABS: Lymphocytes 4 % (9-44); Metamyelocytes 9 % (0-1); Monocytes 11 % (0-8); Myelocytes 6 % (0-0); Promyelocyte 7 % (0-0); Tallied Nucleated RBC 6 (0-0)
[2018-07-29 19:20] LABS: Ovalocytes 1+; Platelet Morphology Normal (Normal); Toxic Granulation 1+; Toxic Vacuolation Present
[2018-07-29 19:55] VITALS: O2SAT 84
[2018-07-29] MEDS: Latanoprost 0.005% Opth Drops 2.5 ML Bottle EACH EYE SCH (19:57)
[2018-07-29] MEDS ORDERED: Multivitamin Inj 10 ML, Folic Acid Inj 1 MG in TPN Fluid 2 Liter 2,000 ML IV.SIG SCH (20:00)
[2018-07-29 20:53] VITALS: TEMP 97.5
[2018-07-29] MEDS ORDERED: Calcium Gluconate Inj 2 GM in Sodium Chlor 0.9% Inj 100 ML IV.SIG ONE (21:00)
[2018-07-29 22:57] VITALS: BP 81/44; PULSE 88
--- NOTE | 2018-07-30 13:55 | P.DN ---
Discharge Sum: Prov - Provider Primary care physician: PROVIDER NON STAFF Admitting clinician: Tomas Martinez Attending physician on admission: Tomas Martinez Consults: 07/25/18 09:17 Consult to Gastroenterology Stat Consulting Provider: Roger Rivers V For STAT consult, spoke directly to:: celine 3 times no answer Reason for Consultation: common bile duct obstruction. Notified:: Office Spoke with:: Tomas Date Notified:: 07/25/18 Time Notified:: 10:04 Comments:: Tomas from office confirmed that they had spoken - ML Ordering Provider: BECCA 07/25/18 09:40 Consult to Gastroenterology Routine Consulting Provider: Roger Rivers V Reason for Consultation: common duct obstruction Notified:: Office Spoke with:: Tomas Date Notified:: 07/25/18 Time Notified:: 10:06 Ordering Provider: LILY 07/26/18 13:02 Consult to Hasher Operator Stat Consulting Provider: Varghese Cullen For STAT consult, spoke directly to:: Dr. Cullen Reason for Consultation: Acute respiratory failure. Severe pancreatitis. Need better access for ressuscitation. Notified:: Service Spoke with:: Jason Date Notified:: 07/26/18 Time Notified:: 13:06 Ordering Provider: LUCIANO 07/26/18 14:07 Consult to Nephrology Routine Consulting Provider: Khadra Medina Does the patient have a Circulating Process Inspector who follows them?: No Preferred Nephrology Stave Hewer:: Financial Report Service Sales Agent Physician Reason for Consultation: Acute kidney injury. Admission with acute pancreatitis, 3.5 cm distal common bile duct stone. Creatinine increased from normal to 2.1. Minimal urine output. Notified:: Service Spoke with:: GERMAIN Date Notified:: 07/26/18 Time Notified:: 14:10 Ordering Provider: ADOLFO 07/26/18 16:12 Consult to Infectious Diseases Routine Consulting Provider: Liss Brown Reason for Consultation: Severe pancreatitis, distal common bile duct stone. Assistance with antibiotic management. Notified:: Service Spoke with:: Germain Date Notified:: 07/26/18 Time Notified:: 16:37 Ordering Provider: ADOLFO 07/27/18 17:57 Consult to Cardiology Routine Consulting Provider: Jack Hurley Does the patient have a Insurance Claims Assistant who follows them?: No Preferred Threat Analyst:: Gricel Veras Reason for Consultation: Assistance with management of atrial fibrillation with rapid ventricular response. Patient with severe sepsis. Shock liver. Acute kidney injury on hemodialysis. On multiple vasopressors. Family request. Notified:: Service Spoke with:: EVE Date Notified:: 07/27/18 Time Notified:: 18:01 Ordering Provider: ADOLFO Pronouncing clinician: Tk Loera (Hasher Operator blocker and cutter contact lens) Discharge Sum: Diag - Diagnosis at Time of (1) DIC (disseminated intravascular coagulation) Diagnosis: Secondary (2) Pancreatitis due to common bile duct stone Diagnosis: Principal (3) Severe sepsis with acute organ dysfunction Diagnosis: Principal (4) Acute kidney injury Diagnosis: Principal (5) Elevated transaminase level Diagnosis: Principal (6) Atrial fibrillation with RVR Diagnosis: Principal (7) Acute respiratory failure Diagnosis: Principal Discharge Sum: Summary - Date and Time Date of admission: 07/25/18 09:15 Date of : 07/30/18 - Summary Details: This is a 77-year-old male. Date of admission 07/25/2018. Date of consultation 07/26/2018. Past medical history includes coronary disease status post CABG x3, essential hypertension, hyperlipidemia, hiatal hernia, osteoarthritis, gastroesophageal reflux disease and glaucoma. Patient originally presented to [facility] on 07/25 festers 18 with chief complaint of abdominal pain. This started around midnight on 07/25. CT of the abdomen/pelvis 2 mm area at the ampulla likely related to stone. Also revealed cholelithiasis. Umbilical, left hiatal hernia/inguinal and a 3 mm left renal stone obstructing. Bilateral L4 pars defect grade 2 anterolisthesis. Lipase was greater than 30,000. Patient had total bili 2.3. Elevated white cell count greater than 38,000. Gastroenterology was consulted. Was started on antibiotics with piperacillin/ tazobactam and planned for ERCP after results known were discovered. MRCP revealed a 3.5 mm distal common bile duct stone. Common bile duct was 4.5 cm. 8 cm liver cyst. Bilateral renal cyst. Acute pancreatitis. Patient presented to same-day surgery from [facility] today for ERCP. noted, patient had an elevated total bilirubin today of 12,000, creatinine elevated from normal 1.0-2.1. Please see Dr. Almazan's note. While I was being called, this patient arrived in room 508. Patient was essentially unresponsive on 100% nonrebreather. Cold and clammy. Very weak palpable femoral pulse. Unable to register pulse oximetry. Patient was emergently intubate without anesthesia please see procedure note. A peripheral IV was established and patient received normal saline wide open and was started on norepinephrine drip. IV access was lost. A central line was emergently placed under sterile technique in the left IJ. Please note while the line was being placed, unable to palpate pulse and CPR was initiated. This lasted approximately 7 minutes please see note. Patient had a recent return of spontaneous circulation at 1330. Laboratory so far reveal a lactate of 15. PH is 7.0. Patient received 3 ampoules of sodium bicarb and i being hyperventilated on mechanical ventilator. He is currently on norepinephrine 20 mcg/min. 07/27: Status post percutaneous cholecystostomy tube last night. Remains on 3 vasopressors and hemodynamically very tenuous. Shock liver, acute renal failure , acute respiratory failure requiring her percent FiO2 and had a non-STEMI type II secondary to demand ischemia. 07/28: Patient remains in profound septic shock currently on epinephrine micrograms per minute, Levophed 30 mcg/min, Sherif-Synephrine 300 mcg/min, and vasopressin 0.04 international units. Map remains 65-70. Shock liver persists. at the bedside tearful very upset about the course of events. I have updated her. I also explained to her that a 77-year-old man with acute pancreatitis and cholangitis, associated renal failure is very critical to begin with, and has guarded prognosis. Remains on amiodarone infusion for rate control. Currently on FiO2 at 80% getting CVVH 07/29: Remains on 3 vasopressors. According to , slightly opened eyes and moves upper extremities slightly. Off all sedation. No bowel movement today. Remains critically ill. Heart rate currently in the 70s. Noted the diastole for CVVH was adjusted discussion with nephrology. Despite therapy, patient remained severely acidotic. Coagulopathic. Lactate eventually increased to 25.4. On examination prior to this, signs of hemorrhagic pancreatitis with flank mottling bilaterally. Due to severe hypoxemic state and and clinical symptoms and was noted to do any additional imaging tests or procedures. Patient likely from severe sepsis/acidosis from underlying severe pancreatitis, likely ascending cholangitis Procedures: Intubation with glide scope Left IJ CVL Right femoral hemodialysis catheter Left femoral arterial line Percutaneous cholecystostomy tube Brief History: Mr. Chowdhury is a 77 yo M with PMH CAD s/p CABG, hypercholesterolemia who presented to [facility] with abdominal pain which began last night. Patient reports that pain started at ~12AM and has been persistent. Pain was associated with vomiting last night and is severe in nature; it radiates throughout abdomen. Patient associates symptom onset with multiple junk foods yesterday. Patient denies similar pain previously but reports prior gallstones. Patient has prior surgical history of appendectomy and CABG. He takes a cholesterol medication for hyperlipidemia but no recent med changes reported. No chest pain, shortness of breath, abnormal urination, or bowel abnormalities. No fever/chills, vision changes, numbness/tingling/weakness. Interval: Patient evaluated in ED; BP 200/90 but otherwise stable VS. Labs- WBC >30K, TBILI 2.3,m AST and ALT >300, lipase >30K. CT A/P with acute pancreatitis, 2mm calcification at Ampulla that could relate to common stone, cholelithiasis. Call placed to GI, plan for transfer to main hospital Result Diagrams: 07/29/18 17:55 07/29/18 17:15 Significant Findings: Cholangiopancreatography MRI 07/25/18 00:00 CONCLUSION: 1. Tiny distal common bile duct stone at the ampulla, estimated at 3.5 mm in size. This appears to be minimally obstructing, if any, with generally a normal size common bile duct for a patient this age and no pancreatic duct dilatation. Several similar sized stones are seen in the gallbladder near the neck. No other definite stones are clearly demonstrated. 2. Acute pancreatitis. Abdomen/Pelvis CT 07/25/18 08:06 CONCLUSION: 1. Acute pancreatitis. No pseudocyst, pancreatic infarction, or pancreatic hemorrhage observed. No ductal dilatation. There is a 2 mm calcification at the level of the ampulla that could relate to a CBD stone at the ampullary region. There is no ductal dilatation to suggest an obstructing component. 2. Cholelithiasis. 3. 3 mm nonobstructing left renal stone. 4. 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 5. Umbilical and left inguinal hernias. Percutaneous Cholangiogram 07/26/18 00:00 CONCLUSION: 1. Uncomplicated percutaneous cholecystostomy as above. Once the patient has stabilized can consider performing a cholangiogram through the cholecystostomy tube to assess the distal common bile duct. Gallbladder Ultrasound 07/28/18 16:46 CONCLUSION: 1. The cholecystostomy tube is coiled within the lumen of the gallbladder. The gallbladder does contain stones and sludge with a small amount of fluid. No dilatation of the gallbladder. The reduced drainage from the gallbladder tube likely relates to internal drainage down the common bile duct. Injection of contrast in the cholecystostomy tube can be performed to evaluate the patency of the common bile duct. This can be performed when the patient is stable and able to leave the unit. Imaging: Cholangiopancreatography MRI 07/25/18 00:00 CONCLUSION: 1. Tiny distal common bile duct stone at the ampulla, estimated at 3.5 mm in size. This appears to be minimally obstructing, if any, with generally a normal size common bile duct for a patient this age and no pancreatic duct dilatation. Several similar sized stones are seen in the gallbladder near the neck. No other definite stones are clearly demonstrated. 2. Acute pancreatitis. Chest X-Ray 07/25/18 07:37 CONCLUSION: Chronic interstitial changes. No acute cardiopulmonary findings identified. Abdomen/Pelvis CT 07/25/18 08:06 CONCLUSION: 1. Acute pancreatitis. No pseudocyst, pancreatic infarction, or pancreatic hemorrhage observed. No ductal dilatation. There is a 2 mm calcification at the level of the ampulla that could relate to a CBD stone at the ampullary region. There is no ductal dilatation to suggest an obstructing component. 2. Cholelithiasis. 3. 3 mm nonobstructing left renal stone. 4. 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 5. Umbilical and left inguinal hernias. Abdomen X-Ray 07/26/18 00:00 CONCLUSION: Nasogastric tube in place with the tip in the stomach. Chest X-Ray 07/26/18 00:00 CONCLUSION: Mild basilar hypoaeration with airspace disease characteristic of atelectasis. No evidence of significant lung consolidation or acute congestion. Satisfactory position of endotracheal tube and central venous catheter. Percutaneous Cholangiogram 07/26/18 00:00 CONCLUSION: 1. Uncomplicated percutaneous cholecystostomy as above. Once the patient has stabilized can consider performing a cholangiogram through the cholecystostomy tube to assess the distal common bile duct. Abdomen X-Ray 07/27/18 00:00 CONCLUSION: Stable exam. Chest X-Ray 07/27/18 06:00 CONCLUSION: 1. Stable tubes and lines, as above. 2. Developing small bilateral pleural effusions and associated airspace disease in the lower lung zones. Abdomen Ultrasound 07/27/18 12:05 CONCLUSION: 1. Bowel gas limits the study. 2. Hepatic steatosis. No biliary dilatation. 3. Sludge and small stones within a decompressed gallbladder which contains a cholecystostomy tube. 4. Small volume ascites. 5. Pancreas is totally obscured and not well evaluated. Chest X-Ray 07/28/18 06:00 CONCLUSION: 1. Stable tubes and lines. 2. Worsening bilateral [id number] pleural effusions with associated lower lobe airspace disease. Gallbladder Ultrasound 07/28/18 16:46 CONCLUSION: 1. The cholecystostomy tube is coiled within the lumen of the gallbladder. The gallbladder does contain stones and sludge with a small amount of fluid. No dilatation of the gallbladder. The reduced drainage from the gallbladder tube likely relates to internal drainage down the common bile duct. Injection of contrast in the cholecystostomy tube can be performed to evaluate the patency of the common bile duct. This can be performed when the patient is stable and able to leave the unit. Abdomen X-Ray 07/29/18 00:00 CONCLUSION: No significant change compared to 07/27/2018. Chest X-Ray 07/29/18 06:00 CONCLUSION: No significant change. Hospital Course: Neuro/Psych: Glaucoma Currently written for midazolam drip for sedation while intubated. As needed fentanyl drip ordered for analgosedation. Currently not requiring Post code blue, patient nodded his head to purposefully to command. Continue bimatoprost 0.01% -latanoprost 0.005% 1 drop each eye every p.m. and dorzolamide/timolol 2/0.5 1 drop each eye twice daily CV: Severe septic shock on multiple vasopressors Lactic acidosis NSTEMI likely type II to demand ischemia troponin 0.89 Atrial fibrillation with RVR -now rate controlled Coronary artery disease status post CABG 3 -the mid LAD, reverse SVG to diagonal 2 and OM1 History of essential hypertension Hyperlipidemia Currently on norepinephrine drip at 24mcg/kg/min, phenylephrine drip at 240 mcg/ kg/min and vasopressin drip at 0.04 U/min to maintain mean arterial pressure greater than equal to 65 Stress dose hydrocortisone 100 mg every 8 hours Echo: The left ventricular systolic function is normal with an estimated ejection fraction in the range of 55-60%. Cycle troponins until peak. Serial lactates until cleared. Currently 20 s/p Aggressive crystalloid resuscitation. Currently on Flowtrack. Will discontinue is currently in atrial fibrillation Holding metoprolol succinate 50 mg daily and lisinopril 5 mg daily in light of acute shock. Holding ezetimibe 10 mg daily and evolocumab 140 mg sq every 2 weeks for list lipidemia Aspirin 81 mg daily when able Discontinue amiodarone drip with elevated transaminases Cardiology consult for cystoscopy with management Resp: Acute respiratory failure PRVC 24/600/0.74/5/60, Ventilator bundle. Albuterol/ipratropium aerosols every 6 hours with albuterol aerosols every 2 hours as needed for dyspnea Epoprostenol aerosolized Chest x-ray order 07/30. ABG daily. Will recheck at noon and 6 PM and adjust accordingly for acidosis GI: Acute pancreatitis Cholelithiasis with acute cholangitis 3.5 mm distal common bile duct stone with common bile duct dilatation 4.5 cm on MRCP Transaminitis secondary to shock liver Umbilical, left inguinal hernia Hiatal hernia Gastroesophageal reflux disease on omeprazole 20 mg daily at home Status post cholecystostomy tube Hyperammonemia 8 mm liver cyst Hypoalbuminemia MRCP revealed a 3.5 mm distal common bile duct stone. Acute pancreatitis. 8 mm liver cyst. Bilateral renal cysts. Common bile duct was 4.5 cm Gastroenterology unable to perform EGD secondary to instability. Cholecystostomy tube placed 07/26 by IR Lactulose 30 cc 4 times daily with rifaximin 550 mg twice daily for elevated ammonia. Adding NGT to LIWS Recheck KUB a.m. 07/30 Pantoprazole for GI prophylaxis Docusate sodium/senna 1 tablet twice daily for bowel regimen. Add polythene glycol 17 g twice daily and lactulose 30 cc 4 times daily for bowel regimen. No BM today. CT abdomen/pelvis when stable See ID section for broad-spectrum antibiotics and antifungals Bladder pressures currently 18 : Nonobstructing nephrolithiasis Harley catheter will be placed for accurate I's and O's in a critically ill patient Endo: Sliding scale insulin with Accu-Cheks to maintain euglycemia Renal: Acute kidney failure Bilateral renal cysts Rhabdomyolysis Nephrology's been consulted. Initiated on CVVH for severe metabolic acidosis and renal failure 200 cc urine output past 24 hours No hydronephrosis on previous CT abdomen/pelvis. Heme: Acute coagulopathic state likely secondary to DIC Leukocytosis Normocytic anemia Thrombocytopenia Monitor CBC daily. Follow trends. Received 10 mg of phytonadione and 2 FFP 07/26, /. Received 7 FFP 1 PRBCs to date type and screen ID: Septic shock Acute Cholangitis Currently on day #2 daptomycin, day #3 meropenem and and micafungin day #4. Previously on piperacillin/tazobactam Blood cultures 2 ordered /. Sputum and UA ordered results no growth Gallbladder fluid growing staph aureus Infectious disease Dr. Brown FEN/ENDO: Hypocalcemia Hyperphosphatemia Acute hyperglycemia/resolving now hypoglycemic Holding insulin detemir/off insulin drip Replace electrolytes as clinically indicated Currently on D10 water at 42 cc. Accu-Cheks q. naris. Initiate TPN later this evening. See 2 g calcium chloride this a.m. per documentation. Access -Left IJ CVL day 4 placed / Right radial arterial line day #4 placed by respiratory therapy Right femoral hemodialysis catheter day #3 placed /15 Prophylaxis -GI - pantoprazole -DVT-SCD/holding pharmacologic prophylaxis in light of coagulopathic state Acute care time 50 minutes not including procedures Discussed with and physician's surgical first assistant for gastroenterology Discussed with Purvi, sons Gianluca and Harris. Throughout the day, patient became more hypotensive requiring increasing vasopressor support. Adjusted CVVH throughout the day. Despite adjustments to therapy, patient remained significantly acidotic. Patient had elevated bladder pressures up to 27. Side measures, patient eventually went into a now perfusable rhythm at time of likely secondary to severe acidosis
[2018-07-31] MEDS ORDERED: Calcium Chloride Inj 1 GM/10 ML Syringe ONE (14:43)
[2018-08-04] MEDS ORDERED: hydrALAZINE HCl Inj 20 MG/ML Vial ONE (18:32)
== END 2018-07-29 21:45 | disposition expired ==
LOC: PHED 06:45 → PHEDA 09:15 → N05 12:10 → HIMC 07-26 13:00
PROVIDERS: ADMIT Internal Medicine Critical Care Medicine; ATTEND Internal Medicine Critical Care Medicine